=== PATIENT | female | born 1970 | race African-American/Black ===

== ENCOUNTER 2021-04-22 10:37 | Emergency (ER) | payer SELFPAY ==
[~2021-04-22] VITALS: Ht 162.6 cm; Wt 65.8 kg
[2021-04-22 10:44] VITALS: BP 157/98
[2021-04-22 11:27] LABS: Basophils # (auto) 0 10 ^3/uL (0-0.2); Basophils % (auto) 0.2 % (0.0-2.0); Eosinophils # (auto) 0 10 ^3/uL (0-0.8); Eosinophils % (auto) 0.1 % (0.0-7.0); Hematocrit 47.6 % (36.0-46.0); Hemoglobin 15.9 g/dL (12.2-16.2); Lymphocytes # (auto) 1.3 10 ^3/uL (0.4-5.4); Lymphocytes % (auto) 10.5 % (10.0-50.0); Mean Corpuscular Hemoglobin 29.8 pg (28.0-32.0); Mean Corpuscular Hgb Conc. 33.4 g/dL (32.0-36.0); Mean Corpuscular Volume 89.3 fL (80.0-100.0); Monocytes % (auto) 8.3 % (0.0-12.0); Neutrophils % (auto) 80.9 % (37.0-80.0); Nucleated Red Blood Cells % 0.2 %; Red Blood Cells 5.33 10^6/uL (4.0-5.20); White Blood Cell 12.4 10^3/uL (4.4-10.8)
[2021-04-22 11:47] LABS: Albumin 4.1 g/dL (3.4-5.0); Calcium 8.9 mg/dL (8.5-10.1); Potassium 3.4 mmol/L (3.5-5.1)
[2021-04-22 11:54] LABS: BUN/Creatinine Ratio 8.4; Bilirubin, Total 0.6 mg/dL (0.2-1.0); Total Protein 8.5 g/dL (6.4-8.2)
[2021-04-22] MEDS ORDERED: ACETAMINOPHEN 325 MG TAB PO ONE (12:30)
[2021-04-22] MEDS ORDERED: AMPICILLIN & SULBACTAM SODIUM 3 GM in SODIUM CHL 0.9% 100 ML IV ONE (12:30)
[2021-04-22] MEDS ORDERED: LACTATED RINGER'S 1,000 ML IV ONE (12:30)
[2021-04-22] MEDS ORDERED: IOHEXOL 300 MG/ML 100ML BOTTLE IJ ONE (12:32)
[2021-04-22] MEDS ORDERED: POTASSIUM EFFERVESENT TAB 25 MEQ PO ONE (14:30)
[2021-04-22] MEDS ORDERED: AMOX500T86 PO (19:18)
== END 2021-04-22 20:44 | disposition left against medical advice (07) ==
LOC: ER 10:37
DX: L02.01 Cutaneous abscess of face (principal); F17.210 Nicotine dependence, cigarettes, uncomplicated; F12.10 Cannabis abuse, uncomplicated; I10 Essential (primary) hypertension; Z53.29 Procedure and treatment not carried out because of patient's decision for other reasons
CPT/HCPCS: 36415; 70487; 80053; 83605; 84484; 85025; 87040; 93005; 96365; 99285; Q9967

== ENCOUNTER 2023-03-15 12:49 | Inpatient (IN) | payer MEDICAID ==
[~2023-03-15] VITALS: Ht 162.6 cm; Wt 68.2 kg
[~2023-03-15 12:49] MED LIST: AMOX500T86 PO
[2023-03-15] MEDS: cloNIDine HCL 0.1 MG TAB PO ONE ×2 (13:18→13:30)
[2023-03-15 13:59] LABS: Basophils # (auto) 0.1 10 ^3/uL (0-0.2); Basophils % (auto) 0.7 % (0.0-2.0); Eosinophils # (auto) 0.1 10 ^3/uL (0-0.8); Eosinophils % (auto) 1.4 % (0.0-7.0); Hematocrit 45.9 % (36.0-46.0); Hemoglobin 15.3 g/dL (12.2-16.2); Lymphocytes # (auto) 2.6 10 ^3/uL (0.4-5.4); Lymphocytes % (auto) 31.8 % (10.0-50.0); Mean Corpuscular Hgb Conc. 33.4 g/dL (32.0-36.0); Mean Corpuscular Volume 89.9 fL (80.0-100.0); Monocytes # (auto) 0.5 10 ^3/uL (0-1.3); Monocytes % (auto) 6.3 % (0.0-12.0); Neutrophils # (auto) 4.8 10 ^3/uL (1.6-8.6); Neutrophils % (auto) 59.8 % (37.0-80.0); Nucleated Red Blood Cells % 0.1 %; Red Blood Cells 5.11 10^6/uL (4.0-5.20); Red Cell Distribution Width 12.9 % (11.8-14.3)
[2023-03-15 14:07] LABS: Alanine Aminotransferase 13 U/L (7-40); Albumin 4.9 g/dL (3.2-4.8); Alkaline Phosphatase 78 U/L (46-116); Anion Gap 7 (5-15); Aspartate Aminotransferase 23 U/L (13-40); BUN/Creatinine Ratio 6.5 (10.0-20.0); Bilirubin, Total 0.5 mg/dL (0.2-1.0); Blood Urea Nitrogen 5 mg/dL (9-23); Calcium 10.3 mg/dL (8.5-10.1); Carbon Dioxide 28 mmol/L (20-30); Chloride 107 mmol/L (98-107); Glucose 82 mg/dL (74-106); Potassium 3.6 mmol/L (3.5-5.1); Sodium 142 mmol/L (136-145); Total Protein 7.7 g/dL (5.7-8.2)
[2023-03-15] MEDS ORDERED: SODIUM CHLORIDE 0.9% 1,000 ML IV ONE (14:15)
[2023-03-15 14:17] LABS: INR 1.1 (0.9-1.15); Partial Thromboplastin Time 29.1 SEC (24.5-34.5); Prothrombin Time 11.5 sec (9.3-11.8)
[2023-03-15] MEDS ORDERED: NITROGLYCERIN 0.4 MG SL TAB SL PRN (19:15)
[2023-03-15] MEDS ORDERED: HYDROcodone-ACET 5/325MG TAB PO PRN (19:15)
[2023-03-15] MEDS ORDERED: DOCUSATE SOD 100 MG CAP PO PRN (19:15)
[2023-03-15] MEDS ORDERED: ONDANSETRON HCL 4 MG/2 ML VIAL IV PRN (19:15)
[2023-03-15] MEDS ORDERED: MORPHINE SULFATE INJ 2 MG/ml SYRG IV PRN (19:15)
[2023-03-15 19:40] VITALS: PULSE 60; RESP 16; O2SAT 99
[2023-03-15] MEDS: SODIUM CHLOR 0.9% PF (SALINE LOCK) 10ML VIAL/SYR IV SCH (23:06)
[2023-03-15 23:51] VITALS: PULSE 76; RESP 16; O2SAT 96
[2023-03-16] MEDS: ACETAMINOPHEN 325 MG TAB PO PRN ×2 (00:43→10:16)
[2023-03-16 01:00] VITALS: BP 141/74; PULSE 78
[2023-03-16 05:00] VITALS: BP 132/86; PULSE 82; RESP 16; TEMP 98.6; O2SAT 93
[2023-03-16 06:05] LABS: Basophils # (auto) 0 10 ^3/uL (0-0.2); Basophils % (auto) 0.5 % (0.0-2.0); Eosinophils # (auto) 0.1 10 ^3/uL (0-0.8); Eosinophils % (auto) 1.6 % (0.0-7.0); Hematocrit 41.5 % (36.0-46.0); Hemoglobin 13.7 g/dL (12.2-16.2); Lymphocytes # (auto) 2.9 10 ^3/uL (0.4-5.4); Lymphocytes % (auto) 36.2 % (10.0-50.0); Mean Corpuscular Hemoglobin 29.6 pg (28.0-32.0); Mean Corpuscular Hgb Conc. 32.9 g/dL (32.0-36.0); Mean Corpuscular Volume 89.9 fL (80.0-100.0); Monocytes # (auto) 0.6 10 ^3/uL (0-1.3); Neutrophils # (auto) 4.4 10 ^3/uL (1.6-8.6); Neutrophils % (auto) 53.7 % (37.0-80.0); Nucleated Red Blood Cells % 0.1 %; Red Blood Cells 4.62 10^6/uL (4.0-5.20); Red Cell Distribution Width 12.8 % (11.8-14.3); White Blood Cell 8.1 10^3/uL (4.4-10.8)
[2023-03-16 06:48] LABS: Alanine Aminotransferase 11 U/L (7-40); Alkaline Phosphatase 61 U/L (46-116); Anion Gap 7 (5-15); Aspartate Aminotransferase 14 U/L (13-40); BUN/Creatinine Ratio 11.5 (10.0-20.0); Blood Urea Nitrogen 9 mg/dL (9-23); Calcium 9.5 mg/dL (8.5-10.1); Carbon Dioxide 25 mmol/L (20-30); Chloride 108 mmol/L (98-107); Glucose 96 mg/dL (74-106); Potassium 3.4 mmol/L (3.5-5.1); Sodium 140 mmol/L (136-145)
[2023-03-16 06:49] LABS: Bilirubin, Total 0.4 mg/dL (0.2-1.0); Total Protein 6.2 g/dL (5.7-8.2)
[2023-03-16] MEDS: SODIUM CHLOR 0.9% PF (SALINE LOCK) 10ML VIAL/SYR IV SCH ×2 (07:14→10:17)
[2023-03-16 08:00] VITALS: BP 143/83; PULSE 64; PULSE 70; RESP 18; TEMP 97.5; O2SAT 98
[2023-03-16 09:00] VITALS: BP 143/83; PULSE 70; RESP 18; TEMP 97.5; O2SAT 98
[2023-03-16] MEDS ORDERED: hydroCHLOROthiazide 25 MG TAB PO SCH (10:00)
[2023-03-16] MEDS ORDERED: HYDR25TA5 PO (10:52)
[2023-03-16 13:00] VITALS: BP 180/94; PULSE 74; RESP 19; TEMP 98.4; O2SAT 99
[2023-03-16] MEDS: hydrALAZINE HCL 20 MG/ML VL IV PRN ×2 (13:19)
[2023-03-16 15:37] VITALS: BP 160/86; PULSE 76; RESP 18; TEMP 97.6; O2SAT 98
[2023-03-18 09:37] LABS: Hepatitis B Surface Antigen Negative (Negative)
[2023-03-18 09:59] LABS: Hepatitis C Antibody Negative (Negative)
== END 2023-03-16 18:32 | disposition home or self-care (01) | DRG 199 ==
LOC: ER 12:49 → TELE 19:17 → TELE-WESTW 23:29
PROVIDERS: ADMIT Nurse Practitioner Family; ATTEND Nurse Practitioner Family
DX: I16.1 Hypertensive emergency (principal); I67.4 Hypertensive encephalopathy; E87.6 Hypokalemia; H53.8 Other visual disturbances; F12.90 Cannabis use, unspecified, uncomplicated; F17.210 Nicotine dependence, cigarettes, uncomplicated; I10 Essential (primary) hypertension; Z80.0 Family history of malignant neoplasm of digestive organs; Z80.3 Family history of malignant neoplasm of breast; Z82.3 Family history of stroke; Z82.49 Family history of ischemic heart disease and other diseases of the circulatory system; Z83.3 Family history of diabetes mellitus; Z86.32 Personal history of gestational diabetes; Z91.199 Patient's noncompliance with other medical treatment and regimen due to unspecified reason; Z71.6 Tobacco abuse counseling
CPT/HCPCS: 36415; 70450; 71045; 80053; 83735; 84443; 84484; 85025; 85610; 85730; 86803; 87340; 93005; 93306; G0378

== ENCOUNTER 2024-07-17 16:00 | Inpatient (IN) | payer MEDICAID ==
[~2024-07-17] VITALS: Ht 162.6 cm; Wt 67.8 kg
[~2024-07-17 16:00] MED LIST changes: +HYDR25TA5 PO
--- NOTE | 2024-07-17 16:10 | ED.PDOC ---
History of Present Illness HPI Comments 54-year-old female brought by ambulance because of chest pain. She was talking to someone while having chest pain. She had the chest pain around 2:45 this afternoon with radiation of pain to the back. She does have a history of hypertension. She smokes cigarettes marijuana. States that she never had chest pain like this in the past. She was given aspirin nitro in the field. Denies any other symptoms. Time Seen by MD: 16:04 Primary Care Provider: UNKNOWN Reviewed Notes: Nurses Notes, Medications, Allergies Allergies: Coded Allergies: No Known Drug Allergy (Verified Allergy, Unknown, 04/22/21) Home Meds Active Scripts Hctz (Hydrochlorothiazide) 25 Mg Tab, 25 MG PO DAILY, #90 TAB Prov:CLARITA WEEMS MD 03/16/23 Amoxicillin & Pot Clavulanate (Augmentin) 500 Mg Tab, 500 MG PO TID for 7 Days, #21 TAB Prov:JANE TORRES MD 04/22/21 Information Source: Patient, Emergency Med Personnel Mode of Arrival: EMS Severity: Moderate Timing: Hours Duration: Since onset Past Medical History PAST MEDICAL HISTORY: HTN Surgical History: Denies all surgeries COUPLER History: No Pertinent COUPLER History Family History Family History: Reviewed,noncontributory to illness Social History Smoker: Cigarettes Alcohol: Denies ETOH Use Drugs: Marijuana Lives In: Home Constitutional: denies: chills, diaphoresis, fatigue, fever, malaise, sweats, weakness, others EENTM: denies: blurred vision, double vision, ear bleeding, ear discharge, ear drainage, ear pain, ear ringing, eye pain, eye redness, hearing loss, mouth pain, mouth swelling, nasal discharge, nose bleeding, nose congestion, nose pain, photophobia, tearing, throat pain, throat swelling, voice changes, others Respiratory: denies: cough, hemoptysis, orthopnea, SOB at rest, shortness of breath, SOB with excertion, stridor, wheezing, others Cardiovascular: reports: chest pain; denies: dizzy spells, diaphoresis, Dyspnea on exertion, edema, irregular heart beat, left arm pain, lightheadedness, palpitations, PND, syncope, others Gastrointestinal: denies: abdomen distended, abdominal pain, blood streaked bowels, constipated, diarrhea, dysphagia, difficulty swallowing, hematemesis, melena, nausea, poor appetite, poor fluid intake, rectal bleeding, rectal pain, vomiting, others Genitourinary: denies: abnormal vagina bleeding, burning, dyspareunia, dysuria, flank pain, frequency, hematuria, incontinence, pain, , vagina discharge, urgency, others Musculoskeletal: denies: back pain, gout, joint pain, joint swelling, muscle pain, muscle stiffness, neck pain, others Integumetry: denies: bruises, change in color, change in hair/nails, dryness, laceration, lesions, lumps, rash, wounds, others Allergic/Immunocompromised: denies: Difficulty Healing, Frequent Infections, Hives, Itching, others Hematologic/Lymphatic: denies: anemia, blood clots, easy bleeding, easy bruising, swollen glands, others Endocrine: denies: excessive hunger, excessive sweating, excessive thirst, excessive urination, flushing, intolerance to cold, intolerance to heat, unexplained weight gain, unexplained weight loss, others Psychiatric: denies: anxiety, bipolar disorder, depression, hopeless, panic disorder, schizophrenia, sleepless, suicidal, others Physical Exam General Appearance: Moderate Distress HEENT: Normal ENT Inspection, Pharynx Normal, TMs Normal Neck: Full Range of Motion, Non-Tender, Normal, Normal Inspection Respiratory: Chest Non-Tender, Lungs Clear, No Accessory Muscle Use, No Respiratory Distress, Normal Breath Sounds Cardiovascular: No Edema, No JVD, No Murmur, No Gallop, Normal Peripheral Pulses, Regular Rate/Rhythm Breast Exam: Deferred Gastrointestinal: No Organomegaly, Non Tender, No Pulsatile Mass, Normal Bowel Sounds, Soft Genitalia: Deferred Pelvic: Deferred Rectal: Deferred Extremities: No calf tenderness, Normal capillary refill, Normal inspection, Normal range of motion, Non-tender, No pedal edema Musculoskeletal : Apperance: Normal Neurologic: Alert, 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 Was a procedure done?: No EKG EKG : Pulse Rate (adult): 60 [place]: Normal Cardiac Rhythm: NSR Differential Dx Considerations may include: Hypertension Electrolyte imbalance X-Ray, Labs, Meds, VS Vital Signs Date Time Temp Pulse Resp B/P (MAP) Pulse Ox O2 Delivery O2 Flow Rate FiO2 07/17/24 16:32 62 22 97 Room Air 07/17/24 16:32 98.3 62 22 177/84 (115) 97 98.3 07/17/24 16:29 177/84 07/17/24 16:24 97.5 70 18 163/101 (121) 97 97.5 07/17/24 16:10 60 07/17/24 16:00 60 Lab Test 07/17/24 16:30 Range/Units White Blood Count 12.8 H 4.4-10.8 10^3/uL Red Blood Count 4.50 4.0-5.20 10^6/uL Hemoglobin 13.8 12.2-16.2 g/dL Hematocrit 40.7 36.0-46.0 % Mean Corpuscular Volume 90.4 80.0-100.0 fL Mean Corpuscular Hemoglobin 30.6 28.0-32.0 pg Mean Corpuscular Hemoglobin Concent 33.9 32.0-36.0 g/dL Red Cell Distribution Width 13.2 11.8-14.3 % Platelet Count 209 140-450 10^3/uL Mean Platelet Volume 7.8 6.9-10.8 fL Neutrophils (%) (Auto) 75.3 37.0-80.0 % Lymphocytes (%) (Auto) 16.3 10.0-50.0 % Monocytes (%) (Auto) 6.8 0.0-12.0 % Eosinophils (%) (Auto) 1.1 0.0-7.0 % Basophils (%) (Auto) 0.5 0.0-2.0 % Neutrophils # (Auto) 9.7 H 1.6-8.6 10 ^3/uL Lymphocytes # (Auto) 2.1 0.4-5.4 10 ^3/uL Monocytes # (Auto) 0.9 0-1.3 10 ^3/uL Eosinophils # (Auto) 0.1 0-0.8 10 ^3/uL Basophils # (Auto) 0.1 0-0.2 10 ^3/uL Nucleated Red Blood Cells 0.1 % Sodium Level 140 136-145 mmol/L Potassium Level 3.5 3.5-5.1 mmol/L Chloride Level 106 98-107 mmol/L Carbon Dioxide Level 28 20-31 mmol/L Anion Gap 6 5-15 Blood Urea Nitrogen 11 9-23 mg/dL Creatinine 0.82 0.550-1.02 mg/dL Glomerular Filtration Rate Calc 85 >90 mL/min BUN/Creatinine Ratio 13.4 10.0-20.0 Serum Glucose 101 74-106 mg/dL Calcium Level 10.4 8.7-10.4 mg/dL Troponin I High Sensitivity 45 *H </=34 ng/L Patient alert. Complaining of chest pain. Vitals stable. Answering questions. EKG reviewed does not show any acute changes. Continues to smoke cigarettes. Counseled patient on effects of smoking cigarettes for 15 minutes. Reviewed her history. Was given nitroglycerin. Cardiac marker elevated. Was given Lovenox. WBC elevated. Neutrophils elevated. Chest x-ray reviewed does show mild inflammation. Possible pneumonitis. Was given Rocephin. Explained to the patient. Continue cardiac monitoring. Time of 1ST Reevaluation: 16:08 Reevaluation 1ST: Unchanged Patient Education/Counseling: Diagnosis, Treatment, Prognosis Family Education/Counseling: No Family Present Departure 1 Departure Time of Disposition: 16:09 Impression: Primary Impression: Chest pain of unknown etiology Additional Impressions: HTN (hypertension) Qualified Codes: I10 - Essential (primary) hypertension Pneumonitis Disposition: ADMITTED INPATIENT Admit to: Med Surg Condition: Guarded Critical Care Note Critical Care Time?: No Stability Stability form required: No Heart Score Heart Score: Heart Score Response (Comments) Value History Slightly Suspicious 0 EKG Normal 0 Age <45 0 Risk Factors 1 or 2 risk factors 1 Troponin Normal limit 0 Total 1 ROBE MIRANDA MD Jul 17, 2024 16:10
[2024-07-17] MEDS: NITROGLYCERIN 0.4 MG SL TAB SL ONE (16:29)
[2024-07-17 16:42] LABS: Basophils # (auto) 0.1 10 ^3/uL (0-0.2); Basophils % (auto) 0.5 % (0.0-2.0); Eosinophils # (auto) 0.1 10 ^3/uL (0-0.8); Eosinophils % (auto) 1.1 % (0.0-7.0); Hematocrit 40.7 % (36.0-46.0); Hemoglobin 13.8 g/dL (12.2-16.2); Lymphocytes # (auto) 2.1 10 ^3/uL (0.4-5.4); Lymphocytes % (auto) 16.3 % (10.0-50.0); Mean Corpuscular Hemoglobin 30.6 pg (28.0-32.0); Mean Corpuscular Hgb Conc. 33.9 g/dL (32.0-36.0); Mean Corpuscular Volume 90.4 fL (80.0-100.0); Monocytes # (auto) 0.9 10 ^3/uL (0-1.3); Monocytes % (auto) 6.8 % (0.0-12.0); Neutrophils # (auto) 9.7 10 ^3/uL (1.6-8.6); Neutrophils % (auto) 75.3 % (37.0-80.0); Nucleated Red Blood Cells % 0.1 %; Platelet Count (auto) 209 10^3/uL (140-450); Red Cell Distribution Width 13.2 % (11.8-14.3); White Blood Cell 12.8 10^3/uL (4.4-10.8)
--- NOTE | 2024-07-17 16:51 | DVH ---
INDICATION: sob TECHNIQUE: Frontal view of the chest. COMPARISON: XY CHEST PORTABLE on DOS: 03/15/23 FINDINGS: . The heart and mediastinal contours are grossly unremarkable. There is no evidence of pleural disea se. The lungs are clear. The bony structures of the chest are intact without fracture. IMPRESSION: 1. No evidence of acute disease.
[2024-07-17 16:54] LABS: Chloride 106 mmol/L (98-107); Potassium 3.5 mmol/L (3.5-5.1); Sodium 140 mmol/L (136-145)
[2024-07-17 16:55] LABS: Anion Gap 6 (5-15); Calcium 10.4 mg/dL (8.7-10.4); Carbon Dioxide 28 mmol/L (20-31)
[2024-07-17 17:00] LABS: BUN/Creatinine Ratio 13.4 (10.0-20.0); Blood Urea Nitrogen 11 mg/dL (9-23); Glucose 101 mg/dL (74-106)
[2024-07-17] MEDS: ENOXAPARIN SOD 80 MG/0.8ML SYRINGE SC ONE (17:55)
[2024-07-17] MEDS: cefTRIAXone 1GM/50ML D5W 50 ML IV ONE (17:55)
[2024-07-17 17:56] LABS: Urine Bacteria None Seen /hpf (None Seen)
[2024-07-17 18:06] LABS: Urine Blood Negative /uL (Negative); Urine Clarity Clear (Clear); Urine Color Light-Yellow (Yellow); Urine Protein, UAD Negative (Negative); Urine Squamous Epithelial Cell FEW /hpf (<5); Urine Urobilinogen Normal (Negative); Urine WBC 1 /HPF (0-5)
[2024-07-17 18:12] VITALS: PULSE 72; RESP 18; O2SAT 99
--- NOTE | 2024-07-17 18:27 | ECG ---
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
[2024-07-17] MEDS: ASPirin 325 MG TAB PO ONE (21:20)
--- NOTE | 2024-07-17 21:40 | DVHHPRES ---
History of Present Illness Resident Creating Document: SRI FELICIANO History of Present Illness Varsha Espinosa is a 54 year old female patient who presents to the ED chief complaint of retrosternal and posterior radiation towards back in epigastrium oppressive chest pain which started at 2:40 p.m. in functional class IV, intensity 10/10 while having an argument with family member, that was initially associated with diaphoresis, bilateral leg weakness, nausea and dry heaves and dyspnea, due to persistent chest pain symptom, patient decided to visit the ED. during ED visit troponin trending up (45,84 and 416) associated with severe hypertension. Past medical history: Hypertension, gestational diabetes, asthma (no inhalers), has questionable cholelithiasis (never completed any abdominal imaging), intermittent claudication for the past year, uterine fibroids, menopause (last menstrual period 06/2020). Patient does not follow with PCP. Patient is noncompliant Surgical history: Foot surgery for hammertoe Family history: Father and mother had hypertension and stroke. Father has history of colon cancer, cousin had breast cancer Social history: Originally from [place], currently lives in [place] with cousin. She is a current smoker (approximately 15 pack-year history of smoking). Occasionally marijuana abuse. Denies current tobacco and other drug abuse Allergies: Pollen and dust Home medication: Nifedipine (patient does not take medication) Patient seen and examined at bedside. Still complaining of retrosternal oppressive chest pain which radiates towards back (intensity 9/10. Have discussed completing complementary workup to rule out aortic dissection, patient agrees. Optimize blood pressure medication (still presents severe hypertension), if it does not respond with p.o. and IV medication, will indicate nitroglycerin drip. Past Medical History Per HPI Past Surgical History Per HPI Family History Per HPI Past Social History Per HPI Review of Systems Review of Systems Per HPI Allergies: Coded Allergies: No Known Drug Allergy (Verified Allergy, Unknown, 04/22/21) Medications Current Medications Medications Dose Ordered Sig/Remy Route Start Time Stop Time Status Last Admin Dose Admin Hydralazine HCl 10 mg Q6HP PRN IV 07/17/24 21:00 UNV Valsartan 80 mg DAILY PO 07/18/24 10:00 UNV Atorvastatin Calcium 40 mg HS PO 07/17/24 22:00 UNV Aspirin 81 mg DAILY PO 07/18/24 10:00 UNV Ondansetron HCl 4 mg Q4HP PRN IV 07/17/24 21:45 UNV Morphine Sulfate 2 mg Q4HPRN PRN IV 07/17/24 21:45 UNV Nitroglycerin 0.4 mg Q5MINP PRN SL 07/17/24 21:45 UNV Morphine Sulfate 2 mg Q30M PRN IV 07/17/24 21:45 UNV Acetaminophen 325 mg Q4HP PRN PO 07/17/24 21:45 UNV Pantoprazole Sodium 40 mg DAILY IV 07/18/24 10:00 UNV Nifedipine 60 mg DAILY PO 07/18/24 10:00 UNV Exam Vital Signs Vital Signs Date Time Temp Pulse Resp B/P (MAP) Pulse Ox O2 Delivery O2 Flow Rate FiO2 07/17/24 20:19 97.7 72 18 192/90 (124) 100 97.7 07/17/24 18:12 Room Air* 0 21 Exam Patient lying in bed, in no acute distress General: Lucid, afebrile, mucosae are moist Cardiovascular: Normal S1 and S2. No murmurs, gallops or rubs. No asymmetry in upper bilateral radial pulses. Chest pain partially reproduced by palpation. Respiratory: Normal ventilation mechanics. Clear lung sounds on auscultation Abdomen: Soft, nontender, no organomegaly, normal bowel sounds MSK/skin: Mobilizes 4 limbs. Skin is dry and warm. Reduced pedal and anterior tibial artery pulses in bilateral foot predominantly on right side. Neurological: Oriented in 3 spheres. No motor no sensitive deficits. Pupils are isocoric and reactive Labs/Xrays Labs Test 07/17/24 21:21 07/17/24 19:23 07/17/24 17:56 07/17/24 16:30 Range/Units Troponin I High Sensitivity 416 *H </=34 ng/L Urine Color Light-yellow Yellow Urine Clarity Clear Clear Urine pH 6.0 5.0-9.0 Urine Specific [place] 1.010 1.001-1.035 Urine Protein Negative Negative Urine Ketones Negative Negative Urine Blood Negative Negative /uL Urine Nitrite Negative Negative Urine Bilirubin Negative Negative Urine Urobilinogen Normal Negative mg/dL Urine Leukocyte Esterase Negative Negative /uL Urine RBC 1 0 - 4 /hpf Urine Microscopic WBC 1 0-5 /HPF Urine Squamous Epithelial Cells Few <5 /hpf Urine Bacteria None seen None Seen /hpf Urine Glucose Normal Normal mg/dL White Blood Count 12.8 H 4.4-10.8 10^3/uL Red Blood Count 4.50 4.0-5.20 10^6/uL Hemoglobin 13.8 12.2-16.2 g/dL Hematocrit 40.7 36.0-46.0 % Mean Corpuscular Volume 90.4 80.0-100.0 fL Mean Corpuscular Hemoglobin 30.6 28.0-32.0 pg Mean Corpuscular Hemoglobin Concent 33.9 32.0-36.0 g/dL Red Cell Distribution Width 13.2 11.8-14.3 % Platelet Count 209 140-450 10^3/uL Mean Platelet Volume 7.8 6.9-10.8 fL Neutrophils (%) (Auto) 75.3 37.0-80.0 % Lymphocytes (%) (Auto) 16.3 10.0-50.0 % Monocytes (%) (Auto) 6.8 0.0-12.0 % Eosinophils (%) (Auto) 1.1 0.0-7.0 % Basophils (%) (Auto) 0.5 0.0-2.0 % Neutrophils # (Auto) 9.7 H 1.6-8.6 10 ^3/uL Lymphocytes # (Auto) 2.1 0.4-5.4 10 ^3/uL Monocytes # (Auto) 0.9 0-1.3 10 ^3/uL Eosinophils # (Auto) 0.1 0-0.8 10 ^3/uL Basophils # (Auto) 0.1 0-0.2 10 ^3/uL Nucleated Red Blood Cells 0.1 % Sodium Level 140 136-145 mmol/L Potassium Level 3.5 3.5-5.1 mmol/L Chloride Level 106 98-107 mmol/L Carbon Dioxide Level 28 20-31 mmol/L Anion Gap 6 5-15 Blood Urea Nitrogen 11 9-23 mg/dL Creatinine 0.82 0.550-1.02 mg/dL Glomerular Filtration Rate Calc 85 >90 mL/min BUN/Creatinine Ratio 13.4 10.0-20.0 Serum Glucose 101 74-106 mg/dL Calcium Level 10.4 8.7-10.4 mg/dL Assessment/Plan Assessment/Plan Assessment: NSTEMI questionable type 1 Hypertensive emergency Rule out aortic dissection Leukocytosis Rule out PAD History uterine fibroids Plan: Ordered angio CT to rule out aortic dissection Optimize antihypertensive medication currently with p.o. and IV boluses. If patient does not respond in continues with pain we will indicate nitroglycerin drip Ordered arterial duplex of bilateral lower limbs to rule out PAD Ordered echocardiogram, pending Consulted cardiology to evaluate need of coronary angiography Goals of care discussed with patient for over 18 minutes: Full code status Discussed plan with Dr. Stone, patient and nurses: We will complete Angio CT to rule out aortic dissection. We will admit patient once ruled out, we will complete echocardiogram, serial EKG, and trend troponin. Optimizing afterload with p.o. and IV medication, nitroglycerin drip on standby. Consulted Cardiology for eventual need of coronary angiography. Plan discussed with: Patient, Other (Nurses) My Orders Orders - SRI FELICIANO RESIDENT Procedure Category Date Status Time Hydralazine Injection PHA 07/17/24 Logged (Apresoline Inject 21:00 Valsartan (Diovan) PHA 07/18/24 Logged 10:00 Valsartan (Diovan) PHA 07/17/24 Logged 21:00 Atorvastatin (Lipitor) PHA 07/17/24 Logged 22:00 Aspirin Tablet PHA 07/18/24 Logged 10:00 Vitamin D, 25-Hydroxy LAB 07/17/24 In Process 20:55 Vitamin B12 LAB 07/17/24 In Process 20:55 Thyroid Stimulating LAB 07/17/24 In Process Hormone 20:55 PTPTT LAB 07/17/24 In Process 20:55 Phosphorus LAB 07/17/24 In Process 20:55 Magnesium LAB 07/17/24 In Process 20:55 Lipid Panel LAB 07/17/24 In Process 20:55 Lactic Acid W/ Reflex LAB 07/17/24 In Process Order 20:55 Hemoglobin A1c LAB 07/17/24 In Process 20:55 Drug Screen LAB 07/17/24 Logged 20:55 Ct Angio Abd Aorta W CT 07/17/24 Logged Run Off 21:31 Admit ADMIT 07/17/24 Transmitted 21:32 Code Status CODE 07/17/24 Transmitted 21:32 Vital Signs ANILA 07/17/24 In Process 21:32 Review Orders With ANILA 07/17/24 In Process Adm. 21:32 Npo (Nothing By DIET 07/18/24 Transmitted Mouth) Diet Breakfast Notify Md Of Changes ANILA 07/17/24 In Process From Base 21:32 Advance Directive ANILA 07/17/24 In Process 21:32 Echo 2d Mode Cardiac US 07/17/24 Logged DOP 21:32 Patient Condition ORDERS 07/17/24 Transmitted 21:32 Allergies ANILA 07/17/24 In Process 21:32 Ondansetron Hcl PHA 07/17/24 Logged (Zofran) 21:45 Morphine Sulfate PHA 07/17/24 Logged Injection 21:45 Nitroglycerin PHA 07/17/24 Logged Sublingual (Ntrostat 21:45 Morphine Sulfate PHA 07/17/24 Logged Injection 21:45 Oxygen By Nasal RT 07/17/24 Transmitted Cannula 21:32 Stat Ekg For Chest ANILA 07/17/24 In Process Pain 21:32 Notify Md Of Changes [facility] 07/17/24 In Process From Base 21:32 Road Boss For [facility] 07/17/24 In Process 24 Hours 21:32 Emergency Dysrhythmia ANILA 07/17/24 In Process Protocol 21:32 Rhythm Strips Once ANILA 07/17/24 In Process Every Shift 21:32 Nitroglycerin PHA 07/17/24 In Process 50mg/250ml (Tridil) 21:45 Acetaminophen Tablet PHA 07/17/24 Logged (Tylenol Tablet) 21:45 Pantoprazole PHA 07/17/24 Logged (Protonix) 21:45 Pantoprazole PHA 07/18/24 Logged (Protonix) 10:00 Nifedipine Er PHA 07/18/24 Logged (Procardia Xl 10:00 Bilat Low Ext Art US 07/17/24 Logged Duplex 21:37 * Cardiology Consult CONS 07/17/24 Transmitted 21:38 Date of Service: Jul 17, 2024 Billing Provider: FEMI STONE MD Common Visit Codes: 55103-INGUONK INP/OBS CARE (HIGH) SRI FELICIANO RESIDENT Jul 17, 2024 21:40 FEMI STONE MD Jul 18, 2024 09:54
[2024-07-17] MEDS ORDERED: NITROGLYCERIN 0.4 MG SL TAB SL PRN (21:45)
[2024-07-17] MEDS ORDERED: ACETAMINOPHEN 325 MG TAB PO PRN (21:45)
[2024-07-17] MEDS ORDERED: ONDANSETRON HCL 4 MG/2 ML VIAL IV PRN (21:45)
[2024-07-17] MEDS ORDERED: NITROGLYCERIN 50MG/250ML 250 ML IV ONE (21:45)
[2024-07-17] MEDS ORDERED: MORPHINE SULFATE INJ 2 MG/ml SYRG IV PRN (21:45)
[2024-07-17 21:49] LABS: Phosphorus 4.1 mg/dL (2.4-5.1)
[2024-07-17 22:02] LABS: INR 1.09 (0.9-1.15); Partial Thromboplastin Time 31.3 SEC (24.5-34.5); Prothrombin Time 11.5 sec (9.3-11.8)
[2024-07-17] MEDS: IOHEXOL 350 MG/ML 100ML IJ ONE (22:50)
[2024-07-17] MEDS: PANTOPRAZOLE 40 MG/10 ML VIAL INJ IV ONE (23:03)
[2024-07-17] MEDS: VALSARTAN 80 MG TAB PO ONE (23:03)
[2024-07-17] MEDS: ATORVASTATIN 20 MG TAB PO SCH (23:04)
--- NOTE | 2024-07-17 23:07 | DVH ---
Lower Extremity Arterial Duplex Clinical History: Intermittent claudication Comparison: None Technique: Duplex Doppler evaluation including color Doppler and spectral/pulsed waveform analysis of the lower extremity arteries was performed. Findings: Common femoral artery has good flow has a try phasic waveform with peak systolic velocity o f 88.3 cm/sec. Right profunda has a triphasic waveform with good flow peak systolic velocity of 70 0.2 cm/sec. The proximal superficial femoral artery has a biphasic waveform and has a peak systolic velocity is 7 2.3 cm/sec. Mid right superficial femoral artery has a biphasic waveform with peak systolic velocity of 90.5 cm/s ec. The distal right superficial femoral artery. Velocity is 91.7 cm/sec. Right popliteal artery has a peak systolic velocity of 76 cm/sec and a biphasic waveform. Right posterior tibialis artery has a peak systolic velocity is 64.5 cm/sec and a triphasic waveform. The right dorsal pedis artery has a biphasic waveform and peak systolic velocity of 65.8 cm/sec. Right anterior tibialis artery has a peak systolic velocity 25 cm/sec and biphasic waveform. In the left side left common femoral artery has a triphasic waveform peak systolic velocity of 106.5 cm/sec. Left profunda has a biphasic waveform and peak systolic velocity of 85.4 cm/sec. The left proximal superficial femoral artery has a biphasic waveform and peak systolic velocity is 77 .5 cm/sec. Mid left superficial femoral artery has a biphasic waveform peak systolic velocity 98.4 cm/sec. Distal left superficial femoral artery has a peak systolic velocity of 96.7 cm/sec and biphasic wavef orm. Left popliteal artery has a biphasic waveform and peak systolic velocity is 74.6 cm/sec. Left posterior tibialis artery has a triphasic waveform and peak systolic velocity of 80.1 cm/sec. Left dorsal pedis artery has a triphasic waveform peak systolic velocity 83.4 cm/sec. Left anterior tibialis artery has a triphasic waveform and peak systolic velocity of 103 cm/sec. . IMPRESSION: 1. No evidence for significant stenosis REFERENCE VALUES, [facility] ([facility]) vascular Imaging Lab Criteria: Peak systolic velocity ranges (in cm/sec) are as follows: <150 cm/s - <20 % stenosis 150-200 cm/s - 20-49% stenosis 200-300 cm/s - 50-75% stenosis >300 cm/s -> 75% stenosis
--- NOTE | 2024-07-18 02:49 | DVH ---
CTA ABDOMEN AND PELVIS and bilateral lower extremity runoff Clinical Indication: Female, 54 old. 54 years old, Female; Rule out Aortic disection. Technique: Multiple contiguous axial images were obtained through the abdomen and pelvis and runoff to the bilateral lower extremities following the administration of IV contrast material. Post process ing coronal and sagittal reconstruction images were made from the axial images. Image post-processing was obtained. MIP images of the abdomen pelvis and bilateral lower extremities obtained. DLP: 1088.20 CTDI: 0.28+ 7.4+ 31.57 Comparison: None ABDOMEN AND PELVIS FINDINGS: Lower chest: Unremarkable Liver and Biliary system: Mild hepatomegaly measuring 18 cm craniocaudal. There is mild hepatic steat osis. The major portal veins are patent. Gallbladder is normal caliber. No biliary ductal dilatation. Spleen: Unremarkable. Adrenal Glands and Kidneys: There is a 1.3 cm left adrenal gland myelolipoma. The right adrenal gla nd is unremarkable. There is no hydronephrosis or nephrolithiasis. Pancreas and Retroperitoneum: Unremarkable. Aorta and Major Vessels: Widely patent abdominal aorta containing mild mixed atherosclerotic plaque. Widely patent origins of the celiac axis, SMA, single bilateral renal arteries, and SOM. Widely cesar nt origins of the bilateral common iliac arteries. The bilateral common, internal common and external iliac arteries are widely patent and normal caliber. Bowel, Mesentery and Peritoneal space: Normal caliber bowel loops. Normal appendix. No free air or fl uid collection Pelvis: Circumferential bladder wall thickening though is underdistended. The uterus and ovaries are present. There is no pelvic lymphadenopathy. Abdominal wall and Osseous Structures: [id number] degenerative disc disease at L5-S1. No destr uctive osseous lesion. Soft tissue thickening or scarring in the anterior left abdominal wall on seri es 4, image 101. Lower extremities: Right lower extremity: Widely patent and normal caliber right common, superficial, and deep femoral arteries. Widely patent popliteal artery. Widely patent trifurcation arteries with 3-vessel runoff to the foot. No acute osseous abnormality. Normal mineralization and alignment. The Muscle bundles about the right lower extremity are intact. Left lower extremity: Widely patent and normal caliber right common, superficial, and deep femoral arteries. Widely patent popliteal artery. Widely patent trifurcation arteries with 3-vessel runoff to the foot. No acute osseous abnormality. Normal mineralization and alignment. The Muscle bundles about the right lower extremity are intact. IMPRESSION: 1. Widely patent aortoiliac vessels and branch vessels without dissection, aneurysm, or significant s tenosis. 2. Widely patent arteries in the bilateral lower extremities with 3-vessel runoff to the feet. 3. No acute osseous abnormality. 4. Circumferential bladder wall thickening which may be due to underdistention. Correlate with urina lysis if there is clinical concern for cystitis. 5. Mild hepatomegaly with mild hepatic steatosis.
[2024-07-18 03:40] LABS: Cannabinoid Screen, Urine Pos (NEGATIVE)
[2024-07-18 03:44] LABS: Amphetamine Screen, Urine Neg (NEGATIVE); Barbiturate Scree,Urine Neg (NEGATIVE); Benzodiazephine Screen, Urine Neg (NEGATIVE); Cocaine Screen, Urine Neg (NEGATIVE); Opiate Scree,Urine Neg (NEGATIVE); Phencyclidine Screen, Urine Neg (NEGATIVE)
[2024-07-18 05:57] LABS: Potassium 3.7 mmol/L (3.5-5.1); Sodium 142 mmol/L (136-145)
[2024-07-18 05:58] LABS: Anion Gap 4 (5-15); Calcium 9.9 mg/dL (8.7-10.4); Carbon Dioxide 26 mmol/L (20-31)
[2024-07-18 06:03] LABS: BUN/Creatinine Ratio 12.3 (10.0-20.0); Blood Urea Nitrogen 10 mg/dL (9-23); Glucose 99 mg/dL (74-106)
[2024-07-18 06:04] LABS: Chloride 112 mmol/L (98-107)
[2024-07-18 06:21] LABS: Basophils # (auto) 0.1 10 ^3/uL (0-0.2); Basophils % (auto) 0.6 % (0.0-2.0); Eosinophils # (auto) 0.2 10 ^3/uL (0-0.8); Eosinophils % (auto) 2.7 % (0.0-7.0); Hematocrit 40.5 % (36.0-46.0); Hemoglobin 13.9 g/dL (12.2-16.2); Lymphocytes # (auto) 3.5 10 ^3/uL (0.4-5.4); Lymphocytes % (auto) 38.3 % (10.0-50.0); Mean Corpuscular Hemoglobin 31.1 pg (28.0-32.0); Mean Corpuscular Hgb Conc. 34.3 g/dL (32.0-36.0); Mean Corpuscular Volume 90.5 fL (80.0-100.0); Monocytes # (auto) 0.7 10 ^3/uL (0-1.3); Monocytes % (auto) 7.3 % (0.0-12.0); Neutrophils # (auto) 4.6 10 ^3/uL (1.6-8.6); Neutrophils % (auto) 51.1 % (37.0-80.0); Nucleated Red Blood Cells % 0.1 %; Platelet Count (auto) 202 10^3/uL (140-450); Red Blood Cells 4.48 10^6/uL (4.0-5.20)
[2024-07-18] MEDS: ENOXAPARIN SOD 60 MG/0.6 ML SYRINGE SC SCH (06:56)
[2024-07-18 08:00] VITALS: PULSE 61; RESP 13; O2SAT 98
[2024-07-18] MEDS ORDERED: hydroCHLOROthiazide 25 MG TAB PO SCH (10:00)
--- NOTE | 2024-07-18 11:22 | DVHINCON2 ---
HIRAM ORTIZ [facility] 07/18/24 1122: Date Seen: Jul 18, 2024 Referring Physician MD Jules Reason for Consultation NSTEMI History of Present Illness This is a 54-year-old female who presented to the emergency room via EMS with a chief complaint of chest pain since 1445 yesterday. Described her chest pain as substernal, radiating to the left inframammary area, tightness/sharp in nature, and triggered by an argument with a family member. EN route to the hospital she was medicated with NTG 0.4 mg SL x2, ASA 81 mg, Zofran 4 mg, and an BGL of 96 mg/dL. Denies any relief of symptoms with aforementioned medications. At time of assessment the patient was undergoing a transthoracic echocardiogram at bedside. Upon inquiring about symptoms, the patient stated the chest pain had resolved but it was now triggered by the Doppler probe pressing over the chest area. An initial 12 lead electrocardiogram revealed a sinus rhythm suggestive of left ventricular hypertrophy with a subsequent 12 lead electrocardiogram obtained at bedside revealing a normal sinus rhythm without progressive ST changes. Serial troponin levels are trending up with latest >1100 ng/L. The ana gonsalez presented with a systolic blood pressure in the 160s mmHg. States she takes Nifedipine therapy only when feeling ill and stopped taking HCTZ a few weeks ago. Significant medical history includes hypertension, gestational diabetes, tobacco abuse including a 28 pack-year history, and cannabinoid use. Past Medical History Past medical history reviewed. No other significant than mentioned above. Past Surgical History Past surgical history reviewed. No other significant than mentioned above. Family History: Colon cancer G8 MOTHER Diabetes mellitus G8 FATHER FH: breast cancer G8 MOTHER FH: heart attack G8 FATHER FH: stroke G8 MOTHER G8 FATHER Hypertension G8 MOTHER G8 FATHER Family History Family history reviewed. Father with history of angina. Maternal great grandfather with history of myocardial infarction. Social History Admits to cannabinoid and tobacco use. Denies any use of alcohol. Allergies: Coded Allergies: No Known Drug Allergy (Verified Allergy, Unknown, 04/22/21) Home Meds Active Scripts Hctz (Hydrochlorothiazide) 25 Mg Tab, 25 MG PO DAILY, #90 TAB Prov:CLARITA WEEMS MD 03/16/23 Amoxicillin & Pot Clavulanate (Augmentin) 500 Mg Tab, 500 MG PO TID for 7 Days, #21 TAB Prov:JANE TORRES MD 04/22/21 Home Meds Home medications reviewed. Current Medications Current Medications Medications (Trade) Dose Ordered Sig/Remy Route PRN Reason Start Time Stop Time Status Last Admin Hydrochlorothiazide (hydroCHLOROthiazide TABLET) 25 mg DAILY PO 07/18/24 10:00 07/17/24 21:36 DC Hydralazine HCl (Apresoline Injection) 10 mg Q6HP PRN IV SBP>150 07/17/24 21:00 Valsartan (Diovan) 80 mg DAILY PO 07/18/24 10:00 Atorvastatin Calcium (Lipitor) 40 mg HS PO 07/17/24 22:00 07/17/24 23:04 Aspirin 81 mg DAILY PO 07/18/24 10:00 Ondansetron HCl (Zofran) 4 mg Q4HP PRN IV NAUSEA / VOMITING 07/17/24 21:45 Morphine Sulfate 2 mg Q4HPRN PRN IV SEVERE PAIN (7-10 PAIN SCALE) 07/17/24 21:45 Nitroglycerin (Ntrostat Sublingual) 0.4 mg Q5MINP PRN SL FOR CHEST PAIN 07/17/24 21:45 Morphine Sulfate 2 mg Q30M PRN IV FOR CHEST PAIN 07/17/24 21:45 Acetaminophen (Tylenol Tablet) 325 mg Q4HP PRN PO PAIN SCALE 1-3 OR TEMP>100.4 07/17/24 21:45 Pantoprazole Sodium (Protonix) 40 mg DAILY IV 07/18/24 10:00 Nifedipine (Procardia Xl (Time-Release)) 60 mg DAILY PO 07/18/24 10:00 Enoxaparin Sodium (Lovenox) 60 mg Q12HR@0600,1800 SC 07/18/24 06:00 07/18/24 06:56 Review of Systems Constitutional: No symptom reported Ears, Nose, & Throat: No symptom reported Eyes: No symptom reported Neurological: No symptoms reported Pulmonary/Respiratory: No symptom reported Cardiovascular: Chest pain Gastrointestinal: No symptom reported Genitourinary: No symptom reported Musculoskeletal: No symptom reported Skin: No symptom reported Psychiatric: No symptom reported Endocrine: No symptom reported Hemotologic/Lymphatic: No symptom reported Vital Signs Vital Signs Date Time Temp Pulse Resp B/P (MAP) Pulse Ox O2 Delivery O2 Flow Rate FiO2 07/18/24 10:13 55 07/18/24 08:00 13 143/82 (102) 98 07/18/24 08:00 Room Air* 0 21 07/17/24 23:05 98.0 98.0 Physical Exam General Appearance: Cooperative. Well developed. Well nourished. In no acute distress Head Exam: Normal inspection Neck Exam: Normal inspection. Non-tender. Normal alignment Pulmonary/Respiratory: Chest non-tender. Clear bilateral breath sounds Cardiovascular/Chest: Regular rate and rhythm. S1, S2. Sinus rhythm suggestive of LVH. No ST changes present. No murmurs. No JVD. Peripheral Pulses: 2+ Radial (R). 2+ Radial (L). 2+ Pedal (R). 2+ Pedal (L) Abdominal Exam: Normal bowel sounds. Soft. Nontender. No hepatospenomegaly. No masses Ankle Exam: Negative ankle edema Lower extremities: Negative lower extremity edema Neuro/Mental Status: A&O x4. Coherent Thoughts/Psych: Normal thought pattern. Appropriate mood and affect. Good judgement and insight Appearance: In no acute distress Skin Exam: Normal inspection. Normal color. Warm. Dry Labs/Diagnostic Data Labs Test 07/18/24 10:10 07/18/24 05:17 07/17/24 21:21 07/17/24 17:56 Range/Units White Blood Count 9.0 # 4.4-10.8 10^3/uL Red Blood Count 4.48 4.0-5.20 10^6/uL Hemoglobin 13.9 12.2-16.2 g/dL Hematocrit 40.5 36.0-46.0 % Mean Corpuscular Volume 90.5 80.0-100.0 fL Mean Corpuscular Hemoglobin 31.1 28.0-32.0 pg Mean Corpuscular Hemoglobin Concent 34.3 32.0-36.0 g/dL Red Cell Distribution Width 13.0 11.8-14.3 % Platelet Count 202 140-450 10^3/uL Mean Platelet Volume 8.2 6.9-10.8 fL Neutrophils (%) (Auto) 51.1 37.0-80.0 % Lymphocytes (%) (Auto) 38.3 10.0-50.0 % Monocytes (%) (Auto) 7.3 0.0-12.0 % Eosinophils (%) (Auto) 2.7 0.0-7.0 % Basophils (%) (Auto) 0.6 0.0-2.0 % Neutrophils # (Auto) 4.6 1.6-8.6 10 ^3/uL Lymphocytes # (Auto) 3.5 0.4-5.4 10 ^3/uL Monocytes # (Auto) 0.7 0-1.3 10 ^3/uL Eosinophils # (Auto) 0.2 0-0.8 10 ^3/uL Basophils # (Auto) 0.1 0-0.2 10 ^3/uL Nucleated Red Blood Cells 0.1 % Sodium Level 142 136-145 mmol/L Potassium Level 3.7 3.5-5.1 mmol/L Chloride Level 112 H 98-107 mmol/L Carbon Dioxide Level 26 20-31 mmol/L Anion Gap 4 L 5-15 Blood Urea Nitrogen 10 9-23 mg/dL Creatinine 0.81 0.550-1.02 mg/dL Glomerular Filtration Rate Calc 86 >90 mL/min BUN/Creatinine Ratio 12.3 10.0-20.0 Serum Glucose 99 74-106 mg/dL Calcium Level 9.9 8.7-10.4 mg/dL Prothrombin Time 11.5 9.3-11.8 sec Prothrombin Time INR 1.09 0.9-1.15 Activated Partial Thromboplast Time 31.3 24.5-34.5 SEC Hemoglobin A1c 4.7 <5.7 % A1C Lactic Acid Level 1.2 0.4-2.0 mmol/L Phosphorus Level 4.1 2.4-5.1 mg/dL Magnesium Level 2.0 1.6-2.6 mg/dL Triglycerides Level 107 < 150 mg/dL Cholesterol Level 194 < 200 mg/dL LDL Cholesterol 117 H < 100 mg/dL HDL Cholesterol 61 H 40-59 mg/dL Vitamin B12 Level 413 211-911 pg/mL Vitamin D 25-Hydroxy 17.0 L 30.0-100 ng/mL Thyroid Stimulating Hormone (TSH) 1.71 0.55-4.78 uIU/mL Urine Color Light-yellow Yellow Urine Clarity Clear Clear Urine pH 6.0 5.0-9.0 Urine Specific [place] 1.010 1.001-1.035 Urine Protein Negative Negative Urine Ketones Negative Negative Urine Blood Negative Negative /uL Urine Nitrite Negative Negative Urine Bilirubin Negative Negative Urine Urobilinogen Normal Negative mg/dL Urine Leukocyte Esterase Negative Negative /uL Urine RBC 1 0 - 4 /hpf Urine Microscopic WBC 1 0-5 /HPF Urine Squamous Epithelial Cells Few <5 /hpf Urine Bacteria None seen None Seen /hpf Urine Glucose Normal Normal mg/dL Urine Opiates Screen Neg NEGATIVE Urine Fentanyl Screen Neg NEGATIVE Urine Barbiturates Screen Neg NEGATIVE Urine Phencyclidine Screen Neg NEGATIVE Urine Amphetamines Screen Neg NEGATIVE Urine Benzodiazepines Screen Neg NEGATIVE Urine Cocaine Screen Neg NEGATIVE Urine Cannabinoids Screen Pos NEGATIVE Assessment NSTEMI, questionable type 1 Hypertensive emergency Dyslipidemia, newly diagnosed Nicotine dependence Cannabinoid use Medical noncompliance Plan/Recommendation (Dr. Bhandari) We will continue further cardiac evaluation with a transthoracic echocardiogram to evaluate cardiac function. A repeat twelve-lead electrocardiogram is negative for ischemia. Continue serial troponin levels, therapeutic lovenox, single-antiplatelet therapy, and aggressive blood pressure control. The patient is cardiac stable and chest pain free at this time. Further orders per clinical course. Thank you for allowing us to participate in this patient's care. Please call if you have any questions or concerns. Critical care time: 40 min. This medical document was created using an electronic medical record system with voice recognition software and computerized dictation system. Although this document has been carefully reviewed, there might still be some phonetic and typographical errors. Occasional wrong-word or ``sound-alike substitutions may have occurred due to the inherent limitations of voice recognition software. These areas are purely typographical due to imperfections of the software programs and do not reflect any compromise in the patient's medical care. Please read the chart carefully and recognize, using context, where these substitutions have occurred. Plan discussed with: Patient, Other NYHA Physical activity limitations: NA Date of Service: Jul 18, 2024 Billing Provider: HIRAM ORTIZ [facility] Common Codes: [id number] CARE 30-74 MIN BARBARA BHANDARI MD 07/18/24 1446: Family History: Colon cancer G8 MOTHER Diabetes mellitus G8 FATHER FH: breast cancer G8 MOTHER FH: heart attack G8 FATHER FH: stroke G8 MOTHER G8 FATHER Hypertension G8 MOTHER G8 FATHER Allergies: Coded Allergies: No Known Drug Allergy (Verified Allergy, Unknown, 04/22/21) Home Meds Active Scripts Hctz (Hydrochlorothiazide) 25 Mg Tab, 25 MG PO DAILY, #90 TAB Prov:WEEMS,CLARITA M MD 03/16/23 Amoxicillin & Pot Clavulanate (Augmentin) 500 Mg Tab, 500 MG PO TID for 7 Days, #21 TAB Prov:JANE TORRES MD 04/22/21 Plan/Recommendation assess for possible LHC agree with NEWS WIRE PHOTO OPERATOR assessment and plan HIRAM ORTIZ [facility] Jul 18, 2024 11:22 BARBARA BHANDARI MD Jul 18, 2024 14:46
[2024-07-18] MEDS: PANTOPRAZOLE 40 MG/10 ML VIAL INJ IV SCH (11:48)
[2024-07-18] MEDS: VALSARTAN 80 MG TAB PO SCH (11:49)
[2024-07-18] MEDS: ASPirin 81 mg TAB PO SCH (11:49)
[2024-07-18] MEDS: NIFEdipine ER 30 MG TAB PO SCH (11:50)
--- NOTE | 2024-07-18 12:59 | DVHSR ---
APPROVED REPORT EXAM: Two-dimensional and M-mode echocardiogram with Doppler and color Doppler. Blood Pressure: 115/63 mmHg INDICATION NSTEMI RISK FACTORS Height: 5' 4", Weight: 140 DIMENSIONS LVDd3.9 (3.8-5.7cm)LA (2D)3.0 (1.9-4.0cm)Aortic Root3.0 (2.0-3.7cm) LVDs3.2 (2.5-4.0cm)LA (MM) (1.9-4.0cm)Aortic Cusp Exc1.3 (1.5-2.0cm) EF (%) 50.0 (55-70%)Rt. Atrium3.3 (1.9-4.0cm)Asc. Aorta cm IVSd1.2 (0.7-1.1cm)RV (D) (1.8-2.4cm) PWd1.2 (0.7-1.1cm) Mitral Valve MitralMitral Stenosis E wave0.90m/sMV Mean GR.mmHg A wave0.80m/sMV Peak GR.mmHg E/A ratio1.12D MVAcm2 Aortic Valve Aortic ValveAortic Stenosis V10.80m/Pee Mean GR.3mmHg V21.30m/Pee Peak GR.7mmHg LVOT Diameter2.0 (1.8-2.4cm)Doppler AVA1.93cm2 AI P 1/2 Gaoa734.93ms Pulmonic Valve V20.60m/s Conclusion lvef 60% by visual estimate moderate LVH normal rv function normal atria no severe valve abnormalities noted
[2024-07-18] MEDS: hydrALAZINE HCL 20 MG/ML VL IV PRN (16:17)
[2024-07-18 18:01] VITALS: BP 168/82; PULSE 62; RESP 18; O2SAT 100
--- NOTE | 2024-07-18 18:23 | DVHPNRES ---
Progress Note Date Seen: Jul 18, 2024 Resident Creating Document: REED POPE RESIDENT Has the PT tested + for MRSA If YES, has PT been informed?: No Medical Necessity Reason Pt with a Central, PICC or Fol: No Medical Necessity Reason History of Present Illness Varsha Espinosa is a 54 year old female patient who presents to the ED chief complaint of retrosternal and posterior radiation towards back in epigastrium oppressive chest pain which started at 2:40 p.m. in functional class IV, intensity 10/10 while having an argument with family member, that was initially associated with diaphoresis, bilateral leg weakness, nausea and dry heaves and dyspnea, due to persistent chest pain symptom, patient decided to visit the ED. during ED visit troponin trending up (45,84 and 416) associated with severe hypertension. Past medical history: Hypertension, gestational diabetes, asthma (no inhalers), has questionable cholelithiasis (never completed any abdominal imaging), intermittent claudication for the past year, uterine fibroids, menopause (last menstrual period 06/2020). Patient does not follow with PCP. Patient is noncompliant Surgical history: Foot surgery for hammertoe Family history: Father and mother had hypertension and stroke. Father has history of colon cancer, cousin had breast cancer Social history: Originally from [place], currently lives in [place] with cousin. She is a current smoker (approximately 15 pack-year history of smoking). Occasionally marijuana abuse. Denies current tobacco and other drug abuse Allergies: Pollen and dust Home medication: Nifedipine (patient does not take medication) PN 07/20/2024: patient is a 54 year old female, a known smoker for over 40 years and a history of hypertension, presented to the ED with a chief complaints of retrosternal chest pain that started a yesterday afternoon. Prior to coming to the ED, Patient said she was sitting on her porch with her cousin talking. When got up, she felt the chest pain that was different. Pain was retrosternal and rated 10/10. she felt a cold sweat all over her body. pain radiated to her back and left shoulder. Patient's BP was 163/101. Initial labs revealed troponin 45,Leukocytosis, 12 lead EKG showed LVH. Patient was given nitroglycerin, aspirin, morphine, atorvastatin. Today she feels much better. She has no pain at the time of my interaction with her. Cardiology saw her and no cath at today. Will continue to control her BP and plan with Cardiology. Subjective Review of Systems Constitutional: Denies fever no chills no feeling of malaise HEENT: Denies headache, ear pain, ear discharges, conjunctivitis, nasal discharge throat pain Cardiovascular: Denies chest pain, palpitation, orthopnea, PND, or pedal edema Respiratory: Denies shortness of breath, cough cough, sputum production, hemoptysis, GI: Denies abdominal pain, nausea, vomiting, diarrhea, hematemesis, hematochezia, : Denies frequency, urgency, hematuria, Endocrine: Denies unintentional weight gain or weight loss, feeling of hot flashes, Cornelio: Denies easy bruising, bleeding disorders, epistaxis Musculoskeletal: Denies joint pains, muscle aches Psych: No evidence of depression, shakir, suicidal ideation Objective vital signs Vital Sign Date Time Temp Pulse Resp B/P (MAP) Pulse Ox O2 Delivery O2 Flow Rate FiO2 07/18/24 16:17 161/83 07/18/24 16:00 98.2 55 12 99 98.2 07/18/24 08:00 Room Air* 0 21 Total Intake and Output 07/17/24 07/17/24 07/18/24 15:00 23:00 07:00 Intake Total 50 ml Balance 50 ml medications Current Medications Medications Dose Ordered Sig/Remy Route Start Time Stop Time Status Last Admin Dose Admin Hydralazine HCl 10 mg Q6HP PRN IV 07/17/24 21:00 07/18/24 16:17 10 MG Valsartan 80 mg DAILY PO 07/18/24 10:00 07/18/24 11:49 80 MG Atorvastatin Calcium 40 mg HS PO 07/17/24 22:00 07/17/24 23:04 40 MG Aspirin 81 mg DAILY PO 07/18/24 10:00 07/18/24 11:49 81 MG Ondansetron HCl 4 mg Q4HP PRN IV 07/17/24 21:45 Morphine Sulfate 2 mg Q4HPRN PRN IV 07/17/24 21:45 Nitroglycerin 0.4 mg Q5MINP PRN SL 07/17/24 21:45 Morphine Sulfate 2 mg Q30M PRN IV 07/17/24 21:45 Acetaminophen 325 mg Q4HP PRN PO 07/17/24 21:45 Pantoprazole Sodium 40 mg DAILY IV 07/18/24 10:00 07/18/24 11:48 40 MG Nifedipine 60 mg DAILY PO 07/18/24 10:00 07/18/24 11:50 60 MG Enoxaparin Sodium 60 mg Q12HR@0600,1800 SC 07/18/24 06:00 07/18/24 18:14 60 MG Examination General Appearance: Alert, Oriented X3, Cooperative, No acute distress HEENT: Atraumatic, PERRLA, EOMI, Mucous membrane moist/pink Respiratory: Clear to auscultation, Normal air movement Cardiovascular: Regular rate, Normal S1, Normal S2, No murmurs, no chest wall tenderness Abdominal: NO distention, no tenderness, bowel sounds present, no scars noted Extremities: No clubbing, No cyanosis, No edema, Normal pulses, No tenderness/swelling Skin: No rashes, No breakdown, No significant lesion Neuro: Normal gait, Normal speech, Strength at 5/5 X4 ext, Normal tone, Sensation intact, Cranial nerves 3-12 NL, Reflexes 2+ Psych/Mental Status: Mental status NL, Mood NL laboratory and microbiology Laboratory Tests 07/18/24 05:17 Test 07/18/24 05:17 Range/Units Serum Glucose 99 74-106 mg/dL Problem List/Assessment/Plan Problem List/Assessment/Plan Assessment NSTEMI, probable type 1 --> Troponin 45--> 1121--> 600 --> 12 lead ekg showed LVH --> Nitroglycerine, Aspirin, morphine and atorvastatin --> Cardiology on board Hypertensive emergency -->bp 163/101 -> Valsartan --> Nifedipine Dyslipidemia, newly diagnosed --> Continue Atorvastatin leukocytosis Nicotine dependence --> Counselled extensively on smoking cessation Cannabinoid use --> Advised to stop using any drugs Medical noncompliance --> advised patient on the importance of medication adherence Gestational diabetes --> check A1c; 4.7 Asthma --> NO inhaler use Goal of care discussed for 30 minutes: full code Case and plan discussed + DR. Momo Gill discussed with: Patient Date of Service: Jul 18, 2024 Billing Provider: SCOUT MARRERO MD Common Visit Codes: [id number] INP/OBS CARE(HIGH) REED POPE RESIDENT Jul 18, 2024 18:23 SCOUT MARRERO MD Jul 22, 2024 22:08
[2024-07-18] MEDS: MORPHINE SULFATE INJ 2 MG/ml SYRG IV PRN (18:33)
[2024-07-18] MEDS ORDERED: NIFE1TAB31 PO (18:55)
[2024-07-18 20:00] VITALS: PULSE 60; RESP 18; O2SAT 100
[2024-07-18 21:00] VITALS: BP 159/80; PULSE 60; RESP 18; TEMP 98.1; O2SAT 100
--- NOTE | 2024-07-18 23:39 | ECG ---
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
[2024-07-19] VITALS (7 sets, daily range): BP systolic 131–167; BP diastolic 58–88; PULSE 51–64; RESP 15–22; TEMP 97.7–98.1; O2SAT 96–100
[2024-07-19 07:34] LABS: Basophils # (auto) 0.1 10 ^3/uL (0-0.2); Basophils % (auto) 0.8 % (0.0-2.0); Eosinophils # (auto) 0.2 10 ^3/uL (0-0.8); Eosinophils % (auto) 2.3 % (0.0-7.0); Hematocrit 42.6 % (36.0-46.0); Hemoglobin 14.6 g/dL (12.2-16.2); Lymphocytes # (auto) 3.1 10 ^3/uL (0.4-5.4); Lymphocytes % (auto) 39.3 % (10.0-50.0); Mean Corpuscular Hgb Conc. 34.3 g/dL (32.0-36.0); Mean Corpuscular Volume 90.4 fL (80.0-100.0); Monocytes # (auto) 0.6 10 ^3/uL (0-1.3); Neutrophils % (auto) 50.6 % (37.0-80.0); Nucleated Red Blood Cells % 0.2 %; Platelet Count (auto) 197 10^3/uL (140-450); Red Blood Cells 4.72 10^6/uL (4.0-5.20); White Blood Cell 7.9 10^3/uL (4.4-10.8)
[2024-07-19 07:49] LABS: Anion Gap 4 (5-15); Carbon Dioxide 25 mmol/L (20-31); Sodium 141 mmol/L (136-145)
[2024-07-19 07:51] LABS: Calcium 10.1 mg/dL (8.7-10.4)
[2024-07-19 07:55] LABS: BUN/Creatinine Ratio 10.8 (10.0-20.0); Glucose 87 mg/dL (74-106)
[2024-07-19 07:58] LABS: Blood Urea Nitrogen 8 mg/dL (9-23); Chloride 112 mmol/L (98-107)
--- NOTE | 2024-07-19 10:27 | DVHPN2 ---
HIRAM ORTIZ [facility] 07/19/24 1027: Consult Progress Note Date Seen: Jul 19, 2024 Subjective Review of Systems: CVS:Normal, RESPIRATORY:Normal, NEURO:Normal Objective vital signs Vital Sign Date Time Temp Pulse Resp B/P (MAP) Pulse Ox O2 Delivery O2 Flow Rate FiO2 07/19/24 09:30 97.7 51 17 132/72 (92) 99 97.7 07/19/24 08:00 Nasal Cannula* 2 28 Total Intake and Output 07/18/24 07/18/24 07/19/24 15:00 23:00 07:00 Intake Total 750 ml Balance 750 ml medications Current Medications Medications Dose Ordered Sig/Remy Route Start Time Stop Time Status Last Admin Dose Admin Valsartan 80 mg DAILY PO 07/18/24 10:00 07/19/24 09:05 80 MG Atorvastatin Calcium 40 mg HS PO 07/17/24 22:00 07/18/24 21:03 40 MG Aspirin 81 mg DAILY PO 07/18/24 10:00 07/19/24 09:05 81 MG Morphine Sulfate 2 mg Q30M PRN IV 07/17/24 21:45 07/18/24 18:33 2 MG Acetaminophen 325 mg Q4HP PRN PO 07/17/24 21:45 Pantoprazole Sodium 40 mg DAILY IV 07/18/24 10:00 07/19/24 09:04 40 MG Nifedipine 60 mg DAILY PO 07/18/24 10:00 07/19/24 09:05 60 MG Enoxaparin Sodium 60 mg Q12HR@0600,1800 SC 07/18/24 06:00 07/19/24 05:14 60 MG Ergocalciferol 50,000 unit Q7D PO 07/19/24 10:00 Examination: LUNGS:Normal, CVS:Normal, NEURO:Normal laboratory and microbiology Laboratory Tests 07/19/24 07:03 Test 07/19/24 07:03 Range/Units Serum Glucose 87 74-106 mg/dL Problem List/Assessment/Plan Problem List/Assessment/Plan NSTEMI, questionable type 1 Hypertensive emergency Dyslipidemia, newly diagnosed Nicotine dependence Cannabinoid use Medical noncompliance Plan/Recommendation (Dr. Bhandari) Transthoracic echocardiogram revealed LVEF of 60% with moderate LVH. Scheduled for a cardiac catheterization and coronary angiogram with Dr. Bhanadri on 07/20/24. All risks and benefits of the procedure were discussed in detail. All questions answered. In the meantime, continue therapeutic lovenox (hold day of procedure), single-antiplatelet therapy, and aggressive blood pressure control. The patient is cardiac stable and chest pain free at this time. Further orders per clinical course. Thank you for allowing us to participate in this patient's care. Please call if you have any questions or concerns. This medical document was created using an electronic medical record system with voice recognition software and computerized dictation system. Although this document has been carefully reviewed, there might still be some phonetic and typographical errors. Occasional wrong-word or ``sound-alike substitutions may have occurred due to the inherent limitations of voice recognition software. These areas are purely typographical due to imperfections of the software programs and do not reflect any compromise in the patient's medical care. Please read the chart carefully and recognize, using context, where these substitutions have occurred. 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
[2024-07-19] MEDS: ERGOCALCIFEROL 50,000 UNIT(1.25MG) CAP PO SCH (12:10)
--- NOTE | 2024-07-19 15:20 | DVHPN2 ---
Assessment/Plan Assessment/Plan Progress note 54 F with HTN admitted for chest pain. retrosternal and posterior radiation towards back in epigastrium oppressive chest pain which started at 2:40 p.m. in functional class IV, intensity 10/10 while having an argument with family member, that was initially associated with diaphoresis, bilateral leg weakness, nausea and dry heaves and dyspnea, due to persistent chest pain symptom, patient decided to visit the ED. during ED visit troponin trending up (45,84 and 416) associated with severe hypertension. seen today during round, seen by cardio. cath tomorrow physical exam aox4 PERRLA MMM speaking in full sentences no chest wall tenderness s1 s2 rrr clear breath sounds abdomen soft nontender no le edema labs ekg imaging reviwed assessment and plan HTN ACS NSTEMI LVH by EKG hx of gestational DM intermittent asthma marijuana use smoker HLD plan for cath saturday oral meds for bp mgmt echo asa, full lovenox lipitor dvt ppx lovenox diet reg Plan discussed with: Patient Date of Service: Jul 19, 2024 Billing Provider: SCOUT MARRERO MD Common Visit Codes: [id number] INP/OBS CARE(HIGH) SCOUT MARRERO MD Jul 19, 2024 15:20
[2024-07-20] VITALS (12 sets, daily range): BP systolic 134–187; BP diastolic 74–99; PULSE 50–75; RESP 11–20; TEMP 97.2–98.3; O2SAT 95–100
[2024-07-20 06:21] LABS: Anion Gap 4 (5-15); Carbon Dioxide 29 mmol/L (20-31); Chloride 107 mmol/L (98-107); Potassium 4.1 mmol/L (3.5-5.1); Sodium 140 mmol/L (136-145)
[2024-07-20 06:22] LABS: Calcium 10.4 mg/dL (8.7-10.4); INR 1.07 (0.9-1.15); Partial Thromboplastin Time 29.7 SEC (24.5-34.5); Prothrombin Time 11.3 sec (9.3-11.8)
[2024-07-20 06:27] LABS: BUN/Creatinine Ratio 14.1 (10.0-20.0); Blood Urea Nitrogen 12 mg/dL (9-23); Glucose 97 mg/dL (74-106)
[2024-07-20 06:39] LABS: Basophils # (auto) 0 10 ^3/uL (0-0.2); Basophils % (auto) 0.4 % (0.0-2.0); Eosinophils # (auto) 0.1 10 ^3/uL (0-0.8); Eosinophils % (auto) 1.9 % (0.0-7.0); Hematocrit 47.6 % (36.0-46.0); Hemoglobin 15.8 g/dL (12.2-16.2); Lymphocytes # (auto) 2.9 10 ^3/uL (0.4-5.4); Lymphocytes % (auto) 38.7 % (10.0-50.0); Mean Corpuscular Hemoglobin 30.4 pg (28.0-32.0); Mean Corpuscular Hgb Conc. 33.2 g/dL (32.0-36.0); Mean Corpuscular Volume 91.4 fL (80.0-100.0); Monocytes # (auto) 0.6 10 ^3/uL (0-1.3); Monocytes % (auto) 8.4 % (0.0-12.0); Neutrophils # (auto) 3.7 10 ^3/uL (1.6-8.6); Neutrophils % (auto) 50.6 % (37.0-80.0); Nucleated Red Blood Cells % 0.2 %; Platelet Count (auto) 209 10^3/uL (140-450); Red Cell Distribution Width 13.3 % (11.8-14.3); White Blood Cell 7.4 10^3/uL (4.4-10.8)
[2024-07-20] MEDS: HEPARIN IN NS 1000Units/500mL 1,500 ML ONE (09:28)
[2024-07-20] MEDS: IODIXANOL 320MG/ML 100ML BTL IV ONE (09:28)
[2024-07-20] MEDS: HEPARIN SODIUM (PORCINE) 5000 UNITS/ML 1ML VIAL ONE (09:52)
[2024-07-20] MEDS: VERAPAMIL 2.5MG/ML INJ 2ML VIAL IV ONE ×2 (09:52→10:13)
[2024-07-20] MEDS: ANGIOMAX 250 MG VIAL IV ONE (09:52)
[2024-07-20] MEDS: SODIUM CHL 0.9% 50 ML ONE (09:53)
[2024-07-20] MEDS: LIDOCAINE 2%HCL (LOCAL ANESTH.) INJ 20ML MDV ONE (09:53)
[2024-07-20] MEDS: MIDAZOLAM HCL 2MG/2ML 2ml VIAL (1mg/ml) ONE (09:53)
[2024-07-20] MEDS: fentaNYL CITRATE 100 MCG/2 ML VL ONE (09:53)
[2024-07-20] MEDS: TICAGRELOR 90 MG TAB ONE (10:32)
[2024-07-20] MEDS: ASPirin 81 mg TAB ONE ×2 (10:33→10:34)
--- NOTE | 2024-07-20 11:29 | ECG ---
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
--- NOTE | 2024-07-20 11:51 | DVHPN2 ---
Progress Note Date Seen: Jul 20, 2024 Has the PT tested + for MRSA If YES, has PT been informed?: No Medical Necessity Reason Pt with a Central, PICC or Fol: No Subjective Patient reports: Feels better Objective vital signs Vital Sign Date Time Temp Pulse Resp B/P (MAP) Pulse Ox O2 Delivery O2 Flow Rate FiO2 07/20/24 11:44 51 16 134/80 (98) 99 07/20/24 10:44 97.7 97.7 07/20/24 08:00 Room Air* 0 N/A Nasal Cannula* Total Intake and Output 07/19/24 07/19/24 07/20/24 15:00 23:00 07:00 Intake Total 700 ml Balance 700 ml medications Current Medications Medications Dose Ordered Sig/Remy Route Start Time Stop Time Status Last Admin Dose Admin Valsartan 80 mg DAILY PO 07/18/24 10:00 07/19/24 09:05 80 MG Atorvastatin Calcium 40 mg HS PO 07/17/24 22:00 07/19/24 21:18 40 MG Aspirin 81 mg DAILY PO 07/18/24 10:00 07/19/24 09:05 81 MG Morphine Sulfate 2 mg Q30M PRN IV 07/17/24 21:45 07/18/24 18:33 2 MG Acetaminophen 325 mg Q4HP PRN PO 07/17/24 21:45 Pantoprazole Sodium 40 mg DAILY IV 07/18/24 10:00 07/19/24 09:04 40 MG Nifedipine 60 mg DAILY PO 07/18/24 10:00 07/19/24 09:05 60 MG Enoxaparin Sodium 60 mg Q12HR@0600,1800 SC 07/18/24 06:00 07/19/24 17:57 60 MG Ergocalciferol 50,000 unit Q7D PO 07/19/24 10:00 07/19/24 12:10 50,000 UNIT Examination: GENERAL:Abnormal, HEENT:Abnormal, LUNGS:Abnormal, CVS:Abnormal, ABDOMEN:Abnormal laboratory and microbiology Laboratory Tests 07/20/24 05:34 Test 07/20/24 05:34 Range/Units Serum Glucose 97 74-106 mg/dL Problem List/Assessment/Plan Problem List/Assessment/Plan nstemi acs htn hl tobacco s/p pci to dominant CX 99% lesion cont dapt dc home 07/21 if stable planning smoking cessation statin BB Plan discussed with: Patient My Orders My Orders Orders - BARBARA BHANDARI MD Procedure Category Date Status Time Cl Left Heart Cath CL 07/20/24 Taken 08:26 Cardiac DIET 07/20/24 Transmitted Diet-2gna,Lofat,Lochol Lunch Date of Service: Jul 20, 2024 Billing Provider: BARBARA BHANDARI MD Common Visit Codes: NOT BILLABLE BARBARA BHANDARI MD Jul 20, 2024 11:51
--- NOTE | 2024-07-20 11:55 | DVHOP2 ---
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 sedation 15-30 mins, ptca 1 vessel , pci 1 vessel PREOPERATIVE DIAGNOSES: nstemi POSTOP DIAGNOSIS: nstemi DESCRIPTION OF PROCEDURE: The patient or appropriate family signed informed consent understanding the risks, benefits and alternatives of the procedure, they wished to proceed. The patient was brought to the cardiac rn lab in n.p.o. state. The patient was prepped in a sterile fashion. Sedation was used per cardiac cath protocol. I administered 2 mL of 2% lidocaine to the right wrist. With an antegrade front wall puncture. I cannulated the right radial artery and placed a 6-[place] Glidesheath slender. Next, an intra-arterial spasmolytic was administered. Next, a - 6French [place] catheter and XB 3 guide and were used for coronary angiogram and LVEDP measurement and pressure pullback. At the completion of procedure, all guides and wires were removed, and there were no immediate complications. FINDINGS: RCA: Moderate vessel off the right sinus of Valsalva, non dominant vessel with diffuse plaquing LEFT MAIN: Moderate size left main, it bifurcates into LAD and circumflex. no severe stenosis. CIRCUMFLEX: Moderate caliber vessel coming off the left main . it is a large dominant vessel. distal CX ramsey a ruptured plaque 99% lesion with LPL coming off distally. LAD: LAD is a moderate caliber vessel coming of the left main. mild diffuse plaquing LVEDP of 8 mmhg INTERVENTION: We decided to proceed with coronary intervention. I started with a 6F __XB3__ Guide to intubate the _LM _. Angiomax bolus and gtt was started. Following this, I decided to wire using an .014 BMW across the culprit lesion with ease. At this time, we performed balloon angioplasty with a _2.5 x 15 mm balloon=__ balloon up to __12 __ ATMS over __15__ seconds with _2_ number of inflations. Following this, I decided to place a stent using a 3.0 x 18 mm onyx____ stent inflated up to __16__ ATMS over 15 seconds with two separate inflations. Following this, the stent balloon removed and angio performed showing 0% residua l stenosis. GILES pre/post: 3./3 CONCLUSIONS: 1. sp pci to 99% distal dominant CX with HILARIO BARBARA BHANDARI MD Jul 20, 2024 11:55
[2024-07-20] MEDS: CLOPIDOGREL BISULFATE 75 MG TAB PO ONE (17:36)
--- NOTE | 2024-07-20 18:02 | DVHPNRES ---
Progress Note Date Seen: Jul 20, 2024 Resident Creating Document: REED POPE RESIDENT Has the PT tested + for MRSA If YES, has PT been informed?: No Medical Necessity Reason Pt with a Central, PICC or Fol: No Medical Necessity Reason History of Present Illness Varsha Espinosa is a 54 year old female patient who presents to the ED chief complaint of retrosternal and posterior radiation towards back in epigastrium oppressive chest pain which started at 2:40 p.m. in functional class IV, intensity 10/10 while having an argument with family member, that was initially associated with diaphoresis, bilateral leg weakness, nausea and dry heaves and dyspnea, due to persistent chest pain symptom, patient decided to visit the ED. during ED visit troponin trending up (45,84 and 416) associated with severe hypertension. Past medical history: Hypertension, gestational diabetes, asthma (no inhalers), has questionable cholelithiasis (never completed any abdominal imaging), intermittent claudication for the past year, uterine fibroids, menopause (last menstrual period 06/2020). Patient does not follow with PCP. Patient is noncompliant Surgical history: Foot surgery for hammertoe Family history: Father and mother had hypertension and stroke. Father has history of colon cancer, cousin had breast cancer Social history: Originally from [place], currently lives in [place] with cousin. She is a current smoker (approximately 15 pack-year history of smoking). Occasionally marijuana abuse. Denies current tobacco and other drug abuse Allergies: Pollen and dust Home medication: Nifedipine (patient does not take medication) PN 07/18/2024: patient is a 54 year old female, a known smoker for over 40 years and a history of hypertension, presented to the ED with a chief complaints of retrosternal chest pain that started a yesterday afternoon. Prior to coming to the ED, Patient said she was sitting on her porch with her cousin talking. When got up, she felt the chest pain that was different. Pain was retrosternal and rated 10/10. she felt a cold sweat all over her body. pain radiated to her back and left shoulder. Patient's BP was 163/101. Initial labs revealed troponin 45,Leukocytosis, 12 lead EKG showed LVH. Patient was given nitroglycerin, aspirin, morphine, atorvastatin. Today she feels much better. She has no pain at the time of my interaction with her. Cardiology saw her and no cath at today. Will continue to control her BP and plan with Cardiology. PN:07/19/2024: See Dr. Barr's note PN: 07/20/2024 Patient hand an C today. 99% lesion distal dominant CX. She is s/p pci to 99% distal dominant CX with HILARIO. Patient back on the leal and doing well. Subjective Review of Systems Constitutional: Denies fever no chills no feeling of malaise HEENT: Denies headache, ear pain, ear discharges, conjunctivitis, nasal discharge throat pain Cardiovascular: Denies chest pain, palpitation, orthopnea, PND, or pedal edema Respiratory: Denies shortness of breath, cough cough, sputum production, hemoptysis, GI: Denies abdominal pain, nausea, vomiting, diarrhea, hematemesis, hematochezia, : Denies frequency, urgency, hematuria, Endocrine: Denies unintentional weight gain or weight loss, feeling of hot flashes, Cornelio: Denies easy bruising, bleeding disorders, epistaxis Musculoskeletal: Denies joint pains, muscle aches Psych: No evidence of depression, shakir, suicidal ideation Objective vital signs Vital Sign Date Time Temp Pulse Resp B/P (MAP) Pulse Ox O2 Delivery O2 Flow Rate FiO2 07/20/24 17:11 98.3 62 18 160/86 (110) 99 98.3 07/20/24 08:00 Room Air* 0 N/A Nasal Cannula* Total Intake and Output 07/19/24 07/19/24 07/20/24 15:00 23:00 07:00 Intake Total 700 ml Balance 700 ml medications Current Medications Medications Dose Ordered Sig/Remy Route Start Time Stop Time Status Last Admin Dose Admin Valsartan 80 mg DAILY PO 07/18/24 10:00 07/19/24 09:05 80 MG Atorvastatin Calcium 40 mg HS PO 07/17/24 22:00 07/19/24 21:18 40 MG Aspirin 81 mg DAILY PO 07/18/24 10:00 07/19/24 09:05 81 MG Morphine Sulfate 2 mg Q30M PRN IV 07/17/24 21:45 07/18/24 18:33 2 MG Acetaminophen 325 mg Q4HP PRN PO 07/17/24 21:45 Pantoprazole Sodium 40 mg DAILY IV 07/18/24 10:00 07/19/24 09:04 40 MG Nifedipine 60 mg DAILY PO 07/18/24 10:00 07/19/24 09:05 60 MG Enoxaparin Sodium 60 mg Q12HR@0600,1800 SC 07/18/24 06:00 07/20/24 17:37 60 MG Ergocalciferol 50,000 unit Q7D PO 07/19/24 10:00 07/19/24 12:10 50,000 UNIT Clopidogrel Bisulfate 75 mg DAILY PO 07/21/24 10:00 Examination General Appearance: Alert, Oriented X3, Cooperative, No acute distress HEENT: Atraumatic, PERRLA, EOMI, Mucous membrane moist/pink Respiratory: Clear to auscultation, Normal air movement Cardiovascular: Regular rate, Normal S1, Normal S2, No murmurs, no chest wall tenderness Abdominal: NO distention, no tenderness, bowel sounds present, no scars noted Extremities: No clubbing, No cyanosis, No edema, Normal pulses, No tenderness/swelling Skin: No rashes, No breakdown, No significant lesion Neuro: Normal gait, Normal speech, Strength at 5/5 X4 ext, Normal tone, Sensation intact, Cranial nerves 3-12 NL, Reflexes 2+ Psych/Mental Status: Mental status NL, Mood NL laboratory and microbiology Laboratory Tests 07/20/24 05:34 Test 07/20/24 05:34 Range/Units Serum Glucose 97 74-106 mg/dL Problem List/Assessment/Plan Problem List/Assessment/Plan Assessment NSTEMI, S/P pci to 99% distal dominant CX with HILARIO. --> Troponin 45--> 1121--> 600 --> 12 lead ekg showed LVH --> Nitroglycerine, Aspirin, morphine and atorvastatin --> Cardiology on board --> Likely D/C tomorrow Hypertensive emergency -->bp 163/101 -> Valsartan --> Nifedipine Dyslipidemia, newly diagnosed --> Continue Atorvastatin leukocytosis like reactive --> resolved Nicotine dependence --> Counselled extensively on smoking cessation Cannabinoid use --> Advised to stop using any drugs Medical noncompliance --> advised patient on the importance of medication adherence Gestational diabetes --> check A1c; 4.7 Asthma --> NO inhaler use Goal of care discussed for 25 minutes: full code Case and plan discussed + DR. Momo Plan discussed with: Patient Date of Service: Jul 20, 2024 Billing Provider: SCOUT BARR MD Common Visit Codes: [id number] INP/OBS CARE(HIGH) REED POPE RESIDENT Jul 20, 2024 18:02 SCOUT BARR MD Jul 22, 2024 22:11
[2024-07-21 01:23] VITALS: BP 151/75; PULSE 55; RESP 14; TEMP 97; TEMP 97.7; O2SAT 100; O2SAT 94
[2024-07-21 05:00] VITALS: BP 156/85; PULSE 60; RESP 15; TEMP 98.7; O2SAT 97
[2024-07-21 06:04] LABS: Basophils # (auto) 0 10 ^3/uL (0-0.2); Basophils % (auto) 0.4 % (0.0-2.0); Eosinophils # (auto) 0.1 10 ^3/uL (0-0.8); Eosinophils % (auto) 1.6 % (0.0-7.0); Hematocrit 45.8 % (36.0-46.0); Hemoglobin 15.3 g/dL (12.2-16.2); Lymphocytes # (auto) 2.6 10 ^3/uL (0.4-5.4); Lymphocytes % (auto) 29.4 % (10.0-50.0); Mean Corpuscular Hemoglobin 30.2 pg (28.0-32.0); Mean Corpuscular Hgb Conc. 33.5 g/dL (32.0-36.0); Mean Corpuscular Volume 89.9 fL (80.0-100.0); Monocytes # (auto) 0.7 10 ^3/uL (0-1.3); Monocytes % (auto) 8.3 % (0.0-12.0); Neutrophils # (auto) 5.4 10 ^3/uL (1.6-8.6); Neutrophils % (auto) 60.3 % (37.0-80.0); Nucleated Red Blood Cells % 0.3 %; Platelet Count (auto) 198 10^3/uL (140-450); Red Blood Cells 5.09 10^6/uL (4.0-5.20); Red Cell Distribution Width 13.1 % (11.8-14.3); White Blood Cell 8.9 10^3/uL (4.4-10.8)
[2024-07-21 06:14] LABS: Alanine Aminotransferase 25 U/L (7-40); Albumin 4.7 g/dL (3.2-4.8); Alkaline Phosphatase 62 U/L (46-116); Anion Gap 5 (5-15); Aspartate Aminotransferase 26 U/L (13-40); Blood Urea Nitrogen 12 mg/dL (9-23); Calcium 10.3 mg/dL (8.7-10.4); Carbon Dioxide 27 mmol/L (20-31); Glucose 101 mg/dL (74-106); Potassium 4.1 mmol/L (3.5-5.1); Sodium 139 mmol/L (136-145); Total Protein 7.4 g/dL (5.7-8.2)
[2024-07-21 06:15] LABS: Bilirubin, Total 0.8 mg/dL (0.2-1.0)
[2024-07-21 06:16] LABS: Chloride 107 mmol/L (98-107)
[2024-07-21 08:05] VITALS: PULSE 58
[2024-07-21 09:20] VITALS: BP 180/87; PULSE 68; RESP 18; TEMP 98.1; O2SAT 97
[2024-07-21] MEDS: CLOPIDOGREL BISULFATE 75 MG TAB PO SCH (09:30)
[2024-07-21 12:58] VITALS: BP_SYST 182; BP_SYST 205; BP_DIAS 100; BP_DIAS 98; PULSE 70; PULSE 78; RESP 20; TEMP 98.7; O2SAT 99
[2024-07-21] MEDS ORDERED: CLOP75TA70 PO (13:46)
[2024-07-21] MEDS ORDERED: ATOR40TA52 PO (13:46)
[2024-07-21] MEDS ORDERED: NIFE1TAB30 PO (13:46)
[2024-07-21] MEDS ORDERED: VALS1TAB57 PO (13:46)
[2024-07-21] MEDS ORDERED: ASPI-325 PO (13:46)
[2024-07-21 15:05] VITALS: BP 138/84; PULSE 64
[2024-07-21] MEDS: ACETAMINOPHEN 325 MG TAB PO ONE (15:15)
--- NOTE | 2024-07-21 20:23 | DVHDSRES ---
Discharge Summary Date of Admission Resident Creating Document: REED POPE RESIDENT Jul 17, 2024 at 21:32 Date of Discharge: Jul 21, 2024 Admitting Diagnosis Chest pain Labs/Diagnostic Data: PATIENT: VARSHA FERRIS ACCT: [id number] UNIT: [id number] : 1970 LOC: OVERFLOW ROOM / BED: [address] [place] [address] AGE / SEX: 54 / F ADM STATUS: ADM IN SERVICE 36 ORDERING PHYSICIAN: SRI FELICIANO PROCEDURE(s): BLEAD - BiLat Low Ext Art Duplex REASON: Intermittent claudication ORDER NUMBER(s): [id number], ACCESSION NUMBER(s): [id number] Lower Extremity Arterial Duplex Clinical History: Intermittent claudication Comparison: None Technique: Duplex Doppler evaluation including color Doppler and spectral/pulsed waveform analysis of the lower extremity arteries was performed. Findings: Common femoral artery has good flow has a try phasic waveform with peak systolic velocity of 88.3 cm/sec. Right profunda has a triphasic waveform with good flow peak systolic velocity of 70 0.2 cm/sec. The proximal superficial femoral artery has a biphasic waveform and has a peak systolic velocity is 72.3 cm/sec. Mid right superficial femoral artery has a biphasic waveform with peak systolic velocity of 90.5 cm/sec. The distal right superficial femoral artery. Velocity is 91.7 cm/sec. Right popliteal artery has a peak systolic velocity of 76 cm/sec and a biphasic waveform. Right posterior tibialis artery has a peak systolic velocity is 64.5 cm/sec and a triphasic waveform. The right dorsal pedis artery has a biphasic waveform and peak systolic velocity of 65.8 cm/sec. Right anterior tibialis artery has a peak systolic velocity 25 cm/sec and biphasic waveform. In the left side left common femoral artery has a triphasic waveform peak systolic velocity of 106.5 cm/sec. Left profunda has a biphasic waveform and peak systolic velocity of 85.4 cm/sec. The left proximal superficial femoral artery has a biphasic waveform and peak systolic velocity is 77.5 cm/sec. Mid left superficial femoral artery has a biphasic waveform peak systolic velocity 98.4 cm/sec. Distal left superficial femoral artery has a peak systolic velocity of 96.7 cm/sec and biphasic waveform. Left popliteal artery has a biphasic waveform and peak systolic velocity is 74.6 cm/sec. Left posterior tibialis artery has a triphasic waveform and peak systolic velocity of 80.1 cm/sec. Left dorsal pedis artery has a triphasic waveform peak systolic velocity 83.4 cm/sec. Left anterior tibialis artery has a triphasic waveform and peak systolic velocity of 103 cm/sec. IMPRESSION: 1. No evidence for significant stenosis REFERENCE VALUES, [facility] ([facility]) vascular Imaging Lab Criteria: Peak systolic velocity ranges (in cm/sec) are as follows: <150 cm/s - <20 % stenosis 150-200 cm/s - 20-49% stenosis 200-300 cm/s - 50-75% stenosis >300 cm/s -> 75% stenosis ATED BY: SUNDEEP COMBS MD DICTATED DATE/TIME: 07/17/24 9608 PATIENT: VARSHA FERRIS ACCT: [id number] UNIT: [id number] : 1970 LOC: OVERFLOW ROOM / BED: [address] [place] [address] AGE / SEX: 54 / F ADM STATUS: ADM IN SERVICE 30 ORDERING PHYSICIAN: SRI FELICIANO RESIDENT PROCEDURE(s): CTAAA - CT ANGIO ABD AORTA W RUN OFF REASON: Rule out Aortic disection ORDER NUMBER(s): [id number], ACCESSION NUMBER(s): [id number] CTA ABDOMEN AND PELVIS and bilateral lower extremity runoff Clinical Indication: Female, 54 old. 54 years old, Female; Rule out Aortic disection. Technique: Multiple contiguous axial images were obtained through the abdomen and pelvis and runoff to the bilateral lower extremities following the administration of IV contrast material. Post processing coronal and sagittal reconstruction images were made from the axial images. Image post-processing was obtained. MIP images of the abdomen pelvis and bilateral lower extremities obtained. DLP: 1088.20 CTDI: 0.28+ 7.4+ 31.57 Comparison: None ABDOMEN AND PELVIS FINDINGS: Lower chest: Unremarkable Liver and Biliary system: Mild hepatomegaly measuring 18 cm craniocaudal. There is mild hepatic steatosis. The major portal veins are patent. Gallbladder is normal caliber. No biliary ductal dilatation. Spleen: Unremarkable. Adrenal Glands and Kidneys: There is a 1.3 cm left adrenal gland myelolipoma. The right adrenal gland is unremarkable. There is no hydronephrosis or nephrolithiasis. Pancreas and Retroperitoneum: Unremarkable. Aorta and Major Vessels: Widely patent abdominal aorta containing mild mixed atherosclerotic plaque. Widely patent origins of the celiac axis, SMA, single bilateral renal arteries, and SOM. Widely patent origins of the bilateral common iliac arteries. The bilateral common, internal common and external iliac arteries are widely patent and normal caliber. Bowel, Mesentery and Peritoneal space: Normal caliber bowel loops. Normal appendix. No free air or fluid collection Pelvis: Circumferential bladder wall thickening though is underdistended. The uterus and ovaries are present. There is no pelvic lymphadenopathy. Abdominal wall and Osseous Structures: [id number] degenerative disc disease at L5-S1. No destructive osseous lesion. Soft tissue thickening or scarring in the anterior left abdominal wall on series 4, image 101. Lower extremities: Right lower extremity: Widely patent and normal caliber right common, superficial, and deep femoral arteries. Widely patent popliteal artery. Widely patent trifurcation arteries with 3-vessel runoff to the foot. No acute osseous abnormality. Normal mineralization and alignment. The Muscle bundles about the right lower extremity are intact. Left lower extremity: Widely patent and normal caliber right common, superficial, and deep femoral arteries. Widely patent popliteal artery. Widely patent trifurcation arteries with 3-vessel runoff to the foot. No acute osseous abnormality. Normal mineralization and alignment. The Muscle bundles about the right lower extremity are intact. IMPRESSION: 1. Widely patent aortoiliac vessels and branch vessels without dissection, aneurysm, or significant stenosis. 2. Widely patent arteries in the bilateral lower extremities with 3-vessel runoff to the feet. 3. No acute osseous abnormality. 4. Circumferential bladder wall thickening which may be due to underdistention. Correlate with urinalysis if there is clinical concern for cystitis. 5. Mild hepatomegaly with mild hepatic steatosis. ATED BY: MAVIS BESS MD DICTATED DATE/TIME: 07/18/24 0247 PATIENT: VARSHA FERRIS ACCT: [id number] UNIT: [id number] : 1970 LOC: ER ROOM / BED: / AGE / SEX: 54 / F ADM STATUS: REG ER SERVICE 1604 ORDERING PHYSICIAN: ROBE MIRANDA MD PROCEDURE(s): CXRP - CHEST PORTABLE REASON: sob ORDER NUMBER(s): [id number], ACCESSION NUMBER(s): [id number] INDICATION: sob TECHNIQUE: Frontal view of the chest. COMPARISON: XY CHEST PORTABLE on DOS: 03/15/23 FINDINGS: . The heart and mediastinal contours are grossly unremarkable. There is no evidence of pleural disease. The lungs are clear. The bony structures of the chest are intact without fracture. IMPRESSION: 1. No evidence of acute disease. ATED BY: VIRAJ GROVER MD DICTATED DATE/TIME: 07/17/24 1649 Laboratory Results Test 07/21/24 05:22 07/20/24 05:34 07/19/24 07:03 07/17/24 21:21 White Blood Count 8.9 10^3/uL (4.4-10.8) Red Blood Count 5.09 10^6/uL (4.0-5.20) Hemoglobin 15.3 g/dL (12.2-16.2) Hematocrit 45.8 % (36.0-46.0) Mean Corpuscular Volume 89.9 fL (80.0-100.0) Mean Corpuscular Hemoglobin 30.2 pg (28.0-32.0) Mean Corpuscular Hemoglobin Concent 33.5 g/dL (32.0-36.0) Red Cell Distribution Width 13.1 % (11.8-14.3) Platelet Count 198 10^3/uL (140-450) Mean Platelet Volume 8.0 fL (6.9-10.8) Neutrophils (%) (Auto) 60.3 % (37.0-80.0) Lymphocytes (%) (Auto) 29.4 % (10.0-50.0) Monocytes (%) (Auto) 8.3 % (0.0-12.0) Eosinophils (%) (Auto) 1.6 % (0.0-7.0) Basophils (%) (Auto) 0.4 % (0.0-2.0) Neutrophils # (Auto) 5.4 10 ^3/uL (1.6-8.6) Lymphocytes # (Auto) 2.6 10 ^3/uL (0.4-5.4) Monocytes # (Auto) 0.7 10 ^3/uL (0-1.3) Eosinophils # (Auto) 0.1 10 ^3/uL (0-0.8) Basophils # (Auto) 0 10 ^3/uL (0-0.2) Nucleated Red Blood Cells 0.3 % Sodium Level 139 mmol/L (136-145) Potassium Level 4.1 mmol/L (3.5-5.1) Chloride Level 107 mmol/L (98-107) Carbon Dioxide Level 27 mmol/L (20-31) Anion Gap 5 (5-15) Blood Urea Nitrogen 12 mg/dL (9-23) Creatinine 0.80 mg/dL (0.550-1.02) Glomerular Filtration Rate Calc 88 mL/min (>90) BUN/Creatinine Ratio 15.0 (10.0-20.0) Serum Glucose 101 mg/dL (74-106) Calcium Level 10.3 mg/dL (8.7-10.4) Total Bilirubin 0.8 mg/dL (0.2-1.0) Aspartate Amino Transferase (AST) 26 U/L (13-40) Alanine Aminotransferase (ALT) 25 U/L (7-40) Alkaline Phosphatase 62 U/L (46-116) Total Protein 7.4 g/dL (5.7-8.2) Albumin 4.7 g/dL (3.2-4.8) Prothrombin Time 11.3 sec (9.3-11.8) Prothrombin Time INR 1.07 (0.9-1.15) Activated Partial Thromboplast Time 29.7 SEC (24.5-34.5) Beta HCG, Quantitative 4.4 mIU/mL (1.5-4.2) Troponin I High Sensitivity 412 ng/L (</=34) Hemoglobin A1c 4.7 % A1C (<5.7) Lactic Acid Level 1.2 mmol/L (0.4-2.0) Phosphorus Level 4.1 mg/dL (2.4-5.1) Magnesium Level 2.0 mg/dL (1.6-2.6) Triglycerides Level 107 mg/dL (< 150) Cholesterol Level 194 mg/dL (< 200) LDL Cholesterol 117 mg/dL (< 100) HDL Cholesterol 61 mg/dL (40-59) Vitamin B12 Level 413 pg/mL (211-911) Vitamin D 25-Hydroxy 17.0 ng/mL (30.0-100) Thyroid Stimulating Hormone (TSH) 1.71 uIU/mL (0.55-4.78) Test 07/17/24 17:56 Urine Color Light-yellow (Yellow) Urine Clarity Clear (Clear) Urine pH 6.0 (5.0-9.0) Urine Specific [place] 1.010 (1.001-1.035) Urine Protein Negative (Negative) Urine Ketones Negative (Negative) Urine Blood Negative /uL (Negative) Urine Nitrite Negative (Negative) Urine Bilirubin Negative (Negative) Urine Urobilinogen Normal mg/dL (Negative) Urine Leukocyte Esterase Negative /uL (Negative) Urine RBC 1 /hpf (0 - 4) Urine Microscopic WBC 1 /HPF (0-5) Urine Squamous Epithelial Cells Few /hpf (<5) Urine Bacteria None seen /hpf (None Seen) Urine Glucose Normal mg/dL (Normal) Urine Opiates Screen Neg (NEGATIVE) Urine Fentanyl Screen Neg (NEGATIVE) Urine Barbiturates Screen Neg (NEGATIVE) Urine Phencyclidine Screen Neg (NEGATIVE) Urine Amphetamines Screen Neg (NEGATIVE) Urine Benzodiazepines Screen Neg (NEGATIVE) Urine Cocaine Screen Neg (NEGATIVE) Urine Cannabinoids Screen Pos (NEGATIVE) Other Laboratory Tests 07/21/24 05:22 Brief Hx & Hospital Course: History of Presenting illness Varsha Ferris is a 54 year old female patient who presents to the ED chief complaint of retrosternal and posterior radiation towards back in epigastrium oppressive chest pain which started at 2:40 p.m. in functional class IV, intensity 10/10 while having an argument with family member, that was initially associated with diaphoresis, bilateral leg weakness, nausea and dry heaves and dyspnea, due to persistent chest pain symptom, patient decided to visit the ED. during ED visit troponin trending up (45,84 and 416) associated with severe hypertension. Past medical history: Hypertension, gestational diabetes, asthma (no inhalers), has questionable cholelithiasis (never completed any abdominal imaging), intermittent claudication for the past year, uterine fibroids, menopause (last menstrual period 06/2020). Patient does not follow with PCP. Patient is noncompliant Surgical history: Foot surgery for pamertoe Family history: Father and mother had hypertension and stroke. Father has history of colon cancer, cousin had breast cancer Social history: Originally from [place], currently lives in [place] with cousin. She is a current smoker (approximately 15 pack-year history of smoking). Occasionally marijuana abuse. Denies current tobacco and other drug abuse Allergies: Pollen and dust Home medication: Nifedipine (patient does not take medication) Brief Hospital course patient is a 54 year old female, a known smoker for over 40 years and a history of hypertension, presented to the ED with a chief complaints of retrosternal chest pain that started on 07/19/2024 afternoon. Patient's BP was 163/101. Initial labs revealed troponin 45,Leukocytosis, 12 lead EKG showed LVH and not ST changes. Patient was given nitroglycerin, aspirin, morphine, atorvastatin. Cardiology was consulted. At the time of their visit, her chest pain had decreased and her troponin were trending downwards. Patient had LHC and found a distal CX has a ruptured plaque 99% lesion with LPL coming off distally. She received PCI with HILARIO. Procedure went well and Patient back on the leal. Patient was kept overnight for assessment and now ready for discharge home and advised to take her medications as instructed and follow up with the cardiology and the discharge clinic Review of symptoms Constitutional: Denies fever no chills no feeling of malaise HEENT: Denies headache, ear pain, ear discharges, conjunctivitis, nasal discharge throat pain Cardiovascular: Denies chest pain, palpitation, orthopnea, PND, or pedal edema Respiratory: Denies shortness of breath, cough cough, sputum production, hemoptysis, GI: Denies abdominal pain, nausea, vomiting, diarrhea, hematemesis, hematochezia, : Denies frequency, urgency, hematuria, Endocrine: Denies unintentional weight gain or weight loss, feeling of hot flashes, Cornelio: Denies easy bruising, bleeding disorders, epistaxis Musculoskeletal: Denies joint pains, muscle aches Psych: No evidence of depression, shakir, suicidal ideation Examination General Appearance: Alert, Oriented X3, Cooperative, No acute distress HEENT: Atraumatic, PERRLA, EOMI, Mucous membrane moist/pink Respiratory: Clear to auscultation, Normal air movement Cardiovascular: Regular rate, Normal S1, Normal S2, No murmurs, no chest wall tenderness Abdominal: NO distention, no tenderness, bowel sounds present, no scars noted Extremities: No clubbing, No cyanosis, No edema, Normal pulses, No tenderness/swelling Skin: No rashes, No breakdown, No significant lesion Neuro: Normal gait, Normal speech, Strength at 5/5 X4 ext, Normal tone, Sensation intact, Cranial nerves 3-12 NL, Reflexes 2+ Psych/Mental Status: Mental status NL, Mood NL Diagnoses NSTEMI TYPE I, S/P PCI to 99% distal dominant CX with HILARIO. Hypertensive emergency Dyslipidemia, newly diagnosed leukocytosis like reactive Nicotine dependence Cannabinoid use Medical noncompliance Gestational diabetes Asthma intermittent claudication for the past year, Uterine fibroids Discharge plan D/c home Adhere to medications: Aspirin, clopidogrel, atorvastatin Take the antihypertensive medications: Lisinopril and valsartan Follow up at the discharge clinic in 7 days follow with the cardiology in 2-3 weeks Advised smoking cessation Advised patient to return to the ED [facility] if she feels unwell Discharge plan discussed with Dr. 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 sedation 15-30 mins, ptca 1 vessel , pci 1 vessel PREOPERATIVE DIAGNOSES: nstemi POSTOP DIAGNOSIS: nstemi DESCRIPTION OF PROCEDURE: The patient or appropriate family signed informed consent understanding the risks, benefits and alternatives of the procedure, they wished to proceed. The patient was brought to the cardiac propagator laborer in n.p.o. state. The patient was prepped in a sterile fashion. Sedation was used per cardiac cath protocol. I administered 2 mL of 2% lidocaine to the right wrist. With an antegrade front wall puncture. I cannulated the right radial artery and placed a 6-[place] Glidesheath slender. Next, an intra-arterial spasmolytic was administered. Next, a - 6[place] catheter and XB 3 guide and were used for coronary angiogram and LVEDP measurement and pressure pullback. At the completion of procedure, all guides and wires were removed, and there were no immediate complications. FINDINGS: RCA: Moderate vessel off the right sinus of Valsalva, non dominant vessel with diffuse plaquing LEFT MAIN: Moderate size left main, it bifurcates into LAD and circumflex. no severe stenosis. CIRCUMFLEX: Moderate caliber vessel coming off the left main . it is a large dominant vessel. distal CX ramsey a ruptured plaque 99% lesion with LPL coming off distally. LAD: LAD is a moderate caliber vessel coming of the left main. mild diffuse plaquing LVEDP of 8 mmhg INTERVENTION: We decided to proceed with coronary intervention. I started with a 6F __XB3__ Guide to intubate the _LM _. Angiomax bolus and gtt was started. Following this, I decided to wire using an .014 BMW across the culprit lesion with ease. At this time, we performed balloon angioplasty with a _2.5 x 15 mm balloon=__ balloon up to __12 __ ATMS over __15__ seconds with _2_ number of inflations. Following this, I decided to place a stent using a 3.0 x 18 mm onyx____ stent inflated up to __16__ ATMS over 15 seconds with two separate inflations. Following this, the stent balloon removed and angio performed showing 0% residual stenosis. GILES pre/post: 3./3 CONCLUSIONS: 1. sp pci to 99% distal dominant CX with HILARIO GERARDO BHANDARI MD Jul 20, 2024 11:55 DICTATED BY:GERARDO BHANDARI MD DICTATED DATE/TIME:07/20/24 6865 Condition at Discharge: Stable Final Diagnosis/Problems List NSTEMI, S/P pci to 99% distal dominant CX with HILARIO. Hypertensive emergency Dyslipidemia, newly diagnosed Lukocytosis like reactive Nicotine dependence Cannabinoid use Medical noncompliance Gestational diabetes Asthma intermittent claudication Uterine fibroids Discharge Disposition: Home Discharge Instruct/Medications Diet: See Comment Diet comment: Cardiac diet Activity: No Restrictions, As Tolerated Follow Up/Referral: 7 days Medications: Aspirin Clopidogrel Atorvastatins Nifedipine Discharge Statement: "Patient was advised to return to the ER or call 911 if any headaches, dizziness, shortness of breath, chest pain, abdominal pain, bleeding, fevers, or worsening of medical condition. Patient was counseled about treatment plan, medications, possible side effects, patientverbalized understanding. All questions were answered to the best of my ability. This discharge took greater then 30 minutes in planning, reviewing documentation, counseling the patient, and discussing with other team members." ASSESSMENT ASSESSMENT Assessment NSTEMI, S/P pci to 99% distal dominant CX with HILARIO. Hypertensive emergency Dyslipidemia, newly diagnosed Lukocytosis like reactive Nicotine dependence Cannabinoid use Medical noncompliance Gestational diabetes Asthma Date of Service: Jul 21, 2024 Billing Provider: SCOUT BARR MD Common Visit Codes: 57934-LPS/OBS DISCH DAY >30min REED POPE RESIDENT Jul 21, 2024 20:23 SCOUT BARR MD Jul 22, 2024 22:35
== END 2024-07-21 17:15 | disposition home or self-care (01) | DRG 174 ==
LOC: EDBD 16:00 → ER 16:00 → OVERFLOW 21:32 → TELE-EAST 07-18 17:49
PROVIDERS: ADMIT Student in an Organized Health Care Education/Training Program; ATTEND Student in an Organized Health Care Education/Training Program
PROC: 027034Z Dilation of Coronary Artery, One Artery with Drug-eluting Intraluminal Device, Percutaneous Approach (ICD-10-PCS; principal; 2024-07-20)
PROC: 4A023N7 Measurement of Cardiac Sampling and Pressure, Left Heart, Percutaneous Approach (ICD-10-PCS; 2024-07-20)
PROC: B211YZZ Fluoroscopy of Multiple Coronary Arteries using Other Contrast (ICD-10-PCS; 2024-07-20)
DX: I21.4 Non-ST elevation (NSTEMI) myocardial infarction (principal); R16.0 Hepatomegaly, not elsewhere classified; D25.9 Leiomyoma of uterus, unspecified; I16.1 Hypertensive emergency; J45.20 Mild intermittent asthma, uncomplicated; J98.4 Other disorders of lung; E78.5 Hyperlipidemia, unspecified; F17.210 Nicotine dependence, cigarettes, uncomplicated; Z88.3 Allergy status to other anti-infective agents; Z91.199 Patient's noncompliance with other medical treatment and regimen due to unspecified reason; Z86.32 Personal history of gestational diabetes; Z83.3 Family history of diabetes mellitus; Z82.49 Family history of ischemic heart disease and other diseases of the circulatory system; Z82.3 Family history of stroke; Z80.3 Family history of malignant neoplasm of breast; Z80.0 Family history of malignant neoplasm of digestive organs
CPT/HCPCS: 36415; 71045; 75635; 80048; 80053; 80061; 80307; 81001; 82306; 82607; 83036; 83605; 83735; 84100; 84443; 84484; 84702; 85025; 85610; 85730; 86850; 86900; 86901; 92941; 93005; 93306; 93458; 93925; 96365; 96372; 99152; G0378; J2250; J2470; Q9967

== ENCOUNTER 2024-07-24 21:12 | Inpatient (IN) | payer MEDICAID ==
[~2024-07-24] VITALS: Ht 162.6 cm; Wt 61.3 kg
[~2024-07-24 21:12] MED LIST changes: -AMOX500T86 PO; +ASPI-325 PO; +ATOR40TA52 PO; +CLOP75TA70 PO; -HYDR25TA5 PO; +NIFE1TAB30 PO; +VALS1TAB57 PO
[2024-07-24 21:41] LABS: Basophils # (auto) 0.1 10 ^3/uL (0-0.2); Basophils % (auto) 1.4 % (0.0-2.0); Eosinophils # (auto) 0.1 10 ^3/uL (0-0.8); Eosinophils % (auto) 1.6 % (0.0-7.0); Hematocrit 42.2 % (36.0-46.0); Hemoglobin 14.4 g/dL (12.2-16.2); Lymphocytes # (auto) 3.5 10 ^3/uL (0.4-5.4); Lymphocytes % (auto) 37.2 % (10.0-50.0); Mean Corpuscular Hemoglobin 30.5 pg (28.0-32.0); Mean Corpuscular Volume 89.8 fL (80.0-100.0); Monocytes # (auto) 0.8 10 ^3/uL (0-1.3); Monocytes % (auto) 8.7 % (0.0-12.0); Neutrophils # (auto) 4.8 10 ^3/uL (1.6-8.6); Neutrophils % (auto) 51.1 % (37.0-80.0); Nucleated Red Blood Cells % 0.1 %; Platelet Count (auto) 227 10^3/uL (140-450); Red Cell Distribution Width 12.8 % (11.8-14.3); White Blood Cell 9.3 10^3/uL (4.4-10.8)
[2024-07-24 21:57] LABS: Alkaline Phosphatase 89 U/L (46-116); Anion Gap 7 (5-15); BUN/Creatinine Ratio 13.3 (10.0-20.0); Blood Urea Nitrogen 11 mg/dL (9-23); Carbon Dioxide 26 mmol/L (20-31); Chloride 106 mmol/L (98-107); Magnesium 2.1 mg/dL (1.6-2.6); Potassium 3.8 mmol/L (3.5-5.1); Sodium 139 mmol/L (136-145); Total Protein 7.7 g/dL (5.7-8.2)
[2024-07-24 21:58] LABS: Aspartate Aminotransferase 26 U/L (13-40); Bilirubin, Total 0.4 mg/dL (0.2-1.0)
--- NOTE | 2024-07-24 22:09 | DVH ---
CHEST RADIOGRAPH Indication: Chest pain Technique: Single frontal view of the chest was obtained Comparison: XY CHEST PORTABLE on DOS: 07/17/24, XY CHEST PORTABLE on DOS: 03/15/23 FINDINGS: Lines and Tubes: None Lungs: No focal consolidation. Pleura: No effusion. No pneumothorax. Cardiomediastinal contours: Unremarkable Bones: No acute osseous abnormality. IMPRESSION: 1. No acute cardiopulmonary disease.
[2024-07-24 22:16] LABS: Alanine Aminotransferase 42 U/L (7-40); Calcium 10.7 mg/dL (8.7-10.4); Glucose 129 mg/dL (74-106)
[2024-07-24 22:20] VITALS: PULSE 68; RESP 16; O2SAT 99
[2024-07-24] MEDS: ASPirin 81 mg TAB PO ONE (22:24)
[2024-07-24] MEDS: NITROGLYCERIN 0.4 MG SL TAB SL ONE (22:25)
[2024-07-24 22:41] LABS: Urine Bacteria None Seen /hpf (None Seen)
[2024-07-24 22:52] LABS: Urine Blood Negative /uL (Negative); Urine Clarity Clear (Clear); Urine Color Colorless (Yellow); Urine Protein, UAD Negative (Negative); Urine Specific Gravity 1.005 (1.001-1.035); Urine Squamous Epithelial Cell FEW /hpf (<5); Urine Urobilinogen Normal (Negative)
[2024-07-25] VITALS (10 sets, daily range): BP systolic 126–165; BP diastolic 74–90; PULSE 57–73; RESP 13–18; TEMP 97.2–98.2; O2SAT 95–99
--- NOTE | 2024-07-25 00:36 | ED.PDOC ---
HPI Comments This patient is a pleasant 54-year-old female who arrives the ED today for evaluation of substernal chest pain that radiates up into bilateral shoulders and back for the past several hours. Patient states the symptoms came on quickly and has been relatively unrelenting. Patient's recent history is remarkable for a NSTEMI on July 17. Patient was admitted, per patient received an angioplasty technique with stent placement and discharged on the . Patient patient states intermittent nausea with the chest pain events. Patient was mildly hypertensive on arrival. Chief Complaint: Chest Pain Time Seen by MD: 21:14 Primary Care Provider: AYAAN Reviewed Notes: Nurses Notes Allergies: Coded Allergies: No Known Drug Allergy (Verified Allergy, Unknown, 04/22/21) Home Meds Active Scripts Valsartan (Valsartan) 80 Mg Tab, 80 MG PO DAILY for 90 Days, #90 TAB 1 Refill Prov:SCOUT MARRERO MD 07/21/24 Nifedipine (Nifedipine Er) 60 Mg Tab, 1 TAB PO DAILY, #90 TAB 1 Refill Prov:SCOUT MARRERO MD 07/21/24 Clopidogrel Bisulfate (CLOPIDOGREL) 75 Mg Tab, 75 MG PO DAILY for 90 Days, #90 TAB 1 Refill Prov:SCOUT MARRERO MD 07/21/24 Atorvastatin Calcium (ATORVASTATIN CALCIUM) 40 Mg Tab, 1 TAB PO DAILY, #90 TAB 1 Refill Prov:SCOUT MARRERO MD 07/21/24 Aspirin (Aspirin Low Dose) 81 Mg Tab, 81 MG PO DAILY for 90 Days, #90 TAB 1 Refill Prov:SCOUT MARRERO MD 07/21/24 Discontinued Reported Medications Nifedipine (Nifedipine Er) 30 Mg Tab, 1 TAB PO DAILY, #90 TAB 1 Refill 07/18/24 Discontinued Scripts Hctz (Hydrochlorothiazide) 25 Mg Tab, 25 MG PO DAILY, #90 TAB Prov:CLARITA WEEMS MD 03/16/23 Amoxicillin & Pot Clavulanate (Augmentin) 500 Mg Tab, 500 MG PO TID for 7 Days, #21 TAB Prov:JANE TORRES MD 04/22/21 Information Source: Patient Mode of Arrival: Ambulatory Severity: Moderate Timing: Minutes Duration: Since onset Prehospital treatment: None Location: Chest (R), Chest (L), Substernal Radiation: Back, Neck, Shoulder (R), Shoulder (L) Quality: Sharp, Squeezing Onset: At Rest Cardiac Risk Factors: Smoker PE Risk Factors: None History of: [place] Associated Signs and Symptoms: Back Pain Past Medical History PAST MEDICAL HISTORY: HTN, [place] Surgical History: Denies all surgeries Surgical History (Other): Recent stent placement FLATCAR WHACKER History: No Pertinent FLATCAR WHACKER History Family History Family History: Reviewed,noncontributory to illness Social History Smoker: Cigarettes Alcohol: Denies ETOH Use Drugs: Marijuana Lives In: Home Constitutional: denies: chills, diaphoresis, fatigue, fever, malaise, sweats, weakness, others EENTM: denies: blurred vision, double vision, ear bleeding, ear discharge, ear drainage, ear pain, ear ringing, eye pain, eye redness, hearing loss, mouth pain, mouth swelling, nasal discharge, nose bleeding, nose congestion, nose pain, photophobia, tearing, throat pain, throat swelling, voice changes, others Respiratory: denies: cough, hemoptysis, orthopnea, SOB at rest, shortness of breath, SOB with excertion, stridor, wheezing, others Cardiovascular: reports: chest pain; denies: dizzy spells, diaphoresis, Dyspnea on exertion, edema, irregular heart beat, left arm pain, lightheadedness, palpitations, PND, syncope, others Gastrointestinal: denies: abdomen distended, abdominal pain, blood streaked bowels, constipated, diarrhea, dysphagia, difficulty swallowing, hematemesis, melena, nausea, poor appetite, poor fluid intake, rectal bleeding, rectal pain, vomiting, others Genitourinary: denies: abnormal vagina bleeding, burning, dyspareunia, dysuria, flank pain, frequency, hematuria, incontinence, pain, , vagina discharge, urgency, others Neurological: denies: dizziness, fainting, headache, left sided numbness, left sided weakness, numbness, paresthesia, pre-existing deficit, right sided numbness, right sided weakness, seizure, speech problems, tingling, tremors, weakness, others Musculoskeletal: reports: back pain; denies: gout, joint pain, joint swelling, muscle pain, muscle stiffness, neck pain, others Integumetry: denies: bruises, change in color, change in hair/nails, dryness, laceration, lesions, lumps, rash, wounds, others Allergic/Immunocompromised: denies: Difficulty Healing, Frequent Infections, Hives, Itching, others Hematologic/Lymphatic: denies: anemia, blood clots, easy bleeding, easy bruising, swollen glands, others Endocrine: denies: excessive hunger, excessive sweating, excessive thirst, excessive urination, flushing, intolerance to cold, intolerance to heat, unexplained weight gain, unexplained weight loss, others Psychiatric: denies: anxiety, bipolar disorder, depression, hopeless, panic disorder, schizophrenia, sleepless, suicidal, others Physical Exam General Appearance: Moderate Distress (Be chest pain concerns), Normal HEENT: Normal ENT Inspection, Pharynx Normal, TMs Normal Neck: Full Range of Motion, Non-Tender, Normal, Normal Inspection Respiratory: Chest Non-Tender, Lungs Clear, No Accessory Muscle Use, No Respiratory Distress, Normal Breath Sounds, Other (Unremarkable auscultation bilateral lung avery) Cardiovascular: No Edema, No JVD, No Murmur, No Gallop, Normal Peripheral Pulses, Regular Rate/Rhythm, Other (Unremarkable cardiac evaluation) Breast Exam: Deferred Gastrointestinal: No Organomegaly, Non Tender, No Pulsatile Mass, Normal Bowel Sounds, Soft Genitalia: Deferred Pelvic: Deferred Rectal: Deferred Extremities: No calf tenderness, Normal capillary refill, Normal inspection, Normal range of motion, Non-tender, No pedal edema Neurologic: Alert, No Motor Deficits, Normal Affect, Normal Mood, No Sensory Deficits Cerebellar Function: Normal Reflexes: Normal Skin: Dry, Normal Color, Warm Lymphatic: No Adenopathy Was a procedure done? Was a procedure done?: No CP Differential Dx Differential Diagnosis: A-fib, A-Flutter, Anxiety / Panic Attack, Atrial Dysrhythmia, AV Block 1st Degree, AV Block 2nd Degree, AV Block 3rd Degree, IN Differential Diagnosis: CHF, HTN Essential Differential Diagnosis: Chest Wall Pain X-Ray, Labs, Meds, VS Vital Signs Date Time Temp Pulse Resp B/P (MAP) Pulse Ox O2 Delivery O2 Flow Rate FiO2 07/25/24 00:20 158/93 (114) 07/25/24 00:05 68 18 170/90 (116) 07/24/24 23:34 58 07/24/24 23:13 85 18 134/91 (105) 97 07/24/24 23:02 76 17 137/81 (99) 95 07/24/24 22:50 140/93 07/24/24 22:48 76 18 140/93 (109) 98 07/24/24 22:40 56 07/24/24 22:25 149/84 07/24/24 22:20 68 16 149/84 (105) 99 07/24/24 22:20 68 16 99 Room Air* 0 21 07/24/24 21:47 98.0 63 18 167/96 (119) 100 98.0 07/24/24 21:38 62 Lab Test 07/24/24 22:22 07/24/24 22:15 07/24/24 21:25 Range/Units Urine Color Colorless Yellow Urine Clarity Clear Clear Urine pH 7.0 5.0-9.0 Urine Specific [place] 1.005 1.001-1.035 Urine Protein Negative Negative Urine Ketones Negative Negative Urine Blood Negative Negative /uL Urine Nitrite Negative Negative Urine Bilirubin Negative Negative Urine Urobilinogen Normal Negative mg/dL Urine Leukocyte Esterase Negative Negative /uL Urine RBC <1 0 - 4 /hpf Urine Microscopic WBC 0-5 /HPF Urine Squamous Epithelial Cells Few <5 /hpf Urine Bacteria None seen None Seen /hpf Urine Glucose Normal Normal mg/dL Troponin I High Sensitivity 21 23 </=34 ng/L White Blood Count 9.3 4.4-10.8 10^3/uL Red Blood Count 4.70 4.0-5.20 10^6/uL Hemoglobin 14.4 12.2-16.2 g/dL Hematocrit 42.2 36.0-46.0 % Mean Corpuscular Volume 89.8 80.0-100.0 fL Mean Corpuscular Hemoglobin 30.5 28.0-32.0 pg Mean Corpuscular Hemoglobin Concent 34.0 32.0-36.0 g/dL Red Cell Distribution Width 12.8 11.8-14.3 % Platelet Count 227 140-450 10^3/uL Mean Platelet Volume 8.0 6.9-10.8 fL Neutrophils (%) (Auto) 51.1 37.0-80.0 % Lymphocytes (%) (Auto) 37.2 10.0-50.0 % Monocytes (%) (Auto) 8.7 0.0-12.0 % Eosinophils (%) (Auto) 1.6 0.0-7.0 % Basophils (%) (Auto) 1.4 0.0-2.0 % Neutrophils # (Auto) 4.8 1.6-8.6 10 ^3/uL Lymphocytes # (Auto) 3.5 0.4-5.4 10 ^3/uL Monocytes # (Auto) 0.8 0-1.3 10 ^3/uL Eosinophils # (Auto) 0.1 0-0.8 10 ^3/uL Basophils # (Auto) 0.1 0-0.2 10 ^3/uL Nucleated Red Blood Cells 0.1 % D-Dimer, Quantitative 0.26 0.0-0.49 mg/L FEU Sodium Level 139 136-145 mmol/L Potassium Level 3.8 3.5-5.1 mmol/L Chloride Level 106 98-107 mmol/L Carbon Dioxide Level 26 20-31 mmol/L Anion Gap 7 5-15 Blood Urea Nitrogen 11 9-23 mg/dL Creatinine 0.83 0.550-1.02 mg/dL Glomerular Filtration Rate Calc 84 >90 mL/min BUN/Creatinine Ratio 13.3 10.0-20.0 Serum Glucose 129 H 74-106 mg/dL Calcium Level 10.7 H 8.7-10.4 mg/dL Magnesium Level 2.1 1.6-2.6 mg/dL Total Bilirubin 0.4 0.2-1.0 mg/dL Aspartate Amino Transferase (AST) 26 13-40 U/L Alanine Aminotransferase (ALT) 42 H 7-40 U/L Alkaline Phosphatase 89 46-116 U/L B-Type Natriuretic Peptide 5.58 0-100 pg/mL Total Protein 7.7 5.7-8.2 g/dL Albumin 5.0 H 3.2-4.8 g/dL Current Medications Medications (Trade) Dose Ordered Sig/Remy Route Start Time Stop Time Status Last Admin Aspirin 81 mg ONCE ONCE PO 07/24/24 21:30 07/24/24 21:31 DC 07/24/24 22:24 Nitroglycerin (Ntrostat Sublingual) 0.4 mg Q5MIN ONCE SL 07/24/24 22:30 07/24/24 22:31 DC 07/24/24 22:25 X-Ray, Labs, Meds, VS Comment All studies performed the ED were evaluated by me personally. Serum studies were unremarkable including unremarkable cardiac markers. Patient's x-ray was unremarkable for any acute intrapulmonary concerns or consolidation. EKG revealed a sinus rhythm with a rate of 62. Left ventricular hypertrophy with a MA interval of 146 and a QT interval with 423. Patient was very anxious while in the ED and was continued to displays signs of hypertension. Patient will be admitted for an acute coronary syndrome event due to her recent discharge for her [place]. patient is may be having strain concerns related to that event. Time of 1ST Reevaluation: 00:34 Reevaluation 1ST: Improved Consultation: PCP, Cardiology Patient Education/Counseling: Diagnosis, Treatment Family Education/Counseling: Diagnosis, Treatment Departure 1 Departure Time of Disposition: 00:36 Impression: Primary Impression: Chest pain of unknown etiology Additional Impression: Acute coronary syndrome Disposition: 09 ADMITTED INPATIENT Condition: Stable Discharged With: Self Critical Care Note Critical Care Time?: No Stability Stability form required: No Heart Score Heart Score: Heart Score Response (Comments) Value History Slightly Suspicious 0 EKG Repolarization Disturb 1 Age 45-64 1 Risk Factors 1 or 2 risk factors 1 Troponin Normal limit 0 Total 3 GABI PATEL PAC Jul 25, 2024 00:36
[2024-07-25] MEDS ORDERED: ONDANSETRON HCL 4 MG/2 ML VIAL IV PRN (03:30)
[2024-07-25] MEDS ORDERED: ACETAMINOPHEN 325 MG TAB PO PRN (03:30)
[2024-07-25] MEDS ORDERED: cloNIDine HCL 0.1 MG TAB PO PRN (03:30)
--- NOTE | 2024-07-25 04:11 | DVHHP2 ---
History of Present Illness Reason for Visit: Chest pain History of Present Illness 54-year-old female presents for evaluation of chest pain. Patient reports a one day history of substernal nonradiating sharp chest pain with associated shortness for breath. She also states that her blood pressure was 205/120. She reports being compliant with her medications. Patient was discharged three days ago after undergoing PTCA. Past Medical History Hypertension, CAD and [place] Past Surgical History PTCA Family History Noncontributory Smoke: <1 pack per day ALCOHOL: none Drugs: Marijuana Lives: with Family Review of Systems Review of Systems Review of systems are currently negative otherwise addressed in HPI. Allergies: Coded Allergies: No Known Drug Allergy (Verified Allergy, Unknown, 04/22/21) Medications Current Medications Medications Dose Ordered Sig/Remy Route Start Time Stop Time Status Last Admin Dose Admin Aspirin 81 mg DAILY PO 07/25/24 10:00 Atorvastatin Calcium 40 mg HS PO 07/25/24 22:00 Clopidogrel Bisulfate 75 mg DAILY PO 07/25/24 10:00 Nifedipine 60 mg DAILY PO 07/25/24 10:00 Valsartan 80 mg DAILY PO 07/25/24 10:00 Clonidine HCl 0.1 mg Q6HP PRN PO 07/25/24 03:30 Ondansetron HCl 4 mg Q4HP PRN IV 07/25/24 03:30 Acetaminophen 650 mg Q6HP PRN PO 07/25/24 03:30 Nitroglycerin 0.4 mg Q5MINP PRN SL 07/25/24 03:30 Morphine Sulfate 2 mg Q30M PRN IV 07/25/24 03:30 Exam Vital Signs Vital Signs Date Time Temp Pulse Resp B/P (MAP) Pulse Ox O2 Delivery O2 Flow Rate FiO2 07/25/24 03:40 98.3 78 17 136/79 (98) 98 98.3 07/24/24 22:20 Room Air* 0 21 Exam Gen: 54-year-old female in no apparent Skin: Warm, dry, normal color and texture, no rash. HEENT: Normocephalic atraumatic, mucous membranes moist and pink. Neck: Cervical and supraclavicular nodes normal without enlargement, trachea is midline, thyroid gland is normal without masses. Pulmonary: Clear to auscultation and percussion bilaterally. Cardiac: Regular rate and rhythm. No murmur Abdomen: Soft, nontender, nondistended, bowel sounds present all 4 quadrants, no guarding, no rigidity, no organomegaly. Extremities: No cyanosis, clubbing, no edema Neuro: Cranial nerves II through XII grossly intact, normal affect and speech, no focal motor deficits. Labs/Xrays ORDERING PHYSICIAN: HIRAM ORTIZ PROCEDURE(s): ECIDC - ECHO 2D MODE CARDIAC DOP REASON: NSTEMI ORDER NUMBER(s): [id number], ACCESSION NUMBER(s): [id number] APPROVED REPORT EXAM: Two-dimensional and M-mode echocardiogram with Doppler and color Doppler. Blood Pressure: 115/63 mmHg INDICATION NSTEMI RISK FACTORS Height: 5' 4", Weight: 140 DIMENSIONS LVDd 3.9 (3.8-5.7cm) LA (2D) 3.0 (1.9-4.0cm) Aortic Root 3.0 (2.0- 3.7cm) LVDs 3.2 (2.5-4.0cm) LA (MM) (1.9-4.0cm) Aortic Cusp Exc 1.3 (1.5- 2.0cm) EF (%) 50.0 (55-70%) Rt. Atrium 3.3 (1.9-4.0cm) Asc. Aorta cm IVSd 1.2 (0.7-1.1cm) RV (D) (1.8-2.4cm) PWd 1.2 (0.7-1.1cm) Mitral Valve Mitral Mitral Stenosis E wave 0.90m/s MV Mean GR. mmHg A wave 0.80m/s MV Peak GR. mmHg E/A ratio 1.1 2D MVA cm2 Aortic Valve Aortic Valve Aortic Stenosis V1 0.80m/s AO Mean GR. 3mmHg V2 1.30m/s AO Peak GR. 7mmHg LVOT Diameter 2.0 (1.8-2.4cm) Doppler PAMELA 1.93cm2 AI P 1/2 Time 271.93ms Pulmonic Valve V2 0.60m/s Conclusion lvef 60% by visual estimate moderate LVH normal rv function normal atria no severe valve abnormalities noted SIGNED BY: BARBARA BHANDARI MD SIGNED DATE/TIME: 07/18/24 6958 CC: ORDERING PHYSICIAN: GABI PATEL PAC PROCEDURE(s): CXRP - CHEST PORTABLE REASON: Chest pain ORDER NUMBER(s): [id number], ACCESSION NUMBER(s): [id number] CHEST RADIOGRAPH Indication: Chest pain Technique: Single frontal view of the chest was obtained Comparison: XY CHEST PORTABLE on DOS: 07/17/24, XY CHEST PORTABLE on DOS: 03/15/23 FINDINGS: Lines and Tubes: None Lungs: No focal consolidation. Pleura: No effusion. No pneumothorax. Cardiomediastinal contours: Unremarkable Bones: No acute osseous abnormality. IMPRESSION: 1. No acute cardiopulmonary disease. Labs Test 07/24/24 22:22 07/24/24 22:15 07/24/24 21:25 Range/Units Urine Color Colorless Yellow Urine Clarity Clear Clear Urine pH 7.0 5.0-9.0 Urine Specific [place] 1.005 1.001-1.035 Urine Protein Negative Negative Urine Ketones Negative Negative Urine Blood Negative Negative /uL Urine Nitrite Negative Negative Urine Bilirubin Negative Negative Urine Urobilinogen Normal Negative mg/dL Urine Leukocyte Esterase Negative Negative /uL Urine RBC <1 0 - 4 /hpf Urine Microscopic WBC 0-5 /HPF Urine Squamous Epithelial Cells Few <5 /hpf Urine Bacteria None seen None Seen /hpf Urine Glucose Normal Normal mg/dL Troponin I High Sensitivity 21 </=34 ng/L White Blood Count 9.3 4.4-10.8 10^3/uL Red Blood Count 4.70 4.0-5.20 10^6/uL Hemoglobin 14.4 12.2-16.2 g/dL Hematocrit 42.2 36.0-46.0 % Mean Corpuscular Volume 89.8 80.0-100.0 fL Mean Corpuscular Hemoglobin 30.5 28.0-32.0 pg Mean Corpuscular Hemoglobin Concent 34.0 32.0-36.0 g/dL Red Cell Distribution Width 12.8 11.8-14.3 % Platelet Count 227 140-450 10^3/uL Mean Platelet Volume 8.0 6.9-10.8 fL Neutrophils (%) (Auto) 51.1 37.0-80.0 % Lymphocytes (%) (Auto) 37.2 10.0-50.0 % Monocytes (%) (Auto) 8.7 0.0-12.0 % Eosinophils (%) (Auto) 1.6 0.0-7.0 % Basophils (%) (Auto) 1.4 0.0-2.0 % Neutrophils # (Auto) 4.8 1.6-8.6 10 ^3/uL Lymphocytes # (Auto) 3.5 0.4-5.4 10 ^3/uL Monocytes # (Auto) 0.8 0-1.3 10 ^3/uL Eosinophils # (Auto) 0.1 0-0.8 10 ^3/uL Basophils # (Auto) 0.1 0-0.2 10 ^3/uL Nucleated Red Blood Cells 0.1 % D-Dimer, Quantitative 0.26 0.0-0.49 mg/L FEU Sodium Level 139 136-145 mmol/L Potassium Level 3.8 3.5-5.1 mmol/L Chloride Level 106 98-107 mmol/L Carbon Dioxide Level 26 20-31 mmol/L Anion Gap 7 5-15 Blood Urea Nitrogen 11 9-23 mg/dL Creatinine 0.83 0.550-1.02 mg/dL Glomerular Filtration Rate Calc 84 >90 mL/min BUN/Creatinine Ratio 13.3 10.0-20.0 Serum Glucose 129 H 74-106 mg/dL Calcium Level 10.7 H 8.7-10.4 mg/dL Magnesium Level 2.1 1.6-2.6 mg/dL Total Bilirubin 0.4 0.2-1.0 mg/dL Aspartate Amino Transferase (AST) 26 13-40 U/L Alanine Aminotransferase (ALT) 42 H 7-40 U/L Alkaline Phosphatase 89 46-116 U/L B-Type Natriuretic Peptide 5.58 0-100 pg/mL Total Protein 7.7 5.7-8.2 g/dL Albumin 5.0 H 3.2-4.8 g/dL Assessment/Plan Assessment/Plan Assessment Unstable angina History of [place] Accelerated hypertension Plan Admit the patient to telemetry to the hospitalist Resume home medications Continue treatment per orders. Plan discussed with: Patient My Orders Orders - SHALOM HAHN AGACNP Procedure Category Date Status Time Aspirin Tablet PHA 07/25/24 In Process 10:00 Atorvastatin (Lipitor) PHA 07/25/24 In Process 22:00 Clopidogrel Bisulfate PHA 07/25/24 In Process (Plavix) 10:00 Nifedipine Er PHA 07/25/24 In Process (Procardia Xl 10:00 Valsartan (Diovan) PHA 07/25/24 In Process 10:00 Basic Metabolic Panel LAB 07/26/24 Verified 04:00 Clonidine Hcl Tablet PHA 07/25/24 In Process (Catapres Tablet) 03:30 Admit ADMIT 07/25/24 Transmitted 03:18 Ondansetron Hcl PHA 07/25/24 In Process (Zofran) 03:30 Cardiac DIET 07/25/24 Transmitted Diet-2gna,Lofat,Lochol Breakfast Condition: Fair ANILA 07/25/24 In Process 03:18 Acetaminophen Tablet PHA 07/25/24 In Process (Tylenol Tablet) 03:30 Bedrest With Bathroom [facility] 07/25/24 In Process Privileg 03:18 Nitroglycerin PHA 07/25/24 In Process Sublingual (Ntrostat 03:30 Morphine Sulfate PHA 07/25/24 In Process Injection 03:30 Stat Ekg For Chest [facility] 07/25/24 In Process Pain 03:18 Notify Md Of Changes [facility] 07/25/24 In Process From Base 03:18 Gold Blower For [facility] 07/25/24 In Process 24 Hours 03:18 Emergency Dysrhythmia [facility] 07/25/24 In Process Protocol 03:18 Rhythm Strips Once [facility] 07/25/24 In Process Every Shift 03:18 Oxygen By Nasal RT 07/25/24 Transmitted Cannula 03:18 Date of Service: Jul 25, 2024 Billing Provider: SHALOM HAHN Common Visit Codes: [id number] INP/OBS CARE (HIGH) SHALOM HAHN Jul 25, 2024 04:11
--- NOTE | 2024-07-25 06:54 | ECG ---
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
[2024-07-25] MEDS ORDERED: NITROGLYCERIN 0.4 MG SL TAB SL ONE (10:00)
[2024-07-25] MEDS: ASPirin 81 mg TAB PO SCH (10:10)
[2024-07-25] MEDS: CLOPIDOGREL BISULFATE 75 MG TAB PO SCH (10:10)
[2024-07-25] MEDS: VALSARTAN 80 MG TAB PO SCH (12:13)
[2024-07-25] MEDS: NIFEdipine ER 30 MG TAB PO SCH (12:14)
--- NOTE | 2024-07-25 20:54 | DVHINCON2 ---
Date of service: Jul 25, 2024 Referring Physician Ro Reason for Consultation Chest pain History of Present Illness This is a 54-year-old female who arrives the ED today for evaluation of substernal chest pain that radiates up into bilateral shoulders and back for the past several hours.Patient reports a one day history of substernal nonradiating sharp chest pain with associated shortness for breath. She also states that her blood pressure was 205/120. She reports being compliant with her medications. Patient was discharged three days ago after undergoing PTCA. EKG revealed a sinus rhythm with a rate of 62. Left ventricular hypertrophy with a [place] interval of 146 and a QT interval with 423. Chest x-ray shows NAD. CBC is unremarkable. UA is WNL. D-dimer 0.26. Troponin is negative x2. Patient was admitted to the hospital. I am asked to consult on this patient. Family History: Colon cancer G8 MOTHER Diabetes mellitus G8 FATHER FH: breast cancer G8 MOTHER FH: heart attack G8 FATHER FH: stroke G8 MOTHER G8 FATHER Hypertension G8 MOTHER G8 FATHER Allergies: Coded Allergies: No Known Drug Allergy (Verified Allergy, Unknown, 04/22/21) Home Meds Active Scripts Valsartan (Valsartan) 80 Mg Tab, 80 MG PO DAILY for 90 Days, #90 TAB 1 Refill Prov:SCOUT MARRERO MD 07/21/24 Nifedipine (Nifedipine Er) 60 Mg Tab, 1 TAB PO DAILY, #90 TAB 1 Refill Prov:SCOUT MARRERO MD 07/21/24 Clopidogrel Bisulfate (CLOPIDOGREL) 75 Mg Tab, 75 MG PO DAILY for 90 Days, #90 T AB 1 Refill Prov:SCOUT MARRERO MD 07/21/24 Atorvastatin Calcium (ATORVASTATIN CALCIUM) 40 Mg Tab, 1 TAB PO DAILY, #90 TAB 1 Refill Prov:SCOUT MARRERO MD 07/21/24 Aspirin (Aspirin Low Dose) 81 Mg Tab, 81 MG PO DAILY for 90 Days, #90 TAB 1 Refill Prov:SCOUT MARRERO MD 07/21/24 Discontinued Reported Medications Nifedipine (Nifedipine Er) 30 Mg Tab, 1 TAB PO DAILY, #90 TAB 1 Refill 07/18/24 Discontinued Scripts Hctz (Hydrochlorothiazide) 25 Mg Tab, 25 MG PO DAILY, #90 TAB Prov:CLARITA WEEMS MD 03/16/23 Amoxicillin & Pot Clavulanate (Augmentin) 500 Mg Tab, 500 MG PO TID for 7 Days, #21 TAB Prov:JANE TORRES MD 04/22/21 Current Medications Current Medications Medications (Trade) Dose Ordered Sig/Remy Route PRN Reason Start Time Stop Time Status Last Admin Aspirin 81 mg DAILY PO 07/25/24 10:00 07/25/24 10:10 Atorvastatin Calcium (Lipitor) 40 mg HS PO 07/25/24 22:00 Clopidogrel Bisulfate (Plavix) 75 mg DAILY PO 07/25/24 10:00 07/25/24 10:10 Nifedipine (Procardia Xl (Time-Release)) 60 mg DAILY PO 07/25/24 10:00 07/25/24 12:14 Valsartan (Diovan) 80 mg DAILY PO 07/25/24 10:00 07/25/24 12:13 Clonidine HCl (Catapres Tablet) 0.1 mg Q6HP PRN PO SBP>160 07/25/24 03:30 Ondansetron HCl (Zofran) 4 mg Q4HP PRN IV NAUSEA / VOMITING 07/25/24 03:30 Acetaminophen (Tylenol Tablet) 650 mg Q6HP PRN PO PAIN SCALE 1-3 OR TEMP>100.4 07/25/24 03:30 Nitroglycerin (Ntrostat Sublingual) 0.4 mg Q5MINP PRN SL FOR CHEST PAIN 07/25/24 03:30 Morphine Sulfate 2 mg Q30M PRN IV FOR CHEST PAIN 07/25/24 03:30 Review of Systems Constitutional: denies: chills, diaphoresis, fatigue, fever, malaise, sweats, weakness, others EENTM: denies: blurred vision, double vision, ear bleeding, ear discharge, ear drainage, ear pain, ear ringing, eye pain, eye redness, hearing loss, mouth pain, mouth swelling, nasal discharge, nose bleeding, nose congestion, nose pain, photophobia, tearing, throat pain, throat swelling, voice changes, others Respiratory: denies: cough, hemoptysis, orthopnea, SOB at rest, shortness of breath, SOB with excertion, stridor, wheezing, others Cardiovascular: reports: chest pain; denies: dizzy spells, diaphoresis, Dyspnea on exertion, edema, irregular heart beat, left arm pain, lightheadedness, palpitations, PND, syncope, others Gastrointestinal: denies: abdomen distended, abdominal pain, blood streaked bowels, constipated, diarrhea, dysphagia, difficulty swallowing, hematemesis, melena, nausea, poor appetite, poor fluid intake, rectal bleeding, rectal pain, vomiting, others Genitourinary: denies: abnormal vagina bleeding, burning, dyspareunia, dysuria, flank pain, frequency, hematuria, incontinence, pain, , vagina discharge, urgency, others Neurological: denies: dizziness, fainting, headache, left sided numbness, left sided weakness, numbness, paresthesia, pre-existing deficit, right sided numbness, right sided weakness, seizure, speech problems, tingling, tremors, weakness, others Musculoskeletal: reports: back pain; denies: gout, joint pain, joint swelling, muscle pain, muscle stiffness, neck pain, others Integumetry: denies: bruises, change in color, change in hair/nails, dryness, laceration, lesions, lumps, rash, wounds, others Allergic/Immunocompromised: denies: Difficulty Healing, Frequent Infections, Hives, Itching, others Hematologic/Lymphatic: denies: anemia, blood clots, easy bleeding, easy bruising, swollen glands, others Endocrine: denies: excessive hunger, excessive sweating, excessive thirst, excessive urination, flushing, intolerance to cold, intolerance to heat, unexplained weight gain, unexplained weight loss, others Psychiatric: denies: anxiety, bipolar disorder, depression, hopeless, panic disorder, schizophrenia, sleepless, suicidal, others Vital Signs Vital Signs Date Time Temp Pulse Resp B/P (MAP) Pulse Ox O2 Delivery O2 Flow Rate FiO2 07/25/24 17:00 98.1 66 16 126/81 (96) 95 98.1 07/25/24 04:34 Room Air* 0 21 Physical Exam GENERAL: Alert and oriented x 3. No acute distress. EYES: PERRL, EOMI. Anicteric. HENT: Moist mucous membranes. LUNGS: Clear to auscultation bilaterally. CARDIOVASCULAR: Regular rate and rhythm. ABDOMEN: Soft, non-tender and non-distended. EXTREMITIES: No edema. NEUROLOGIC: No focal neurological deficits. SKIN: Warm, dry. Labs/Diagnostic Data Labs Test 07/24/24 22:22 07/24/24 22:15 07/24/24 21:25 Range/Units Urine Color Colorless Yellow Urine Clarity Clear Clear Urine pH 7.0 5.0-9.0 Urine Specific [place] 1.005 1.001-1.035 Urine Protein Negative Negative Urine Ketones Negative Negative Urine Blood Negative Negative /uL Urine Nitrite Negative Negative Urine Bilirubin Negative Negative Urine Urobilinogen Normal Negative mg/dL Urine Leukocyte Esterase Negative Negative /uL Urine RBC <1 0 - 4 /hpf Urine Microscopic WBC 0-5 /HPF Urine Squamous Epithelial Cells Few <5 /hpf Urine Bacteria None seen None Seen /hpf Urine Glucose Normal Normal mg/dL Troponin I High Sensitivity 21 </=34 ng/L White Blood Count 9.3 4.4-10.8 10^3/uL Red Blood Count 4.70 4.0-5.20 10^6/uL Hemoglobin 14.4 12.2-16.2 g/dL Hematocrit 42.2 36.0-46.0 % Mean Corpuscular Volume 89.8 80.0-100.0 fL Mean Corpuscular Hemoglobin 30.5 28.0-32.0 pg Mean Corpuscular Hemoglobin Concent 34.0 32.0-36.0 g/dL Red Cell Distribution Width 12.8 11.8-14.3 % Platelet Count 227 140-450 10^3/uL Mean Platelet Volume 8.0 6.9-10.8 fL Neutrophils (%) (Auto) 51.1 37.0-80.0 % Lymphocytes (%) (Auto) 37.2 10.0-50.0 % Monocytes (%) (Auto) 8.7 0.0-12.0 % Eosinophils (%) (Auto) 1.6 0.0-7.0 % Basophils (%) (Auto) 1.4 0.0-2.0 % Neutrophils # (Auto) 4.8 1.6-8.6 10 ^3/uL Lymphocytes # (Auto) 3.5 0.4-5.4 10 ^3/uL Monocytes # (Auto) 0.8 0-1.3 10 ^3/uL Eosinophils # (Auto) 0.1 0-0.8 10 ^3/uL Basophils # (Auto) 0.1 0-0.2 10 ^3/uL Nucleated Red Blood Cells 0.1 % D-Dimer, Quantitative 0.26 0.0-0.49 mg/L FEU Sodium Level 139 136-145 mmol/L Potassium Level 3.8 3.5-5.1 mmol/L Chloride Level 106 98-107 mmol/L Carbon Dioxide Level 26 20-31 mmol/L Anion Gap 7 5-15 Blood Urea Nitrogen 11 9-23 mg/dL Creatinine 0.83 0.550-1.02 mg/dL Glomerular Filtration Rate Calc 84 >90 mL/min BUN/Creatinine Ratio 13.3 10.0-20.0 Serum Glucose 129 H 74-106 mg/dL Calcium Level 10.7 H 8.7-10.4 mg/dL Magnesium Level 2.1 1.6-2.6 mg/dL Total Bilirubin 0.4 0.2-1.0 mg/dL Aspartate Amino Transferase (AST) 26 13-40 U/L Alanine Aminotransferase (ALT) 42 H 7-40 U/L Alkaline Phosphatase 89 46-116 U/L B-Type Natriuretic Peptide 5.58 0-100 pg/mL Total Protein 7.7 5.7-8.2 g/dL Albumin 5.0 H 3.2-4.8 g/dL Assessment Unstable angina. History of [place]. Accelerated hypertension. Plan/Recommendation I agree with your ongoing assessment and care of plan. Telemetry reviewed. Aspirin, Plavix, Lipitor. Clonidine. Morphine for pain management. Nifedipine. Nitro SL. Additional plan as per the hospital course. A total of 45 minutes was spent reviewing the patient record, examining the patient, making a diagnostic and therapeutic plan, discussing this plan with medical personnel, following up on diagnostic studies and following the patient for clinical stability excluding any and all procedures. At least 50% of this time was spent in direct, [id number] contact. Plan discussed with: Patient DELFINO CAVAZOS MD Jul 25, 2024 20:54
[2024-07-25] MEDS: ATORVASTATIN 20 MG TAB PO SCH (21:47)
[2024-07-26] VITALS (9 sets, daily range): BP systolic 106–130; BP diastolic 61–91; PULSE 58–84; RESP 15–18; TEMP 97.4–98.3; O2SAT 99–100
[2024-07-26 05:50] LABS: Sodium 139 mmol/L (136-145)
[2024-07-26 05:51] LABS: Anion Gap 4 (5-15); Carbon Dioxide 27 mmol/L (20-31); Chloride 108 mmol/L (98-107)
[2024-07-26 05:56] LABS: Blood Urea Nitrogen 10 mg/dL (9-23); Glucose 90 mg/dL (74-106)
[2024-07-26] MEDS: NITROGLYCERIN 0.4 MG SL TAB SL PRN (13:09)
[2024-07-26] MEDS: MORPHINE SULFATE INJ 2 MG/ml SYRG IV PRN (13:53)
[2024-07-26] MEDS: MAALOX PLUS or MAALOX 30 ML PO ONE (15:07)
--- NOTE | 2024-07-26 22:56 | DVHPN2 ---
Subjective The patient seen and examined at bedside. Still complain of chest pain. Reviewed: Care Plan, H&P, Labs, Medications, Previous Orders, Radiology Changes from previous H/P or p: No Changes Objective Vitals Vital Signs Date Time Temp Pulse Resp B/P (MAP) Pulse Ox O2 Delivery O2 Flow Rate FiO2 07/26/24 20:46 98.2 72 18 130/72 (91) 100 98.2 07/26/24 20:00 Room Air* 0 21 Intake/Output Intake and Output 07/26/24 07:00 Intake Total 1040 ml Balance 1040 ml Intake Oral 1040 ml # Voids 4 General Appearance: Alert, Oriented X3, Cooperative, No acute distress HEENT: Atraumatic, PERRLA, EOMI, Mucous membr. moist/pink Neck: Supple Lungs: Clear to auscultation, Normal air movement Cardiovascular: Regular rate, Normal S1, Normal S2, No murmurs, Gallops, Rubs Abdomen: Normal bowel sounds, Soft, No tenderness Neuro: Cranial nerves 3-12 NL Psych/Mental Status: Mental status NL Medications Current Medications Medications Dose Ordered Sig/Remy Route Start Time Stop Time Status Last Admin Dose Admin Aspirin 81 mg DAILY PO 07/25/24 10:00 07/26/24 09:38 81 MG Atorvastatin Calcium 40 mg HS PO 07/25/24 22:00 07/26/24 21:14 40 MG Clopidogrel Bisulfate 75 mg DAILY PO 07/25/24 10:00 07/26/24 09:38 75 MG Nifedipine 60 mg DAILY PO 07/25/24 10:00 07/26/24 09:39 60 MG Valsartan 80 mg DAILY PO 07/25/24 10:00 07/26/24 09:39 80 MG Clonidine HCl 0.1 mg Q6HP PRN PO 07/25/24 03:30 Ondansetron HCl 4 mg Q4HP PRN IV 07/25/24 03:30 Acetaminophen 650 mg Q6HP PRN PO 07/25/24 03:30 Nitroglycerin 0.4 mg Q5MINP PRN SL 07/25/24 03:30 07/26/24 13:09 0.4 MG Morphine Sulfate 2 mg Q30M PRN IV 07/25/24 03:30 07/26/24 13:53 2 MG Laboratory Results Laboratory Tests 07/24/24 21:25 07/26/24 05:23 Chemistry Test 07/26/24 05:23 Calcium Level 10.0 mg/dL (8.7-10.4) Urinalysis Test 07/24/24 22:22 Urine Color Colorless (Yellow) Urine Clarity Clear (Clear) Urine pH 7.0 (5.0-9.0) Urine Specific [place] 1.005 (1.001-1.035) Urine Protein Negative (Negative) Urine Ketones Negative (Negative) Urine Blood Negative /uL (Negative) Urine Nitrite Negative (Negative) Urine Bilirubin Negative (Negative) Urine Urobilinogen Normal mg/dL (Negative) Urine Leukocyte Esterase Negative /uL (Negative) Urine RBC <1 /hpf (0 - 4) Urine Microscopic WBC /HPF (0-5) Urine Squamous Epithelial Cells Few /hpf (<5) Urine Bacteria None seen /hpf (None Seen) Urine Glucose Normal mg/dL (Normal) Labs and/or images reviewed: Labs reviewed by me Assessment/Plan Assessment/Plan Unstable angina History of [place] Accelerated hypertension History of recent CABG June 2024 Continuing current management. Waiting for guest services agent to see the patient. Continuing with home medication. Continuing with hypertensive medication. Morphine and [place] for pain control This medical document was created using an electronic medical record system with [employer] direct computerized dictation system. Although this document has been carefully reviewed, there may still be some phonetic and typographical errors. These areas are purely typographical due to imperfections of the software programs, and do not reflect any compromise in the patient's medical care. Plan discussed with: Patient Date of Service: Jul 26, 2024 Billing Provider: BENI HARDY MD Common Visit Codes: [id number] INP/OBS CARE(HIGH) BENI HARDY MD Jul 26, 2024 22:56
--- NOTE | 2024-07-26 23:38 | DVHPN2 ---
Progress Note - Dictate Date Seen: Jul 26, 2024 Medical Necessity Reason Pt with a Central, PICC or Fol: No Subjective Patient was seen and evaluated in follow up. No overnight events. Patient is complaining of generalized pain. CL 108. Telemetry reviewed. vital signs Vital Sign Date Time Temp Pulse Resp B/P (MAP) Pulse Ox O2 Delivery O2 Flow Rate FiO2 07/26/24 13:53 76 16 111/74 07/26/24 12:55 97.9 100 97.9 07/26/24 08:25 Room Air* 0 21 Total Intake and Output 07/25/24 07/25/24 07/26/24 15:00 23:00 07:00 Intake Total 800 ml 240 ml Balance 800 ml 240 ml medications Current Medications Medications Dose Ordered Sig/Remy Route Start Time Stop Time Status Last Admin Dose Admin Aspirin 81 mg DAILY PO 07/25/24 10:00 07/26/24 09:38 81 MG Atorvastatin Calcium 40 mg HS PO 07/25/24 22:00 07/25/24 21:47 40 MG Clopidogrel Bisulfate 75 mg DAILY PO 07/25/24 10:00 07/26/24 09:38 75 MG Nifedipine 60 mg DAILY PO 07/25/24 10:00 07/26/24 09:39 60 MG Valsartan 80 mg DAILY PO 07/25/24 10:00 07/26/24 09:39 80 MG Clonidine HCl 0.1 mg Q6HP PRN PO 07/25/24 03:30 Ondansetron HCl 4 mg Q4HP PRN IV 07/25/24 03:30 Acetaminophen 650 mg Q6HP PRN PO 07/25/24 03:30 Nitroglycerin 0.4 mg Q5MINP PRN SL 07/25/24 03:30 07/26/24 13:09 0.4 MG Morphine Sulfate 2 mg Q30M PRN IV 07/25/24 03:30 07/26/24 13:53 2 MG objective GENERAL: Alert and oriented x 3. No acute distress. EYES: PERRL, EOMI. Anicteric. HENT: Moist mucous membranes. LUNGS: Clear to auscultation bilaterally. CARDIOVASCULAR: Regular rate and rhythm. ABDOMEN: Soft, non-tender and non-distended. EXTREMITIES: No edema. NEUROLOGIC: No focal neurological deficits. SKIN: Warm, dry. laboratory and microbiology Laboratory Tests 07/26/24 05:23 07/24/24 21:25 Test 07/26/24 05:23 Range/Units Serum Glucose 90 74-106 mg/dL Problem List Unstable angina. History of [place]. Accelerated hypertension. Assessment/Plan Continued all current supportive medical care. Aspirin, Plavix, Lipitor. Clonidine. Morphine for pain management. Nifedipine. Nitro SL. Additional plan as per the hospital course. Plan discussed with: Patient DELFINO CAVAZOS MD Jul 26, 2024 14:29
[2024-07-27] VITALS (7 sets, daily range): BP systolic 104–142; BP diastolic 70–87; PULSE 48–78; RESP 16–18; TEMP 97.6–98.4; O2SAT 100
--- NOTE | 2024-07-27 09:19 | ECG ---
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
--- NOTE | 2024-07-27 09:20 | ECG ---
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
[2024-07-27 10:41] LABS: Hepatitis B Surface Antigen Negative (Negative); Hepatitis C Antibody Negative (Negative)
[2024-07-27] MEDS: MAGNESIUM CITRATE SOLUTION 300 ML BTL PO ONE (11:43)
--- NOTE | 2024-07-27 11:55 | DVHDS2 ---
Discharge Summary Date of Admission Jul 25, 2024 at 03:18 Date of Discharge: Jul 27, 2024 Admitting Diagnosis Unstable angina History of [place] Accelerated hypertension History of recent cardiac stent 4 days ago. Labs/Diagnostic Data: Laboratory Results Test 07/26/24 05:23 07/24/24 22:22 07/24/24 22:15 07/24/24 21:25 Sodium Level 139 mmol/L (136-145) Potassium Level 4.0 mmol/L (3.5-5.1) Chloride Level 108 mmol/L (98-107) Carbon Dioxide Level 27 mmol/L (20-31) Anion Gap 4 (5-15) Blood Urea Nitrogen 10 mg/dL (9-23) Creatinine 0.77 mg/dL (0.550-1.02) Glomerular Filtration Rate Calc 92 mL/min (>90) BUN/Creatinine Ratio 13.0 (10.0-20.0) Serum Glucose 90 mg/dL (74-106) Calcium Level 10.0 mg/dL (8.7-10.4) Urine Color Colorless (Yellow) Urine Clarity Clear (Clear) Urine pH 7.0 (5.0-9.0) Urine Specific [place] 1.005 (1.001-1.035) Urine Protein Negative (Negative) Urine Ketones Negative (Negative) Urine Blood Negative /uL (Negative) Urine Nitrite Negative (Negative) Urine Bilirubin Negative (Negative) Urine Urobilinogen Normal mg/dL (Negative) Urine Leukocyte Esterase Negative /uL (Negative) Urine RBC <1 /hpf (0 - 4) Urine Microscopic WBC /HPF (0-5) Urine Squamous Epithelial Cells Few /hpf (<5) Urine Bacteria None seen /hpf (None Seen) Urine Glucose Normal mg/dL (Normal) Troponin I High Sensitivity 21 ng/L (</=34) White Blood Count 9.3 10^3/uL (4.4-10.8) Red Blood Count 4.70 10^6/uL (4.0-5.20) Hemoglobin 14.4 g/dL (12.2-16.2) Hematocrit 42.2 % (36.0-46.0) Mean Corpuscular Volume 89.8 fL (80.0-100.0) Mean Corpuscular Hemoglobin 30.5 pg (28.0-32.0) Mean Corpuscular Hemoglobin Concent 34.0 g/dL (32.0-36.0) Red Cell Distribution Width 12.8 % (11.8-14.3) Platelet Count 227 10^3/uL (140-450) Mean Platelet Volume 8.0 fL (6.9-10.8) Neutrophils (%) (Auto) 51.1 % (37.0-80.0) Lymphocytes (%) (Auto) 37.2 % (10.0-50.0) Monocytes (%) (Auto) 8.7 % (0.0-12.0) Eosinophils (%) (Auto) 1.6 % (0.0-7.0) Basophils (%) (Auto) 1.4 % (0.0-2.0) Neutrophils # (Auto) 4.8 10 ^3/uL (1.6-8.6) Lymphocytes # (Auto) 3.5 10 ^3/uL (0.4-5.4) Monocytes # (Auto) 0.8 10 ^3/uL (0-1.3) Eosinophils # (Auto) 0.1 10 ^3/uL (0-0.8) Basophils # (Auto) 0.1 10 ^3/uL (0-0.2) Nucleated Red Blood Cells 0.1 % D-Dimer, Quantitative 0.26 mg/L FEU (0.0-0.49) Magnesium Level 2.1 mg/dL (1.6-2.6) Total Bilirubin 0.4 mg/dL (0.2-1.0) Aspartate Amino Transferase (AST) 26 U/L (13-40) Alanine Aminotransferase (ALT) 42 U/L (7-40) Alkaline Phosphatase 89 U/L (46-116) B-Type Natriuretic Peptide 5.58 pg/mL (0-100) Total Protein 7.7 g/dL (5.7-8.2) Albumin 5.0 g/dL (3.2-4.8) Hepatitis B Surface Antigen Negative (Negative) Hepatitis C Antibody Negative (Negative) Other Laboratory Tests 07/26/24 05:23 07/24/24 21:25 Brief Hx & Hospital Course: This is a 54 years old female come to emergency department because of chest pain. The patient had history of substernal nonradiating sharp chest pain associated with shortness for breath for one day. She said her blood pressure is high at home which is 205/120. Patient reports that she compliant with all of her medication and did not skip anything. The patient 1st blood pressure in the hospital was 167/97. The patient was just released from the hospital three days ago prior to this hospitalization. On that admission she had PTCA and also stent placement by Dr. Branham. This time the senior mobile developer online communications manager, Dr. Laird see the patient he did not recommend any further workup except continuing Plavix and other medication to control her blood pressure. Today her blood pressure is controlled. Patient does complain of constipation and I give her Colace and MiraLax. Patient able to move bowel movement and will be discharged home today. Advised her to follow up with Dr. Branham, her senior mobile developer per schedule. Follow up with primary care physician 1-2 weeks. Activity as tolerated. Diet per home diet. Recommend low-salt low-cholesterol diet. Physical exam: HEENT: Normocephalic atraumatic pupils equal react to light and accommodation. Extraocular muscles intact, conjunctiva pink, oropharynx moist, no thrush, no exudate. Lymphatic: No lymphadenopathy Cardiovascular exam: S1, S2 was heard. No murmurs, rubs, gallops Lung: Clear on auscultation bilaterally, no wheeze, rale, rhonchi. GI: Abdominal soft, nondistended, nontenderness, positive bowel sounds. Extremity: No crepitus, cyanosis, edema. Pedal pulses present bilateral. Full range of motion. Skin: Normal turgor, no rash. Psych: Alert, oriented x3. Neurology: No focal deficits, cranial nerve II to XII grossly intact. This medical document was created using an electronic medical record system with [employer] direct computerized dictation system. Although this document has been carefully reviewed, there may still be some phonetic and typographical errors. These areas are purely typographical due to imperfections of the software programs, and do not reflect any compromise in the patient's medical care. Condition at Discharge: Stable Final Diagnosis/Problems List Unstable angina History of [place] Accelerated hypertension History of recent stents four days ago. Discharge Disposition: Home Discharge Instruct/Medications Diet: Cardiac 2g Na,low cholest Activity: No Restrictions, As Tolerated Follow Up/Referral: pcp 1-2 weeks Discharge Statement: "Patient was advised to return to the ER or call 911 if any headaches, dizziness, shortness of breath, chest pain, abdominal pain, bleeding, fevers, or worsening of medical condition. Patient was counseled about treatment plan, medications, possible side effects, patientverbalized understanding. All questions were answered to the best of my ability. This discharge took greater then 30 minutes in planning, reviewing documentation, counseling the patient, and discussing with other team members." ASSESSMENT ASSESSMENT Assessment chest pain Date of Service: Jul 27, 2024 Billing Provider: BENI HARDY MD Common Visit Codes: [id number] DISCH DAY >30min BENI HARDY MD Jul 27, 2024 11:55
[2024-07-27] MEDS ORDERED: NITR0.4S29 SL (12:23)
[2024-07-27] MEDS ORDERED: PANT40TA2 PO (12:23)
[2024-07-27] MEDS ORDERED: ATORVASTATIN 20 MG TAB PO SCH (22:00)
--- NOTE | 2024-07-27 22:52 | DVHPN2 ---
Progress Note - Dictate Date Seen: Jul 27, 2024 Medical Necessity Reason Pt with a Central, PICC or Fol: No Subjective Patient was seen and evaluated in follow up. Patient has no new complaints at this time. Patient denies any cardiac symptoms. Patient is cardiac stable for discharge. Telemetry reviewed. vital signs Vital Sign Date Time Temp Pulse Resp B/P (MAP) Pulse Ox O2 Delivery O2 Flow Rate FiO2 07/27/24 17:00 98.4 78 17 136/87 (103) 100 98.4 07/27/24 08:00 Room Air* 0 21 Total Intake and Output 07/26/24 07/26/24 07/27/24 15:00 23:00 07:00 Intake Total 1750 ml 800 ml Balance 1750 ml 800 ml objective GENERAL: Alert and oriented x 3. No acute distress. EYES: PERRL, EOMI. Anicteric. HENT: Moist mucous membranes. LUNGS: Clear to auscultation bilaterally. CARDIOVASCULAR: Regular rate and rhythm. ABDOMEN: Soft, non-tender and non-distended. EXTREMITIES: No edema. NEUROLOGIC: No focal neurological deficits. SKIN: Warm, dry. laboratory and microbiology Laboratory Tests 07/26/24 05:23 07/24/24 21:25 Test 07/26/24 05:23 Range/Units Serum Glucose 90 74-106 mg/dL Problem List Unstable angina. History of [place]. Accelerated hypertension. Assessment/Plan Continued all current supportive medical care. Aspirin, Plavix, Lipitor. Clonidine. Morphine for pain management. Nifedipine. Nitro SL. Additional plan as per the hospital course. Plan discussed with: Patient DELFINO CAVAZOS MD Jul 27, 2024 22:52
[2024-07-28] MEDS ORDERED: CLOPIDOGREL BISULFATE 75 MG TAB PO SCH (10:00)
[2024-07-28] MEDS ORDERED: ASPirin-EC 81 mg tab PO SCH (10:00)
[2024-07-28] MEDS ORDERED: NIFEdipine ER 30 MG TAB PO SCH (10:00)
[2024-07-28] MEDS ORDERED: VALSARTAN 80 MG TAB PO SCH (10:00)
== END 2024-07-27 18:56 | disposition home or self-care (01) | DRG 203 ==
LOC: ER 21:12 → OVERFLOW 07-25 03:18 → TELE-EAST 07-25 16:42
PROVIDERS: ADMIT Internal Medicine; ATTEND Internal Medicine
DX: M94.0 Chondrocostal junction syndrome [Tietze] (principal); I24.9 Acute ischemic heart disease, unspecified; I11.9 Hypertensive heart disease without heart failure; F17.210 Nicotine dependence, cigarettes, uncomplicated; I25.110 Atherosclerotic heart disease of native coronary artery with unstable angina pectoris; I25.2 Old myocardial infarction; Z80.0 Family history of malignant neoplasm of digestive organs; Z80.3 Family history of malignant neoplasm of breast; Z82.3 Family history of stroke; Z82.49 Family history of ischemic heart disease and other diseases of the circulatory system; Z83.3 Family history of diabetes mellitus; Z95.1 Presence of aortocoronary bypass graft
CPT/HCPCS: 36415; 71045; 80048; 80053; 81001; 83735; 83880; 84484; 85025; 85379; 86803; 87081; 87340; 93005; G0378

== ENCOUNTER 2024-07-27 23:24 | Inpatient (IN) | payer MEDICAID ==
[~2024-07-27] VITALS: Ht 162.6 cm; Wt 62.1 kg
[~2024-07-27 23:24] MED LIST changes: +NITR0.4S29 SL; +PANT40TA2 PO
--- NOTE | 2024-07-27 23:42 | ED.PDOC ---
HPI Comments HPI: Poor Historian. 54-year-old female presents with right femur elevation of left-sided chest pain nonradiating constant. Patient was just discharged from the hospital this morning. A week ago patient was admitted to the hospital and had a cardiac stent placed and was discharged home. She returned back on Saturday and was discharged this morning for the same complaint of chest pain. Patient states compliance with her medications of aspirin and Plavix. Patient tried take three of her nitroglycerin at home without any improvement of her chest pain. Past Medical History: Coronary artery disease, hypertension, hyperlipidemia, Past Surgical History: REVIEW OF SYSTEMS: CONSTITUTIONAL: Denies acute: fever, diaphoresis, chills, generalized weakness. HEAD: Denies acute: headache, photophobia Eyes: Denies acute: Double vision, vision loss, eye pain, eye discharge. EARS: Denies acute: tinnitus, hearing loss, ear discharge, ear pain, THROAT: Denies acute: sore throat, swelling, difficulty swallowing , pain with swallowing, change in voice. NECK: Denies acute: neck pain, neck swelling, stiff neck. HEART: Denies acute : palpitations, LUNGS: Denies acute: SOB, wheezing, cough, hemoptysis ABDOMEN: Denies acute: abdominal pain, Nausea, Vomiting, diarrhea, melena , hematemesis, hematochezia SKIN: Denies acute: rash, redness, lesions, itchiness. EXTREMITIES: Denies acute: calf pain, numbness, tingling, weakness, denies pain in extremity. Denies acute: Low back pain. Neuro: Denies acute: focal neurological deficit, motor or sensory focal neurological deficit, tremors, seizure like activity, confusion, dizziness, change in mental status, loss of bowel or bladder function, cauda equina like symptoms. : Denies acute: dysuria, hematuria, flank pain, increase in urinary frequency. PSYCH: Denies acute: hallucination, suicidal ideation, homicidal ideation. FEMALE: Denies acute: abnormal vaginal bleeding, foul odor, unusual discharge. PHYSICAL EXAM: General: -----mild to moderate---acute distress, awake and alert. Head: normocephalic, atraumatic. Neck: supple, trachea is midline, no swelling. Throat: Normal phonation. Eyes:, no erythema, no purulent discharge, no proptosis, no icterus. Heart: regular rate, regular rhythm, no significant murmur appreciated. Lungs: no apparent respiratory distress, Able to speak in full sentences. No wheezing, no rhonchi, no crackles. No stridors Clear to auscultation bilaterally. Abdomen: non tender to palpation, non distended, soft, no guarding, no rebound, + bowel sounds. Neuro: Awake, Alert, oriented to name, self, situation, follows commands GCS=15. Speech is normal. Skin: no petechia, no purpura, no cyanosis, non-pale, not jaundice. Lower extremities: --no - Pitting edema no deformity, no focal swelling, no calf TTP. Makes eye contact. moves all four extremities. Face: no apparent facial droop. No CVA tenderness to percussion bilaterally. Ambulating in the ED independently. Ears: Normal appearing TM b/l, Stroke: finger to nose cerebellar testing is intact. No pronator drift. 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 No nystagmus. No nuchal rigidity, Kernig's sign, Brudzinski's sign, no meningeal signs. ED COURSE: Chief Complaint: Chest Pain Time Seen by MD: 23:37 Primary Care Provider: AYAAN Parmar Notes: Nurses Notes, Allergies Allergies: Coded Allergies: No Known Drug Allergy (Verified Allergy, Unknown, 04/22/21) Home Meds Active Scripts Pantoprazole Sodium Sesquihydr (Protonix) 40 Mg Tab, 40 MG PO DAILY, #30 TAB Prov:BENI HARDY MD 07/27/24 Nitroglycerin (NTROSTAT SUBLINGUAL) 0.4 Mg Sl, 0.4 MG SL Q5MINP PRN, #100 TAB Prov:BENI HARDY MD 07/27/24 Valsartan (Valsartan) 80 Mg Tab, 80 MG PO DAILY for 90 Days, #90 TAB 1 Refill Prov:SCOUT MARRERO MD 07/21/24 Nifedipine (Nifedipine Er) 60 Mg Tab, 1 TAB PO DAILY, #90 TAB 1 Refill Prov:SCOUT MARRERO MD 07/21/24 Clopidogrel Bisulfate (CLOPIDOGREL) 75 Mg Tab, 75 MG PO DAILY for 90 Days, #90 TAB 1 Refill Prov:SCOUT MARRERO MD 07/21/24 Atorvastatin Calcium (ATORVASTATIN CALCIUM) 40 Mg Tab, 1 TAB PO DAILY, #90 TAB 1 Refill Prov:SCOUT MARRERO MD 07/21/24 Aspirin (Aspirin Low Dose) 81 Mg Tab, 81 MG PO DAILY for 90 Days, #90 TAB 1 Refill Prov:SCOUT MARRERO MD 07/21/24 Discontinued Reported Medications Nifedipine (Nifedipine Er) 30 Mg Tab, 1 TAB PO DAILY, #90 TAB 1 Refill 07/18/24 Discontinued Scripts Hctz (Hydrochlorothiazide) 25 Mg Tab, 25 MG PO DAILY, #90 TAB Prov:CLARITA WEEMS MD 03/16/23 Amoxicillin & Pot Clavulanate (Augmentin) 500 Mg Tab, 500 MG PO TID for 7 Days, #21 TAB Prov:JANE TORRES MD 04/22/21 Information Source: Patient, Emergency Med Personnel Mode of Arrival: EMS Past Medical History PAST MEDICAL HISTORY: HTN, [place] Surgical History: Denies all surgeries DYE ROOM HELPER History: No Pertinent DYE ROOM HELPER History Family History Family History: Reviewed,noncontributory to illness Social History Smoker: Cigarettes Alcohol: Denies ETOH Use Drugs: Marijuana Lives In: Home Was a procedure done? Was a procedure done?: No CP Differential Dx Differential Diagnosis: Other Differential Diagnosis: Other (Ddx include but not limitied to gastritis, musculoskeletal pain, radiculopathy, atypical chest pain, dissection, aneurysm, ACS, unstable angina, hiatal hernia, GERD, anxiety, costochondritis, PE, pneumothroax, neoplasm, cardiac ischemia, drug abuse, anemia.) X-Ray, Labs, Meds, VS Vital Signs Date Time Temp Pulse Resp B/P (MAP) Pulse Ox O2 Delivery O2 Flow Rate FiO2 07/28/24 02:17 56 07/28/24 02:15 70 18 131/73 (92) 98 07/28/24 01:04 120/67 07/28/24 00:15 97.7 78 18 162/97 (118) 98 97.7 07/28/24 00:12 80 18 97 Room Air* 0 21 07/28/24 00:12 79 07/28/24 00:04 162/97 07/27/24 23:29 99.0 80 22 180/110 (133) 97 99.0 07/27/24 23:24 64 Lab Test 07/28/24 01:19 07/28/24 00:20 Range/Units Troponin I High Sensitivity 8 8 </=34 ng/L White Blood Count 12.5 #H 4.4-10.8 10^3/uL Red Blood Count 4.68 4.0-5.20 10^6/uL Hemoglobin 14.0 12.2-16.2 g/dL Hematocrit 42.2 36.0-46.0 % Mean Corpuscular Volume 90.2 80.0-100.0 fL Mean Corpuscular Hemoglobin 29.9 28.0-32.0 pg Mean Corpuscular Hemoglobin Concent 33.2 32.0-36.0 g/dL Red Cell Distribution Width 12.4 11.8-14.3 % Platelet Count 262 140-450 10^3/uL Mean Platelet Volume 8.1 6.9-10.8 fL Neutrophils (%) (Auto) 62.9 37.0-80.0 % Lymphocytes (%) (Auto) 28.4 10.0-50.0 % Monocytes (%) (Auto) 7.4 0.0-12.0 % Eosinophils (%) (Auto) 1.0 0.0-7.0 % Basophils (%) (Auto) 0.3 0.0-2.0 % Neutrophils # (Auto) 7.8 1.6-8.6 10 ^3/uL Lymphocytes # (Auto) 3.5 0.4-5.4 10 ^3/uL Monocytes # (Auto) 0.9 0-1.3 10 ^3/uL Eosinophils # (Auto) 0.1 0-0.8 10 ^3/uL Basophils # (Auto) 0 0-0.2 10 ^3/uL Nucleated Red Blood Cells 0.0 % Sodium Level 140 136-145 mmol/L Potassium Level 3.5 3.5-5.1 mmol/L Chloride Level 106 98-107 mmol/L Carbon Dioxide Level 27 20-31 mmol/L Anion Gap 7 5-15 Blood Urea Nitrogen 9 9-23 mg/dL Creatinine 0.72 0.550-1.02 mg/dL Glomerular Filtration Rate Calc 99 >90 mL/min BUN/Creatinine Ratio 12.5 10.0-20.0 Serum Glucose 122 H 74-106 mg/dL Calcium Level 10.1 8.7-10.4 mg/dL Total Bilirubin 0.4 0.2-1.0 mg/dL Aspartate Amino Transferase (AST) 20 13-40 U/L Alanine Aminotransferase (ALT) 29 7-40 U/L Alkaline Phosphatase 75 46-116 U/L Total Protein 7.5 5.7-8.2 g/dL Albumin 4.7 3.2-4.8 g/dL Current Medications Medications (Trade) Dose Ordered Sig/Remy Route Start Time Stop Time Status Last Admin Nitroglycerin (Ntrostat Sublingual) 0.4 mg ONCE ONCE SL 07/27/24 23:45 07/27/24 23:46 DC 07/28/24 00:04 [place] [id number] Ph: [phone] DIAGNOSTIC IMAGING Diagnostic Imaging Report : [id number] Signed PATIENT: ADALI FERRIS ACCT: [id number] UNIT: [id number] : 1970 LOC: ER ROOM / BED: / AGE / SEX: 54 / F ADM STATUS: REG ER SERVICE 40 ORDERING PHYSICIAN: ASIF FENTON DO PROCEDURE(s): CXRP - CHEST PORTABLE REASON: cp ORDER NUMBER(s): [id number], ACCESSION NUMBER(s): [id number] CHEST RADIOGRAPH Indication: cp Technique: Single frontal view of the chest was obtained COMPARISON: XY CHEST PORTABLE on DOS: 07/24/24, XY CHEST PORTABLE on DOS: 07/17/24, XY CHEST PORTABLE on DOS: 03/15/23 FINDINGS: Lines and Tubes: None Lungs: Clear Pleura: No effusion. No pneumothorax. Cardiomediastinal contours: Unremarkable Bones: Unremarkable IMPRESSION: 1. No acute disease. ATED BY: VERONICA JEAN MD DICTATED DATE/TIME: 07/28/2422 SIGNED BY: VERONICA JEAN MD SIGNED DATE/TIME: 04/22/25 0023 CC: Time of 1ST Reevaluation: 02:49 Reevaluation 1ST: Improved Patient Education/Counseling: Diagnosis, Treatment Family Education/Counseling: Other Comments Patient presented with the above HPI.----chest pain--workup was initiated. patient was found with the above mentioned diagnosis. the following medications were ordered: please refer to order lists of meds and tests obtained by myself Dr. Fenton. Patient ED course and VS have been stabilized. Patient has been reassessed in the ED and remained in a stable condition. Pertinent incidental findings were discussed with the patient and/or family. Patient/family voices understanding and is agreeable with plan. Patient has been observed in the ED adequate length of time to insure improvement/stability. Escalation of care considered: Consideration of escalation to observation or admission Patient was ADMITTED to the medicine team for further evaluation and treatment of their presentation. All the reports of any imaging studies that were ordered by myself were reviewed by myself. Departure 1 Departure Time of Disposition: 23:41 Impression: Primary Impression: Chest pain Disposition: ADMITTED INPATIENT Admit to: [facility] Condition: Guarded Discharged With: Self Critical Care Note Critical Care Time?: No Heart Score Heart Score: Heart Score Response (Comments) Value History Moderate Suspicious 1 EKG Normal 0 Age 45-64 1 Risk Factors >3 or Hx ASHD 2 Troponin Normal limit 0 Total 4 ASIF FENTON DO Jul 27, 2024 23:42
[2024-07-28] MEDS: NITROGLYCERIN 0.4 MG SL TAB SL ONE (00:04)
[2024-07-28 00:12] VITALS: PULSE 80; RESP 18; O2SAT 97
--- NOTE | 2024-07-28 00:26 | DVH ---
CHEST RADIOGRAPH Indication: cp Technique: Single frontal view of the chest was obtained COMPARISON: XY CHEST PORTABLE on DOS: 07/24/24, XY CHEST PORTABLE on DOS: 07/17/24, XY CHEST PORTABLE o n DOS: 03/15/23 FINDINGS: Lines and Tubes: None Lungs: Clear Pleura: No effusion. No pneumothorax. Cardiomediastinal contours: Unremarkable Bones: Unremarkable IMPRESSION: 1. No acute disease.
[2024-07-28 00:36] LABS: Basophils # (auto) 0 10 ^3/uL (0-0.2); Basophils % (auto) 0.3 % (0.0-2.0); Eosinophils # (auto) 0.1 10 ^3/uL (0-0.8); Hematocrit 42.2 % (36.0-46.0); Lymphocytes # (auto) 3.5 10 ^3/uL (0.4-5.4); Lymphocytes % (auto) 28.4 % (10.0-50.0); Mean Corpuscular Hemoglobin 29.9 pg (28.0-32.0); Mean Corpuscular Hgb Conc. 33.2 g/dL (32.0-36.0); Mean Corpuscular Volume 90.2 fL (80.0-100.0); Monocytes # (auto) 0.9 10 ^3/uL (0-1.3); Monocytes % (auto) 7.4 % (0.0-12.0); Neutrophils # (auto) 7.8 10 ^3/uL (1.6-8.6); Neutrophils % (auto) 62.9 % (37.0-80.0); Platelet Count (auto) 262 10^3/uL (140-450); Red Blood Cells 4.68 10^6/uL (4.0-5.20); Red Cell Distribution Width 12.4 % (11.8-14.3); White Blood Cell 12.5 10^3/uL (4.4-10.8)
[2024-07-28 00:57] LABS: Alanine Aminotransferase 29 U/L (7-40); Albumin 4.7 g/dL (3.2-4.8); Alkaline Phosphatase 75 U/L (46-116); Anion Gap 7 (5-15); Aspartate Aminotransferase 20 U/L (13-40); BUN/Creatinine Ratio 12.5 (10.0-20.0); Bilirubin, Total 0.4 mg/dL (0.2-1.0); Calcium 10.1 mg/dL (8.7-10.4); Carbon Dioxide 27 mmol/L (20-31); Chloride 106 mmol/L (98-107); Sodium 140 mmol/L (136-145); Total Protein 7.5 g/dL (5.7-8.2)
[2024-07-28 00:58] LABS: Blood Urea Nitrogen 9 mg/dL (9-23); Glucose 122 mg/dL (74-106); Potassium 3.5 mmol/L (3.5-5.1)
[2024-07-28] MEDS: PANTOPRAZOLE 40 MG/10 ML VIAL INJ IV ONE (05:39)
[2024-07-28] MEDS: ACETAMINOPHEN 325 MG TAB PO ONE (05:39)
--- NOTE | 2024-07-28 06:25 | ECG ---
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
--- NOTE | 2024-07-28 06:25 | ECG ---
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
--- NOTE | 2024-07-28 06:26 | ECG ---
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
[2024-07-28] MEDS ORDERED: NITROGLYCERIN 0.4 MG SL TAB SL PRN (07:45)
[2024-07-28] MEDS ORDERED: ACETAMINOPHEN 325 MG TAB PO PRN (07:45)
[2024-07-28] MEDS ORDERED: HYDROcodone-ACET 5/325MG TAB PO PRN (07:45)
[2024-07-28] MEDS ORDERED: DOCUSATE SOD 100 MG CAP PO PRN (07:45)
[2024-07-28] MEDS ORDERED: MORPHINE SULFATE INJ 2 MG/ml SYRG IV PRN (07:45)
[2024-07-28] MEDS ORDERED: ONDANSETRON HCL 4 MG/2 ML VIAL IV PRN (07:45)
--- NOTE | 2024-07-28 07:56 | DVHHP2 ---
History of Present Illness Reason for Visit: Chest Pain History of Present Illness Varsha Espinosa, is a 54-year-old female with past medical history of hypertension, recent [place] on 07/17/2024 with stent placed to circ on 07/20/2024, who came in for chest pain. Patient states she was home last night, her cousin was outside smoking, she smelt the smoke then 15 minutes later her chest pain began. She states the pain was a pressure/tight type of pain. She took a total of 3 sublingual nitro with no relief so she called EMS. Patient states that she has quite smoking cigarettes and marijuana since her admission and [place] on 07/17/2024. At time of assessment, patient continues to states she has chest pain of 5/10. Cardiovascular: HTN, [place], Other (PTCA 07/20/2024 stent to circ.) Past Surgical History: Other (bilateral feet) Smoke: Quit (07/17/2024) ALCOHOL: none Drugs: Marijuana (quit 07/17/2024) Lives: with Family Domestic Violence: Neg Review of Systems Constitutional: No: Fever, Chills, Sweats, Weakness, Malaise, Other Eyes: No: Pain, Vision change, Conjunctivae inflammation, Eyelid inflammation, Other, Redness ENT: No: Ear pain, Ear discharge, Nose pain, Nose discharge, Nose congestion, Mouth pain, Mouth swelling, Throat pain, Throat swelling, Other Respiratory: No: Cough, Dry, Shortness of breath, SOB with excertion, Wheezing, Hemoptysis, Pleuritic Pain, Sputum, Wheezing, Other Cardiovascular: Chest Pain; No: Palpitations, Orthopnea, Paroxysmal Noc. Dyspnea, Edema, Lt Headedness, Other Gastrointestinal: No: Nausea, Vomiting, Abdominal Pain, Diarrhea, Constipation, Melena, Hematochezia, Other Genitourinary: No Dysuria, No Frequency, No Incontinence, No Hematuria, No Retention, No Other Musculoskeletal: No: other, neck pain, shoulder pain, arm pain, back pain, hand pain, leg pain, foot pain Skin: No: Rash, Lesions, Jaundice, Bruising, Other Neurological: No: Weakness, Numbness, Incoordination, Change in speech, Confusion, Seizures, Other Allergies: Coded Allergies: No Known Drug Allergy (Verified Allergy, Unknown, 04/22/21) Exam Vital Signs Vital Signs Date Time Temp Pulse Resp B/P (MAP) Pulse Ox O2 Delivery O2 Flow Rate FiO2 07/28/24 06:10 70 12 120/62 (81) 98 07/28/24 04:15 98.6 98.6 07/28/24 00:12 Room Air* 0 21 General Appearance: Alert, Oriented X3, Cooperative, mild distress HEENT: Atraumatic, PERRLA, EOMI Respiratory: Clear to auscultation, Normal air movement Cardiovascular: Regular rate, Normal S1, Normal S2, No murmurs Abdominal: Normal bowel sounds, Soft, No tenderness, No hepatospenomegaly Extremities: No clubbing, No cyanosis, No edema, Normal pulses, No tenderness/swelling Skin: No rashes, No breakdown, No significant lesion Neuro: Normal gait, Normal speech, Strength at 5/5 X4 ext Psych/Mental Status: Mental status NL, Mood NL Labs/Xrays Labs Test 07/28/24 03:13 07/28/24 00:20 Range/Units Troponin I High Sensitivity 10 </=34 ng/L White Blood Count 12.5 #H 4.4-10.8 10^3/uL Red Blood Count 4.68 4.0-5.20 10^6/uL Hemoglobin 14.0 12.2-16.2 g/dL Hematocrit 42.2 36.0-46.0 % Mean Corpuscular Volume 90.2 80.0-100.0 fL Mean Corpuscular Hemoglobin 29.9 28.0-32.0 pg Mean Corpuscular Hemoglobin Concent 33.2 32.0-36.0 g/dL Red Cell Distribution Width 12.4 11.8-14.3 % Platelet Count 262 140-450 10^3/uL Mean Platelet Volume 8.1 6.9-10.8 fL Neutrophils (%) (Auto) 62.9 37.0-80.0 % Lymphocytes (%) (Auto) 28.4 10.0-50.0 % Monocytes (%) (Auto) 7.4 0.0-12.0 % Eosinophils (%) (Auto) 1.0 0.0-7.0 % Basophils (%) (Auto) 0.3 0.0-2.0 % Neutrophils # (Auto) 7.8 1.6-8.6 10 ^3/uL Lymphocytes # (Auto) 3.5 0.4-5.4 10 ^3/uL Monocytes # (Auto) 0.9 0-1.3 10 ^3/uL Eosinophils # (Auto) 0.1 0-0.8 10 ^3/uL Basophils # (Auto) 0 0-0.2 10 ^3/uL Nucleated Red Blood Cells 0.0 % Sodium Level 140 136-145 mmol/L Potassium Level 3.5 3.5-5.1 mmol/L Chloride Level 106 98-107 mmol/L Carbon Dioxide Level 27 20-31 mmol/L Anion Gap 7 5-15 Blood Urea Nitrogen 9 9-23 mg/dL Creatinine 0.72 0.550-1.02 mg/dL Glomerular Filtration Rate Calc 99 >90 mL/min BUN/Creatinine Ratio 12.5 10.0-20.0 Serum Glucose 122 H 74-106 mg/dL Calcium Level 10.1 8.7-10.4 mg/dL Total Bilirubin 0.4 0.2-1.0 mg/dL Aspartate Amino Transferase (AST) 20 13-40 U/L Alanine Aminotransferase (ALT) 29 7-40 U/L Alkaline Phosphatase 75 46-116 U/L Total Protein 7.5 5.7-8.2 g/dL Albumin 4.7 3.2-4.8 g/dL CHEST RADIOGRAPH FINDINGS: Lines and Tubes: None Lungs: Clear Pleura: No effusion. No pneumothorax. Cardiomediastinal contours: Unremarkable Bones: Unremarkable IMPRESSION: 1. No acute disease. Assessment/Plan Assessment/Plan Assessment: R/O Acute coronary syndrome, Acute chest pain, Hypertension, Plan: Admit to Tele, Cardiology consult, ACS protocol, PRN nitro for chest pain, Supplemental oxygen as needed, Home medications reconciled, Plan discussed with: Patient My Orders Orders - AYN AQUINO FITNESS AND WELLNESS DIRECTOR Procedure Category Date Status Time * Cardiology Consult CONS 07/28/24 Verified 07:43 Admit ADMIT 07/28/24 Verified 07:43 Code Status CODE 07/28/24 Verified 07:43 Sodium Chloride Lock PHA 07/28/24 Verified (Saline Lock Ns) 14:00 Hydrocodone-Acet PHA 07/28/24 Verified 5/325mg Tab ([place] 07:45 Ondansetron Hcl PHA 07/28/24 Verified (Zofran) 07:45 Docusate Sodium PHA 07/28/24 Verified Capsule (Colace 07:45 Complete Blood Count LAB 07/29/24 Verified 04:00 Comprehensive LAB 07/29/24 Verified Metabolic Panel 04:00 Cardiac DIET 07/28/24 Verified Diet-2gna,Lofat,Lochol Breakfast Condition: Serious [facility] 07/28/24 Verified 07:43 Acetaminophen Tablet PHA 07/28/24 Verified (Tylenol Tablet) 07:45 Nitroglycerin PHA 07/28/24 Verified Sublingual (Ntrostat 07:45 Morphine Sulfate PHA 07/28/24 Verified Injection 07:45 Stat Ekg For Chest [facility] 07/28/24 Verified Pain 07:43 Notify Md Of Changes [facility] 07/28/24 Verified From Base 07:43 Dobby Loom Chain Pegger For [facility] 07/28/24 Verified 24 Hours 07:43 Emergency Dysrhythmia [facility] 07/28/24 Verified Protocol 07:43 Rhythm Strips Once [facility] 07/28/24 Verified Every Shift 07:43 Oxygen By Nasal RT 07/28/24 Verified Cannula 07:43 Aspirin Enteric PHA 07/28/24 Verified Coated Tablet 10:00 Clopidogrel Bisulfate PHA 07/28/24 Verified (Plavix) 10:00 Pantoprazole Tablet [facility] 07/28/24 Verified (Protonix Tablet) 10:00 Valsartan (Diovan) PHA 07/28/24 Verified 10:00 (Nf) Atorvastatin PHA 07/28/24 Verified Calcium 10:00 (Nf) Nifedipine PHA 07/28/24 Verified (Nifedipine Er) 10:00 Date of Service: Jul 28, 2024 Billing Provider: ANY AQUINO Common Visit Codes: [id number] INP/OBS CARE (MOD) ANY AQUINO Jul 28, 2024 07:56
[2024-07-28] MEDS: ASPirin-EC 81 mg tab PO SCH (09:33)
[2024-07-28] MEDS: VALSARTAN 80 MG TAB PO SCH (09:34)
[2024-07-28] MEDS: NIFEdipine ER 30 MG TAB PO SCH (09:34)
[2024-07-28] MEDS: CLOPIDOGREL BISULFATE 75 MG TAB PO SCH (09:34)
--- NOTE | 2024-07-28 12:05 | DVHINCON2 ---
Date Seen: Jul 28, 2024 Referring Physician YONG Rosario Reason for Consultation Chest pain History of Present Illness This is a 54-year-old female who presented to the emergency room via EMS with a chief complaint of chest pain. Describes her chest pain as substernal, nonradiating, constant, pressure-like, and with onset after seeing a bug for which the patient vacuum the house and endorsing some of the symptoms to physical activity. States she self administered NTG SL 0.4 mg x 3 with no relief of symptoms prompting her to call 911. At time of assessment she denied any further chest pain or any other cardiac symptoms. She presented with a systolic blood pressure in the 180s mmHg. States she has been compliant with medical therapy at home including DAPT and lipid lowering agent given recent PCI with stent placement. Of note, she was discharged from this facility yesterday. Significant medical history includes coronary artery disease status post PTCA including one HILARIO to the distal LCx on 07/20/2024, hypertension, gestational diabetes, recent tobacco abuse including a 28 pack-year history, and cannabinoid use. Past Medical History Past medical history reviewed. No other significant than mentioned above. Past Surgical History PTCA including one HILARIO to the LCx on 07/20/2024 Family History: Colon cancer G8 MOTHER Diabetes mellitus G8 FATHER FH: breast cancer G8 MOTHER FH: heart attack G8 FATHER FH: stroke G8 MOTHER G8 FATHER Hypertension G8 MOTHER G8 FATHER Family History Family history reviewed. Social History Denies the use of alcohol or tobacco use. Reports she stopped tobacco use on 07/17/24. Admits to cannabinoid use. Allergies: Coded Allergies: No Known Drug Allergy (Verified Allergy, Unknown, 04/22/21) Home Meds Active Scripts Pantoprazole Sodium Sesquihydr (Protonix) 40 Mg Tab, 40 MG PO DAILY, #30 TAB Prov:BENI HARDY MD 07/27/24 Nitroglycerin (NTROSTAT SUBLINGUAL) 0.4 Mg Sl, 0.4 MG SL Q5MINP PRN, #100 TAB Prov:BENI HARDY MD 07/27/24 Valsartan (Valsartan) 80 Mg Tab, 80 MG PO DAILY for 90 Days, #90 TAB 1 Refill Prov:SCOUT MARRERO MD 07/21/24 Nifedipine (Nifedipine Er) 60 Mg Tab, 1 TAB PO DAILY, #90 TAB 1 Refill Prov:SCOUT MARRERO MD 07/21/24 Clopidogrel Bisulfate (CLOPIDOGREL) 75 Mg Tab, 75 MG PO DAILY for 90 Days, #90 TAB 1 Refill Prov:SCOUT MARRERO MD 07/21/24 Atorvastatin Calcium (ATORVASTATIN CALCIUM) 40 Mg Tab, 1 TAB PO DAILY, #90 TAB 1 Refill Prov:SCOUT MARRERO MD 07/21/24 Aspirin (Aspirin Low Dose) 81 Mg Tab, 81 MG PO DAILY for 90 Days, #90 TAB 1 Refill Prov:SCOUT MARRERO MD 07/21/24 Discontinued Reported Medications Nifedipine (Nifedipine Er) 30 Mg Tab, 1 TAB PO DAILY, #90 TAB 1 Refill 07/18/24 Discontinued Scripts Hctz (Hydrochlorothiazide) 25 Mg Tab, 25 MG PO DAILY, #90 TAB Prov:CLARITA WEEMS MD 03/16/23 Amoxicillin & Pot Clavulanate (Augmentin) 500 Mg Tab, 500 MG PO TID for 7 Days, #21 TAB Prov:JANE TORRES MD 04/22/21 Home Meds Home medications reviewed. Current Medications Current Medications Medications (Trade) Dose Ordered Sig/Remy Route PRN Reason Start Time Stop Time Status Last Admin Sodium Chloride (Saline Lock Ns) 10 ml Q8HR IV 07/28/24 14:00 Acetaminophen/ Hydrocodone Bitart ([place] 5/325MG Tab) 1 tab Q4HP PRN PO MODERATE PAIN (4-6 PAIN SCALE) 07/28/24 07:45 Ondansetron HCl (Zofran) 4 mg Q4HP PRN IV NAUSEA / VOMITING 07/28/24 07:45 Docusate Sodium (Colace Capsule) 100 mg BIDPRN PRN PO FOR CONSTIPATION 07/28/24 07:45 Acetaminophen (Tylenol Tablet) 650 mg Q6HP PRN PO PAIN SCALE 1-3 OR TEMP>100.4 07/28/24 07:45 Nitroglycerin (Ntrostat Sublingual) 0.4 mg Q5MINP PRN SL FOR CHEST PAIN 07/28/24 07:45 Morphine Sulfate 2 mg Q30M PRN IV FOR CHEST PAIN 07/28/24 07:45 Aspirin (Ecotrin Enteric Coated Tablet) 81 mg DAILY PO 07/28/24 10:00 07/28/24 09:33 Clopidogrel Bisulfate (Plavix) 75 mg DAILY PO 07/28/24 10:00 07/28/24 09:34 Pantoprazole Sodium (Protonix Tablet) 40 mg DAILY PO 07/29/24 10:00 Valsartan (Diovan) 80 mg DAILY PO 07/28/24 10:00 07/28/24 09:34 Atorvastatin Calcium (Lipitor) 40 mg HS PO 07/28/24 22:00 Nifedipine (Procardia Xl (Time-Release)) 60 mg DAILY PO 07/28/24 10:00 07/28/24 09:34 Review of Systems Constitutional: No symptom reported Ears, Nose, & Throat: No symptom reported Eyes: No symptom reported Neurological: No symptoms reported Pulmonary/Respiratory: No symptom reported Cardiovascular: Chest pain Gastrointestinal: No symptom reported Genitourinary: No symptom reported Musculoskeletal: No symptom reported Skin: No symptom reported Psychiatric: No symptom reported Endocrine: No symptom reported Hemotologic/Lymphatic: No symptom reported Vital Signs Vital Signs Date Time Temp Pulse Resp B/P (MAP) Pulse Ox O2 Delivery O2 Flow Rate FiO2 07/28/24 11:02 63 07/28/24 10:00 19 117/61 (79) 100 07/28/24 08:14 Room Air* 0 21 07/28/24 08:00 98.2 98.2 Physical Exam General Appearance: Cooperative. Well developed. Well nourished. In no acute distress Head Exam: Normal inspection Neck Exam: Normal inspection. Non-tender. Normal alignment Pulmonary/Respiratory: Chest non-tender. Clear bilateral breath sounds Cardiovascular/Chest: Regular rate and rhythm. S1, S2. NSR. No murmurs. No JVD. Peripheral Pulses: 2+ Radial (R). 2+ Radial (L). 2+ Pedal (R). 2+ Pedal (L) Abdominal Exam: Normal bowel sounds. Soft. Nontender. Ankle Exam: Negative ankle edema Lower extremities: Negative lower extremity edema Neuro/Mental Status: A&O x4. Coherent Thoughts/Psych: Normal thought pattern. Appropriate mood and affect. Anxious Appearance: In no acute distress Skin Exam: Normal inspection. Normal color. Warm. Dry Labs/Diagnostic Data Labs Test 07/28/24 03:13 07/28/24 00:20 Range/Units Troponin I High Sensitivity 10 </=34 ng/L White Blood Count 12.5 #H 4.4-10.8 10^3/uL Red Blood Count 4.68 4.0-5.20 10^6/uL Hemoglobin 14.0 12.2-16.2 g/dL Hematocrit 42.2 36.0-46.0 % Mean Corpuscular Volume 90.2 80.0-100.0 fL Mean Corpuscular Hemoglobin 29.9 28.0-32.0 pg Mean Corpuscular Hemoglobin Concent 33.2 32.0-36.0 g/dL Red Cell Distribution Width 12.4 11.8-14.3 % Platelet Count 262 140-450 10^3/uL Mean Platelet Volume 8.1 6.9-10.8 fL Neutrophils (%) (Auto) 62.9 37.0-80.0 % Lymphocytes (%) (Auto) 28.4 10.0-50.0 % Monocytes (%) (Auto) 7.4 0.0-12.0 % Eosinophils (%) (Auto) 1.0 0.0-7.0 % Basophils (%) (Auto) 0.3 0.0-2.0 % Neutrophils # (Auto) 7.8 1.6-8.6 10 ^3/uL Lymphocytes # (Auto) 3.5 0.4-5.4 10 ^3/uL Monocytes # (Auto) 0.9 0-1.3 10 ^3/uL Eosinophils # (Auto) 0.1 0-0.8 10 ^3/uL Basophils # (Auto) 0 0-0.2 10 ^3/uL Nucleated Red Blood Cells 0.0 % Sodium Level 140 136-145 mmol/L Potassium Level 3.5 3.5-5.1 mmol/L Chloride Level 106 98-107 mmol/L Carbon Dioxide Level 27 20-31 mmol/L Anion Gap 7 5-15 Blood Urea Nitrogen 9 9-23 mg/dL Creatinine 0.72 0.550-1.02 mg/dL Glomerular Filtration Rate Calc 99 >90 mL/min BUN/Creatinine Ratio 12.5 10.0-20.0 Serum Glucose 122 H 74-106 mg/dL Calcium Level 10.1 8.7-10.4 mg/dL Total Bilirubin 0.4 0.2-1.0 mg/dL Aspartate Amino Transferase (AST) 20 13-40 U/L Alanine Aminotransferase (ALT) 29 7-40 U/L Alkaline Phosphatase 75 46-116 U/L Total Protein 7.5 5.7-8.2 g/dL Albumin 4.7 3.2-4.8 g/dL Assessment Chest pain in the setting of hypertensive emergency Coronary artery disease with recent PTCA to the LCx including 1 HILARIO on 07/20/24 Dyslipidemia Recent nicotine dependence Cannabinoid use Plan/Recommendation (Dr. Naylor) Recent transthoracic echocardiogram revealed LVEF 60% with moderate LVH. Doubt in stent-thrombosis or restenosis. The patient presents with non-ischemic changes on multiple twelve lead electrocardiograms, negative serial troponin levels, no relief with NTG therapy, and resolved symptoms with adequate blood pressure control. Continue DAPT, lipid-lowering agent, and initiate beta- johan. Continue aggressive blood pressure control and up-titrate as necessary for a target SBP < 140 mmHg. Continue risk factor modifications including medical compliance, tobacco cessation, Mediterranean diet, and exercise as tolerated. There is no further cardiac work-up indicated at this time. Kindly call if in need to re-consult. Thank you for allowing us to participate in this patient's care. This medical document was created using an electronic medical record system with voice recognition software and computerized dictation system. Although this document has been carefully reviewed, there might still be some phonetic and typographical errors. Occasional wrong-word or ``sound-alike substitutions may have occurred due to the inherent limitations of voice recognition software. These areas are purely typographical due to imperfections of the software programs and do not reflect any compromise in the patient's medical care. Please read the chart carefully and recognize, using context, where these substitutions have occurred. Plan discussed with: Patient, Other NYHA Physical activity limitations: NA Date of Service: Jul 28, 2024 Billing Provider: HIRAM ORTIZ Cardiology Common Codes: 22000-SBZRKXJ INP/OBS CARE (High) HIRAM ORTIZ Jul 28, 2024 12:05
[2024-07-28] MEDS: SODIUM CHLOR 0.9% PF (SALINE LOCK) 10ML VIAL/SYR IV SCH (14:40)
[2024-07-28 20:00] VITALS: PULSE 73; RESP 17
[2024-07-28 21:38] VITALS: BP 143/79; PULSE 70; RESP 17; TEMP 97.9; O2SAT 100
[2024-07-28] MEDS: ATORVASTATIN 20 MG TAB PO SCH (21:51)
[2024-07-29 01:00] VITALS: BP 132/78; PULSE 53; RESP 17; TEMP 97.5; O2SAT 96
[2024-07-29 05:00] VITALS: BP 123/59; PULSE 52; RESP 17; TEMP 98.2; O2SAT 100
[2024-07-29 06:11] LABS: Basophils # (auto) 0 10 ^3/uL (0-0.2); Basophils % (auto) 0.4 % (0.0-2.0); Eosinophils # (auto) 0.1 10 ^3/uL (0-0.8); Eosinophils % (auto) 1.8 % (0.0-7.0); Hematocrit 40.5 % (36.0-46.0); Hemoglobin 13.7 g/dL (12.2-16.2); Lymphocytes # (auto) 2.9 10 ^3/uL (0.4-5.4); Lymphocytes % (auto) 35.3 % (10.0-50.0); Mean Corpuscular Hemoglobin 29.9 pg (28.0-32.0); Mean Corpuscular Hgb Conc. 33.7 g/dL (32.0-36.0); Mean Corpuscular Volume 88.5 fL (80.0-100.0); Monocytes # (auto) 0.7 10 ^3/uL (0-1.3); Monocytes % (auto) 8.5 % (0.0-12.0); Neutrophils # (auto) 4.4 10 ^3/uL (1.6-8.6); Platelet Count (auto) 242 10^3/uL (140-450); Red Blood Cells 4.58 10^6/uL (4.0-5.20); Red Cell Distribution Width 12.7 % (11.8-14.3); White Blood Cell 8.2 10^3/uL (4.4-10.8)
[2024-07-29 06:31] LABS: Alanine Aminotransferase 27 U/L (7-40); Alkaline Phosphatase 70 U/L (46-116); Anion Gap 6 (5-15); Calcium 9.8 mg/dL (8.7-10.4); Carbon Dioxide 27 mmol/L (20-31); Potassium 3.9 mmol/L (3.5-5.1); Sodium 140 mmol/L (136-145)
[2024-07-29 06:32] LABS: BUN/Creatinine Ratio 10.8 (10.0-20.0); Glucose 84 mg/dL (74-106)
[2024-07-29 06:33] LABS: Albumin 4.3 g/dL (3.2-4.8); Total Protein 6.8 g/dL (5.7-8.2)
[2024-07-29 06:34] LABS: Aspartate Aminotransferase 22 U/L (13-40); Bilirubin, Total 0.4 mg/dL (0.2-1.0); Blood Urea Nitrogen 8 mg/dL (9-23); Chloride 107 mmol/L (98-107)
[2024-07-29 08:00] VITALS: PULSE 52
[2024-07-29 08:44] VITALS: BP 121/80; PULSE 58; RESP 18; TEMP 98.7; O2SAT 99
[2024-07-29] MEDS: METOPROLOL SUCCINATE XL 50 MG TAB PO SCH (10:19)
[2024-07-29] MEDS: NIFEdipine ER 30 MG TAB PO SCH (10:20)
[2024-07-29] MEDS: PANTOPRAZOLE 40 MG TAB PO SCH (10:22)
[2024-07-29] MEDS ORDERED: HYDR-4902 PO (11:30)
--- NOTE | 2024-07-29 11:30 | DVHDS2 ---
Discharge Summary Date of Admission Jul 28, 2024 at 07:43 Labs/Diagnostic Data: Laboratory Results Test 07/29/24 05:04 07/28/24 03:13 White Blood Count 8.2 10^3/uL (4.4-10.8) Red Blood Count 4.58 10^6/uL (4.0-5.20) Hemoglobin 13.7 g/dL (12.2-16.2) Hematocrit 40.5 % (36.0-46.0) Mean Corpuscular Volume 88.5 fL (80.0-100.0) Mean Corpuscular Hemoglobin 29.9 pg (28.0-32.0) Mean Corpuscular Hemoglobin Concent 33.7 g/dL (32.0-36.0) Red Cell Distribution Width 12.7 % (11.8-14.3) Platelet Count 242 10^3/uL (140-450) Mean Platelet Volume 8.0 fL (6.9-10.8) Neutrophils (%) (Auto) 54.0 % (37.0-80.0) Lymphocytes (%) (Auto) 35.3 % (10.0-50.0) Monocytes (%) (Auto) 8.5 % (0.0-12.0) Eosinophils (%) (Auto) 1.8 % (0.0-7.0) Basophils (%) (Auto) 0.4 % (0.0-2.0) Neutrophils # (Auto) 4.4 10 ^3/uL (1.6-8.6) Lymphocytes # (Auto) 2.9 10 ^3/uL (0.4-5.4) Monocytes # (Auto) 0.7 10 ^3/uL (0-1.3) Eosinophils # (Auto) 0.1 10 ^3/uL (0-0.8) Basophils # (Auto) 0 10 ^3/uL (0-0.2) Nucleated Red Blood Cells 0.0 % Sodium Level 140 mmol/L (136-145) Potassium Level 3.9 mmol/L (3.5-5.1) Chloride Level 107 mmol/L (98-107) Carbon Dioxide Level 27 mmol/L (20-31) Anion Gap 6 (5-15) Blood Urea Nitrogen 8 mg/dL (9-23) Creatinine 0.74 mg/dL (0.550-1.02) Glomerular Filtration Rate Calc 96 mL/min (>90) BUN/Creatinine Ratio 10.8 (10.0-20.0) Serum Glucose 84 mg/dL (74-106) Calcium Level 9.8 mg/dL (8.7-10.4) Total Bilirubin 0.4 mg/dL (0.2-1.0) Aspartate Amino Transferase (AST) 22 U/L (13-40) Alanine Aminotransferase (ALT) 27 U/L (7-40) Alkaline Phosphatase 70 U/L (46-116) Total Protein 6.8 g/dL (5.7-8.2) Albumin 4.3 g/dL (3.2-4.8) Troponin I High Sensitivity 10 ng/L (</=34) Other Laboratory Tests 07/29/24 05:04 Discharge Statement: "Patient was advised to return to the ER or call 911 if any headaches, dizziness, shortness of breath, chest pain, abdominal pain, bleeding, fevers, or worsening of medical condition. Patient was counseled about treatment plan, medications, possible side effects, patientverbalized understanding. All questions were answered to the best of my ability. This discharge took greater then 30 minutes in planning, reviewing documentation, counseling the patient, and discussing with other team members." ASSESSMENT ASSESSMENT Assessment BENI HARDY MD Jul 29, 2024 11:30
[2024-07-29] MEDS ORDERED: IBUPROFEN 600 MG TAB PO ONE (12:15)
[2024-07-29 12:29] VITALS: BP 115/56; PULSE 55; RESP 20; TEMP 98.6; O2SAT 100
== END 2024-07-29 15:00 | disposition home or self-care (01) | DRG 199 ==
LOC: EDBD 23:24 → ER 23:24 → EDUNIT# 23:24 → OVERFLOW 07-28 07:43 → TELE-CENTR 07-28 21:35
PROVIDERS: ADMIT Internal Medicine; ATTEND Internal Medicine
DX: I16.1 Hypertensive emergency (principal); E78.5 Hyperlipidemia, unspecified; I10 Essential (primary) hypertension; F17.210 Nicotine dependence, cigarettes, uncomplicated; I25.10 Atherosclerotic heart disease of native coronary artery without angina pectoris; F12.90 Cannabis use, unspecified, uncomplicated; Z79.82 Long term (current) use of aspirin; Z79.899 Other long term (current) drug therapy; Z79.2 Long term (current) use of antibiotics; Z82.49 Family history of ischemic heart disease and other diseases of the circulatory system; Z80.0 Family history of malignant neoplasm of digestive organs; Z83.3 Family history of diabetes mellitus; Z80.3 Family history of malignant neoplasm of breast; Z82.3 Family history of stroke; Z95.5 Presence of coronary angioplasty implant and graft; Z86.32 Personal history of gestational diabetes
CPT/HCPCS: 36415; 71045; 80053; 84484; 85025; 93005; G0378; J2470

== ENCOUNTER 2024-08-11 19:51 | Emergency (ER) | payer MEDICAID ==
[~2024-08-11] VITALS: Ht 162.6 cm; Wt 63.2 kg
[~2024-08-11 19:51] MED LIST changes: +HYDR-4902 PO
--- NOTE | 2024-08-11 20:33 | ED.PDOC ---
History of Present Illness HPI Comments 54-year-old female with PMHx [facility] presents with a chief complaint of gum pain x onset Saturday. Patient states that her gums have been "swollen and bleeding when I brush them". Patient denies seeing a dentist for this issue. Patient states that she took two 800mg Ibuprofen for the pain, but states that she got chest pain from it. Patient also endorses burping and yawning a lot. Chief Complaint: Chest Pain Time Seen by MD: 20:12 Primary Care Provider: AYAAN Parmar Notes: Medications, Allergies Allergies: Coded Allergies: No Known Drug Allergy (Verified Allergy, Unknown, 04/22/21) Home Meds Active Scripts Benzocaine (Dental) (ORAL ANALGESIC MAXIMUM ST) 20 % Gel, 10 % MT TIDPRN PRN for 3 Days, #9 GEL Prov:JUNIOR CURTIS MD 08/11/24 Chlorhexidine Gluconate (Mouth (CHLORHEXIDINE ORAL RINSE) 473 Ml So, 15 ML MT Q12HR for 5 Days, #473 ML Prov:JUNIOR CURTIS MD 08/11/24 Amoxicillin Trihydrate (Amoxicillin) 875 Mg Tab, 1 TAB PO BID, #14 TAB Prov:JUNIOR CURTIS MD 08/11/24 Hydrocodone-Acetaminophen (Hydrocodone Bitartrate/AC 5-325 mg) 1 Tab Tab, 1 TAB PO Q4HP PRN, #20 TAB Prov:BENI HARDY MD 07/29/24 Pantoprazole Sodium Sesquihydr (Protonix) 40 Mg Tab, 40 MG PO DAILY, #30 TAB Prov:BENI HARDY MD 07/27/24 Nitroglycerin (NTROSTAT SUBLINGUAL) 0.4 Mg Sl, 0.4 MG SL Q5MINP PRN, #100 TAB Prov:BENI HARDY MD 07/27/24 Valsartan (Valsartan) 80 Mg Tab, 80 MG PO DAILY for 90 Days, #90 TAB 1 Refill Prov:SCOUT MARRERO MD 07/21/24 Nifedipine (Nifedipine Er) 60 Mg Tab, 1 TAB PO DAILY, #90 TAB 1 Refill Prov:SCOUT MARRERO MD 07/21/24 Clopidogrel Bisulfate (CLOPIDOGREL) 75 Mg Tab, 75 MG PO DAILY for 90 Days, #90 TAB 1 Refill Prov:SCOUT MARRERO MD 07/21/24 Atorvastatin Calcium (ATORVASTATIN CALCIUM) 40 Mg Tab, 1 TAB PO DAILY, #90 TAB 1 Refill Prov:SCOUT MARRERO MD 07/21/24 Aspirin (Aspirin Low Dose) 81 Mg Tab, 81 MG PO DAILY for 90 Days, #90 TAB 1 Refill Prov:SCOUT MARRERO MD 07/21/24 Information Source: Patient Mode of Arrival: Ambulatory Severity: Moderate Timing: Days Duration: Since onset Prehospital treatment: None Vital Signs Vital Signs Date Time Temp Pulse Resp B/P (MAP) Pulse Ox O2 Delivery O2 Flow Rate FiO2 08/11/24 23:23 98.6 66 16 151/83 (105) 99 98.6 Physical Exam General: Awake, alert and oriented. No acute distress. Skin: Skin in warm, dry and intact. Appropriate color for ethnicity. HEENT: The head is normocephalic and atraumatic. Conjunctivae are clear without exudates or hemorrhage. Sclera is non-icteric. EOM are intact. No signs of nystagmus. Eyelids are normal in appearance without swelling or lesions. Oral mucosa is pink and moist. There is area of erythema , swelling and tenderness adjacent to the right upper lateral incisor. No palpable abscess. No purulent drainage. Neck: The neck is supple with normal range of motion. No JVD. Cardiac: Heart rate and rhythm are normal. No murmurs, gallops, or rubs are auscultated. Respiratory: No signs of respiratory distress. Lung sounds are clear in all lobes bilaterally without rales, rhonchi, or wheezes. Abdominal: Abdomen is soft, non-tender without distention. Bowel sounds are present and normoactive in all four quadrants. Extremities: Upper and lower extremities are atraumatic in appearance without deformity or edema. Neurological: The patient is awake, alert and oriented to person, place, and time with normal speech. Speech is clear. There is no facial asymmetry. Psychiatric: Appropriate mood and affect. Good judgement and insight. Review of Systems: REVIEW OF SYSTEMS: No fever, no chills, or fatigue HEENT: No sore throat, no earache, no congestion, no neck pain. Positive gum swelling and pain. Cardiac: Positive chest pain. No palpitations. Lungs: No shortness of breath, no cough. GI: No nausea, no vomiting, no diarrhea, no constipation, no abdominal pain : No dysuria, frequency, or urgency. No hematuria. Musculoskeletal: No joint pain , no joint swelling, no extremity edema. Skin: No rash, no itching. Neuro: Positive headache, no dizziness, no weakness Past Medical History PAST MEDICAL HISTORY: HTN, [facility] Surgical History: Denies all surgeries CASE MANAGERS History: No Pertinent CASE MANAGERS History Family History Family History: Reviewed,noncontributory to illness Social History Smoker: Cigarettes Alcohol: Denies ETOH Use Drugs: Marijuana Lives In: Home Was a procedure done? Was a procedure done?: No EKG EKG : Pulse Rate (adult): 70 [place]: Normal Cardiac Rhythm: NSR Block: None Hypertrophy: None ST: Normal Comments No STEMI Differential Dx Considerations may include: Differential diagnoses considered include dental infection, dental abscess, myocarditis, malignancy, endocarditis, acute ischemic coronary syndrome, aortic dissection, cardiac tamponade, mediastinitis, pulmonary embolus, pneumothorax, tension pneumothorax, esophageal rupture, coronary artery vasospasm, pericarditis, pneumonia, pulmonary edema, esophageal tear, pancreatitis, aortic stenosis, dilated cardiomyopathy, hypertrophic cardiomyopathy, mitral valve prolapse, malignancy, pleuritis, pneumomediastinum, primary pulmonary hypertension, cholecystitis, esophageal spasm, esophagus, gastritis, GERD, peptic ulcer disease, costochondritis, fibromyalgia, rib fracture, herpes zoster, radicular syndromes, thoracic outlet syndrome, somatization. X-Ray, Labs, Meds, VS Vital Signs Date Time Temp Pulse Resp B/P (MAP) Pulse Ox O2 Delivery O2 Flow Rate FiO2 08/11/24 23:23 98.6 66 16 151/83 (105) 99 98.6 08/11/24 22:53 52 08/11/24 21:00 70 08/11/24 20:54 55 08/11/24 19:57 70 08/11/24 19:55 98.0 66 18 156/90 (112) 98 98.0 Lab Test 08/11/24 23:00 08/11/24 20:58 08/11/24 20:02 Range/Units Troponin I High Sensitivity 5 5 6 </=34 ng/L White Blood Count 10.0 4.4-10.8 10^3/uL Red Blood Count 4.28 4.0-5.20 10^6/uL Hemoglobin 13.1 12.2-16.2 g/dL Hematocrit 38.2 36.0-46.0 % Mean Corpuscular Volume 89.2 80.0-100.0 fL Mean Corpuscular Hemoglobin 30.6 28.0-32.0 pg Mean Corpuscular Hemoglobin Concent 34.3 32.0-36.0 g/dL Red Cell Distribution Width 12.7 11.8-14.3 % Platelet Count 247 140-450 10^3/uL Mean Platelet Volume 7.9 6.9-10.8 fL Neutrophils (%) (Auto) 61.5 37.0-80.0 % Lymphocytes (%) (Auto) 28.7 10.0-50.0 % Monocytes (%) (Auto) 8.4 0.0-12.0 % Eosinophils (%) (Auto) 1.1 0.0-7.0 % Basophils (%) (Auto) 0.3 0.0-2.0 % Neutrophils # (Auto) 6.2 1.6-8.6 10 ^3/uL Lymphocytes # (Auto) 2.9 0.4-5.4 10 ^3/uL Monocytes # (Auto) 0.8 0-1.3 10 ^3/uL Eosinophils # (Auto) 0.1 0-0.8 10 ^3/uL Basophils # (Auto) 0 0-0.2 10 ^3/uL Nucleated Red Blood Cells 0.0 % Sodium Level 143 136-145 mmol/L Potassium Level 3.9 3.5-5.1 mmol/L Chloride Level 108 H 98-107 mmol/L Carbon Dioxide Level 28 20-31 mmol/L Anion Gap 7 5-15 Blood Urea Nitrogen 8 L 9-23 mg/dL Creatinine 0.81 0.550-1.02 mg/dL Glomerular Filtration Rate Calc 86 >90 mL/min BUN/Creatinine Ratio 9.9 L 10.0-20.0 Serum Glucose 95 74-106 mg/dL Calcium Level 10.3 8.7-10.4 mg/dL Total Bilirubin 0.4 0.2-1.0 mg/dL Aspartate Amino Transferase (AST) 25 13-40 U/L Alanine Aminotransferase (ALT) 34 7-40 U/L Alkaline Phosphatase 88 46-116 U/L B-Type Natriuretic Peptide 4.42 0-100 pg/mL Total Protein 7.1 5.7-8.2 g/dL Albumin 4.5 3.2-4.8 g/dL PATIENT: ADALI FERRISCCT: [id number] UNIT: [id number] : 1970 LOC: ER ROOM / BED: / AGE / SEX: 54 / F ADM STATUS: REG ER SERVICE 36 ORDERING PHYSICIAN: JUNIOR CURTIS MD PROCEDURE(s): CXR1 - CHEST XRAY 1 VIEW REASON: cp ORDER NUMBER(s): [id number], ACCESSION NUMBER(s): [id number] EXAM: XY CHEST XRAY 1 VIEW REASON FOR EXAM: cp TECHNIQUE: 1 view of the chest COMPARISON: None FINDINGS/IMPRESSION: LUNGS: No pleural effusion, consolidation, or pneumothorax MEDIASTINUM: Unremarkable BONES: No acute osseous abnormality OTHER: None ATED BY: VIRAJ GROVER MD DICTATED DATE/TIME: 08/11/242104 SIGNED BY: VIRAJ GROVER MD SIGNED DATE/TIME: 08/11/242104 CC: Images Reviewed?: Images reviewed and evaluated by me (Independent interpretation of chest x-ray: No acute disease) Time of 1ST Reevaluation: 20:42 Reevaluation 1ST: Unchanged Patient Education/Counseling: Need For Follow Up Family Education/Counseling: No Family Present Departure 1 Departure Time of Disposition: 23:05 Impression: Primary Impression: Chest pain Additional Impression: Dental infection Disposition: 01 HOME / SELF CARE / HOMELESS Condition: Stable Additional Instructions: ED DISCHARGE INSTRUCTIONS Instructions: Please read all instructions provided in this packet carefully. Although you have been discharged from the Emergency Department, this does not mean that you have a "clean bill of health". No definitive diagnosis for your symptoms has been made today. It is possible that you are in the process of developing a serious illness. This is why you must return to the ED without fail if any new or worsening symptoms (especially if your symptoms include chest pain, trouble breathing, abdominal pain, fever, headache, confusion, trouble seeing, or trouble walking) It is also very important that you see a primary care doctor within the next 3-5 days to follow up. It is very important that you follow up with a dentist as soon as possible for further evaluation of your symptoms. If you are unable to get an appointment, return to the ED for re-evaluation. CHEST PAIN EDUCATION There are many things that can cause chest pain. Some are not serious and will get better on their own in a few days. But some kinds of chest pain need more testing and treatment. Your doctor may have recommended a follow-up visit in the next few days. If you are not getting better, you may need more tests or treatment. Even though your doctor has released you, you still need to watch for any problems. The doctor carefully checked you, but sometimes problems can develop later. If you have new symptoms or if your symptoms do not get better, get medical care right away. If you have worse or different chest pain or pressure that lasts more than 5 minutes or you passed out (lost consciousness), call 911 or seek other emergency help right away. A medical visit is only one step in your treatment. Even if you feel better, you still need to do what your doctor recommends, such as going to all suggested follow-up appointments and taking medicines exactly as directed. This will help you recover and help prevent future problems. How can you care for yourself at home? Rest until you feel better. Take your medicine exactly as prescribed. Call your doctor if you think you are having a problem with your medicine. Do not drive after taking a prescription pain medicine. When should you call for help? Call 911 if: You passed out (lost consciousness). You have severe difficulty breathing. You have symptoms of a heart attack. These may include: Chest pain or pressure, or a strange feeling in your chest. Sweating. Shortness of breath. Nausea or vomiting. Pain, pressure, or a strange feeling in your back, neck, jaw, or upper belly or in one or both shoulders or arms. Lightheadedness or sudden weakness. A fast or irregular heartbeat. After you call 911, the double end tenon operator may tell you to chew 1 adult-strength or 2 to 4 low-dose aspirin. Wait for an ambulance. Do not try to drive yourself. Call your doctor now or seek immediate medical care if: You have any trouble breathing. You have new or different chest pain. You are dizzy or lightheaded, or you feel like you may faint. Watch closely for changes in your health, and be sure to contact your doctor if you do not get better as expected. Current as of: November 06, 2023 Author: Sandro BantrKAREEM Staff? e-Prescriptions Benzocaine (Dental) (ORAL ANALGESIC MAXIMUM ST) 20 % Gel 10 % MT TIDPRN PRN for 3 Days, #9 GEL Prov: JUNIOR CURTIS MD 08/11/24 Chlorhexidine Gluconate (Mouth (CHLORHEXIDINE ORAL RINSE) 473 Ml So 15 ML MT Q12HR for 5 Days, #473 ML Prov: JUNIOR CURTIS MD 08/11/24 Amoxicillin Trihydrate (Amoxicillin) 875 Mg Tab 1 TAB PO BID, #14 TAB Prov: JUNIOR CURTIS MD 08/11/24 Comments 54-year-old female with a history of coronary artery disease status post angioplasty presents to the emergency department with chest pain EKG negative for signs of ischemia x 3 . High sensitivity troponin negative x 3. CXR shows no acute process. Presentation not suggestive of acute coronary syndrome, pulmonary embolism or aortic dissection. Patient improved at time of discharge. No hypoxia, respiratory distress or dyspnea at discharge. Patient able to ambulate without difficulty. We will treat for dental infection. Patient felt stable for discharge home. Advised importance of follow up with Dentistry. Patient well-appearing, nontoxic. Advised prompt follow-up with PCP, return to the ED with any new, worsening or concerning symptoms. - I reviewed the following notes from the pt's past medical encounters: Encounter for hospital admission for rule out ACS, hypertension, chest pain. The following tests were ordered, and results were reviewed by me: (See diagnostic results section) The following test were independently interpreted by me: EKG, chest x-ray Additional information was gathered from interviewing the following independent historians: N/A I reviewed and agreed with the following test results read by other providers: N/A I discussed treatments and results with patient Decision regarding hospitalization or escalation of hospital level of care: Risks and benefits of admission for further treatment of patient's condition was considered however due to patient's stable condition patient will be discharged to follow up closely or return to care for worsening of condition or inability to follow up. Critical Care Note Critical Care Time?: No Stability Stability form required: No Heart Score Heart Score: Heart Score Response (Comments) Value History N/A 0 EKG N/A 0 Age N/A 0 Risk Factors N/A 0 Troponin N/A 0 Total 0 I personally scribed for JUNIOR CURTIS MD ([email or web address]) on 08/11/24 at 20:33. Electronically submitted by Mahendra Car ([email or web address]). I personally scribed for JUNIOR CURTIS MD ([email or web address]) on 08/11/24 at 21:00. Electronically submitted by Mahendra Car ([email or web address]). JUNIOR CURTIS MD August 11, 2024 20:33
[2024-08-11 20:55] LABS: Basophils # (auto) 0 10 ^3/uL (0-0.2); Basophils % (auto) 0.3 % (0.0-2.0); Eosinophils # (auto) 0.1 10 ^3/uL (0-0.8); Eosinophils % (auto) 1.1 % (0.0-7.0); Hematocrit 38.2 % (36.0-46.0); Hemoglobin 13.1 g/dL (12.2-16.2); Lymphocytes # (auto) 2.9 10 ^3/uL (0.4-5.4); Lymphocytes % (auto) 28.7 % (10.0-50.0); Mean Corpuscular Hemoglobin 30.6 pg (28.0-32.0); Mean Corpuscular Hgb Conc. 34.3 g/dL (32.0-36.0); Mean Corpuscular Volume 89.2 fL (80.0-100.0); Monocytes # (auto) 0.8 10 ^3/uL (0-1.3); Monocytes % (auto) 8.4 % (0.0-12.0); Neutrophils # (auto) 6.2 10 ^3/uL (1.6-8.6); Neutrophils % (auto) 61.5 % (37.0-80.0); Platelet Count (auto) 247 10^3/uL (140-450); Red Blood Cells 4.28 10^6/uL (4.0-5.20); Red Cell Distribution Width 12.7 % (11.8-14.3)
--- NOTE | 2024-08-11 20:55 | ECG ---
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
[2024-08-11 20:58] LABS: Alanine Aminotransferase 34 U/L (7-40); Albumin 4.5 g/dL (3.2-4.8); Alkaline Phosphatase 88 U/L (46-116); Anion Gap 7 (5-15); Aspartate Aminotransferase 25 U/L (13-40); BUN/Creatinine Ratio 9.9 (10.0-20.0); Bilirubin, Total 0.4 mg/dL (0.2-1.0); Calcium 10.3 mg/dL (8.7-10.4); Carbon Dioxide 28 mmol/L (20-31); Glucose 95 mg/dL (74-106); Potassium 3.9 mmol/L (3.5-5.1); Sodium 143 mmol/L (136-145); Total Protein 7.1 g/dL (5.7-8.2)
[2024-08-11 21:07] LABS: Blood Urea Nitrogen 8 mg/dL (9-23); Chloride 108 mmol/L (98-107)
--- NOTE | 2024-08-11 21:07 | DVH ---
EXAM: XY CHEST XRAY 1 VIEW REASON FOR EXAM: cp TECHNIQUE: 1 view of the chest COMPARISON: None FINDINGS/IMPRESSION: LUNGS: No pleural effusion, consolidation, or pneumothorax MEDIASTINUM: Unremarkable BONES: No acute osseous abnormality OTHER: None
--- NOTE | 2024-08-11 21:24 | ECG ---
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
--- NOTE | 2024-08-11 22:55 | ECG ---
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
[2024-08-11] MEDS ORDERED: CHL12OR MT (23:08)
[2024-08-11] MEDS ORDERED: BENZ20GE13 MT (23:08)
[2024-08-11] MEDS ORDERED: AMOX875T3 PO (23:08)
[2024-08-11 23:23] VITALS: BP 151/83; PULSE 66; TEMP 98.6
[2024-08-12] MEDS: ACETAMINOPHEN 325 MG TAB PO ONE (00:09)
[2024-08-12] MEDS: LIDOCAINE VISCOUS 2% 15ML UD PO ONE (00:10)
[2024-08-12 00:12] VITALS: RESP 18; O2SAT 98
== END 2024-08-12 00:38 | disposition home or self-care (01) ==
LOC: ER 19:51
DX: K04.7 Periapical abscess without sinus (principal); R07.89 Other chest pain; I10 Essential (primary) hypertension; I25.2 Old myocardial infarction; F17.210 Nicotine dependence, cigarettes, uncomplicated; F12.90 Cannabis use, unspecified, uncomplicated; Z79.02 Long term (current) use of antithrombotics/antiplatelets; Z79.899 Other long term (current) drug therapy
CPT/HCPCS: 36415; 71045; 80053; 83880; 84484; 85025; 93005

== ENCOUNTER 2024-08-15 10:34 | Inpatient (IN) | payer MEDICAID ==
[~2024-08-15] VITALS: Ht 162.6 cm; Wt 63.5 kg
[~2024-08-15 10:34] MED LIST changes: +AMOX875T3 PO; +BENZ20GE13 MT; +CHL12OR MT
--- NOTE | 2024-08-15 10:43 | ECG ---
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
--- NOTE | 2024-08-15 11:03 | ED.PDOC ---
HPI Comments 69-[id number]-female presents to the ED with a chief complaint of chest pain onset today (08/15/24) around 03:00. Patient states she was asleep, woke up around 03:00 due to chest pain radiating to her back as well as RT arm and RT leg numbness, shortness of breath. Patient describes chest pain as a tightness sensation. Had cardiac stent placed on 07/20/24. Prior to ED arrival patient took Aspirin 81 mg, Plavix, Losartan and Amlodipine. Upon ED arrival BP was 174/96. Patient states she did not take her nitroglycerin. PMHx AR, HTN. Denies dizziness, headache, nausea, vomiting, diarrhea, fevers, chills, dysuria, hematuria, fall, injury. No other symptoms or modifying factors present at this time. Chief Complaint: Back Pain Time Seen by MD: 10:50 Primary Care Provider: AYAAN Parmar Notes: Medications, Allergies Allergies: Coded Allergies: No Known Drug Allergy (Verified Allergy, Unknown, 04/22/21) Home Meds Active Scripts Benzocaine (Dental) (ORAL ANALGESIC MAXIMUM ST) 20 % Gel, 10 % MT TIDPRN PRN for 3 Days, #9 GEL Prov:JUNIOR CURTIS MD 08/11/24 Chlorhexidine Gluconate (Mouth (CHLORHEXIDINE ORAL RINSE) 473 Ml So, 15 ML MT Q12HR for 5 Days, #473 ML Prov:JUNIOR CURTIS MD 08/11/24 Amoxicillin Trihydrate (Amoxicillin) 875 Mg Tab, 1 TAB PO BID, #14 TAB Prov:JUNIOR CURTIS MD 08/11/24 Hydrocodone-Acetaminophen (Hydrocodone Bitartrate/AC 5-325 mg) 1 Tab Tab, 1 TAB PO Q4HP PRN, #20 TAB Prov:BENI HARDY MD 07/29/24 Pantoprazole Sodium Sesquihydr (Protonix) 40 Mg Tab, 40 MG PO DAILY, #30 TAB Prov:BENI HARDY MD 07/27/24 Nitroglycerin (NTROSTAT SUBLINGUAL) 0.4 Mg Sl, 0.4 MG SL Q5MINP PRN, #100 TAB Prov:BENI HARDY MD 07/27/24 Valsartan (Valsartan) 80 Mg Tab, 80 MG PO DAILY for 90 Days, #90 TAB 1 Refill Prov:SCOUT MARRERO MD 07/21/24 Nifedipine (Nifedipine Er) 60 Mg Tab, 1 TAB PO DAILY, #90 TAB 1 Refill Prov:SCOUT MARRERO MD 07/21/24 Clopidogrel Bisulfate (CLOPIDOGREL) 75 Mg Tab, 75 MG PO DAILY for 90 Days, #90 TAB 1 Refill Prov:SCOUT MARRERO MD 07/21/24 Atorvastatin Calcium (ATORVASTATIN CALCIUM) 40 Mg Tab, 1 TAB PO DAILY, #90 TAB 1 Refill Prov:SCOUT MARRERO MD 07/21/24 Aspirin (Aspirin Low Dose) 81 Mg Tab, 81 MG PO DAILY for 90 Days, #90 TAB 1 Refill Prov:SCOUT MARRERO MD 07/21/24 Information Source: Patient Mode of Arrival: Ambulatory Severity: Moderate Timing: Hours Duration: Since onset Prehospital treatment: None Location: Chest (L) Radiation: Back, Arm (R) Quality: Tightness Onset: While Asleep Cardiac Risk Factors: Smoker, Family History, HTN PE Risk Factors: Recent Surgery ( stent 07/20/24) History of: Similar pain in past, AR Modifying Factors: Nothing Associated Signs and Symptoms: SOB, Back Pain Past Medical History PAST MEDICAL HISTORY: CAD, HTN, AR Surgical History: PTCA CONTENT CHECKER History: No Pertinent CONTENT CHECKER History Family History Family History: Reviewed,noncontributory to illness Social History Smoker: Cigarettes Alcohol: Denies ETOH Use Drugs: Marijuana Lives In: Home Constitutional: denies: chills, diaphoresis, fatigue, fever, malaise, sweats, weakness, others EENTM: denies: blurred vision, double vision, ear bleeding, ear discharge, ear drainage, ear pain, ear ringing, eye pain, eye redness, hearing loss, mouth pain, mouth swelling, nasal discharge, nose bleeding, nose congestion, nose pain, photophobia, tearing, throat pain, throat swelling, voice changes, others Respiratory: reports: shortness of breath; denies: cough, hemoptysis, orthopnea, SOB at rest, SOB with excertion, stridor, wheezing, others Cardiovascular: reports: chest pain; denies: dizzy spells, diaphoresis, Dyspnea on exertion, edema, irregular heart beat, left arm pain, lightheadedness, palpitations, PND, syncope, others Gastrointestinal: denies: abdomen distended, abdominal pain, blood streaked bowels, constipated, diarrhea, dysphagia, difficulty swallowing, hematemesis, melena, nausea, poor appetite, poor fluid intake, rectal bleeding, rectal pain, vomiting, others Genitourinary: denies: abnormal vagina bleeding, burning, dyspareunia, dysuria, flank pain, frequency, hematuria, incontinence, pain, , vagina discharge, urgency, others Neurological: reports: right sided numbness, right sided weakness; denies: dizziness, fainting, headache, left sided numbness, left sided weakness, numbness, paresthesia, pre-existing deficit, seizure, speech problems, tingling, tremors, weakness, others Musculoskeletal: reports: back pain; denies: gout, joint pain, joint swelling, muscle pain, muscle stiffness, neck pain, others Integumetry: denies: bruises, change in color, change in hair/nails, dryness, laceration, lesions, lumps, rash, wounds, others Allergic/Immunocompromised: denies: Difficulty Healing, Frequent Infections, Hives, Itching, others Hematologic/Lymphatic: denies: anemia, blood clots, easy bleeding, easy bruising, swollen glands, others Endocrine: denies: excessive hunger, excessive sweating, excessive thirst, excessive urination, flushing, intolerance to cold, intolerance to heat, unexplained weight gain, unexplained weight loss, others Psychiatric: denies: anxiety, bipolar disorder, depression, hopeless, panic disorder, schizophrenia, sleepless, suicidal, others All Other Systems: Reviewed and Negative Physical Exam General Appearance: No Apparent Distress HEENT: PERRL/EOMI, Other (Pupils and face symmetric. Moist mucous membranes.) Neck: Full Range of Motion, Normal Inspection Respiratory: Lungs Clear, No Accessory Muscle Use, No Respiratory Distress, Normal Breath Sounds Cardiovascular: No Edema, No JVD, Regular Rate/Rhythm Breast Exam: Deferred Gastrointestinal: Non Tender, Soft Genitalia: Deferred Pelvic: Deferred Rectal: Deferred Extremities: Normal inspection, Normal range of motion, Non-tender, No pedal edema Musculoskeletal : Apperance: Normal Neurologic: Alert (Oriented x4), Normal Affect, Other (Anxious. Ambulatory.) Cerebellar Function: NOT DONE Reflexes: NOT DONE Skin: Dry, Normal Color, Warm Lymphatic: NOT DONE EKG EKG : Comments Sinus rhythm, rate 67, normal intervals, normal axis, LVH, possible old anteroseptal infarct, no ST/T changes. Was a procedure done? Was a procedure done?: No CP Differential Dx Differential Diagnosis: Angina, Anxiety / Panic Attack, Heart Failure, AR, Pulmonary Embolus, Other (copd) Differential Diagnosis: Chest Wall Pain, Esophageal reflux/spasm, Gastritis, Pericarditis, Pneumonia, Pneumothorax X-Ray, Labs, Meds, VS Vital Signs Date Time Temp Pulse Resp B/P (MAP) Pulse Ox O2 Delivery O2 Flow Rate FiO2 08/15/24 12:25 67 16 155/80 (105) 95 08/15/24 12:25 155/80 08/15/24 11:59 18 95 Room Air* 0 21 08/15/24 11:28 160/89 08/15/24 11:16 97.8 73 17 160/89 (112) 98 97.8 08/15/24 11:16 73 17 98 Room Air 08/15/24 10:42 97.5 84 20 174/96 (122) 100 97.5 08/15/24 10:41 67 Lab Test 08/15/24 12:20 08/15/24 11:52 08/15/24 10:52 Range/Units Urine Color Colorless Yellow Urine Clarity Clear Clear Urine pH 6.5 5.0-9.0 Urine Specific [place] 1.002 1.001-1.035 Urine Protein Negative Negative Urine Ketones Negative Negative Urine Blood Negative Negative /uL Urine Nitrite Negative Negative Urine Bilirubin Negative Negative Urine Urobilinogen Normal Negative mg/dL Urine Leukocyte Esterase Negative Negative /uL Urine RBC 1 0 - 4 /hpf Urine Microscopic WBC 1 0-5 /HPF Urine Squamous Epithelial Cells Few <5 /hpf Urine Bacteria None seen None Seen /hpf Urine Glucose Normal Normal mg/dL Troponin I High Sensitivity 59 *H 58 *H </=34 ng/L White Blood Count 6.7 # 4.4-10.8 10^3/uL Red Blood Count 4.40 4.0-5.20 10^6/uL Hemoglobin 13.4 12.2-16.2 g/dL Hematocrit 39.5 36.0-46.0 % Mean Corpuscular Volume 89.8 80.0-100.0 fL Mean Corpuscular Hemoglobin 30.3 28.0-32.0 pg Mean Corpuscular Hemoglobin Concent 33.8 32.0-36.0 g/dL Red Cell Distribution Width 13.2 11.8-14.3 % Platelet Count 224 140-450 10^3/uL Mean Platelet Volume 7.9 6.9-10.8 fL Neutrophils (%) (Auto) 63.3 37.0-80.0 % Lymphocytes (%) (Auto) 28.4 10.0-50.0 % Monocytes (%) (Auto) 7.0 0.0-12.0 % Eosinophils (%) (Auto) 0.9 0.0-7.0 % Basophils (%) (Auto) 0.4 0.0-2.0 % Neutrophils # (Auto) 4.3 1.6-8.6 10 ^3/uL Lymphocytes # (Auto) 1.9 0.4-5.4 10 ^3/uL Monocytes # (Auto) 0.5 0-1.3 10 ^3/uL Eosinophils # (Auto) 0.1 0-0.8 10 ^3/uL Basophils # (Auto) 0 0-0.2 10 ^3/uL Nucleated Red Blood Cells 0.2 % Sodium Level 143 136-145 mmol/L Potassium Level 3.5 3.5-5.1 mmol/L Chloride Level 107 98-107 mmol/L Carbon Dioxide Level 28 20-31 mmol/L Anion Gap 8 5-15 Blood Urea Nitrogen 8 L 9-23 mg/dL Creatinine 0.76 0.550-1.02 mg/dL Glomerular Filtration Rate Calc 93 >90 mL/min BUN/Creatinine Ratio 10.5 10.0-20.0 Serum Glucose 97 74-106 mg/dL Calcium Level 10.2 8.7-10.4 mg/dL B-Type Natriuretic Peptide 16.93 0-100 pg/mL Current Medications Medications (Trade) Dose Ordered Sig/Remy Route Start Time Stop Time Status Last Admin Aspirin 162 mg ONCE ONCE PO 08/15/24 11:00 08/15/24 11:01 DC 08/15/24 11:28 Nitroglycerin (Nitrodur 0.4MG/ Hr) 1 patch ONCE ONCE TD 08/15/24 11:00 08/15/24 11:01 DC 08/15/24 11:28 Albuterol (Ventolin Medneb) 5 mg ONCE ONCE NEB 08/15/24 11:00 08/15/24 11:01 DC 08/15/24 11:58 Ipratropium [place] (Atrovent Medneb) 0.5 mg ONCE ONCE NEB 08/15/24 11:00 08/15/24 11:01 DC 08/15/24 11:58 Methylprednisolone Sodium Succinate (Solu Medrol) 120 mg ONCE ONCE IV 08/15/24 11:30 08/15/24 11:31 DC 08/15/24 11:31 PROCEDURE(s): CXRP - CHEST PORTABLE REASON: cp sob ORDER NUMBER(s): [id number], ACCESSION NUMBER(s): [id number] EXAM: XR Chest, 1 View CLINICAL INDICATION: cp sob TECHNIQUE: Frontal view of the chest. COMPARISON: XY CHEST XRAY 1 VIEW on DOS: 08/11/24, XY CHEST PORTABLE on DOS: 07/28/24, XY CHEST PORTABLE on DOS: 07/24/24, XY CHEST PORTABLE on DOS: 07/17/24, XY CHEST PORTABLE on DOS: 03/15/23 FINDINGS: LUNGS AND PLEURAL SPACES: Unremarkable. No consolidation. No pneumothorax. HEART: Unremarkable. No cardiomegaly. MEDIASTINUM: Unremarkable. Normal mediastinal contour. BONES/JOINTS: Unremarkable. No acute fracture. OTHER FINDINGS: . IMPRESSION: No acute cardiopulmonary process. EDURE(s): HWOCT - HEAD WITHOUT CONTRAST REASON: RUE/RLE numbness ORDER NUMBER(s): [id number], ACCESSION NUMBER(s): [id number] EXAM: CT Head Without Intravenous Contrast CLINICAL INDICATION: RUE/RLE numbness TECHNIQUE: Axial computed tomography images of the head/brain without intravenous contrast. This CT exam was performed using one or more of the following dose reduction techniques: automated exposure control, adjustment of the mA and/or kV according to patient size, and/or use of iterative reconstruction technique. CONTRAST: RADIATION DOSE: CTDIvol = 53.99 mGy, DLP = 863.9 mGy-cm COMPARISON: CT HEAD WITHOUT CONTRAST on DOS: 03/15/23 FINDINGS: BRAIN AND EXTRA-AXIAL SPACES: No acute intracranial hemorrhage, midline shift or mass effect. If symptoms persist, further evaluation with MRI is recommended. No significant white matter disease. BONES/JOINTS: Unremarkable. No acute fracture. SOFT TISSUES: Unremarkable. SINUSES: Unremarkable as visualized. No acute sinusitis. MASTOID AIR CELLS: Unremarkable as visualized. No mastoid effusion. OTHER FINDINGS: . . IMPRESSION: No acute intracranial hemorrhage, midline shift or mass effect. If symptoms persist, further evaluation with MRI is recommended. X-Ray, Labs, Meds, VS Comment 54-year-old female with a history of hypertension, CAD, AR status post PTCA complaining of chest pain and shortness of breath. Vitals remarkable for BP 179/96 Exam remarkable for anxiety. No gross focal neurologic deficit Rhythm strip independently interpreted by me: Sinus rhythm, rate 67, no ectopy. CT head IMPRESSION: No acute intracranial hemorrhage, midline shift or mass effect. If symptoms persist, further evaluation with MRI is recommended. Chest x-ray negative CBC and basic metabolic panel unremarkable, BNP pending, 1st troponin elevated at 58, UA pending Patient treated with the following in the ED: Aspirin 162 mg p.o., nitro patch 0.4 mg to chest wall, albuterol 5 mg/Atrovent 0.5 mg nebulized, Solu-Medrol 120 mg IV Chest pain improving, vitals stable, no focal neuro deficit. Plan is to admit the patient for Cardiology and Neurology evaluation Time of 1ST Reevaluation: 11:20 Reevaluation 1ST: Unchanged Patient Education/Counseling: Diagnosis, Treatment, Prognosis Family Education/Counseling: No Family Present Departure 1 Departure Time of Disposition: 11:51 Impression: Primary Impression: Non-STEMI (non-ST elevated myocardial infarction) Additional Impression: Paresthesias Disposition: 09 ADMITTED INPATIENT Admit to: Tele Condition: Guarded Critical Care Note Critical Care Time?: No Stability Stability form required: No Heart Score Heart Score: Heart Score Response (Comments) Value History Moderate Suspicious 1 EKG Normal 0 Age 45-64 1 Risk Factors >3 or Hx ASHD 2 Troponin 1-2 x's Normal limit 1 Total 5 I personally scribed for JILL GUPTA MD ([email or web address]) on 08/15/24 at 11:03. Electronically submitted by Kristine Crowder ([email or web address]). I personally scribed for JILL GUPTA MD ([email or web address]) on 08/15/24 at 13:01. Electronically submitted by Kristine Crowder ([email or web address]). I personally scribed for JILL GUPTA MD ([email or web address]) on 08/15/24 at 13:02. Electronically submitted by Kristine Crowder ([email or web address]). JILL GUPTA MD August 15, 2024 11:03
--- NOTE | 2024-08-15 11:23 | DVH ---
EXAM: XR Chest, 1 View CLINICAL INDICATION: cp sob TECHNIQUE: Frontal view of the chest. COMPARISON: XY CHEST XRAY 1 VIEW on DOS: 08/11/24, XY CHEST PORTABLE on DOS: 07/28/24, XY CHEST PORTAB LE on DOS: 07/24/24, XY CHEST PORTABLE on DOS: 07/17/24, XY CHEST PORTABLE on DOS: 03/15/23 FINDINGS: LUNGS AND PLEURAL SPACES: Unremarkable. No consolidation. No pneumothorax. HEART: Unremarkable. No cardiomegaly. MEDIASTINUM: Unremarkable. Normal mediastinal contour. BONES/JOINTS: Unremarkable. No acute fracture. OTHER FINDINGS: . IMPRESSION: No acute cardiopulmonary process.
[2024-08-15] MEDS: ASPirin 81 mg TAB PO ONE (11:28)
[2024-08-15] MEDS: NITROGLYCERIN 0.4MG/HR TOPICAL PATCH TD ONE (11:28)
[2024-08-15] MEDS: methylPREDNISolone SOD SUCC 40 MG/ML VL IV ONE (11:31)
[2024-08-15 11:33] LABS: Basophils # (auto) 0 10 ^3/uL (0-0.2); Basophils % (auto) 0.4 % (0.0-2.0); Chloride 107 mmol/L (98-107); Eosinophils # (auto) 0.1 10 ^3/uL (0-0.8); Eosinophils % (auto) 0.9 % (0.0-7.0); Hematocrit 39.5 % (36.0-46.0); Hemoglobin 13.4 g/dL (12.2-16.2); Lymphocytes # (auto) 1.9 10 ^3/uL (0.4-5.4); Lymphocytes % (auto) 28.4 % (10.0-50.0); Mean Corpuscular Hemoglobin 30.3 pg (28.0-32.0); Mean Corpuscular Hgb Conc. 33.8 g/dL (32.0-36.0); Mean Corpuscular Volume 89.8 fL (80.0-100.0); Monocytes # (auto) 0.5 10 ^3/uL (0-1.3); Neutrophils # (auto) 4.3 10 ^3/uL (1.6-8.6); Neutrophils % (auto) 63.3 % (37.0-80.0); Nucleated Red Blood Cells % 0.2 %; Platelet Count (auto) 224 10^3/uL (140-450); Potassium 3.5 mmol/L (3.5-5.1); Red Cell Distribution Width 13.2 % (11.8-14.3); Sodium 143 mmol/L (136-145); White Blood Cell 6.7 10^3/uL (4.4-10.8)
[2024-08-15 11:34] LABS: Anion Gap 8 (5-15); Calcium 10.2 mg/dL (8.7-10.4); Carbon Dioxide 28 mmol/L (20-31)
[2024-08-15] MEDS: methylPREDNISolone SOD SUCC 125 MG/2 ML VL IV ONE (11:36)
[2024-08-15 11:39] LABS: BUN/Creatinine Ratio 10.5 (10.0-20.0); Glucose 97 mg/dL (74-106)
[2024-08-15 11:41] LABS: Blood Urea Nitrogen 8 mg/dL (9-23)
[2024-08-15] MEDS: ALBUTEROL SULF 2.5 MG/0.5ML(0.5%) NEB SOLN NEB ONE (11:58)
[2024-08-15] MEDS: IPRATROPIUM BROM 0.5 MG/2.5ML INH SOL NEB ONE (11:58)
--- NOTE | 2024-08-15 12:43 | DVH ---
EXAM: CT Head Without Intravenous Contrast CLINICAL INDICATION: RUE/RLE numbness TECHNIQUE: Axial computed tomography images of the head/brain without intravenous contrast. This CT exam was performed using one or more of the following dose reduction techniques: automated exposure control, adjustment of the mA and/or kV according to patient size, and/or use of iterative reconstru ction technique. CONTRAST: RADIATION DOSE: CTDIvol = 53.99 mGy, DLP = 863.9 mGy-cm COMPARISON: CT HEAD WITHOUT CONTRAST on DOS: 03/15/23 FINDINGS: BRAIN AND EXTRA-AXIAL SPACES: No acute intracranial hemorrhage, midline shift or mass effect. If sy mptoms persist, further evaluation with MRI is recommended. No significant white matter disease. BONES/JOINTS: Unremarkable. No acute fracture. SOFT TISSUES: Unremarkable. SINUSES: Unremarkable as visualized. No acute sinusitis. MASTOID AIR CELLS: Unremarkable as visualized. No mastoid effusion. OTHER FINDINGS: . . IMPRESSION: No acute intracranial hemorrhage, midline shift or mass effect. If symptoms persist, further evaluat ion with MRI is recommended.
[2024-08-15 12:51] LABS: Urine Bacteria None Seen /hpf (None Seen)
[2024-08-15 13:03] LABS: Urine Blood Negative /uL (Negative); Urine Clarity Clear (Clear); Urine Color Colorless (Yellow); Urine Protein, UAD Negative (Negative); Urine Specific Gravity 1.002 (1.001-1.035); Urine Squamous Epithelial Cell FEW /hpf (<5); Urine Urobilinogen Normal (Negative); Urine WBC 1 /HPF (0-5); Urine pH 6.5 (5.0-9.0)
--- NOTE | 2024-08-15 13:52 | DVHHP2 ---
History of Present Illness Reason for Visit: Chest pain History of Present Illness 54-year-old male past medical history OR hypertension CAD asthma PTCA with stent placement July 20, 2024 here at our institution chief complaint patient states that she has been having some chest pain since 07/05 this morning. She also complains of right-sided numbness and tingling that has been dealing with for the last six months. Patient states her right arm and leg is numb she denies any shortness of the breath but she does complain of chest tightness patient states he has been taking her medication as prescribed she is on aspirin Plavix losartan and Norvasc patient denies any cough or fever no tearing sensation in her chest. When evaluating patient's labs and imaging from ED Solu-Medrol albuterol Atrovent was given nitro aspirin CT scan of the brain was unremarkable chest x-ray unremarkable CBC unremarkable troponin x2 was elevated BNP was negative with these findings we will admit patient ask for Cardiology evaluation patient has a last echo completed May 25, 2024 her EF was 65% Past Medical History See HPI above Past Surgical History See HPI above Family History Reviewed, non-contributory to the management of this case. Past Social History The patient lives at home, denies smoking, alcohol or illicit drugs abuse. Review of Systems Constitutional: No: Fever, Chills, Sweats, Weakness, Malaise, Other Eyes: No: Pain, Vision change, Conjunctivae inflammation, Eyelid inflammation, Other, Redness ENT: No: Ear pain, Ear discharge, Nose pain, Nose discharge, Nose congestion, Mouth pain, Mouth swelling, Throat pain, Throat swelling, Other Respiratory: No: Cough, Dry, Shortness of breath, SOB with excertion, Wheezing, Hemoptysis, Pleuritic Pain, Sputum, Wheezing, Other Cardiovascular: Chest Pain; No: Palpitations, Orthopnea, Paroxysmal Noc. Dyspnea, Edema, Lt Headedness, Other Gastrointestinal: No: Nausea, Vomiting, Abdominal Pain, Diarrhea, Constipation, Melena, Hematochezia, Other Genitourinary: No Dysuria, No Frequency, No Incontinence, No Hematuria, No Retention, No Other Musculoskeletal: No: other, neck pain, shoulder pain, arm pain, back pain, hand pain, leg pain, foot pain Skin: No: Rash, Lesions, Jaundice, Bruising, Other Neurological: No: Weakness, Numbness, Incoordination, Change in speech, Confusion, Seizures, Other Allergies: Coded Allergies: No Known Drug Allergy (Verified Allergy, Unknown, 04/22/21) Exam Vital Signs Vital Signs Date Time Temp Pulse Resp B/P (MAP) Pulse Ox O2 Delivery O2 Flow Rate FiO2 08/15/24 12:25 67 16 155/80 (105) 95 08/15/24 11:59 Room Air* 0 21 08/15/24 11:16 97.8 97.8 General Appearance: Alert, Oriented X3, Cooperative, No acute distress HEENT: Atraumatic, PERRLA, EOMI, Mucous membr. moist/pink Respiratory: Clear to auscultation, Normal air movement Cardiovascular: Regular rate, Normal S1, Normal S2, No murmurs Abdominal: Normal bowel sounds, Soft, No tenderness, No hepatospenomegaly, No masses Extremities: No clubbing, No cyanosis, No edema, Normal pulses, No tenderness/swelling Skin: No rashes, No breakdown, No significant lesion Neuro: Normal gait, Normal speech, Strength at 5/5 X4 ext, Normal tone, Sensation intact, Cranial nerves 3-12 NL Psych/Mental Status: Mental status NL, Mood NL Labs/Xrays CT scan of the brain unremarkable chest x-ray unremarkable I reviewed labs, imaging CT scan abdomen pelvis, EKG and all diagnostic studies on this patient from ED records and the medical chart Labs Test 08/15/24 12:20 08/15/24 11:52 08/15/24 10:52 Range/Units Urine Color Colorless Yellow Urine Clarity Clear Clear Urine pH 6.5 5.0-9.0 Urine Specific [place] 1.002 1.001-1.035 Urine Protein Negative Negative Urine Ketones Negative Negative Urine Blood Negative Negative /uL Urine Nitrite Negative Negative Urine Bilirubin Negative Negative Urine Urobilinogen Normal Negative mg/dL Urine Leukocyte Esterase Negative Negative /uL Urine RBC 1 0 - 4 /hpf Urine Microscopic WBC 1 0-5 /HPF Urine Squamous Epithelial Cells Few <5 /hpf Urine Bacteria None seen None Seen /hpf Urine Glucose Normal Normal mg/dL Troponin I High Sensitivity 59 *H </=34 ng/L White Blood Count 6.7 # 4.4-10.8 10^3/uL Red Blood Count 4.40 4.0-5.20 10^6/uL Hemoglobin 13.4 12.2-16.2 g/dL Hematocrit 39.5 36.0-46.0 % Mean Corpuscular Volume 89.8 80.0-100.0 fL Mean Corpuscular Hemoglobin 30.3 28.0-32.0 pg Mean Corpuscular Hemoglobin Concent 33.8 32.0-36.0 g/dL Red Cell Distribution Width 13.2 11.8-14.3 % Platelet Count 224 140-450 10^3/uL Mean Platelet Volume 7.9 6.9-10.8 fL Neutrophils (%) (Auto) 63.3 37.0-80.0 % Lymphocytes (%) (Auto) 28.4 10.0-50.0 % Monocytes (%) (Auto) 7.0 0.0-12.0 % Eosinophils (%) (Auto) 0.9 0.0-7.0 % Basophils (%) (Auto) 0.4 0.0-2.0 % Neutrophils # (Auto) 4.3 1.6-8.6 10 ^3/uL Lymphocytes # (Auto) 1.9 0.4-5.4 10 ^3/uL Monocytes # (Auto) 0.5 0-1.3 10 ^3/uL Eosinophils # (Auto) 0.1 0-0.8 10 ^3/uL Basophils # (Auto) 0 0-0.2 10 ^3/uL Nucleated Red Blood Cells 0.2 % Sodium Level 143 136-145 mmol/L Potassium Level 3.5 3.5-5.1 mmol/L Chloride Level 107 98-107 mmol/L Carbon Dioxide Level 28 20-31 mmol/L Anion Gap 8 5-15 Blood Urea Nitrogen 8 L 9-23 mg/dL Creatinine 0.76 0.550-1.02 mg/dL Glomerular Filtration Rate Calc 93 >90 mL/min BUN/Creatinine Ratio 10.5 10.0-20.0 Serum Glucose 97 74-106 mg/dL Calcium Level 10.2 8.7-10.4 mg/dL B-Type Natriuretic Peptide 16.93 0-100 pg/mL Assessment/Plan Assessment/Plan Acute chest pain r/o nstemi trop x2 positive but ekg no stemi pt had recent cardiac cath with stent placement on 07/20/24 ordered Cards consult pending eval and recs ordered metoprolol asa atorvastatin ordered Echocardiogram follow-up results ordered morphine as needed for pain, ordered nitro prn pt had echo completed on 07/23/24 ef 60% bnp negative chronic problems Uncontrolled benign essential hypertension Ordered metoprolol for now mi cad wtih hx ptca and stent placement on 07/20/24 chronic numbness and tingling to right arm and leg ct scan of brain negative FEN/PPx No GI prophylaxis since no history of GI bleed or GERD's No DVT prophylaxis patient is ambulatory SCDs Diet Plan admit to telemetry cards consult follow-up recs Plan discussed with: Patient Date of Service: August 15, 2024 Billing Provider: TONYA BURT DNP Common Visit Codes: [id number] INP/OBS CARE (HIGH) TONYA BURT DNP August 15, 2024 13:52
[2024-08-15] MEDS ORDERED: MORPHINE SULFATE 4 MG/ML SYR/VIAL IV PRN (15:15)
[2024-08-15] MEDS ORDERED: NITROGLYCERIN 0.4 MG SL TAB SL PRN ×2 (15:15)
[2024-08-15] MEDS ORDERED: ONDANSETRON HCL 4 MG/2 ML VIAL IV PRN (15:15)
[2024-08-15 16:16] VITALS: BP 149/81; PULSE 86; RESP 16; TEMP 97.5; O2SAT 100
--- NOTE | 2024-08-15 16:50 | DVHINCON2 ---
Date Seen: August 15, 2024 Referring Physician Elver Reason for Consultation Chest pain, mildly elevated troponins History of Present Illness 54-year-old female with PMH for HTN, tobacco use, CAD s/p stent HILARIO x1 to LCX 07/20/2024 on Plavix and aspirin, presents to the hospital with chest pain. Patient states blood pressure was elevated started having substernal chest pain radiating to back, associated with some shortness of breath. Upon evaluation in the ER patient noted to have mildly elevated troponins trending 58, 59, 54. Blood pressure noted to be significant 174/96. Patient endorses compliance with medication of DAPT and blood pressure. EKG reviewed and shows normal sinus rhythm at 67 beats per minute, LVH, no significant ST and T-wave abnormality. Past Medical History As stated above. Past Surgical History Coronary angiogram, s/p HILARIO x1 to LCX 07/20/2024. Family History: Colon cancer G8 MOTHER Diabetes mellitus G8 FATHER FH: breast cancer G8 MOTHER FH: heart attack G8 FATHER FH: stroke G8 MOTHER G8 FATHER Hypertension G8 MOTHER G8 FATHER Social History Intermittent tobacco use, marijuana use. Denies any other illicit drugs, denies alcohol. Allergies: Coded Allergies: No Known Drug Allergy (Verified Allergy, Unknown, 04/22/21) Home Meds Active Scripts Benzocaine (Dental) (ORAL ANALGESIC MAXIMUM ST) 20 % Gel, 10 % MT TIDPRN PRN for 3 Days, #9 GEL Prov:JUNIOR CURTIS MD 08/11/24 Chlorhexidine Gluconate (Mouth (CHLORHEXIDINE ORAL RINSE) 473 Ml So, 15 ML MT Q12HR for 5 Days, #473 ML Prov:JUNIOR CURTIS MD 08/11/24 Amoxicillin Trihydrate (Amoxicillin) 875 Mg Tab, 1 TAB PO BID, #14 TAB Prov:JUNIOR CURTIS MD 08/11/24 Hydrocodone-Acetaminophen (Hydrocodone Bitartrate/AC 5-325 mg) 1 Tab Tab, 1 TAB PO Q4HP PRN, #20 TAB Prov:BENI HARDY MD 07/29/24 Pantoprazole Sodium Sesquihydr (Protonix) 40 Mg Tab, 40 MG PO DAILY, #30 TAB Prov:BENI HARDY MD 07/27/24 Nitroglycerin (NTROSTAT SUBLINGUAL) 0.4 Mg Sl, 0.4 MG SL Q5MINP PRN, #100 TAB Prov:BENI HARDY MD 07/27/24 Valsartan (Valsartan) 80 Mg Tab, 80 MG PO DAILY for 90 Days, #90 TAB 1 Refill Prov:SCOUT MARRERO MD 07/21/24 Nifedipine (Nifedipine Er) 60 Mg Tab, 1 TAB PO DAILY, #90 TAB 1 Refill Prov:SCOUT MARRERO MD 07/21/24 Clopidogrel Bisulfate (CLOPIDOGREL) 75 Mg Tab, 75 MG PO DAILY for 90 Days, #90 TAB 1 Refill Prov:SCOUT MARRERO MD 07/21/24 Atorvastatin Calcium (ATORVASTATIN CALCIUM) 40 Mg Tab, 1 TAB PO DAILY, #90 TAB 1 Refill Prov:SCOUT MARRERO MD 07/21/24 Aspirin (Aspirin Low Dose) 81 Mg Tab, 81 MG PO DAILY for 90 Days, #90 TAB 1 Refill Prov:SCOUT MARRERO MD 07/21/24 Current Medications Current Medications Medications (Trade) Dose Ordered Sig/Remy Route PRN Reason Start Time Stop Time Status Last Admin Aspirin (Ecotrin Enteric Coated Tablet) 81 mg DAILY PO 08/16/24 10:00 Clopidogrel Bisulfate (Plavix) 75 mg DAILY PO 08/16/24 10:00 Pantoprazole Sodium (Protonix Tablet) 40 mg DAILY PO 08/16/24 10:00 Valsartan (Diovan) 80 mg DAILY PO 08/16/24 10:00 Patient Own Medication 1 tab DAILY PO 08/16/24 10:00 UNV Patient Own Medication 1 tab DAILY PO 08/16/24 10:00 UNV Morphine Sulfate 2 mg Q30MP PRN IV FOR CHEST PAIN 08/15/24 15:15 Acetaminophen (Tylenol Tablet) 325 mg Q4HP PRN PO FOR HEADACHE 08/15/24 15:15 Docusate Sodium (Colace Capsule) 100 mg DAILY PO 08/16/24 10:00 Nitroglycerin (Ntrostat Sublingual) 0.4 mg Q5MINP PRN SL FOR CHEST PAIN 08/15/24 15:15 Ondansetron HCl (Zofran) 4 mg Q4HP PRN IV NAUSEA / VOMITING 08/15/24 15:15 Nitroglycerin (Ntrostat Sublingual) 0.4 mg Q5MINP PRN SL FOR CHEST PAIN 08/15/24 15:15 UNV Atorvastatin Calcium (Lipitor) 40 mg HS PO 08/15/24 22:00 Nifedipine (Procardia Xl (Time-Release)) 60 mg DAILY PO 08/16/24 10:00 Review of Systems Constitutional: No: Fever, Chills, Sweats, Weakness, Malaise, Other Eyes: No: Pain, Vision change, Conjunctivae inflammation, Eyelid inflammation, Other, Redness ENT: No: Ear pain, Ear discharge, Nose pain, Nose discharge, Nose congestion, Mouth pain, Mouth swelling, Throat pain, Throat swelling, Other Respiratory: No: Cough, Dry, Shortness of breath, SOB with exertion, Wheezing, Hemoptysis, Pleuritic Pain, Sputum, Wheezing, Other Cardiovascular: ; No: Chest Pain Palpitations, Orthopnea, Paroxysmal Noc. Dyspnea, Edema, Lt Headedness, Other Gastrointestinal: No: Nausea, Vomiting, Abdominal Pain, Diarrhea, Constipation, Melena, Hematochezia, Other Genitourinary: No Dysuria, No Frequency, No Incontinence, No Hematuria, No Retention, No Other Musculoskeletal: neck pain; No: other, shoulder pain, arm pain, back pain, hand pain, leg pain, foot pain Skin: No: Rash, Lesions, Jaundice, Bruising, Other Neurological: Other (Dizziness, headache.); No: Weakness, Numbness, Incoordination, Change in speech, Confusion, Seizures Vital Signs Vital Signs Date Time Temp Pulse Resp B/P (MAP) Pulse Ox O2 Delivery O2 Flow Rate FiO2 08/15/24 14:39 98.0 100 20 155/90 (111) 96 98.0 08/15/24 11:59 Room Air* 0 21 Physical Exam General appearance: Patient is well-developed, well-nourished, in no acute distress. HEENT: Exam shows: Normocephalic, atraumatic, PERRLA, EOMI Neck: Supple, no bruits Chest: Equal chest excursion bilaterally. Breath sounds normal-no rales or wheezes. Heart: Rhythm: Regular rate; no murmur or gallop Abdomen: Exam shows: Soft, nontender, nondistended Musculoskeletal: No clubbing, no cyanosis, no lower extremity edema Dermatology: Skin warm, moist. Neurological: Exam shows: Alert and oriented x4, normal speech Available prior records, labs, EKG, rhythm strips reviewed and interpreted Labs/Diagnostic Data Labs Test 08/15/24 14:29 08/15/24 12:20 08/15/24 10:52 Range/Units Troponin I High Sensitivity 54 *H </=34 ng/L Urine Color Colorless Yellow Urine Clarity Clear Clear Urine pH 6.5 5.0-9.0 Urine Specific [place] 1.002 1.001-1.035 Urine Protein Negative Negative Urine Ketones Negative Negative Urine Blood Negative Negative /uL Urine Nitrite Negative Negative Urine Bilirubin Negative Negative Urine Urobilinogen Normal Negative mg/dL Urine Leukocyte Esterase Negative Negative /uL Urine RBC 1 0 - 4 /hpf Urine Microscopic WBC 1 0-5 /HPF Urine Squamous Epithelial Cells Few <5 /hpf Urine Bacteria None seen None Seen /hpf Urine Glucose Normal Normal mg/dL White Blood Count 6.7 # 4.4-10.8 10^3/uL Red Blood Count 4.40 4.0-5.20 10^6/uL Hemoglobin 13.4 12.2-16.2 g/dL Hematocrit 39.5 36.0-46.0 % Mean Corpuscular Volume 89.8 80.0-100.0 fL Mean Corpuscular Hemoglobin 30.3 28.0-32.0 pg Mean Corpuscular Hemoglobin Concent 33.8 32.0-36.0 g/dL Red Cell Distribution Width 13.2 11.8-14.3 % Platelet Count 224 140-450 10^3/uL Mean Platelet Volume 7.9 6.9-10.8 fL Neutrophils (%) (Auto) 63.3 37.0-80.0 % Lymphocytes (%) (Auto) 28.4 10.0-50.0 % Monocytes (%) (Auto) 7.0 0.0-12.0 % Eosinophils (%) (Auto) 0.9 0.0-7.0 % Basophils (%) (Auto) 0.4 0.0-2.0 % Neutrophils # (Auto) 4.3 1.6-8.6 10 ^3/uL Lymphocytes # (Auto) 1.9 0.4-5.4 10 ^3/uL Monocytes # (Auto) 0.5 0-1.3 10 ^3/uL Eosinophils # (Auto) 0.1 0-0.8 10 ^3/uL Basophils # (Auto) 0 0-0.2 10 ^3/uL Nucleated Red Blood Cells 0.2 % Sodium Level 143 136-145 mmol/L Potassium Level 3.5 3.5-5.1 mmol/L Chloride Level 107 98-107 mmol/L Carbon Dioxide Level 28 20-31 mmol/L Anion Gap 8 5-15 Blood Urea Nitrogen 8 L 9-23 mg/dL Creatinine 0.76 0.550-1.02 mg/dL Glomerular Filtration Rate Calc 93 >90 mL/min BUN/Creatinine Ratio 10.5 10.0-20.0 Serum Glucose 97 74-106 mg/dL Calcium Level 10.2 8.7-10.4 mg/dL B-Type Natriuretic Peptide 16.93 0-100 pg/mL Assessment Chest pain Mildly elevated troponin Uncontrolled hypertension/hypertensive urgency CAD s/p stent x1 to LCX 07/20/2024 Plan/Recommendation * Troponins stable. EKG negative for acute ischemic changes. Likely troponin leak from hypertensive urgency. * Continue DAPT with aspirin and Plavix. Continue statin. * BP better controlled, continue on current regimen, titrate as tolerated. * Recent echo with normal LVEF, moderate LVH. No significant valvular structural abnormalities. Case Discussed with Dr Laird. Likely mild troponin leak from hypertensive urgency/uncontrolled hypertension. Continue with aggressive blood pressure control, titrate BP meds as tolerated. Continue DAPT. Patient to follow up with Dr. Branham for which she states has a follow up appointment coming up this week. No further cardiac intervention needed at this time. Stable from Cardiology standpoint. Critical care, time spent: 40 minutes This medical document was created using an electronic medical record system with voice recognition software and computerized dictation system. Although this document has been carefully reviewed, there might still be some phonetic and typographical errors. Occasional wrong-word or ``sound-alike�� substitutions may have occurred due to the inherent limitations of voice recognition software. These areas are purely typographical due to imperfections of the software programs and do not reflect any compromise in the patient's medical care. Please read the chart carefully and recognize, using context, where these substitutions have occurred. Thank you for allowing me to participate in the management of this patient. The treatment plan was discussed with and agreed upon by patient/family including requesting consultants and ordering of imaging/procedures. Plan discussed with: Patient NYHA Physical activity limitations: Class2(Slight)fatigue,sob Date of Service: August 15, 2024 Billing Provider: SOBEIDA HERNÁNDEZ Cardiology Common Codes: [id number] INP/OBS CARE (High), [id number] CARE 30-74 MIN SOBEIDA HERNÁNDEZ August 15, 2024 16:50
[2024-08-15 17:00] VITALS: BP 149/81; PULSE 86; RESP 16; TEMP 97.5; O2SAT 100
[2024-08-15 20:00] VITALS: PULSE 88; PULSE 90; RESP 16
[2024-08-15 21:00] VITALS: BP 136/72; PULSE 77; RESP 16; TEMP 97.8; O2SAT 99
--- NOTE | 2024-08-15 23:42 | DVHINCON2 ---
Date Seen: August 15, 2024 Referring Physician Elver Reason for Consultation Chest pain, mildly elevated troponins History of Present Illness This is a 54-year-old female with a PMH of HTN, tobacco use, CAD s/p stent HILARIO x1 to LCX 07/20/2024 on Plavix and aspirin, presents to the ED with complaints of chest pain. Patient states her blood pressure was elevated started having substernal chest pain radiating to her back, associated with some shortness of breath. Upon evaluation in the ED patient was noted to have mildly elevated troponins trending 58, 59, 54. Blood pressure noted to be significant 174/96. Patient endorses compliance with medication of DAPT and blood pressure. KG reviewed and shows normal sinus rhythm at 67 beats per minute, LVH, no significant ST and T-wave abnormality. Chest x-ray showed NAD. Patient was admitted to the hospital. I am asked to consult on this patient. Past Medical History As stated above. Past Surgical History Coronary angiogram, s/p HILARIO x1 to LCX 07/20/2024. Family History: Colon cancer G8 MOTHER Diabetes mellitus G8 FATHER FH: breast cancer G8 MOTHER FH: heart attack G8 FATHER FH: stroke G8 MOTHER G8 FATHER Hypertension G8 MOTHER G8 FATHER Allergies: Coded Allergies: No Known Drug Allergy (Verified Allergy, Unknown, 04/22/21) Home Meds Active Scripts Benzocaine (Dental) (ORAL ANALGESIC MAXIMUM ST) 20 % Gel, 10 % MT TIDPRN PRN for 3 Days, #9 GEL Prov:JUNIOR CURTIS MD 08/11/24 Chlorhexidine Gluconate (Mouth (CHLORHEXIDINE ORAL RINSE) 473 Ml So, 15 ML MT Q12HR for 5 Days, #473 ML Prov:JUNIOR CURTIS MD 08/11/24 Amoxicillin Trihydrate (Amoxicillin) 875 Mg Tab, 1 TAB PO BID, #14 TAB Prov:JUNIOR CURTIS MD 08/11/24 Hydrocodone-Acetaminophen (Hydrocodone Bitartrate/AC 5-325 mg) 1 Tab Tab, 1 TAB PO Q4HP PRN, #20 TAB Prov:BENI HARDY MD 07/29/24 Pantoprazole Sodium Sesquihydr (Protonix) 40 Mg Tab, 40 MG PO DAILY, #30 TAB Prov:BENI HARDY MD 07/27/24 Nitroglycerin (NTROSTAT SUBLINGUAL) 0.4 Mg Sl, 0.4 MG SL Q5MINP PRN, #100 TAB Prov:BENI HARDY MD 07/27/24 Valsartan (Valsartan) 80 Mg Tab, 80 MG PO DAILY for 90 Days, #90 TAB 1 Refill Prov:SCOUT MARRERO MD 07/21/24 Nifedipine (Nifedipine Er) 60 Mg Tab, 1 TAB PO DAILY, #90 TAB 1 Refill Prov:SCOUT MARRERO MD 07/21/24 Clopidogrel Bisulfate (CLOPIDOGREL) 75 Mg Tab, 75 MG PO DAILY for 90 Days, #90 TAB 1 Refill Prov:SCOUT MARRERO MD 07/21/24 Atorvastatin Calcium (ATORVASTATIN CALCIUM) 40 Mg Tab, 1 TAB PO DAILY, #90 TAB 1 Refill Prov:SCOUT MARRERO MD 07/21/24 Aspirin (Aspirin Low Dose) 81 Mg Tab, 81 MG PO DAILY for 90 Days, #90 TAB 1 Refill Prov:SCOUT MARRERO MD 07/21/24 Current Medications Current Medications Medications (Trade) Dose Ordered Sig/Remy Route PRN Reason Start Time Stop Time Status Last Admin Aspirin (Ecotrin Enteric Coated Tablet) 81 mg DAILY PO 08/16/24 10:00 Clopidogrel Bisulfate (Plavix) 75 mg DAILY PO 08/16/24 10:00 Pantoprazole Sodium (Protonix Tablet) 40 mg DAILY PO 08/16/24 10:00 Valsartan (Diovan) 80 mg DAILY PO 08/16/24 10:00 Patient Own Medication 1 tab DAILY PO 08/16/24 10:00 UNV Patient Own Medication 1 tab DAILY PO 08/16/24 10:00 UNV Morphine Sulfate 2 mg Q30MP PRN IV FOR CHEST PAIN 08/15/24 15:15 Acetaminophen (Tylenol Tablet) 325 mg Q4HP PRN PO FOR HEADACHE 08/15/24 15:15 Docusate Sodium (Colace Capsule) 100 mg DAILY PO 08/16/24 10:00 Nitroglycerin (Ntrostat Sublingual) 0.4 mg Q5MINP PRN SL FOR CHEST PAIN 08/15/24 15:15 Ondansetron HCl (Zofran) 4 mg Q4HP PRN IV NAUSEA / VOMITING 08/15/24 15:15 Nitroglycerin (Ntrostat Sublingual) 0.4 mg Q5MINP PRN SL FOR CHEST PAIN 08/15/24 15:15 UNV Atorvastatin Calcium (Lipitor) 40 mg HS PO 08/15/24 22:00 Nifedipine (Procardia Xl (Time-Release)) 60 mg DAILY PO 08/16/24 10:00 Review of Systems Constitutional: No: Fever, Chills, Sweats, Weakness, Malaise, Other Eyes: No: Pain, Vision change, Conjunctivae inflammation, Eyelid inflammation, Other, Redness ENT: No: Ear pain, Ear discharge, Nose pain, Nose discharge, Nose congestion, Mouth pain, Mouth swelling, Throat pain, Throat swelling, Other Respiratory: No: Cough, Dry, Shortness of breath, SOB with exertion, Wheezing, Hemoptysis, Pleuritic Pain, Sputum, Wheezing, Other Cardiovascular: ; No: Chest Pain Palpitations, Orthopnea, Paroxysmal Noc. Dyspnea, Edema, Lt Headedness, Other Gastrointestinal: No: Nausea, Vomiting, Abdominal Pain, Diarrhea, Constipation, Melena, Hematochezia, Other Genitourinary: No Dysuria, No Frequency, No Incontinence, No Hematuria, No Retention, No Other Musculoskeletal: neck pain; No: other, shoulder pain, arm pain, back pain, hand pain, leg pain, foot pain Skin: No: Rash, Lesions, Jaundice, Bruising, Other Neurological: Other (Dizziness, headache.); No: Weakness, Numbness, Incoordination, Change in speech, Confusion, Seizures Vital Signs Vital Signs Date Time Temp Pulse Resp B/P (MAP) Pulse Ox O2 Delivery O2 Flow Rate FiO2 08/15/24 14:39 98.0 100 20 155/90 (111) 96 98.0 08/15/24 11:59 Room Air* 0 21 Physical Exam GENERAL: Alert and oriented x 3. No acute distress. EYES: PERRL, EOMI. Anicteric. HENT: Moist mucous membranes. LUNGS: Clear to auscultation bilaterally. CARDIOVASCULAR: Regular rate and rhythm. ABDOMEN: Soft, nontender and nondistended. EXTREMITIES: No edema. NEUROLOGIC: No focal neurological deficits. SKIN: Warm, dry. Labs/Diagnostic Data Labs Test 08/15/24 14:29 08/15/24 12:20 08/15/24 10:52 Range/Units Troponin I High Sensitivity 54 *H </=34 ng/L Urine Color Colorless Yellow Urine Clarity Clear Clear Urine pH 6.5 5.0-9.0 Urine Specific [place] 1.002 1.001-1.035 Urine Protein Negative Negative Urine Ketones Negative Negative Urine Blood Negative Negative /uL Urine Nitrite Negative Negative Urine Bilirubin Negative Negative Urine Urobilinogen Normal Negative mg/dL Urine Leukocyte Esterase Negative Negative /uL Urine RBC 1 0 - 4 /hpf Urine Microscopic WBC 1 0-5 /HPF Urine Squamous Epithelial Cells Few <5 /hpf Urine Bacteria None seen None Seen /hpf Urine Glucose Normal Normal mg/dL White Blood Count 6.7 # 4.4-10.8 10^3/uL Red Blood Count 4.40 4.0-5.20 10^6/uL Hemoglobin 13.4 12.2-16.2 g/dL Hematocrit 39.5 36.0-46.0 % Mean Corpuscular Volume 89.8 80.0-100.0 fL Mean Corpuscular Hemoglobin 30.3 28.0-32.0 pg Mean Corpuscular Hemoglobin Concent 33.8 32.0-36.0 g/dL Red Cell Distribution Width 13.2 11.8-14.3 % Platelet Count 224 140-450 10^3/uL Mean Platelet Volume 7.9 6.9-10.8 fL Neutrophils (%) (Auto) 63.3 37.0-80.0 % Lymphocytes (%) (Auto) 28.4 10.0-50.0 % Monocytes (%) (Auto) 7.0 0.0-12.0 % Eosinophils (%) (Auto) 0.9 0.0-7.0 % Basophils (%) (Auto) 0.4 0.0-2.0 % Neutrophils # (Auto) 4.3 1.6-8.6 10 ^3/uL Lymphocytes # (Auto) 1.9 0.4-5.4 10 ^3/uL Monocytes # (Auto) 0.5 0-1.3 10 ^3/uL Eosinophils # (Auto) 0.1 0-0.8 10 ^3/uL Basophils # (Auto) 0 0-0.2 10 ^3/uL Nucleated Red Blood Cells 0.2 % Sodium Level 143 136-145 mmol/L Potassium Level 3.5 3.5-5.1 mmol/L Chloride Level 107 98-107 mmol/L Carbon Dioxide Level 28 20-31 mmol/L Anion Gap 8 5-15 Blood Urea Nitrogen 8 L 9-23 mg/dL Creatinine 0.76 0.550-1.02 mg/dL Glomerular Filtration Rate Calc 93 >90 mL/min BUN/Creatinine Ratio 10.5 10.0-20.0 Serum Glucose 97 74-106 mg/dL Calcium Level 10.2 8.7-10.4 mg/dL B-Type Natriuretic Peptide 16.93 0-100 pg/mL Assessment Chest pain. Mildly elevated troponin. Uncontrolled hypertension/hypertensive urgency. CAD s/p stent x1 to LCX 07/20/2024. Plan/Recommendation I agree with your ongoing assessment and care of plan. Patient has been seen by Russel Fong NP on my behalf, him and I discussed the plan with the patient. Troponins stable. EKG negative for acute ischemic changes. Likely troponin leak from hypertensive urgency. Continue DAPT with aspirin and Plavix. Continue statin. Continue with aggressive blood pressure control, titrate BP meds as tolerated. Recent echo with normal LVEF, moderate LVH. No significant valvular structural abnormalities. Patient to follow up with Dr. Branham for which she states has a follow up appointment coming up this week. Additional plan as per the hospital course. Plan discussed with: Patient NYHA Physical activity limitations: Class2(Slight)fatigue,sob Date of Service: August 15, 2024 Billing Provider: DELFINO CAVAZOS MD Cardiology Common Codes: [id number] INP/OBS CARE (High) DELFINO CAVAZOS MD August 15, 2024 17:14
[2024-08-16] VITALS (8 sets, daily range): BP systolic 107–148; BP diastolic 49–86; PULSE 52–75; RESP 16–20; TEMP 97.5–98.6; O2SAT 97–100
[2024-08-16] MEDS: ATORVASTATIN 20 MG TAB PO SCH (00:38)
[2024-08-16] MEDS: ACETAMINOPHEN 325 MG TAB PO PRN (02:25)
[2024-08-16 07:03] LABS: Basophils # (auto) 0 10 ^3/uL (0-0.2); Basophils % (auto) 0.1 % (0.0-2.0); Eosinophils # (auto) 0 10 ^3/uL (0-0.8); Eosinophils % (auto) 0.1 % (0.0-7.0); Hematocrit 34.7 % (36.0-46.0); Hemoglobin 11.7 g/dL (12.2-16.2); Lymphocytes # (auto) 2.5 10 ^3/uL (0.4-5.4); Lymphocytes % (auto) 21.3 % (10.0-50.0); Mean Corpuscular Hemoglobin 30.1 pg (28.0-32.0); Mean Corpuscular Hgb Conc. 33.7 g/dL (32.0-36.0); Mean Corpuscular Volume 89.5 fL (80.0-100.0); Monocytes # (auto) 1.3 10 ^3/uL (0-1.3); Monocytes % (auto) 10.8 % (0.0-12.0); Neutrophils % (auto) 67.7 % (37.0-80.0); Nucleated Red Blood Cells % 0.1 %; Platelet Count (auto) 208 10^3/uL (140-450); Red Blood Cells 3.87 10^6/uL (4.0-5.20); Red Cell Distribution Width 12.9 % (11.8-14.3); White Blood Cell 11.8 10^3/uL (4.4-10.8)
[2024-08-16 07:27] LABS: Alanine Aminotransferase 28 U/L (7-40); Alkaline Phosphatase 72 U/L (46-116); Anion Gap 7 (5-15); Calcium 10.1 mg/dL (8.7-10.4); Carbon Dioxide 27 mmol/L (20-31); Potassium 3.7 mmol/L (3.5-5.1); Sodium 143 mmol/L (136-145); Total Protein 6.4 g/dL (5.7-8.2)
[2024-08-16 07:28] LABS: Aspartate Aminotransferase 18 U/L (13-40); Bilirubin, Total 0.4 mg/dL (0.2-1.0)
[2024-08-16 07:29] LABS: Blood Urea Nitrogen 9 mg/dL (9-23); Chloride 109 mmol/L (98-107); Glucose 123 mg/dL (74-106)
[2024-08-16] MEDS: DOCUSATE SOD 100 MG CAP PO SCH (09:43)
[2024-08-16] MEDS: CLOPIDOGREL BISULFATE 75 MG TAB PO SCH (09:43)
[2024-08-16] MEDS: PANTOPRAZOLE 40 MG TAB PO SCH (09:44)
[2024-08-16] MEDS: ASPirin-EC 81 mg tab PO SCH (09:44)
[2024-08-16] MEDS: VALSARTAN 80 MG TAB PO SCH (09:44)
[2024-08-16] MEDS: NIFEdipine ER 30 MG TAB PO SCH (09:45)
[2024-08-16] MEDS ORDERED: PATIENTS OWN MEDICATION (Nifedipine (Nifedipine Er) 1 TAB) PO SCH (10:00)
[2024-08-16] MEDS ORDERED: PATIENTS OWN MEDICATION (Atorvastatin Calcium 1 TAB) PO SCH (10:00)
[2024-08-16] MEDS: IBUPROFEN 600 MG TAB PO PRN (13:28)
--- NOTE | 2024-08-16 14:16 | DVHPNRES ---
Progress Note Date Seen: August 16, 2024 Resident Creating Document: JESSY REYNA RESIDENT Has the PT tested + for MRSA If YES, has PT been informed?: No Medical Necessity Reason Pt with a Central, PICC or Fol: No Subjective Review of Systems Varsha Espinosa for 1 female with a PMH of HTN, CAD status post HILARIO x1 to LCX 07/20/2024 on Plavix and aspirin, presents to the hospital with chest pain. Patient states blood pressure was elevated started having substernal chest pain radiating to back, associated with some shortness of breath. Upon evaluation in the ER patient noted to have mildly elevated troponins trending 58, 59, 54. Blood pressure noted to be significant 174/96. Patient endorses compliance with medication of DAPT and blood pressure. EKG reviewed and shows normal sinus rhythm at 67 beats per minute, LVH, no significant ST and T-wave abnormality. Patient seen and examined at the bedside. Patient reported improvement in her symptoms since admission, reported no new complaints except for persistent of mild numbness in the right lower extremity. CT head showed no acute changes if symptoms persist only on MRI. Patient reports: Feels better Objective vital signs Vital Sign Date Time Temp Pulse Resp B/P (MAP) Pulse Ox O2 Delivery O2 Flow Rate FiO2 08/16/24 09:45 146/80 08/16/24 09:00 97.8 75 20 99 97.8 08/15/24 20:00 Room Air* 0 21 Total Intake and Output 08/15/24 08/15/24 08/16/24 15:00 23:00 07:00 Intake Total 480 ml 400 ml Output Total 300 ml Balance 480 ml 100 ml medications Current Medications Medications Dose Ordered Sig/Remy Route Start Time Stop Time Status Last Admin Dose Admin Aspirin 81 mg DAILY PO 08/16/24 10:00 08/16/24 09:44 81 MG Clopidogrel Bisulfate 75 mg DAILY PO 08/16/24 10:00 08/16/24 09:43 75 MG Pantoprazole Sodium 40 mg DAILY PO 08/16/24 10:00 08/16/24 09:44 40 MG Valsartan 80 mg DAILY PO 08/16/24 10:00 08/16/24 09:44 80 MG Patient Own Medication 1 tab DAILY PO 08/16/24 10:00 UNV Patient Own Medication 1 tab DAILY PO 08/16/24 10:00 UNV Morphine Sulfate 2 mg Q30MP PRN IV 08/15/24 15:15 Acetaminophen 325 mg Q4HP PRN PO 08/15/24 15:15 08/16/24 02:25 325 MG Docusate Sodium 100 mg DAILY PO 08/16/24 10:00 08/16/24 09:43 100 MG Nitroglycerin 0.4 mg Q5MINP PRN SL 08/15/24 15:15 Ondansetron HCl 4 mg Q4HP PRN IV 08/15/24 15:15 Nitroglycerin 0.4 mg Q5MINP PRN SL 08/15/24 15:15 UNV Atorvastatin Calcium 40 mg HS PO 08/15/24 22:00 08/16/24 00:38 40 MG Nifedipine 60 mg DAILY PO 08/16/24 10:00 08/16/24 09:45 60 MG Ibuprofen 600 mg Q8HP PRN PO 08/16/24 09:45 08/16/24 13:28 600 MG Examination Pt is lying on bed General Appearance: Alert, Oriented X3, Cooperative, Not in acute distress HEENT: Atraumatic, Mucous membranes moist/pink Respiratory: Clear to auscultation, Normal air movement, No added sounds Cardiovascular: Regular rate, Normal S1, Normal S2, No murmurs, mild chest wall tenderness Abdominal: Active bowel sounds, Soft, no distention, no tenderness Extremities: No edema, Normal pulses, No tenderness/swelling Skin: No Significant rash, except past surgical scars Neuro: Normal speech, sensorimotor deficits none Psych/Mental Status: Mental status NL, Mood NL Nurse was there as sharperone during examination laboratory and microbiology Laboratory Tests 08/16/24 06:17 Test 08/16/24 06:17 Range/Units Serum Glucose 123 H 74-106 mg/dL Microbiology Date/Time Source Procedure Growth Status 08/15/24 18:18 Nose MRSA Screen - Final Complete Labs and/or images reviewed: Labs reviewed by me, Image(s) reviewed by me Problem List/Assessment/Plan Problem List/Assessment/Plan # chest pain ruled out ACS # NSTEMI likely type 2 due to below # hypertensive urgency # chest pain likely from costochondritis /musculoskeletal # progressive CAD s/p stent x1 to LCX 07/20/2024 - troponins were mildly elevated but stable - EKG reviewed showed normal sinus rhythm - cardiology on board - ibuprofen 600 mg p.o. b.i.d. - Continue DAPT with aspirin and Plavix. Continue statin. - Recent echo with normal LVEF, moderate LVH. No significant valvular structural abnormalities. - outpatient follow up with Cardiology # reactive leukocytosis -monitor CBC # rule out acute CVA - head CT negative, no acute changes Protonix Lovenox Cardiac diet Goals of care discussed with the patient for more than for 29 minutes: Full code status Plan discussed with Dr. Dent, patient and nurse. Plan discussed with: Patient My Orders My Orders Orders - JESSY REYNA RESIDENT Procedure Category Date Status Time Ibuprofen Tablet PHA 08/16/24 In Process (Motrin Tablet) 09:45 Vitamin B12 LAB 08/16/24 In Process 11:53 Enoxaparin Sodium PHA 08/16/24 Transmitted (Lovenox) 14:15 Enoxaparin Sodium PHA 08/17/24 Transmitted (Lovenox) 10:00 Complete Blood Count LAB 08/17/24 Verified 04:00 JESSY REYNA RESIDENT August 16, 2024 14:16
[2024-08-16] MEDS: ENOXAPARIN SOD 40 MG/0.4 ML SYRINGE SC ONE (16:36)
--- NOTE | 2024-08-16 23:07 | DVHPN2 ---
Progress Note - Dictate Date Seen: August 16, 2024 Has the PT tested + for MRSA If YES, has PT been informed?: No Medical Necessity Reason Pt with a Central, PICC or Fol: No Subjective Patient was seen and evaluated in follow up. Patient reported improvement in her symptoms since admission. She reports RLE numbness. MRSA is negative. Telemetry reviewed. vital signs Vital Sign Date Time Temp Pulse Resp B/P (MAP) Pulse Ox O2 Delivery O2 Flow Rate FiO2 08/16/24 13:00 98.2 68 16 132/86 (101) 99 98.2 08/15/24 20:00 Room Air* 0 21 Total Intake and Output 08/15/24 08/15/24 08/16/24 15:00 23:00 07:00 Intake Total 480 ml 400 ml Output Total 300 ml Balance 480 ml 100 ml medications Current Medications Medications Dose Ordered Sig/Remy Route Start Time Stop Time Status Last Admin Dose Admin Aspirin 81 mg DAILY PO 08/16/24 10:00 08/16/24 09:44 81 MG Clopidogrel Bisulfate 75 mg DAILY PO 08/16/24 10:00 08/16/24 09:43 75 MG Pantoprazole Sodium 40 mg DAILY PO 08/16/24 10:00 08/16/24 09:44 40 MG Valsartan 80 mg DAILY PO 08/16/24 10:00 08/16/24 09:44 80 MG Patient Own Medication 1 tab DAILY PO 08/16/24 10:00 UNV Patient Own Medication 1 tab DAILY PO 08/16/24 10:00 UNV Morphine Sulfate 2 mg Q30MP PRN IV 08/15/24 15:15 Acetaminophen 325 mg Q4HP PRN PO 08/15/24 15:15 08/16/24 02:25 325 MG Docusate Sodium 100 mg DAILY PO 08/16/24 10:00 08/16/24 09:43 100 MG Nitroglycerin 0.4 mg Q5MINP PRN SL 08/15/24 15:15 Ondansetron HCl 4 mg Q4HP PRN IV 08/15/24 15:15 Nitroglycerin 0.4 mg Q5MINP PRN SL 08/15/24 15:15 UNV Atorvastatin Calcium 40 mg HS PO 08/15/24 22:00 08/16/24 00:38 40 MG Nifedipine 60 mg DAILY PO 08/16/24 10:00 08/16/24 09:45 60 MG Ibuprofen 600 mg Q8HP PRN PO 08/16/24 09:45 08/16/24 13:28 600 MG Enoxaparin Sodium 40 mg DAILY SC 08/17/24 10:00 objective GENERAL: Alert and oriented x 3. No acute distress. EYES: PERRL, EOMI. Anicteric. HENT: Moist mucous membranes. LUNGS: Clear to auscultation bilaterally. CARDIOVASCULAR: Regular rate and rhythm. ABDOMEN: Soft, nontender and nondistended. EXTREMITIES: No edema. NEUROLOGIC: No focal neurological deficits. SKIN: Warm, dry. laboratory and microbiology Laboratory Tests 08/16/24 06:17 Test 08/16/24 06:17 Range/Units Serum Glucose 123 H 74-106 mg/dL Problem List Chest pain. Mildly elevated troponin. Uncontrolled hypertension/hypertensive urgency. CAD s/p stent x1 to LCX 07/20/2024. Assessment/Plan Continued all current supportive medical care. Aspirin, Lipitor, Plavix. DVT and GI prophylactics. = Nifedipine. Morphine for pain management. Additional plan as per the hospital course. Plan discussed with: Patient DELFINO CAVAZOS MD August 16, 2024 17:13
[2024-08-17] VITALS (8 sets, daily range): BP systolic 122–153; BP diastolic 73–86; PULSE 55–72; RESP 16–18; TEMP 97.6–98.6; O2SAT 97–100
[2024-08-17 06:51] LABS: Basophils # (auto) 0 10 ^3/uL (0-0.2); Basophils % (auto) 0.5 % (0.0-2.0); Eosinophils # (auto) 0.1 10 ^3/uL (0-0.8); Eosinophils % (auto) 1.1 % (0.0-7.0); Hematocrit 37.6 % (36.0-46.0); Hemoglobin 12.6 g/dL (12.2-16.2); Lymphocytes # (auto) 3.6 10 ^3/uL (0.4-5.4); Lymphocytes % (auto) 41.6 % (10.0-50.0); Mean Corpuscular Hemoglobin 30.2 pg (28.0-32.0); Mean Corpuscular Hgb Conc. 33.6 g/dL (32.0-36.0); Mean Corpuscular Volume 89.8 fL (80.0-100.0); Monocytes # (auto) 0.7 10 ^3/uL (0-1.3); Monocytes % (auto) 8.1 % (0.0-12.0); Neutrophils # (auto) 4.3 10 ^3/uL (1.6-8.6); Neutrophils % (auto) 48.7 % (37.0-80.0); Nucleated Red Blood Cells % 0.1 %; Platelet Count (auto) 202 10^3/uL (140-450); Red Blood Cells 4.18 10^6/uL (4.0-5.20); Red Cell Distribution Width 13.2 % (11.8-14.3); White Blood Cell 8.7 10^3/uL (4.4-10.8)
[2024-08-17] MEDS: ENOXAPARIN SOD 40 MG/0.4 ML SYRINGE SC SCH (09:36)
--- NOTE | 2024-08-17 12:55 | DVH ---
EXAMINATION: MRI BRAIN HEAD WO CONTRAST INDICATION: Right lower leg numbness COMPARISON: CT scan of the head performed on 08/15/2024 TECHNIQUE: Multiplanar, multisequence magnetic resonance imaging of the brain was performed without the use of i ntravenous contrast. FINDINGS: No evidence of acute or remote infarct. No intracranial hemorrhage. No mass effect. There are multiple subcentimeter periventricular white matter T2/FLAIR hyperintense lesions which are oriented perpendicular to the corpus callosum. The ventricles and sulci are normal in size for age. Clear basal cisterns. Flow voids in the major intracranial vessels are maintained. No abnormality of the orbits. Paranasal sinuses and mastoid air cells are clear. No abnormality of the visualized osseous structures and extracranial soft tissues. IMPRESSION: 1. No acute infarct, intracranial hemorrhage, mass effect, or hydrocephalus. 2. Multiple subcentimeter periventricular and deep white matter T2/FLAIR hyperintense lesions oriente d perpendicular to the corpus callosum. These can be seen in the setting of demyelinating disease an d correlation with patient's symptoms recommended. Other etiologies such as sequelae of chronic micr ovascular ischemic changes, sequelae of chronic migraine headaches are not excluded.
--- NOTE | 2024-08-17 13:46 | DVHPNRES ---
Progress Note Date Seen: August 17, 2024 Resident Creating Document: JESSY REYNA RESIDENT Has the PT tested + for MRSA If YES, has PT been informed?: No Medical Necessity Reason Pt with a Central, PICC or Fol: No Subjective Review of Systems Patient seen and examined at the bedside. Patient reported improvement in her symptoms since admission, reported no new complaints except for persistent of mild numbness in the right lower extremity. MRI brain showed no acute infarct but showing findings suggestive of and demyelinating disorder, consulted Neurology for further evaluation. Objective vital signs Vital Sign Date Time Temp Pulse Resp B/P (MAP) Pulse Ox O2 Delivery O2 Flow Rate FiO2 08/17/24 09:35 136/85 08/17/24 09:00 97.6 68 16 99 97.6 08/17/24 08:00 Room Air* 0 21 Total Intake and Output 08/16/24 08/16/24 08/17/24 15:00 23:00 07:00 Intake Total 930 ml 800 ml Output Total 550 ml Balance 930 ml 250 ml medications Current Medications Medications Dose Ordered Sig/Remy Route Start Time Stop Time Status Last Admin Dose Admin Aspirin 81 mg DAILY PO 08/16/24 10:00 08/17/24 09:34 81 MG Clopidogrel Bisulfate 75 mg DAILY PO 08/16/24 10:00 08/17/24 09:34 75 MG Pantoprazole Sodium 40 mg DAILY PO 08/16/24 10:00 08/17/24 09:35 40 MG Valsartan 80 mg DAILY PO 08/16/24 10:00 08/17/24 09:34 80 MG Patient Own Medication 1 tab DAILY PO 08/16/24 10:00 UNV Patient Own Medication 1 tab DAILY PO 08/16/24 10:00 UNV Morphine Sulfate 2 mg Q30MP PRN IV 08/15/24 15:15 Acetaminophen 325 mg Q4HP PRN PO 08/15/24 15:15 08/16/24 02:25 325 MG Docusate Sodium 100 mg DAILY PO 08/16/24 10:00 08/17/24 09:33 100 MG Nitroglycerin 0.4 mg Q5MINP PRN SL 08/15/24 15:15 Ondansetron HCl 4 mg Q4HP PRN IV 08/15/24 15:15 Nitroglycerin 0.4 mg Q5MINP PRN SL 08/15/24 15:15 UNV Atorvastatin Calcium 40 mg HS PO 08/15/24 22:00 08/16/24 23:59 40 MG Nifedipine 60 mg DAILY PO 08/16/24 10:00 08/17/24 09:35 60 MG Ibuprofen 600 mg Q8HP PRN PO 08/16/24 09:45 08/17/24 09:36 600 MG Enoxaparin Sodium 40 mg DAILY SC 08/17/24 10:00 08/17/24 09:36 40 MG Examination Pt is lying on bed General Appearance: Alert, Oriented X3, Cooperative, Not in acute distress HEENT: Atraumatic, Mucous membranes moist/pink Respiratory: Clear to auscultation, Normal air movement, No added sounds Cardiovascular: Regular rate, Normal S1, Normal S2, No murmurs, mild chest wall tenderness Abdominal: Active bowel sounds, Soft, no distention, no tenderness Extremities: No edema, Normal pulses, No tenderness/swelling Skin: No Significant rash, except past surgical scars Neuro: Normal speech, sensorimotor deficits none Psych/Mental Status: Mental status NL, Mood NL Nurse was there as sharperone during examination laboratory and microbiology Laboratory Tests 08/17/24 06:24 08/16/24 06:17 Test 08/16/24 06:17 Range/Units Serum Glucose 123 H 74-106 mg/dL Microbiology Date/Time Source Procedure Growth Status 08/15/24 18:18 Nose MRSA Screen - Final Complete Labs and/or images reviewed: Labs reviewed by me, Image(s) reviewed by me Problem List/Assessment/Plan Problem List/Assessment/Plan # chest pain ruled out ACS # NSTEMI likely type 2 due to below # hypertensive urgency # chest pain likely from costochondritis /musculoskeletal # progressive CAD s/p stent x1 to LCX 07/20/2024 - troponins were mildly elevated but stable - EKG reviewed showed normal sinus rhythm - cardiology on board - ibuprofen 600 mg p.o. b.i.d. - Continue DAPT with aspirin and Plavix. Continue statin. - Recent echo with normal LVEF, moderate LVH. No significant valvular structural abnormalities. - outpatient follow up with Cardiology # reactive leukocytosis -monitor CBC # rule out acute CVA - head CT negative, no acute changes - brain MRI showed findings suggestive of demyelinating disorder, chronic microvascular changes - neurology consult Protonix Lovenox Cardiac diet Goals of care discussed with the patient for more than for 29 minutes: Full code status Plan discussed with Dr. Dent, patient and nurse. Plan discussed with: Patient My Orders My Orders Orders - JESSY REYNA RESIDENT Procedure Category Date Status Time Enoxaparin Sodium PHA 08/17/24 In Process (Lovenox) 10:00 Brain Head Wo Contrast MRI 08/17/24 Resulted 11:37 * Neurology Consult CONS 08/17/24 Transmitted 13:41 JESSY REYNA RESIDENT August 17, 2024 13:46
--- NOTE | 2024-08-17 22:58 | DVHINCON2 ---
Date of service: August 17, [address] Henderson Reason for Consultation Left leg numbness, abnormal MRI History of Present Illness Ms. Espinosa is a 54 years old right-handed female with a history of hypertension, dyslipidemia, coronary artery disease, heart attack, she came to the [facility] on 08/15/2024 with a chief complaint of chest pain. At this time, she is alert and fully oriented, she provided the following history She woke up around 3:00 a.m. on 08/15/2024 with he was pain, right arm numbness no weakness, both started to improve since 08/17/2024 and has resolved in the evening For about one years, she has weakness numbness in the right lower extremities, she was discussed with her doctor but no testing was obtained About four years ago, and two years ago, she had two events in that she woke up could not see anything, or with no light perception, she did not surgery for medical attention Otherwise the patient was had no previous weakness, paresthesia Her MR brain scan showed multiple T2/FLAIR lesions, likely secondary to her chronic hypertension, other etiology, including multiple sclerosis feels less likely She was loud snoring, her sleeps non-refreshing, she was low average level throughout the day Urinalysis, 08/15/2024: Unremarkable CBC, : Unremarkable CMP, 08/16/2024: Unremarkable TG/HDL/LDL/HDL, 07/17/2024: 107/194/117/61 Vitamin B12, 08/16/24: 319 TSH, 07/17/2024: 1.71 CT head, 08/15/2024: No acute intracranial hemorrhage, midline shift or mass effect. If symptoms persist, further evaluation with MRI is recommended. MRI head, : 1. No acute infarct, intracranial hemorrhage, mass effect, or hydrocephalus. 2. Multiple subcentimeter periventricular and deep white matter T2/FLAIR hyperintense lesions oriented perpendicular to the corpus callosum. These can be seen in the setting of demyelinating disease and correlation with patient's symptoms recommended. Other etiologies such as sequelae of chronic microvascular ischemic changes, sequelae of chronic migraine headaches are not excluded. Past Medical History Hypertension, coronary artery disease, heart attack Past Surgical History PTCA Family History: Colon cancer G8 MOTHER Diabetes mellitus G8 FATHER FH: breast cancer G8 MOTHER FH: heart attack G8 FATHER FH: stroke G8 MOTHER G8 FATHER Hypertension G8 MOTHER G8 FATHER Family History Hypertension, diabetes, heart attack, stroke, cancer, sleep related breathing disorder Social History She smokes, but no history of alcohol or drug abuse Allergies: Coded Allergies: No Known Drug Allergy (Verified Allergy, Unknown, 04/22/21) Home Meds Active Scripts Benzocaine (Dental) (ORAL ANALGESIC MAXIMUM ST) 20 % Gel, 10 % MT TIDPRN PRN for 3 Days, #9 GEL Prov:JUNIOR CURTIS MD 08/11/24 Chlorhexidine Gluconate (Mouth (CHLORHEXIDINE ORAL RINSE) 473 Ml So, 15 ML MT Q12HR for 5 Days, #473 ML Prov:JUNIOR CURTIS MD 08/11/24 Amoxicillin Trihydrate (Amoxicillin) 875 Mg Tab, 1 TAB PO BID, #14 TAB Prov:JUNIOR CURTIS MD 08/11/24 Hydrocodone-Acetaminophen (Hydrocodone Bitartrate/AC 5-325 mg) 1 Tab Tab, 1 TAB PO Q4HP PRN, #20 TAB Prov:BENI HARDY MD 07/29/24 Pantoprazole Sodium Sesquihydr (Protonix) 40 Mg Tab, 40 MG PO DAILY, #30 TAB Prov:BENI HARDY MD 07/27/24 Nitroglycerin (NTROSTAT SUBLINGUAL) 0.4 Mg Sl, 0.4 MG SL Q5MINP PRN, #100 TAB Prov:BENI HARDY MD 07/27/24 Valsartan (Valsartan) 80 Mg Tab, 80 MG PO DAILY for 90 Days, #90 TAB 1 Refill Prov:SCOUT MARRERO MD 07/21/24 Nifedipine (Nifedipine Er) 60 Mg Tab, 1 TAB PO DAILY, #90 TAB 1 Refill Prov:SCOUT MARRERO MD 07/21/24 Clopidogrel Bisulfate (CLOPIDOGREL) 75 Mg Tab, 75 MG PO DAILY for 90 Days, #90 TAB 1 Refill Prov:SCOUT MARRERO MD 07/21/24 Atorvastatin Calcium (ATORVASTATIN CALCIUM) 40 Mg Tab, 1 TAB PO DAILY, #90 TAB 1 Refill Prov:SCOUT MARRERO MD 07/21/24 Aspirin (Aspirin Low Dose) 81 Mg Tab, 81 MG PO DAILY for 90 Days, #90 TAB 1 Refill Prov:SCOUT MARRERO MD 07/21/24 Current Medications Current Medications Medications (Trade) Dose Ordered Sig/Remy Route PRN Reason Start Time Stop Time Status Last Admin Enoxaparin Sodium (Lovenox) 40 mg DAILY SC 08/17/24 10:00 08/17/24 09:36 Review of Systems As above, the other systems are negative Vital Signs Vital Signs Date Time Temp Pulse Resp B/P (MAP) Pulse Ox O2 Delivery O2 Flow Rate FiO2 08/17/24 21:00 98.6 64 18 138/74 (95) 100 98.6 08/17/24 08:00 Room Air* 0 21 Physical Exam GENERAL EXAM: General: the patient is well developed and nourished. No acute distress. HEENT: Normocephalic, neck is supple, no carotid bruits. No mass. RESPIRATORY: Normal respiratory effort with symmetrical lung expansion. Lungs clear to auscultation. CARDIOVASCULAR: Regular rate and rhythm with no murmurs. S1, S2. ABDOMEN: Soft, nontender, normal bowel sound NEUROLOGICAL: MENTAL STATUS: Awake and alert. Oriented to person, place, time and general circumstances. Able to give personal history SPEECH, LANGUAGE, HIGHER CORTICAL FUNCTION: no aphasia or dysathria. CRANIAL NERVES: #2: Intact visual avery to confrontation. The optic discs were sharp #3,4,6: Pupils are equal, round and reactive. EOMs full and conjugate. No nystagmus. #5: Facial sensation intact in all three divisions bilaterally. Mandibular strength intact. #7: Facial muscles symmetrical and strength intact. #8: Hearing grossly normal to voice. #9,10: Uvula and soft palate rise in the midline. Swallow and voice are normal. #11: Trapezius and sternomastoid strength intact bilaterally. #12: Tongue midline. No fasciculations or atrophy. SENSATION: Light touch perceived as numbness in the right lower extremity MOTOR: Normal tone in the upper and lower extremity. Normal muscle bulk. No fasciculations. No abnormal movements or posturing. Muscle strength of the major groups in the upper extremities is 5/5. Muscle strength of the major groups in the lower extremities is 5/5. REFLEXES: Deep tendon reflexes are symmetrical. No pathological reflexes. CEREBELLAR/COORDINATION: Finger to nose is normal bilaterally. GAIT/STATION: deferred. Labs/Diagnostic Data Labs Test 08/17/24 06:24 08/16/24 06:17 08/15/24 14:29 08/15/24 12:20 Range/Units White Blood Count 8.7 # 4.4-10.8 10^3/uL Red Blood Count 4.18 4.0-5.20 10^6/uL Hemoglobin 12.6 12.2-16.2 g/dL Hematocrit 37.6 36.0-46.0 % Mean Corpuscular Volume 89.8 80.0-100.0 fL Mean Corpuscular Hemoglobin 30.2 28.0-32.0 pg Mean Corpuscular Hemoglobin Concent 33.6 32.0-36.0 g/dL Red Cell Distribution Width 13.2 11.8-14.3 % Platelet Count 202 140-450 10^3/uL Mean Platelet Volume 7.7 6.9-10.8 fL Neutrophils (%) (Auto) 48.7 37.0-80.0 % Lymphocytes (%) (Auto) 41.6 10.0-50.0 % Monocytes (%) (Auto) 8.1 0.0-12.0 % Eosinophils (%) (Auto) 1.1 0.0-7.0 % Basophils (%) (Auto) 0.5 0.0-2.0 % Neutrophils # (Auto) 4.3 1.6-8.6 10 ^3/uL Lymphocytes # (Auto) 3.6 0.4-5.4 10 ^3/uL Monocytes # (Auto) 0.7 0-1.3 10 ^3/uL Eosinophils # (Auto) 0.1 0-0.8 10 ^3/uL Basophils # (Auto) 0 0-0.2 10 ^3/uL Nucleated Red Blood Cells 0.1 % Sodium Level 143 136-145 mmol/L Potassium Level 3.7 3.5-5.1 mmol/L Chloride Level 109 H 98-107 mmol/L Carbon Dioxide Level 27 20-31 mmol/L Anion Gap 7 5-15 Blood Urea Nitrogen 9 9-23 mg/dL Creatinine 0.75 0.550-1.02 mg/dL Glomerular Filtration Rate Calc 95 >90 mL/min BUN/Creatinine Ratio 12.0 10.0-20.0 Serum Glucose 123 H 74-106 mg/dL Calcium Level 10.1 8.7-10.4 mg/dL Total Bilirubin 0.4 0.2-1.0 mg/dL Aspartate Amino Transferase (AST) 18 13-40 U/L Alanine Aminotransferase (ALT) 28 7-40 U/L Alkaline Phosphatase 72 46-116 U/L Total Protein 6.4 5.7-8.2 g/dL Albumin 4.0 3.2-4.8 g/dL Vitamin B12 Level 319 211-911 pg/mL Troponin I High Sensitivity 54 *H </=34 ng/L Urine Color Colorless Yellow Urine Clarity Clear Clear Urine pH 6.5 5.0-9.0 Urine Specific [place] 1.002 1.001-1.035 Urine Protein Negative Negative Urine Ketones Negative Negative Urine Blood Negative Negative /uL Urine Nitrite Negative Negative Urine Bilirubin Negative Negative Urine Urobilinogen Normal Negative mg/dL Urine Leukocyte Esterase Negative Negative /uL Urine RBC 1 0 - 4 /hpf Urine Microscopic WBC 1 0-5 /HPF Urine Squamous Epithelial Cells Few <5 /hpf Urine Bacteria None seen None Seen /hpf Urine Glucose Normal Normal mg/dL Test 08/15/24 10:52 Range/Units B-Type Natriuretic Peptide 16.93 0-100 pg/mL Microbiology Date/Time Source Procedure Growth Status 08/15/24 18:18 Nose MRSA Screen - Final Complete Assessment Acute right upper extremity weakness paresthesia x 2 days, in the absence of correlate DWI abnormality, a stroke feels less likely Chronic right leg paresthesia, weakness, reported brief event of compliance blindness, etiology unclear, need to rule out MS Sleep-related breathing disorder Plan/Recommendation Monitoring Supportive treatment Telemetry MRI C-spine, MRI thoracic spine GI prophylax/Protonix DVT prophylaxis/Lovenox Aspirin 81 mg daily Plavix 75 mg daily Lipitor 40 mg daily A trial of APAP in the hospital Hypersomnia precautions discussed Further address her sleep related breathing disorder as outpatient More recommendation per clinical course Prognosis: Poor This medical document was created using an electronic medical record system with [employer] dictation system. Although this document has been carefully reviewed, there may still be some phonetic and typographical errors. These areas are purely typographical due to imperfections of the software programs, and do not reflect any compromise in the patient's medical care. Plan discussed with: Patient, Other CLARISA CASTREJON MD August 17, 2024 22:58
--- NOTE | 2024-08-17 23:20 | DVHPN2 ---
Progress Note - Dictate Date Seen: August 17, 2024 Has the PT tested + for MRSA If YES, has PT been informed?: No Medical Necessity Reason Pt with a Central, PICC or Fol: No Subjective Patient was seen and evaluated in follow up. No overnight events. Patient reports feeling well today. MRI brain showed no acute infarct but showing findings suggestive of and demyelinating disorder. Telemetry reviewed. vital signs Vital Sign Date Time Temp Pulse Resp B/P (MAP) Pulse Ox O2 Delivery O2 Flow Rate FiO2 08/17/24 21:00 98.6 64 18 138/74 (95) 100 98.6 08/17/24 20:00 Room Air* 0 21 Total Intake and Output 08/16/24 08/16/24 08/17/24 15:00 23:00 07:00 Intake Total 930 ml 800 ml Output Total 550 ml Balance 930 ml 250 ml medications Current Medications Medications Dose Ordered Sig/Remy Route Start Time Stop Time Status Last Admin Dose Admin Aspirin 81 mg DAILY PO 08/16/24 10:00 08/17/24 09:34 81 MG Clopidogrel Bisulfate 75 mg DAILY PO 08/16/24 10:00 08/17/24 09:34 75 MG Pantoprazole Sodium 40 mg DAILY PO 08/16/24 10:00 08/17/24 09:35 40 MG Valsartan 80 mg DAILY PO 08/16/24 10:00 08/17/24 09:34 80 MG Patient Own Medication 1 tab DAILY PO 08/16/24 10:00 UNV Patient Own Medication 1 tab DAILY PO 08/16/24 10:00 UNV Morphine Sulfate 2 mg Q30MP PRN IV 08/15/24 15:15 Acetaminophen 325 mg Q4HP PRN PO 08/15/24 15:15 08/16/24 02:25 325 MG Docusate Sodium 100 mg DAILY PO 08/16/24 10:00 08/17/24 09:33 100 MG Nitroglycerin 0.4 mg Q5MINP PRN SL 08/15/24 15:15 Ondansetron HCl 4 mg Q4HP PRN IV 08/15/24 15:15 Nitroglycerin 0.4 mg Q5MINP PRN SL 08/15/24 15:15 UNV Atorvastatin Calcium 40 mg HS PO 08/15/24 22:00 08/17/24 21:25 40 MG Nifedipine 60 mg DAILY PO 08/16/24 10:00 08/17/24 09:35 60 MG Ibuprofen 600 mg Q8HP PRN PO 08/16/24 09:45 08/17/24 09:36 600 MG Enoxaparin Sodium 40 mg DAILY SC 08/17/24 10:00 08/17/24 09:36 40 MG objective GENERAL: Alert and oriented x 3. No acute distress. EYES: PERRL, EOMI. Anicteric. HENT: Moist mucous membranes. LUNGS: Clear to auscultation bilaterally. CARDIOVASCULAR: Regular rate and rhythm. ABDOMEN: Soft, nontender and nondistended. EXTREMITIES: No edema. NEUROLOGIC: No focal neurological deficits. SKIN: Warm, dry. laboratory and microbiology Laboratory Tests 08/17/24 06:24 08/16/24 06:17 Test 08/16/24 06:17 Range/Units Serum Glucose 123 H 74-106 mg/dL Problem List Chest pain. Mildly elevated troponin. Uncontrolled hypertension/hypertensive urgency. CAD s/p stent x1 to LCX 07/20/2024. Assessment/Plan Continued all current supportive medical care. Aspirin, Lipitor, Plavix. DVT and GI prophylactics. Nifedipine. Morphine for pain management. Additional plan as per the hospital course. Plan discussed with: Patient DELFINO CAVAZOS MD August 17, 2024 23:20
[2024-08-17] MEDS ORDERED: LORazepam 2MG/ML-1ML VIAL IV PRN (23:45)
[2024-08-18] VITALS (11 sets, daily range): BP systolic 117–154; BP diastolic 63–84; PULSE 50–72; RESP 16–18; TEMP 97.9–98.7; O2SAT 96–100
--- NOTE | 2024-08-18 09:43 | DVH ---
EXAM: MRI THORACIC SPINE WITHOUT HISTORY: MS COMPARISON: None TECHNIQUE: Multiplanar, multisequence MRI was performed. FINDINGS: VERTEBRAE: Normal in alignment and height. No suspicious bone marrow signal. INTERVERTEBRAL DISCS: No disc herniation. No significant central canal or neural foramina stenosis. No definite impingement of the bilateral exiting nerves and traversing nerve roots. SPINAL CORD: Normal morphology and signal without evidence for cord edema or myelomalacia. It termin ates at T12-L1 level. PARASPINAL SOFT TISSUES: Unremarkable. OTHER: None. IMPRESSION: 1. No thoracic spinal cord abnormality. No demyelination plaques are seen. 2. No acute osseous abnormality, significant degenerative disc disease, central canal stenosis, neura l foramina stenosis or nerve impingement.
--- NOTE | 2024-08-18 10:11 | DVH ---
PROCEDURE: MRI cervical spine without contrast. INDICATION: R/O MS COMPARISON: None TECHNIQUE: MRI of the cervical spine without intravenous contrast utilizing multiplanar, multisequen ce technique. FINDINGS: The alignment of the cervical spine vertebral bodies is preserved. The vertebral body heights are ryland ntained. The intervertebral disc spaces are maintained in height and signal characteristics. The bone marrow signal is homogenous and unremarkable. The cervical spinal cord is normal in signal character istics and caliber. Posterior fossa structures are unremarkable. No cerebellar tonsillar herniation. Paraspinal muscles are unremarkable. At the C2-C3 level, there is no evidence of central spinal canal or neuroforaminal stenosis. At the C3-C4 level, there is no evidence of central spinal canal or neuroforaminal stenosis. At the C4-C5 level, there is left posterolateral disc protrusion. There is no significant canal sten osis. Mild left neural foraminal stenosis. The right neural foramina is patent. At the C5-C6 level, there is left posterolateral disc protrusion. No significant canal stenosis. Mil d left neural foraminal stenosis. The right neural foramina is patent. At the C6-C7 level, there is left posterolateral disc osteophyte complex. No significant canal stenos is. No significant neural foraminal stenosis. At the C7-T1 level, there is no evidence of central spinal canal or neuroforaminal stenosis. Other: None. IMPRESSION: 1. No spinal cord signal abnormality or abnormal caliber. 2. Multilevel cervical spondylosis. This includes left posterolateral disc protrusions at C4-C5 and C 5-C6. Mild left neural foraminal stenosis at these levels.
--- NOTE | 2024-08-18 11:19 | DVHPN2 ---
Progress Note - Dictate Date Seen: August 18, 2024 Has the PT tested + for MRSA If YES, has PT been informed?: No Medical Necessity Reason Pt with a Central, PICC or Fol: No Subjective Ms. Espinosa is a 54 years old right-handed female with a history of hypertension, dyslipidemia, coronary artery disease, heart attack, she came to the [facility] on 08/15/2024 with a chief complaint of chest pain. I have seen and examined the patient, I have talked to her nurse, she was doing fine, no new complaints She tried CPAP last night, her subjective evaluation: neutral At this time, she is alert and fully oriented, she provided the following history and she was agreed to discuss with her family doctor for sleep medicine evaluation Urinalysis, 08/15/2024: Unremarkable CBC, : Unremarkable CMP, 08/16/2024: Unremarkable TG/HDL/LDL/HDL, 07/17/2024: 107/194/117/61 Vitamin B12, 08/16/24: 319 TSH, 07/17/2024: 1.71 CT head, 08/15/2024: No acute intracranial hemorrhage, midline shift or mass effect. If symptoms persist, further evaluation with MRI is recommended. MRI head, : 1. No acute infarct, intracranial hemorrhage, mass effect, or hydrocephalus. 2. Multiple subcentimeter periventricular and deep white matter T2/FLAIR hyperintense lesions oriented perpendicular to the corpus callosum. These can be seen in the setting of demyelinating disease and correlation with patient's symptoms recommended. Other etiologies such as sequelae of chronic microvascular ischemic changes, sequelae of chronic migraine headaches are not excluded MRI C-spine, 08/18/2024: 1. No spinal cord signal abnormality or abnormal caliber. 2. Multilevel cervical spondylosis. This includes left posterolateral disc protrusions at C4-C5 and C5-C6. Mild left neural foraminal stenosis at these levels MRI T-spine, 09/04/2024: 1. No thoracic spinal cord abnormality. No demyelination plaques are seen. 2. No acute osseous abnormality, significant degenerative disc disease, central canal stenosis, neural foramina stenosis or nerve impingement. vital signs Vital Sign Date Time Temp Pulse Resp B/P (MAP) Pulse Ox O2 Delivery O2 Flow Rate FiO2 08/18/24 09:48 100 Room Air* 0 21 08/18/24 09:14 127/70 08/18/24 09:00 98.3 58 16 98.3 Total Intake and Output 08/17/24 08/17/24 08/18/24 15:00 23:00 07:00 Intake Total 600 ml 800 ml 500 ml Balance 600 ml 800 ml 500 ml medications Current Medications Medications Dose Ordered Sig/Remy Route Start Time Stop Time Status Last Admin Dose Admin Aspirin 81 mg DAILY PO 08/16/24 10:00 08/18/24 09:08 Clopidogrel Bisulfate 75 mg DAILY PO 08/16/24 10:00 08/18/24 09:08 Pantoprazole Sodium 40 mg DAILY PO 08/16/24 10:00 08/18/24 09:07 Valsartan 80 mg DAILY PO 08/16/24 10:00 08/18/24 09:14 Patient Own Medication 1 tab DAILY PO 08/16/24 10:00 UNV Patient Own Medication 1 tab DAILY PO 08/16/24 10:00 UNV Morphine Sulfate 2 mg Q30MP PRN IV 08/15/24 15:15 Acetaminophen 325 mg Q4HP PRN PO 08/15/24 15:15 08/16/24 02:25 Docusate Sodium 100 mg DAILY PO 08/16/24 10:00 08/18/24 09:07 Nitroglycerin 0.4 mg Q5MINP PRN SL 08/15/24 15:15 Ondansetron HCl 4 mg Q4HP PRN IV 08/15/24 15:15 Nitroglycerin 0.4 mg Q5MINP PRN SL 08/15/24 15:15 UNV Atorvastatin Calcium 40 mg HS PO 08/15/24 22:00 08/17/24 21:25 Nifedipine 60 mg DAILY PO 08/16/24 10:00 08/18/24 09:07 Ibuprofen 600 mg Q8HP PRN PO 08/16/24 09:45 08/18/24 09:06 Enoxaparin Sodium 40 mg DAILY SC 08/17/24 10:00 08/18/24 09:07 Lorazepam 1 mg ONCE PRN IV 08/17/24 23:45 objective General: the patient is well developed and nourished. No acute distress. MENTAL STATUS: Awake and alert. Oriented to person, place, time and general circumstances. Able to give personal history SPEECH, LANGUAGE, HIGHER CORTICAL FUNCTION: no aphasia or dysathria. CRANIAL NERVES: Pupils are equal, round and reactive. EOMs full and conjugate. No nystagmus. Facial sensation intact in all three divisions bilaterally. Mandibular strength intact. Facial muscles symmetrical and strength intact. SENSATION: Light touch perceived as numbness in the right lower extremity MOTOR: Normal tone in the upper and lower extremity. Normal muscle bulk. No fasciculations. No abnormal movements or posturing. Muscle strength of the major groups in the extremities is 5/5. REFLEXES: Deep tendon reflexes are symmetrical. No pathological reflexes. CEREBELLAR/COORDINATION: Finger to nose is normal bilaterally. GAIT/STATION: Unremarkable laboratory and microbiology Laboratory Tests 08/17/24 06:24 08/16/24 06:17 Test 08/16/24 06:17 Range/Units Serum Glucose 123 H 74-106 mg/dL Problem List Acute right upper extremity weakness paresthesia x 2 days, in the absence of correlate DWI abnormality, a stroke feels less likely Chronic right leg paresthesia, weakness, reported brief event of compliance blindness, etiology unclear Sleep-related breathing disorder Assessment/Plan Monitoring Supportive treatment Telemetry GI prophylax/Protonix DVT prophylaxis/Lovenox Aspirin 81 mg daily Plavix 75 mg daily Lipitor 40 mg daily APAP in the hospital Hypersomnia precautions discussed Further address her sleep related breathing disorder as outpatient More recommendation per clinical course This medical document was created using an electronic medical record system with MePlease dictation system. Although this document has been carefully reviewed, there may still be some phonetic and typographical errors. These areas are purely typographical due to imperfections of the software programs, and do not reflect any compromise in the patient's medical care. Prognosis poor Plan discussed with: Patient, Other Total Time (mins): 35 CLARISA CASTREJON MD August 18, 2024 11:19
--- NOTE | 2024-08-18 13:57 | DVHDSRES ---
Discharge Summary Date of Admission Resident Creating Document: JESSY REYNA RESIDENT August 15, 2024 at 15:04 Date of Discharge: August 18, 2024 Admitting Diagnosis Chest pain Labs/Diagnostic Data: Laboratory Results Test 08/17/24 06:24 08/16/24 06:17 08/15/24 14:29 08/15/24 12:20 White Blood Count 8.7 10^3/uL (4.4-10.8) Red Blood Count 4.18 10^6/uL (4.0-5.20) Hemoglobin 12.6 g/dL (12.2-16.2) Hematocrit 37.6 % (36.0-46.0) Mean Corpuscular Volume 89.8 fL (80.0-100.0) Mean Corpuscular Hemoglobin 30.2 pg (28.0-32.0) Mean Corpuscular Hemoglobin Concent 33.6 g/dL (32.0-36.0) Red Cell Distribution Width 13.2 % (11.8-14.3) Platelet Count 202 10^3/uL (140-450) Mean Platelet Volume 7.7 fL (6.9-10.8) Neutrophils (%) (Auto) 48.7 % (37.0-80.0) Lymphocytes (%) (Auto) 41.6 % (10.0-50.0) Monocytes (%) (Auto) 8.1 % (0.0-12.0) Eosinophils (%) (Auto) 1.1 % (0.0-7.0) Basophils (%) (Auto) 0.5 % (0.0-2.0) Neutrophils # (Auto) 4.3 10 ^3/uL (1.6-8.6) Lymphocytes # (Auto) 3.6 10 ^3/uL (0.4-5.4) Monocytes # (Auto) 0.7 10 ^3/uL (0-1.3) Eosinophils # (Auto) 0.1 10 ^3/uL (0-0.8) Basophils # (Auto) 0 10 ^3/uL (0-0.2) Nucleated Red Blood Cells 0.1 % Sodium Level 143 mmol/L (136-145) Potassium Level 3.7 mmol/L (3.5-5.1) Chloride Level 109 mmol/L (98-107) Carbon Dioxide Level 27 mmol/L (20-31) Anion Gap 7 (5-15) Blood Urea Nitrogen 9 mg/dL (9-23) Creatinine 0.75 mg/dL (0.550-1.02) Glomerular Filtration Rate Calc 95 mL/min (>90) BUN/Creatinine Ratio 12.0 (10.0-20.0) Serum Glucose 123 mg/dL (74-106) Calcium Level 10.1 mg/dL (8.7-10.4) Total Bilirubin 0.4 mg/dL (0.2-1.0) Aspartate Amino Transferase (AST) 18 U/L (13-40) Alanine Aminotransferase (ALT) 28 U/L (7-40) Alkaline Phosphatase 72 U/L (46-116) Total Protein 6.4 g/dL (5.7-8.2) Albumin 4.0 g/dL (3.2-4.8) Vitamin B12 Level 319 pg/mL (211-911) Troponin I High Sensitivity 54 ng/L (</=34) Urine Color Colorless (Yellow) Urine Clarity Clear (Clear) Urine pH 6.5 (5.0-9.0) Urine Specific Echo 1.002 (1.001-1.035) Urine Protein Negative (Negative) Urine Ketones Negative (Negative) Urine Blood Negative /uL (Negative) Urine Nitrite Negative (Negative) Urine Bilirubin Negative (Negative) Urine Urobilinogen Normal mg/dL (Negative) Urine Leukocyte Esterase Negative /uL (Negative) Urine RBC 1 /hpf (0 - 4) Urine Microscopic WBC 1 /HPF (0-5) Urine Squamous Epithelial Cells Few /hpf (<5) Urine Bacteria None seen /hpf (None Seen) Urine Glucose Normal mg/dL (Normal) Test 08/15/24 10:52 B-Type Natriuretic Peptide 16.93 pg/mL (0-100) Other Laboratory Tests 08/17/24 06:24 08/16/24 06:17 Brief Hx & Hospital Course: Varsha Espinosa for 1 female with a PMH of HTN, CAD status post HILARIO x1 to LCX 07/20/2024 on Plavix and aspirin, presents to the hospital with chest pain. Patient states blood pressure was elevated started having substernal chest pain radiating to back, associated with some shortness of breath. Upon evaluation in the ER patient noted to have mildly elevated troponins trending 58, 59, 54. Blood pressure noted to be significant 174/96. Patient endorses compliance with medication of DAPT and blood pressure. EKG reviewed and shows normal sinus rhythm at 67 beats per minute, LVH, no significant ST and T-wave abnormality. The patient was admitted with chest pain, which was ruled out as acute coronary syndrome (ACS). The chest pain was likely due to non-ST elevation myocardial infarction (NSTEMI) likely type 2, hypertensive urgency, costochondritis or musculoskeletal issues, and coronary artery disease (CAD) status post stent placement to the left circumflex artery (LCX) on July 20, 2024. Troponin levels were mildly elevated but stable, and an EKG showed normal sinus rhythm. Cardiology was consulted, advised to continue current management with DAPT and follow up on outpatient. Dual antiplatelet therapy (DAPT) with aspirin and Plavix, as well as statin therapy, was continued. A recent echocardiogram showed normal left ventricular ejection fraction (LVEF) and moderate left ventricular hypertrophy (LVH) with no significant valvular structural abnormalities. Additionally, the patient exhibited reactive leukocytosis, and CBC monitoring was recommended. To rule out acute cerebrovascular accident (CVA), a head CT was performed and showed no acute changes. A brain MRI suggested findings of a demyelinating disorder and chronic microvascular changes. Neurology was consulted, and further evaluation included thoracic and cervical spine MRI, which revealed significant degenerative disc disease, central canal stenosis, neural foramina stenosis or nerve impingement, and multiple cervical spondylosis, including left posterolateral disc protrusion at C4-C5 and C5-C6 with mild left neural foramina stenosis at these levels. Outpatient follow-up with a spine surgeon was recommended. The patient's condition improved, and they were hemodynamically stable and ready for discharge. The patient was advised to resume home medications, adopt healthy lifestyle modifications including diet and exercise, and follow up with cardiology and a spine surgeon for the degenerative changes in the spine. Pt is lying on bed General Appearance: Alert, Oriented X3, Cooperative, Not in acute distress HEENT: Atraumatic, Mucous membranes moist/pink Respiratory: Clear to auscultation, Normal air movement, No added sounds Cardiovascular: Regular rate, Normal S1, Normal S2, No murmurs Abdominal: Active bowel sounds, Soft, no distention, no tenderness Extremities: No edema, Normal pulses, No tenderness/swelling Skin: No Significant rash, except past surgical scars Neuro: Normal speech, sensorimotor deficits none Psych/Mental Status: Mental status NL, Mood NL Nurse was there as elifne during examination Operations or Procedures PROCEDURE: MRI cervical spine without contrast. 1. No spinal cord signal abnormality or abnormal caliber. 2. Multilevel cervical spondylosis. This includes left posterolateral disc protrusions at C4-C5 and C5-C6. Mild left neural foraminal stenosis at these levels. ----- EXAM: MRI THORACIC SPINE WITHOUT 1. No thoracic spinal cord abnormality. No demyelination plaques are seen. 2. No acute osseous abnormality, significant degenerative disc disease, central canal stenosis, neural foramina stenosis or nerve impingement. ----- MRI BRAIN HEAD WO CONTRAST 1. No acute infarct, intracranial hemorrhage, mass effect, or hydrocephalus. 2. Multiple subcentimeter periventricular and deep white matter T2/FLAIR hyperintense lesions oriented perpendicular to the corpus callosum. These can be seen in the setting of demyelinating disease and correlation with patient's symptoms recommended. Other etiologies such as sequelae of chronic microvascular ischemic changes, sequelae of chronic migraine headaches are not excluded. ------ CT Head Without Intravenous Contrast No acute intracranial hemorrhage, midline shift or mass effect. If symptoms persist, further evaluation with MRI is recommended. Condition at Discharge: Stable Final Diagnosis/Problems List # chest pain ruled out ACS # NSTEMI likely type 2 due to hypertensive urgency # hypertensive urgency # chest pain likely from costochondritis /musculoskeletal # progressive CAD s/p stent x1 to LCX 07/20/2024 # reactive leukocytosis -monitor CBC # ruled out acute CVA # Cervical spondylosis # Degenerative disc disease, central canal stenosis, neural foramina stenosis # Acute right upper extremity weakness paresthesia # Chronic B/L leg paresthesia Discharge Disposition: Home Discharge Instruct/Medications Diet: Consistent carbohydrate, Cardiac 2g Na,low cholest Activity: No Restrictions, As Tolerated Follow Up/Referral: cardiology and a spine surgeon Discharge Clinic PCP Medications: Resume home medications Discharge Statement: "Patient was advised to return to the ER or call 911 if any headaches, dizziness, shortness of breath, chest pain, abdominal pain, bleeding, fevers, or worsening of medical condition. Patient was counseled about treatment plan, medications, possible side effects, patient�verbalized understanding. All questions were answered to the best of my ability. This discharge took greater then 30 minutes in planning, reviewing documentation, counseling the patient, and discussing with other team members." ASSESSMENT ASSESSMENT Assessment # chest pain ruled out ACS # NSTEMI likely type 2 due to hypertensive urgency # hypertensive urgency # chest pain likely from costochondritis /musculoskeletal # progressive CAD s/p stent x1 to LCX 07/20/2024 # reactive leukocytosis -monitor CBC # ruled out acute CVA # Cervical spondylosis # Degenerative disc disease, central canal stenosis, neural foramina stenosis # Acute right upper extremity weakness paresthesia # Chronic B/L leg paresthesia JESSY REYNA RESIDENT August 18, 2024 13:57
--- NOTE | 2024-08-18 21:54 | DVHPN2 ---
Progress Note - Dictate Date Seen: August 18, 2024 Has the PT tested + for MRSA If YES, has PT been informed?: No Medical Necessity Reason Pt with a Central, PICC or Fol: No Subjective Patient was seen and evaluated in follow up. Patient has no new complaints at this time. Patient denies any cardiac symptoms. Patient is cardiac stable for discharge. Telemetry reviewed. vital signs Vital Sign Date Time Temp Pulse Resp B/P (MAP) Pulse Ox O2 Delivery O2 Flow Rate FiO2 08/18/24 15:54 98.7 72 18 96 08/18/24 13:00 154/84 (107) 08/18/24 09:48 Room Air* 0 21 Total Intake and Output 08/17/24 08/17/24 08/18/24 15:00 23:00 07:00 Intake Total 600 ml 800 ml 500 ml Balance 600 ml 800 ml 500 ml medications Current Medications Medications Dose Ordered Sig/Remy Route Start Time Stop Time Status Last Admin Dose Admin Patient Own Medication 1 tab DAILY PO 08/16/24 10:00 UNV Patient Own Medication 1 tab DAILY PO 08/16/24 10:00 UNV Nitroglycerin 0.4 mg Q5MINP PRN SL 08/15/24 15:15 UNV objective GENERAL: Alert and oriented x 3. No acute distress. EYES: PERRL, EOMI. Anicteric. HENT: Moist mucous membranes. LUNGS: Clear to auscultation bilaterally. CARDIOVASCULAR: Regular rate and rhythm. ABDOMEN: Soft, nontender and nondistended. EXTREMITIES: No edema. NEUROLOGIC: No focal neurological deficits. SKIN: Warm, dry. laboratory and microbiology Laboratory Tests 08/17/24 06:24 08/16/24 06:17 Test 08/16/24 06:17 Range/Units Serum Glucose 123 H 74-106 mg/dL Problem List Chest pain. Mildly elevated troponin. Uncontrolled hypertension/hypertensive urgency. CAD s/p stent x1 to LCX 07/20/2024. Assessment/Plan Continued all current supportive medical care. Aspirin, Lipitor, Plavix. DVT and GI prophylactics. Nifedipine. Morphine for pain management. Additional plan as per the hospital course. Plan discussed with: Patient DELFINO CAVAZOS MD August 18, 2024 21:54
== END 2024-08-18 17:00 | disposition home or self-care (01) | DRG 199 ==
LOC: ER 10:34 → OVERFLOW 15:04 → TELE-CENTR 16:10
PROVIDERS: ADMIT Student in an Organized Health Care Education/Training Program; ATTEND Student in an Organized Health Care Education/Training Program
PROC: 5A09357 Assistance with Respiratory Ventilation, Less than 24 Consecutive Hours, Continuous Positive Airway Pressure (ICD-10-PCS; principal; 2024-08-18)
DX: I16.0 Hypertensive urgency (principal); I21.A1 Myocardial infarction type 2; M94.0 Chondrocostal junction syndrome [Tietze]; F17.210 Nicotine dependence, cigarettes, uncomplicated; I25.10 Atherosclerotic heart disease of native coronary artery without angina pectoris; H54.7 Unspecified visual loss; M50.30 Other cervical disc degeneration, unspecified cervical region; M47.812 Spondylosis without myelopathy or radiculopathy, cervical region; M48.02 Spinal stenosis, cervical region; J45.909 Unspecified asthma, uncomplicated; E78.5 Hyperlipidemia, unspecified; Z82.3 Family history of stroke; Z79.2 Long term (current) use of antibiotics; Z79.82 Long term (current) use of aspirin; Z79.899 Other long term (current) drug therapy; Z95.5 Presence of coronary angioplasty implant and graft; Z82.49 Family history of ischemic heart disease and other diseases of the circulatory system; Z83.3 Family history of diabetes mellitus; Z80.3 Family history of malignant neoplasm of breast; Z80.0 Family history of malignant neoplasm of digestive organs
CPT/HCPCS: 36415; 70450; 70551; 71045; 72141; 72146; 80048; 80053; 81001; 82607; 83880; 84484; 85025; 87081; 93005; 94640; 94660; 96374; G0378

== ENCOUNTER 2024-08-18 20:52 | Emergency (ER) | payer MEDICAID ==
[~2024-08-18] VITALS: Ht 162.6 cm; Wt 63.7 kg
--- NOTE | 2024-08-18 21:19 | ED.PDOC ---
History of Present Illness HPI Comments 54-year-old female who comes in with chief complaint of chest pain. The patient was seen at our facility and discharged today. The patient actually was admitted to our facility on Saturday where she was worked up for possible cardiac disease. Upon going home, the patient states that she is having sharp pain that is substernal and nonradiating. It is not associated with any shortness of breath or nausea. Upon arrival, the patient's blood pressure was 183/112. She states that she is compliant with her medications. Chief Complaint: Chest Pain Time Seen by MD: 20:54 Primary Care Provider: AYAAN Reviewed Notes: Nurses Notes, Medications, Allergies (No allergies to medications) Allergies: Coded Allergies: No Known Drug Allergy (Verified Allergy, Unknown, 04/22/21) Home Meds Active Scripts Chlorhexidine Gluconate (Mouth (CHLORHEXIDINE ORAL RINSE) 473 Ml So, 15 ML MT Q12HR for 5 Days, #473 ML Prov:JNUIOR CURTIS MD 08/11/24 Hydrocodone-Acetaminophen (Hydrocodone Bitartrate/AC 5-325 mg) 1 Tab Tab, 1 TAB PO Q4HP PRN, #20 TAB Prov:BENI HARDY MD 07/29/24 Pantoprazole Sodium Sesquihydr (Protonix) 40 Mg Tab, 40 MG PO DAILY, #30 TAB Prov:BENI HARDY MD 07/27/24 Nitroglycerin (NTROSTAT SUBLINGUAL) 0.4 Mg Sl, 0.4 MG SL Q5MINP PRN, #100 TAB Prov:BENI HARDY MD 07/27/24 Valsartan (Valsartan) 80 Mg Tab, 80 MG PO DAILY for 90 Days, #90 TAB 1 Refill Prov:SCOUT MARRERO MD 07/21/24 Nifedipine (Nifedipine Er) 60 Mg Tab, 1 TAB PO DAILY, #90 TAB 1 Refill Prov:SCOUT MARRERO MD 07/21/24 Clopidogrel Bisulfate (CLOPIDOGREL) 75 Mg Tab, 75 MG PO DAILY for 90 Days, #90 TAB 1 Refill Prov:SCOUT MARRERO MD 07/21/24 Atorvastatin Calcium (ATORVASTATIN CALCIUM) 40 Mg Tab, 1 TAB PO DAILY, #90 TAB 1 Refill Prov:SCOUT MARRERO MD 07/21/24 Aspirin (Aspirin Low Dose) 81 Mg Tab, 81 MG PO DAILY for 90 Days, #90 TAB 1 Refill Prov:SCOUT MARRERO MD 07/21/24 Discontinued Scripts Benzocaine (Dental) (ORAL ANALGESIC MAXIMUM ST) 20 % Gel, 10 % MT TIDPRN PRN for 3 Days, #9 GEL Prov:JUNIOR CURTIS MD 08/11/24 Amoxicillin Trihydrate (Amoxicillin) 875 Mg Tab, 1 TAB PO BID, #14 TAB Prov:JUNIOR CURTIS MD 08/11/24 Information Source: Patient Mode of Arrival: Ambulatory Severity: Moderate Timing: Hours Duration: Since onset Prehospital treatment: None Location: Substernal chest pain Associated signs and symptoms No shortness a breath Past Medical History PAST MEDICAL HISTORY: CAD, High Lipids, HTN, OR Surgical History: PTCA CALLISTHENICS INSTRUCTOR History: No Pertinent CALLISTHENICS INSTRUCTOR History Family History Family History: Family hx of DM, Family hx of HTN Social History Smoker: Cigarettes Alcohol: Denies ETOH Use Drugs: Marijuana Lives In: Home Constitutional: denies: chills, diaphoresis, fatigue, fever, malaise, sweats, weakness, others EENTM: denies: blurred vision, double vision, ear bleeding, ear discharge, ear drainage, ear pain, ear ringing, eye pain, eye redness, hearing loss, mouth pain, mouth swelling, nasal discharge, nose bleeding, nose congestion, nose pa in, photophobia, tearing, throat pain, throat swelling, voice changes, others Respiratory: denies: cough, hemoptysis, orthopnea, SOB at rest, shortness of breath, SOB with excertion, stridor, wheezing, others Cardiovascular: reports: chest pain; denies: dizzy spells, diaphoresis, Dyspnea on exertion, edema, irregular heart beat, left arm pain, lightheadedness, palpitations, PND, syncope, others Gastrointestinal: denies: abdomen distended, abdominal pain, blood streaked bowels, constipated, diarrhea, dysphagia, difficulty swallowing, hematemesis, m brittany, nausea, poor appetite, poor fluid intake, rectal bleeding, rectal pain, vomiting, others Genitourinary: denies: abnormal vagina bleeding, burning, dyspareunia, dysuria, flank pain, frequency, hematuria, incontinence, pain, , vagina discharge, urgency, others Neurological: denies: dizziness, fainting, headache, left sided numbness, left sided weakness, numbness, paresthesia, pre-existing deficit, right sided numbness, right sided weakness, seizure, speech problems, tingling, tremors, weakness, others Musculoskeletal: denies: back pain, gout, joint pain, joint swelling, muscle pain, muscle stiffness, neck pain, others Integumetry: denies: bruises, change in color, change in hair/nails, dryness, laceration, lesions, lumps, rash, wounds, others Allergic/Immunocompromised: denies: Difficulty Healing, Frequent Infections, Hives, Itching, others Hematologic/Lymphatic: denies: anemia, blood clots, easy bleeding, easy bruising, swollen glands, others Endocrine: denies: excessive hunger, excessive sweating, excessive thirst, excessive urination, flushing, intolerance to cold, intolerance to heat, unexpla ined weight gain, unexplained weight loss, others Psychiatric: denies: anxiety, bipolar disorder, depression, hopeless, panic disorder, schizophrenia, sleepless, suicidal, others Physical Exam General Appearance: Mild Distress HEENT: Normal ENT Inspection, Pharynx Normal, TMs Normal Neck: Full Range of Motion, Non-Tender, Normal, Normal Inspection Respiratory: Chest Non-Tender, Lungs Clear, No Accessory Muscle Use, No Respiratory Distress, Normal Breath Sounds Cardiovascular: No Edema, No JVD, No Murmur, No Gallop, Normal Peripheral Pulses, Regular Rate/Rhythm Breast Exam: Deferred Gastrointestinal: No Organomegaly, Non Tender, No Pulsatile Mass, Normal Bowel Sounds, Soft Genitalia: Deferred Pelvic: Deferred Rectal: Deferred Extremities: No calf tenderness, Normal capillary refill, Normal inspection, Normal range of motion, Non-tender, No pedal edema Musculoskeletal : Apperance: Normal Neurologic: Alert, ring maker II-XII nml as Tested, No Motor Deficits, Normal Affect, Normal Mood, No Sensory Deficits Cerebellar Function: Normal Reflexes: Normal Skin: Dry, Normal Color, Warm Lymphatic: No Adenopathy Was a procedure done? Was a procedure done?: No EKG EKG : Pulse Rate (adult): 66 [place]: Normal Cardiac Rhythm: NSR Hypertrophy: LAE, LVH ST: Nonsp Differential Dx Considerations may include: Generalized weakness, ACS, OR, accelerated hypertension X-Ray, Labs, Meds, VS Vital Signs Date Time Temp Pulse Resp B/P (MAP) Pulse Ox O2 Delivery O2 Flow Rate FiO2 08/18/24 21:19 66 08/18/24 21:00 98.2 75 16 173/114 (133) 98 98.2 Lab Test 08/18/24 21:12 Range/Units White Blood Count 10.6 4.4-10.8 10^3/uL Red Blood Count 4.50 4.0-5.20 10^6/uL Hemoglobin 14.3 12.2-16.2 g/dL Hematocrit 40.7 36.0-46.0 % Mean Corpuscular Volume 90.4 80.0-100.0 fL Mean Corpuscular Hemoglobin 31.8 28.0-32.0 pg Mean Corpuscular Hemoglobin Concent 35.1 32.0-36.0 g/dL Red Cell Distribution Width 13.1 11.8-14.3 % Platelet Count 239 140-450 10^3/uL Mean Platelet Volume 7.5 6.9-10.8 fL Neutrophils (%) (Auto) 60.0 37.0-80.0 % Lymphocytes (%) (Auto) 31.1 10.0-50.0 % Monocytes (%) (Auto) 7.3 0.0-12.0 % Eosinophils (%) (Auto) 1.2 0.0-7.0 % Basophils (%) (Auto) 0.4 0.0-2.0 % Neutrophils # (Auto) 6.4 1.6-8.6 10 ^3/uL Lymphocytes # (Auto) 3.3 0.4-5.4 10 ^3/uL Monocytes # (Auto) 0.8 0-1.3 10 ^3/uL Eosinophils # (Auto) 0.1 0-0.8 10 ^3/uL Basophils # (Auto) 0 0-0.2 10 ^3/uL Nucleated Red Blood Cells 0.0 % Sodium Level Pending Potassium Level Pending Chloride Level Pending Carbon Dioxide Level Pending Anion Gap Pending Blood Urea Nitrogen Pending Creatinine Pending Glomerular Filtration Rate Calc Pending BUN/Creatinine Ratio Pending Serum Glucose Pending Calcium Level Pending Troponin I High Sensitivity Pending The CBC is within normal limits The patient is hypertensive The patient was given hydralazine 15 mg IV push The patient is being admitted with a diagnosis of accelerated hypertension The patient understands and agrees with the management Time of 1ST Reevaluation: 21:46 Reevaluation 1ST: Unchanged Patient Education/Counseling: Diagnosis, Treatment, Prognosis Family Education/Counseling: No Family Present Departure 1 Departure Time of Disposition: 21:46 Impression: Primary Impression: Accelerated hypertension Additional Impression: Acute chest pain Disposition: 09 ADMITTED INPATIENT Admit to: Tele Condition: Fair Critical Care Note Critical Care Time?: No Stability Stability form required: Yes Unstable for transfer: Telemetry monitoring (Telemetry monitoring required), ED Physician Assesment (Clinical assesment) Heart Score Heart Score: Heart Score Response (Comments) Value History N/A 0 EKG N/A 0 Age N/A 0 Risk Factors N/A 0 Troponin N/A 0 Total 0 ZOILA DUMONT MD August 18, 2024 21:19
[2024-08-18 21:32] LABS: Basophils # (auto) 0 10 ^3/uL (0-0.2); Basophils % (auto) 0.4 % (0.0-2.0); Eosinophils # (auto) 0.1 10 ^3/uL (0-0.8); Eosinophils % (auto) 1.2 % (0.0-7.0); Hematocrit 40.7 % (36.0-46.0); Hemoglobin 14.3 g/dL (12.2-16.2); Lymphocytes # (auto) 3.3 10 ^3/uL (0.4-5.4); Lymphocytes % (auto) 31.1 % (10.0-50.0); Mean Corpuscular Hemoglobin 31.8 pg (28.0-32.0); Mean Corpuscular Hgb Conc. 35.1 g/dL (32.0-36.0); Mean Corpuscular Volume 90.4 fL (80.0-100.0); Monocytes # (auto) 0.8 10 ^3/uL (0-1.3); Monocytes % (auto) 7.3 % (0.0-12.0); Neutrophils # (auto) 6.4 10 ^3/uL (1.6-8.6); Platelet Count (auto) 239 10^3/uL (140-450); Red Cell Distribution Width 13.1 % (11.8-14.3); White Blood Cell 10.6 10^3/uL (4.4-10.8)
[2024-08-18 21:42] LABS: Chloride 105 mmol/L (98-107); Potassium 4.5 mmol/L (3.5-5.1); Sodium 143 mmol/L (136-145)
[2024-08-18 21:43] LABS: Anion Gap 7 (5-15); Carbon Dioxide 31 mmol/L (20-31)
[2024-08-18 21:48] LABS: BUN/Creatinine Ratio 9.2 (10.0-20.0); Blood Urea Nitrogen 9 mg/dL (9-23)
[2024-08-18 21:51] LABS: Calcium 10.9 mg/dL (8.7-10.4); Glucose 137 mg/dL (74-106)
[2024-08-18 22:00] VITALS: BP 144/91; PULSE 81; RESP 16; TEMP 98.2; O2SAT 98
[2024-08-18] MEDS: ASPirin 81 mg TAB PO ONE (22:06)
[2024-08-18] MEDS: hydrALAZINE HCL 20 MG/ML VL IV ONE (22:12)
--- NOTE | 2024-08-19 22:01 | ECG ---
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
--- NOTE | 2024-08-19 22:01 | ECG ---
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
== END 2024-08-18 22:30 | disposition left against medical advice (07) ==
LOC: ER 20:52
DX: I10 Essential (primary) hypertension (principal); R07.89 Other chest pain; I25.10 Atherosclerotic heart disease of native coronary artery without angina pectoris; I25.2 Old myocardial infarction; E78.5 Hyperlipidemia, unspecified; F17.210 Nicotine dependence, cigarettes, uncomplicated; F12.90 Cannabis use, unspecified, uncomplicated
CPT/HCPCS: 36415; 80048; 84484; 85025; 93005

== ENCOUNTER 2024-08-24 11:29 | Inpatient (IN) | payer MEDICAID ==
[~2024-08-24] VITALS: Ht 162.6 cm; Wt 64.3 kg
[~2024-08-24 11:29] MED LIST changes: -AMOX875T3 PO; -BENZ20GE13 MT
[2024-08-24 12:05] LABS: Urine Bacteria None Seen /hpf (None Seen)
[2024-08-24 12:15] LABS: Urine Blood Negative /uL (Negative); Urine Clarity Clear (Clear); Urine Color Colorless (Yellow); Urine Protein, UAD Negative (Negative); Urine Specific Gravity 1.001 (1.001-1.035); Urine Squamous Epithelial Cell None Seen /hpf (<5); Urine Urobilinogen Normal (Negative); Urine WBC < 1 /HPF (0-5); Urine pH 6.5 (5.0-9.0)
[2024-08-24 12:22] LABS: Basophils # (auto) 0.1 10 ^3/uL (0-0.2); Basophils % (auto) 0.7 % (0.0-2.0); Eosinophils # (auto) 0.1 10 ^3/uL (0-0.8); Hematocrit 36.9 % (36.0-46.0); Hemoglobin 12.4 g/dL (12.2-16.2); Lymphocytes # (auto) 2.1 10 ^3/uL (0.4-5.4); Mean Corpuscular Hemoglobin 30.7 pg (28.0-32.0); Mean Corpuscular Hgb Conc. 33.7 g/dL (32.0-36.0); Mean Corpuscular Volume 91.1 fL (80.0-100.0); Monocytes # (auto) 0.6 10 ^3/uL (0-1.3); Monocytes % (auto) 7.4 % (0.0-12.0); Neutrophils # (auto) 4.9 10 ^3/uL (1.6-8.6); Neutrophils % (auto) 63.9 % (37.0-80.0); Nucleated Red Blood Cells % 0.1 %; Platelet Count (auto) 223 10^3/uL (140-450); Red Blood Cells 4.05 10^6/uL (4.0-5.20); Red Cell Distribution Width 13.4 % (11.8-14.3); White Blood Cell 7.7 10^3/uL (4.4-10.8)
[2024-08-24 12:26] LABS: Chloride 106 mmol/L (98-107); Potassium 4.4 mmol/L (3.5-5.1); Sodium 143 mmol/L (136-145)
[2024-08-24 12:27] LABS: Anion Gap 5 (5-15)
[2024-08-24 12:28] LABS: Calcium 10.2 mg/dL (8.7-10.4); Carbon Dioxide 32 mmol/L (20-31)
[2024-08-24 12:33] LABS: Blood Urea Nitrogen 7 mg/dL (9-23); Glucose 106 mg/dL (74-106)
--- NOTE | 2024-08-24 13:04 | ED.PDOC ---
HPI Comments 54 y/o F, with PMHx of HTN, CAD, and DC presents to the ED for CC of hypertension. Patient stats, she has been experiencing right sided chest pain with associated high blood pressure readings onset, Saturday (08/22/24). Patient reports, current 10/15 chest pain; patient describes pain to be tight in nature. Patient denies cough, shortness or breath, abdominal pain, nausea, or vomiting. No other symptoms or modifying factors present at this time. Chief Complaint: High Blood Pressure Time Seen by MD: 12:55 Primary Care Provider: JACI Reviewed Notes: Nurses Notes, Medications, Allergies Allergies: Coded Allergies: No Known Drug Allergy (Verified Allergy, Unknown, 04/22/21) Home Meds Active Scripts Chlorhexidine Gluconate (Mouth (CHLORHEXIDINE ORAL RINSE) 473 Ml So, 15 ML MT Q12HR for 5 Days, #473 ML Prov:JUNIOR CURTIS MD 08/11/24 Hydrocodone-Acetaminophen (Hydrocodone Bitartrate/AC 5-325 mg) 1 Tab Tab, 1 TAB PO Q4HP PRN, #20 TAB Prov:BENI HARDY MD 07/29/24 Pantoprazole Sodium Sesquihydr (Protonix) 40 Mg Tab, 40 MG PO DAILY, #30 TAB Prov:BENI HARDY MD 07/27/24 Nitroglycerin (NTROSTAT SUBLINGUAL) 0.4 Mg Sl, 0.4 MG SL Q5MINP PRN, #100 TAB Prov:BENI HARDY MD 07/27/24 Valsartan (Valsartan) 80 Mg Tab, 80 MG PO DAILY for 90 Days, #90 TAB 1 Refill Prov:SCOUT MARRERO MD 07/21/24 Nifedipine (Nifedipine Er) 60 Mg Tab, 1 TAB PO DAILY, #90 TAB 1 Refill Prov:SCOUT MARRERO MD 07/21/24 Clopidogrel Bisulfate (CLOPIDOGREL) 75 Mg Tab, 75 MG PO DAILY for 90 Days, #90 TAB 1 Refill Prov:SCOUT MRARERO MD 07/21/24 Atorvastatin Calcium (ATORVASTATIN CALCIUM) 40 Mg Tab, 1 TAB PO DAILY, #90 TAB 1 Refill Prov:SCOUT MARRERO MD 07/21/24 Aspirin (Aspirin Low Dose) 81 Mg Tab, 81 MG PO DAILY for 90 Days, #90 TAB 1 Refill Prov:SCOUT MARRERO MD 07/21/24 Discontinued Scripts Benzocaine (Dental) (ORAL ANALGESIC MAXIMUM ST) 20 % Gel, 10 % MT TIDPRN PRN for 3 Days, #9 GEL Prov:JUNIOR CURTIS MD 08/11/24 Amoxicillin Trihydrate (Amoxicillin) 875 Mg Tab, 1 TAB PO BID, #14 TAB Prov:JUNIOR CURTIS MD 08/11/24 Information Source: Patient Mode of Arrival: Ambulatory Severity: Moderate Timing: Days Duration: Since onset Prehospital treatment: None Location: Chest (R) Radiation: No Radiation Quality: Pressure, Tightness Onset: At Rest Cardiac Risk Factors: Smoker, HTN PE Risk Factors: None History of: DC Modifying Factors: Nothing Associated Signs and Symptoms: None Past Medical History PAST MEDICAL HISTORY: CAD, High Lipids, HTN, DC Surgical History: PTCA NEWSPAPER ILLUSTRATOR History: No Pertinent NEWSPAPER ILLUSTRATOR History Family History Family History: Family hx of DM, Family hx of HTN Social History Smoker: Cigarettes Alcohol: Denies ETOH Use Drugs: Marijuana Lives In: Home Constitutional: denies: chills, diaphoresis, fatigue, fever, malaise, sweats, weakness, others EENTM: denies: blurred vision, double vision, ear bleeding, ear discharge, ear drainage, ear pain, ear ringing, eye pain, eye redness, hearing loss, mouth pain, mouth swelling, nasal discharge, nose bleeding, nose congestion, nose pain, photophobia, tearing, throat pain, throat swelling, voice changes, others Respiratory: denies: cough, hemoptysis, orthopnea, SOB at rest, shortness of breath, SOB with excertion, stridor, wheezing, others Cardiovascular: reports: chest pain; denies: dizzy spells, diaphoresis, Dyspnea on exertion, edema, irregular heart beat, left arm pain, lightheadedness, palpitations, PND, syncope, others Gastrointestinal: denies: abdomen distended, abdominal pain, blood streaked bowels, constipated, diarrhea, dysphagia, difficulty swallowing, hematemesis, melena, nausea, poor appetite, poor fluid intake, rectal bleeding, rectal pain, vomiting, others Genitourinary: denies: abnormal vagina bleeding, burning, dyspareunia, dysuria, flank pain, frequency, hematuria, incontinence, pain, , vagina discharge, urgency, others Neurological: reports: headache; denies: dizziness, fainting, left sided numbness, left sided weakness, numbness, paresthesia, pre-existing deficit, right sided numbness, right sided weakness, seizure, speech problems, tingling, tremors, weakness, others Musculoskeletal: denies: back pain, gout, joint pain, joint swelling, muscle pain, muscle stiffness, neck pain, others Integumetry: denies: bruises, change in color, change in hair/nails, dryness, laceration, lesions, lumps, rash, wounds, others Allergic/Immunocompromised: denies: Difficulty Healing, Frequent Infections, Hives, Itching, others Hematologic/Lymphatic: denies: anemia, blood clots, easy bleeding, easy bruising, swollen glands, others Endocrine: denies: excessive hunger, excessive sweating, excessive thirst, excessive urination, flushing, intolerance to cold, intolerance to heat, unexplained weight gain, unexplained weight loss, others Psychiatric: denies: anxiety, bipolar disorder, depression, hopeless, panic disorder, schizophrenia, sleepless, suicidal, others All Other Systems: Reviewed and Negative Physical Exam General Appearance: No Apparent Distress, Normal HEENT: Normal ENT Inspection, Pharynx Normal, TMs Normal Neck: Full Range of Motion, Non-Tender, Normal, Normal Inspection Respiratory: Chest Non-Tender, Lungs Clear, No Accessory Muscle Use, No Respiratory Distress, Normal Breath Sounds Cardiovascular: No Edema, No Murmur, No Gallop, Normal Peripheral Pulses, Regular Rate/Rhythm Breast Exam: Deferred Gastrointestinal: No Organomegaly, Non Tender, No Pulsatile Mass, Normal Bowel Sounds, Soft Genitalia: Deferred Pelvic: Deferred Rectal: Deferred Extremities: No calf tenderness, Normal capillary refill, Normal inspection, Normal range of motion, Non-tender, No pedal edema Musculoskeletal : Apperance: Normal 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 Was a procedure done?: No CP Differential Dx Differential Diagnosis: Angina, Anxiety / Panic Attack, Heart Failure, Hyperventilation, DC Differential Diagnosis: HTN Essential, HTN Accelerated Differential Diagnosis: Angina, Chest Wall Pain, Costochondritis, Esophageal reflux/spasm, Gastritis, Myocardial Infarction, Pericarditis, Pneumonia X-Ray, Labs, Meds, VS Vital Signs Date Time Temp Pulse Resp B/P (MAP) Pulse Ox O2 Delivery O2 Flow Rate FiO2 08/24/24 11:50 75 08/24/24 11:40 97.7 80 18 170/101 (124) 99 97.7 164/100 (121) Lab Test 08/24/24 12:47 08/24/24 12:08 08/24/24 11:45 Range/Units Troponin I High Sensitivity 4 4 </=34 ng/L White Blood Count 7.7 # 4.4-10.8 10^3/uL Red Blood Count 4.05 4.0-5.20 10^6/uL Hemoglobin 12.4 12.2-16.2 g/dL Hematocrit 36.9 36.0-46.0 % Mean Corpuscular Volume 91.1 80.0-100.0 fL Mean Corpuscular Hemoglobin 30.7 28.0-32.0 pg Mean Corpuscular Hemoglobin Concent 33.7 32.0-36.0 g/dL Red Cell Distribution Width 13.4 11.8-14.3 % Platelet Count 223 140-450 10^3/uL Mean Platelet Volume 7.4 6.9-10.8 fL Neutrophils (%) (Auto) 63.9 37.0-80.0 % Lymphocytes (%) (Auto) 27.0 10.0-50.0 % Monocytes (%) (Auto) 7.4 0.0-12.0 % Eosinophils (%) (Auto) 1.0 0.0-7.0 % Basophils (%) (Auto) 0.7 0.0-2.0 % Neutrophils # (Auto) 4.9 1.6-8.6 10 ^3/uL Lymphocytes # (Auto) 2.1 0.4-5.4 10 ^3/uL Monocytes # (Auto) 0.6 0-1.3 10 ^3/uL Eosinophils # (Auto) 0.1 0-0.8 10 ^3/uL Basophils # (Auto) 0.1 0-0.2 10 ^3/uL Nucleated Red Blood Cells 0.1 % Sodium Level 143 136-145 mmol/L Potassium Level 4.4 3.5-5.1 mmol/L Chloride Level 106 98-107 mmol/L Carbon Dioxide Level 32 H 20-31 mmol/L Anion Gap 5 5-15 Blood Urea Nitrogen 7 L 9-23 mg/dL Creatinine 0.78 0.550-1.02 mg/dL Glomerular Filtration Rate Calc 90 >90 mL/min BUN/Creatinine Ratio 9.0 L 10.0-20.0 Serum Glucose 106 74-106 mg/dL Calcium Level 10.2 8.7-10.4 mg/dL Urine Color Colorless Yellow Urine Clarity Clear Clear Urine pH 6.5 5.0-9.0 Urine Specific [place] 1.001 1.001-1.035 Urine Protein Negative Negative Urine Ketones Negative Negative Urine Blood Negative Negative /uL Urine Nitrite Negative Negative Urine Bilirubin Negative Negative Urine Urobilinogen Normal Negative mg/dL Urine Leukocyte Esterase Negative Negative /uL Urine RBC None seen 0 - 4 /hpf Urine Microscopic WBC < 1 0-5 /HPF Urine Squamous Epithelial Cells None seen <5 /hpf Urine Bacteria None seen None Seen /hpf Urine Glucose Normal Normal mg/dL Time of 1ST Reevaluation: 13:25 Reevaluation 1ST: Unchanged Time of 2ND Reevaluation: 13:35 Reevaluation 2ND: Improved Patient Education/Counseling: Diagnosis, Treatment, Prognosis, Need For Follow Up Family Education/Counseling: No Family Present Additional Information The following tests were ordered, and results were reviewed by me: Additional Information was gathered from interviewing the following independent historians: I reviewed and agreed with the following test results read by other providers: I discussed treatment and results with medical personnel and: patient Comprehensive systems review obtained and negative except for what is stated in the HPI. Departure 1 Departure Time of Disposition: 13:36 Impression: Primary Impression: Unstable angina Disposition: 09 ADMITTED INPATIENT Admit to: [facility] Condition: Stable Discharged With: Self Critical Care Note Critical Care Time?: Yes (55 min-critical care time only) Critical care comment: due to concerns for patient's condition deteriorating, the care required my highest level of attention and readiness to intervene. i assessed the patient's condition, ordered the proper tests and treatments, reassessed for response and reviewed the results. i communicated with medical personnel and formulated a plan of care. total critical care time does not include any procedures Stability Stability form required: No Heart Score Heart Score: Heart Score Response (Comments) Value History Moderate Suspicious 1 EKG Repolarization Disturb 1 Age 45-64 1 Risk Factors >3 or Hx ASHD 2 Troponin Normal limit 0 Total 5 I personally scribed for ANTOINE KRAFT MD ([email or web address]) on 08/24/24 at 13:03. Electronically submitted by Tiffanie Adan ([email or web address]). ANTOINE KRAFT MD August 24, 2024 13:03
--- NOTE | 2024-08-24 13:23 | DVH ---
AP portable chest Comparison: 08/15/2024 CLINICAL INDICATION: cp FINDINGS: Heart size is normal. Aorta tortuous. No infiltrates or effusions. No bony thoracic abnorma lities. IMPRESSION: 1. No acute cardiopulmonary pathology. Signs of chronic hypertensive atherosclerotic cardiovascular di sease unchanged from 08/15/2024
[2024-08-24] MEDS: ASPirin 325 MG TAB PO ONE (13:36)
[2024-08-24] MEDS: SODIUM CHLOR 0.9% PF (SALINE LOCK) 10ML VIAL/SYR IV SCH (14:00)
[2024-08-24] MEDS ORDERED: DOCUSATE SOD 100 MG CAP PO PRN (14:00)
[2024-08-24] MEDS ORDERED: ONDANSETRON HCL 4 MG/2 ML VIAL IV PRN (14:00)
[2024-08-24] MEDS ORDERED: hydrALAZINE HCL 20 MG/ML VL IV PRN (14:00)
--- NOTE | 2024-08-24 14:25 | DVHHP2 ---
History of Present Illness Reason for Visit: Unstable angina History of Present Illness The patient is a 54-year-old female with past medical history of hyperlipidemia, Coronary artery disease, hypertension, and [place] who presented to [facility] with complaint of chest pain. Patient reports she has been experiencing intermittent substernal chest pain rating 7/10 numeric scale, tight in nature, associated with high blood pressure, headache that prompted this visit. Patient was seen and evaluated in the ED, laboratory data shows WBC 7.7, platelets 223, sodium 143, potassium 4.4, BUN 7, creatinine 0.78, glucose 106, troponin 4, blood pressure 170/101 trending down to 136/86, heart rate 76, temperature 98.8 F, O2 saturation 99% on room air. Chest x-ray show no acute cardiopulmonary pathology. On my assessment, patient rating chest pain at 2/10 numeric scale, no headache, no dizziness, no diaphoresis, no shortness of breath, no nausea, no vomiting, no fever, no chills. Patient was admitted for further evaluation and medical management. Past Medical History CAD, High Lipids, HTN, IN Past Surgical History PTCA Family History Reviewed, noncontributory to the management of this case. Past Social History Patient lives at home, smokes cigarettes, denies alcohol use, uses marijuana. Review of Systems Constitutional: Yes: Weakness; No: Fever, Chills, Sweats, Malaise, Other Eyes: No: Pain, Vision change, Conjunctivae inflammation, Eyelid inflammation, Other, Redness ENT: No: Ear pain, Ear discharge, Nose pain, Nose discharge, Nose congestion, Mouth pain, Mouth swelling, Throat pain, Throat swelling, Other Respiratory: No: Cough, Dry, Shortness of breath, SOB with excertion, Wheezing, Hemoptysis, Pleuritic Pain, Sputum, Wheezing, Other Cardiovascular: Chest Pain (Substernal); No: Palpitations, Orthopnea, Paroxysmal Noc. Dyspnea, Edema, Lt Headedness, Other Gastrointestinal: No: Nausea, Vomiting, Abdominal Pain, Diarrhea, Constipation, Melena, Hematochezia, Other Genitourinary: No Dysuria, No Frequency, No Incontinence, No Hematuria, No Retention, No Other Musculoskeletal: No: other, neck pain, shoulder pain, arm pain, back pain, hand pain, leg pain, foot pain Skin: No: Rash, Lesions, Jaundice, Bruising, Other Neurological: Other (Headache); No: Weakness, Numbness, Incoordination, Change in speech, Confusion, Seizures Allergies: Coded Allergies: No Known Drug Allergy (Verified Allergy, Unknown, 04/22/21) Medications Current Medications Medications Dose Ordered Sig/Remy Route Start Time Stop Time Status Last Admin Dose Admin Aspirin 81 mg DAILY PO 08/25/24 10:00 UNV Atorvastatin Calcium 20 mg HS PO 08/24/24 22:00 UNV Amlodipine Besylate 5 mg DAILY PO 08/25/24 10:00 UNV Hydralazine HCl 10 mg Q6HP PRN IV 08/24/24 14:00 UNV Famotidine 20 mg DAILY IV 08/25/24 10:00 UNV Sodium Chloride 10 ml Q8HR IV 08/24/24 14:00 UNV Acetaminophen/ Hydrocodone Bitart 1 tab Q4HP PRN PO 08/24/24 14:00 UNV Ondansetron HCl 4 mg Q4HP PRN IV 08/24/24 14:00 UNV Docusate Sodium 100 mg BIDPRN PRN PO 08/24/24 14:00 UNV Acetaminophen 650 mg Q6HP PRN PO 08/24/24 14:00 UNV Exam Vital Signs Vital Signs Date Time Temp Pulse Resp B/P (MAP) Pulse Ox O2 Delivery O2 Flow Rate FiO2 08/24/24 13:38 Room Air* 0 21 08/24/24 13:37 98.8 75 18 136/86 (103) 99 98.8 General Appearance: Alert, Oriented X3, Cooperative, No acute distress HEENT: Atraumatic, PERRLA, EOMI, Mucous membr. moist/pink Respiratory: Clear to auscultation, Normal air movement Cardiovascular: Regular rate, Normal S1, Normal S2, No murmurs Abdominal: Normal bowel sounds, Soft, No tenderness, No hepatospenomegaly, No masses Extremities: No clubbing, No cyanosis, No edema, Normal pulses, No tenderness/swelling Skin: No rashes, No breakdown, No significant lesion Neuro: Normal speech, Normal tone, Sensation intact, Cranial nerves 3-12 NL, Reflexes 2+, Other (Weakness) Psych/Mental Status: Mental status NL, Mood NL Labs/Xrays Labs Test 08/24/24 12:47 08/24/24 12:08 08/24/24 11:45 Range/Units Troponin I High Sensitivity 4 </=34 ng/L White Blood Count 7.7 # 4.4-10.8 10^3/uL Red Blood Count 4.05 4.0-5.20 10^6/uL Hemoglobin 12.4 12.2-16.2 g/dL Hematocrit 36.9 36.0-46.0 % Mean Corpuscular Volume 91.1 80.0-100.0 fL Mean Corpuscular Hemoglobin 30.7 28.0-32.0 pg Mean Corpuscular Hemoglobin Concent 33.7 32.0-36.0 g/dL Red Cell Distribution Width 13.4 11.8-14.3 % Platelet Count 223 140-450 10^3/uL Mean Platelet Volume 7.4 6.9-10.8 fL Neutrophils (%) (Auto) 63.9 37.0-80.0 % Lymphocytes (%) (Auto) 27.0 10.0-50.0 % Monocytes (%) (Auto) 7.4 0.0-12.0 % Eosinophils (%) (Auto) 1.0 0.0-7.0 % Basophils (%) (Auto) 0.7 0.0-2.0 % Neutrophils # (Auto) 4.9 1.6-8.6 10 ^3/uL Lymphocytes # (Auto) 2.1 0.4-5.4 10 ^3/uL Monocytes # (Auto) 0.6 0-1.3 10 ^3/uL Eosinophils # (Auto) 0.1 0-0.8 10 ^3/uL Basophils # (Auto) 0.1 0-0.2 10 ^3/uL Nucleated Red Blood Cells 0.1 % Sodium Level 143 136-145 mmol/L Potassium Level 4.4 3.5-5.1 mmol/L Chloride Level 106 98-107 mmol/L Carbon Dioxide Level 32 H 20-31 mmol/L Anion Gap 5 5-15 Blood Urea Nitrogen 7 L 9-23 mg/dL Creatinine 0.78 0.550-1.02 mg/dL Glomerular Filtration Rate Calc 90 >90 mL/min BUN/Creatinine Ratio 9.0 L 10.0-20.0 Serum Glucose 106 74-106 mg/dL Calcium Level 10.2 8.7-10.4 mg/dL Urine Color Colorless Yellow Urine Clarity Clear Clear Urine pH 6.5 5.0-9.0 Urine Specific [place] 1.001 1.001-1.035 Urine Protein Negative Negative Urine Ketones Negative Negative Urine Blood Negative Negative /uL Urine Nitrite Negative Negative Urine Bilirubin Negative Negative Urine Urobilinogen Normal Negative mg/dL Urine Leukocyte Esterase Negative Negative /uL Urine RBC None seen 0 - 4 /hpf Urine Microscopic WBC < 1 0-5 /HPF Urine Squamous Epithelial Cells None seen <5 /hpf Urine Bacteria None seen None Seen /hpf Urine Glucose Normal Normal mg/dL PATIENT: ADALI FERRIS ACCT: [id number] UNIT: [id number] : 1970 LOC: ER ROOM / BED: / AGE / SEX: 54 / F ADM STATUS: REG ER SERVICE 1251 ORDERING PHYSICIAN: ANTOINE KRAFT MD PROCEDURE(s): CXRP - CHEST PORTABLE REASON: cp ORDER NUMBER(s): [id number], ACCESSION NUMBER(s): [id number] AP portable chest Comparison: 08/15/2024 CLINICAL INDICATION: cp FINDINGS: Heart size is normal. Aorta tortuous. No infiltrates or effusions. No bony thoracic abnormalities. IMPRESSION: 1. No acute cardiopulmonary pathology. Signs of chronic hypertensive atherosclerotic cardiovascular disease unchanged from 08/15/2024 Assessment/Plan Assessment/Plan Unstable angina Hypertensive urgency Generalized weakness Plan 1. Admit to telemetry unit 2. Breathing treatment 3. Pain control management 4. Management of fluids and electrolytes 5. Consultation for Cardiology 6. Diagnostic tests chest x-ray 7. DVT prophylaxis-on aspirin 8. Repeat labs CBC, CMP in a.m. 9. Continue with current medical management 10. Treatment plan discussed with patient and RN. Patient verbalized understanding. Plan discussed with: Patient, Other (RN) My Orders Orders - MAYRA ALVAREZ DNP Procedure Category Date Status Time Aspirin Tablet PHA 08/25/24 Logged 10:00 Atorvastatin (Lipitor) PHA 08/24/24 Logged 22:00 Amlodipine Tablet PHA 08/25/24 Logged (Norvasc Tablet) 10:00 Hydralazine Injection PHA 08/24/24 Logged (Apresoline Inject 14:00 Famotidine Injection PHA 08/25/24 Logged (Pepcid Injection) 10:00 Allergies ANILA 5/19/25 In Process 13:58 Code Status CODE 08/24/24 Transmitted 13:58 Sodium Chloride Lock PHA 08/24/24 Logged (Saline Lock Ns) 14:00 Oxygen Per Hour RT 08/24/24 Transmitted 13:58 Hydrocodone-Acet PHA 08/24/24 Logged 5/325mg Tab (Wesco 14:00 Ondansetron Hcl PHA 08/24/24 Logged (Zofran) 14:00 Docusate Sodium PHA 08/24/24 Logged Capsule (Colace 14:00 Complete Blood Count LAB 08/25/24 Verified 04:00 Comprehensive LAB 08/25/24 Verified Metabolic Panel 04:00 Cardiac DIET 08/24/24 Transmitted Diet-2gna,Lofat,Lochol Dinner Condition: Serious ANILA 08/24/24 In Process 13:58 Acetaminophen Tablet PHA 08/24/24 Logged (Tylenol Tablet) 14:00 Bedrest With Bathroom ANILA 08/24/24 In Process Privileg 13:58 Sequential ANILA 08/24/24 In Process Compression Device Problem List: (1) Unstable angina (2) Hypertensive urgency (3) Generalized weakness Date of Service: August 24, 2024 Billing Provider: MAYRA ALVAREZ DNP Common Visit Codes: 07919-[id number] INP/OBS CARE (HIGH) MAYRA ALVAREZ DNP August 24, 2024 14:25
[2024-08-24] MEDS ORDERED: NITROGLYCERIN 0.4 MG SL TAB SL PRN (14:30)
[2024-08-24 17:23] VITALS: BP 146/72; PULSE 70; PULSE 76; RESP 17; RESP 18; TEMP 97.4; O2SAT 96; O2SAT 98
[2024-08-24 17:30] VITALS: BP 140/71; PULSE 67; RESP 12; TEMP 97.4; O2SAT 96
[2024-08-24 21:00] VITALS: BP 143/80; PULSE 74; RESP 17; TEMP 98.1; O2SAT 97
[2024-08-24] MEDS: ATORVASTATIN 20 MG TAB PO SCH (21:22)
[2024-08-25] VITALS (10 sets, daily range): BP systolic 129–150; BP diastolic 70–85; PULSE 50–70; RESP 12–18; TEMP 97.6–98.3; O2SAT 96–100
[2024-08-25] MEDS: MORPHINE SULFATE INJ 2 MG/ml SYRG IV PRN (00:03)
[2024-08-25 08:06] LABS: Albumin 4.2 g/dL (3.2-4.8); Alkaline Phosphatase 60 U/L (46-116); Anion Gap 8 (5-15); Aspartate Aminotransferase 28 U/L (13-40); Calcium 9.9 mg/dL (8.7-10.4); Carbon Dioxide 26 mmol/L (20-31); Glucose 103 mg/dL (74-106); Potassium 3.8 mmol/L (3.5-5.1); Sodium 141 mmol/L (136-145); Total Protein 6.6 g/dL (5.7-8.2)
[2024-08-25 08:07] LABS: Bilirubin, Total 0.4 mg/dL (0.2-1.0)
[2024-08-25 08:09] LABS: Alanine Aminotransferase 49 U/L (7-40); Blood Urea Nitrogen 9 mg/dL (9-23); Chloride 107 mmol/L (98-107)
[2024-08-25 08:22] LABS: Basophils # (auto) 0 10 ^3/uL (0-0.2); Basophils % (auto) 0.6 % (0.0-2.0); Eosinophils # (auto) 0.1 10 ^3/uL (0-0.8); Eosinophils % (auto) 1.6 % (0.0-7.0); Hemoglobin 12.2 g/dL (12.2-16.2); Lymphocytes # (auto) 2.6 10 ^3/uL (0.4-5.4); Lymphocytes % (auto) 36.9 % (10.0-50.0); Mean Corpuscular Volume 91.2 fL (80.0-100.0); Monocytes # (auto) 0.6 10 ^3/uL (0-1.3); Monocytes % (auto) 8.5 % (0.0-12.0); Neutrophils # (auto) 3.7 10 ^3/uL (1.6-8.6); Neutrophils % (auto) 52.4 % (37.0-80.0); Nucleated Red Blood Cells % 0.1 %; Platelet Count (auto) 208 10^3/uL (140-450); Red Blood Cells 3.94 10^6/uL (4.0-5.20); Red Cell Distribution Width 13.2 % (11.8-14.3); White Blood Cell 7.1 10^3/uL (4.4-10.8)
[2024-08-25] MEDS: FAMOTIDINE (10MG/ML) 2ML VL IV SCH (09:16)
[2024-08-25] MEDS: amLODIPine BESYLATE 5 MG TAB PO SCH (09:16)
[2024-08-25] MEDS: ASPirin 81 mg TAB PO SCH (09:16)
--- NOTE | 2024-08-25 09:58 | ECG ---
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
--- NOTE | 2024-08-25 12:59 | ECG ---
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
[2024-08-25] MEDS: CLOPIDOGREL BISULFATE 75 MG TAB PO ONE (14:19)
--- NOTE | 2024-08-25 14:36 | DVHPN2 ---
Subjective History of Present Illness The patient is a 54-year-old female with past medical history of hyperlipidemia, Coronary artery disease, hypertension, and [place] who presented to [facility] with complaint of chest pain. Patient reports she has been experiencing intermittent substernal chest pain rating 7/10 numeric scale, tight in nature, associated with high blood pressure, headache that prompted this visit. Patient was seen and evaluated in the ED, laboratory data shows WBC 7.7, platelets 223, sodium 143, potassium 4.4, BUN 7, creatinine 0.78, glucose 106, troponin 4, blood pressure 170/101 trending down to 136/86, heart rate 76, temperature 98.8 F, O2 saturation 99% on room air. Chest x-ray show no acute cardiopulmonary pathology. On my assessment, patient rating chest pain at 2/10 numeric scale, no headache, no dizziness, no diaphoresis, no shortness of breath, no nausea, no vomiting, no fever, no chills. Patient was admitted for further evaluation and medical management. Past Medical History CAD, High Lipids, HTN, [place] Past Surgical History PTCA Patient evaluated at bedside today. Reviewed: H&P Changes from previous H/P or p: No Changes General: Per HPI Eyes: No Pain, No Vision change, No Conjunctivae inflammation, No Eyelid inflammation, No Other, No Redness ENT: No Ear pain, No Ear discharge, No Nose pain, No Nose discharge, No Nose congestion, No Mouth pain, No Mouth swelling, No Throat pain, No Throat swelling, No Other Cardiovascular: Chest Pain (Substernal); No Palpitations, No Orthopnea, No Paroxysmal Noc. Dyspnea, No Edema, No Lt Headedness, No Other Respiratory: No Cough, No Dry, No Shortness of breath, No SOB with excertion, No Wheezing, No Hemoptysis, No Pleuritic Pain, No Sputum, No Other Gastrointestinal: No Nausea, No Vomiting, No Abdominal Pain, No Diarrhea, No Constipation, No Melena, No Hematochezia, No Other Genitourinary: No Dysuria, No Frequency, No Incontinence, No Hematuria, No Retention, No Other Musculoskeletal: No other, No neck pain, No shoulder pain, No arm pain, No back pain, No hand pain, No leg pain, No foot pain Skin: No Rash, No Lesions, No Jaundice, No Bruising, No Other Objective Vitals Vital Signs Date Time Temp Pulse Resp B/P (MAP) Pulse Ox O2 Delivery O2 Flow Rate FiO2 08/25/24 13:11 98.1 50 12 149/82 (104) 100 98.1 08/24/24 17:23 Room Air* 0 21 Intake/Output Intake and Output 08/25/24 07:00 Intake Total 250 ml Output Total 200 ml Balance 50 ml Intake Oral 250 ml Output Urine Total 200 ml Exam GEN: Healthy appearing, well-developed, NAD. HEENT: NC/AT; MMM. CV: RRR, no m/r/g. LUNGS: CTAB, no w/r/c. ABD: Soft, NT/ND, NBS, no masses or organomegaly. EXT: skin Warm, well perfused. no rashes. No clubbing, cyanosis, or edema. T rui to palpation on right lower ribs NEURO: Ambulating with no limitations. No focal deficits. Medications Current Medications Medications Dose Ordered Sig/Remy Route Start Time Stop Time Status Last Admin Dose Admin Aspirin 81 mg DAILY PO 08/25/24 10:00 08/25/24 09:16 81 MG Atorvastatin Calcium 20 mg HS PO 08/24/24 22:00 08/24/24 21:22 20 MG Amlodipine Besylate 5 mg DAILY PO 08/25/24 10:00 08/25/24 09:16 5 MG Hydralazine HCl 10 mg Q6HP PRN IV 08/24/24 14:00 Famotidine 20 mg DAILY IV 08/25/24 10:00 08/25/24 09:16 20 MG Sodium Chloride 10 ml Q8HR IV 08/24/24 14:00 08/25/24 14:00 10 ML Acetaminophen/ Hydrocodone Bitart 1 tab Q4HP PRN PO 08/24/24 14:00 Ondansetron HCl 4 mg Q4HP PRN IV 08/24/24 14:00 Docusate Sodium 100 mg BIDPRN PRN PO 08/24/24 14:00 Acetaminophen 650 mg Q6HP PRN PO 08/24/24 14:00 Nitroglycerin 0.4 mg Q5MINP PRN SL 08/24/24 14:30 Morphine Sulfate 2 mg Q30M PRN IV 08/24/24 14:30 08/25/24 00:03 2 MG Clopidogrel Bisulfate 75 mg DAILY PO 08/26/24 10:00 Laboratory Results Laboratory Tests 08/25/24 07:18 Chemistry Test 08/25/24 07:18 Albumin 4.2 g/dL (3.2-4.8) Calcium Level 9.9 mg/dL (8.7-10.4) Total Protein 6.6 g/dL (5.7-8.2) LFT Test 08/25/24 07:18 Alanine Aminotransferase (ALT) 49 U/L (7-40) H Alkaline Phosphatase 60 U/L (46-116) Aspartate Amino Transferase (AST) 28 U/L (13-40) Total Bilirubin 0.4 mg/dL (0.2-1.0) Urinalysis Test 08/24/24 11:45 Urine Color Colorless (Yellow) Urine Clarity Clear (Clear) Urine pH 6.5 (5.0-9.0) Urine Specific [place] 1.001 (1.001-1.035) Urine Protein Negative (Negative) Urine Ketones Negative (Negative) Urine Blood Negative /uL (Negative) Urine Nitrite Negative (Negative) Urine Bilirubin Negative (Negative) Urine Urobilinogen Normal mg/dL (Negative) Urine Leukocyte Esterase Negative /uL (Negative) Urine RBC None seen /hpf (0 - 4) Urine Microscopic WBC < 1 /HPF (0-5) Urine Squamous Epithelial Cells None seen /hpf (<5) Urine Bacteria None seen /hpf (None Seen) Urine Glucose Normal mg/dL (Normal) Labs and/or images reviewed: Labs reviewed by me, Image(s) reviewed by me Assessment/Plan Assessment/Plan 08/25 patient presenting with chest pain, has multiple risk factors including history of recent [place] and requiring HILARIO/PTCA, hypertension hyperlipidemia. Patient's chest pain is substernal radiating to the right chest wall region,. Pain is not similar to prior [place] resulting pain. Cardiology consulted to rule out [place]. we will continue patient's home medications. Diagnosis: Hypertensive urgency Chest pain, rule out [place] Coronary artery disease status post HILARIO PTCA Hypertension Hyperlipidemia Plan: - pain control with p.r.n. analgesia (Calvin 5, morphine 2 mg, Tylenol) Continue home medications amlodipine, aspirin, Plavix, Lipitor GI prophylaxis famotidine injection 20 IV daily - hypertensive urgency continue home meds amlodipine 5 mg, hydralazine 10 IV b.i.d. - recent [place] HILARIO continued DAPT, Lipitor - DVT prophylaxis Lovenox -Tele - cardiac diet -Full code Plan discussed with: Patient My Orders Orders - GRANT MCBRIDE MD Procedure Category Date Status Time Clopidogrel Bisulfate PHA 08/26/24 In Process (Plavix) 10:00 Date of Service: August 25, 2024 Billing Provider: GRANT MCBRIDE MD Common Visit Codes: [id number] INP/OBS CARE(HIGH) GRANT MCBRIDE MD August 25, 2024 14:36
[2024-08-25] MEDS: HYDROcodone-ACET 5/325MG TAB PO PRN (20:40)
[2024-08-26] VITALS (8 sets, daily range): BP systolic 130–152; BP diastolic 72–86; PULSE 51–69; RESP 15–20; TEMP 97.3–98.7; O2SAT 98–100
[2024-08-26 06:15] LABS: Basophils # (auto) 0 10 ^3/uL (0-0.2); Basophils % (auto) 0.5 % (0.0-2.0); Eosinophils # (auto) 0.1 10 ^3/uL (0-0.8); Eosinophils % (auto) 1.7 % (0.0-7.0); Hematocrit 38.1 % (36.0-46.0); Hemoglobin 12.8 g/dL (12.2-16.2); Lymphocytes # (auto) 2.6 10 ^3/uL (0.4-5.4); Lymphocytes % (auto) 37.7 % (10.0-50.0); Mean Corpuscular Hemoglobin 30.2 pg (28.0-32.0); Mean Corpuscular Hgb Conc. 33.5 g/dL (32.0-36.0); Mean Corpuscular Volume 90.2 fL (80.0-100.0); Monocytes # (auto) 0.5 10 ^3/uL (0-1.3); Monocytes % (auto) 7.5 % (0.0-12.0); Neutrophils # (auto) 3.6 10 ^3/uL (1.6-8.6); Neutrophils % (auto) 52.6 % (37.0-80.0); Nucleated Red Blood Cells % 0.1 %; Platelet Count (auto) 225 10^3/uL (140-450); Red Blood Cells 4.22 10^6/uL (4.0-5.20); Red Cell Distribution Width 13.1 % (11.8-14.3); White Blood Cell 6.9 10^3/uL (4.4-10.8)
[2024-08-26 06:29] LABS: Alkaline Phosphatase 61 U/L (46-116); Calcium 9.7 mg/dL (8.7-10.4); Carbon Dioxide 27 mmol/L (20-31); Chloride 106 mmol/L (98-107)
[2024-08-26 06:30] LABS: Anion Gap 9 (5-15); BUN/Creatinine Ratio 13.5 (10.0-20.0); Blood Urea Nitrogen 10 mg/dL (9-23); Sodium 142 mmol/L (136-145); Total Protein 6.8 g/dL (5.7-8.2)
[2024-08-26 06:31] LABS: Albumin 4.3 g/dL (3.2-4.8); Aspartate Aminotransferase 33 U/L (13-40); Bilirubin, Total 0.4 mg/dL (0.2-1.0)
[2024-08-26 06:32] LABS: Alanine Aminotransferase 55 U/L (7-40); Glucose 91 mg/dL (74-106)
[2024-08-26] MEDS: CLOPIDOGREL BISULFATE 75 MG TAB PO SCH (10:04)
[2024-08-26] MEDS ORDERED: hydrALAZINE HCL 20 MG/ML VL IV PRN (10:30)
--- NOTE | 2024-08-26 12:27 | DVHINCON2 ---
Date of service: August 26, 2024 History of Present Illness 54 yo F with hx of cad s/p pci, htn, HL admitted for chest pain. pt had negative trops . ecg is SR and normal Past Medical History reviewed Family History: Colon cancer G8 MOTHER Diabetes mellitus G8 FATHER FH: breast cancer G8 MOTHER FH: heart attack G8 FATHER FH: stroke G8 MOTHER G8 FATHER Hypertension G8 MOTHER G8 FATHER Allergies: Coded Allergies: No Known Drug Allergy (Verified Allergy, Unknown, 04/22/21) Home Meds Active Scripts Chlorhexidine Gluconate (Mouth (CHLORHEXIDINE ORAL RINSE) 473 Ml So, 15 ML MT Q12HR for 5 Days, #473 ML Prov:JUNIOR CURTIS MD 08/11/24 Hydrocodone-Acetaminophen (Hydrocodone Bitartrate/AC 5-325 mg) 1 Tab Tab, 1 TAB PO Q4HP PRN, #20 TAB Prov:BENI HARDY MD 07/29/24 Pantoprazole Sodium Sesquihydr (Protonix) 40 Mg Tab, 40 MG PO DAILY, #30 TAB Prov:BENI HARDY MD 07/27/24 Nitroglycerin (NTROSTAT SUBLINGUAL) 0.4 Mg Sl, 0.4 MG SL Q5MINP PRN, #100 TAB Prov:BENI HARDY MD 07/27/24 Valsartan (Valsartan) 80 Mg Tab, 80 MG PO DAILY for 90 Days, #90 TAB 1 Refill Prov:SCOUT MARRERO MD 07/21/24 Nifedipine (Nifedipine Er) 60 Mg Tab, 1 TAB PO DAILY, #90 TAB 1 Refill Prov:SCOUT MARRERO MD 07/21/24 Clopidogrel Bisulfate (CLOPIDOGREL) 75 Mg Tab, 75 MG PO DAILY for 90 Days, #90 TAB 1 Refill Prov:SCOUT MARRERO MD 07/21/24 Atorvastatin Calcium (ATORVASTATIN CALCIUM) 40 Mg Tab, 1 TAB PO DAILY, #90 TAB 1 Refill Prov:SCOUT MARRERO MD 07/21/24 Aspirin (Aspirin Low Dose) 81 Mg Tab, 81 MG PO DAILY for 90 Days, #90 TAB 1 Refill Prov:SCOUT MARRERO MD 07/21/24 Current Medications Current Medications Medications (Trade) Dose Ordered Sig/Remy Route PRN Reason Start Time Stop Time Status Last Admin Clopidogrel Bisulfate (Plavix) 75 mg DAILY PO 08/26/24 10:00 08/26/24 10:04 Hydralazine HCl (Apresoline Injection) 10 mg Q6HP PRN IV SBP>170 08/26/24 10:30 Review of Systems 10 pt ros otherwise negative Vital Signs Vital Signs Date Time Temp Pulse Resp B/P (MAP) Pulse Ox O2 Delivery O2 Flow Rate FiO2 08/26/24 10:05 132/78 08/26/24 09:00 97.6 52 19 100 97.6 08/26/24 08:00 Room Air* 0 21 Physical Exam nad s1 s2 rrr ctab soft nt/nd no edema Labs/Diagnostic Data Labs Test 08/26/24 05:38 08/24/24 12:47 08/24/24 11:45 Range/Units White Blood Count 6.9 4.4-10.8 10^3/uL Red Blood Count 4.22 4.0-5.20 10^6/uL Hemoglobin 12.8 12.2-16.2 g/dL Hematocrit 38.1 36.0-46.0 % Mean Corpuscular Volume 90.2 80.0-100.0 fL Mean Corpuscular Hemoglobin 30.2 28.0-32.0 pg Mean Corpuscular Hemoglobin Concent 33.5 32.0-36.0 g/dL Red Cell Distribution Width 13.1 11.8-14.3 % Platelet Count 225 140-450 10^3/uL Mean Platelet Volume 7.5 6.9-10.8 fL Neutrophils (%) (Auto) 52.6 37.0-80.0 % Lymphocytes (%) (Auto) 37.7 10.0-50.0 % Monocytes (%) (Auto) 7.5 0.0-12.0 % Eosinophils (%) (Auto) 1.7 0.0-7.0 % Basophils (%) (Auto) 0.5 0.0-2.0 % Neutrophils # (Auto) 3.6 1.6-8.6 10 ^3/uL Lymphocytes # (Auto) 2.6 0.4-5.4 10 ^3/uL Monocytes # (Auto) 0.5 0-1.3 10 ^3/uL Eosinophils # (Auto) 0.1 0-0.8 10 ^3/uL Basophils # (Auto) 0 0-0.2 10 ^3/uL Nucleated Red Blood Cells 0.1 % Sodium Level 142 136-145 mmol/L Potassium Level 4.0 3.5-5.1 mmol/L Chloride Level 106 98-107 mmol/L Carbon Dioxide Level 27 20-31 mmol/L Anion Gap 9 5-15 Blood Urea Nitrogen 10 9-23 mg/dL Creatinine 0.74 0.550-1.02 mg/dL Glomerular Filtration Rate Calc 96 >90 mL/min BUN/Creatinine Ratio 13.5 10.0-20.0 Serum Glucose 91 74-106 mg/dL Calcium Level 9.7 8.7-10.4 mg/dL Total Bilirubin 0.4 0.2-1.0 mg/dL Aspartate Amino Transferase (AST) 33 13-40 U/L Alanine Aminotransferase (ALT) 55 H 7-40 U/L Alkaline Phosphatase 61 46-116 U/L Total Protein 6.8 5.7-8.2 g/dL Albumin 4.3 3.2-4.8 g/dL Troponin I High Sensitivity 4 </=34 ng/L Urine Color Colorless Yellow Urine Clarity Clear Clear Urine pH 6.5 5.0-9.0 Urine Specific [place] 1.001 1.001-1.035 Urine Protein Negative Negative Urine Ketones Negative Negative Urine Blood Negative Negative /uL Urine Nitrite Negative Negative Urine Bilirubin Negative Negative Urine Urobilinogen Normal Negative mg/dL Urine Leukocyte Esterase Negative Negative /uL Urine RBC None seen 0 - 4 /hpf Urine Microscopic WBC < 1 0-5 /HPF Urine Squamous Epithelial Cells None seen <5 /hpf Urine Bacteria None seen None Seen /hpf Urine Glucose Normal Normal mg/dL Microbiology Date/Time Source Procedure Growth Status 08/24/24 21:33 Nose MRSA Screen - Final Complete Assessment HTN cad s/p pci HL tobacco Plan/Recommendation cont dapt acs ruled out bp is high add toprol xl for dc avoid tobacco reassured pt Plan discussed with: Patient BARBARA BHANDARI MD August 26, 2024 12:27
[2024-08-26] MEDS: BACLOFEN 10 MG TAB PO SCH (14:40)
--- NOTE | 2024-08-26 15:24 | DVHPN2 ---
Subjective History of Present Illness The patient is a 54-year-old female with past medical history of hyperlipidemia, Coronary artery disease, hypertension, and [place] who presented to [facility] with complaint of chest pain. Patient reports she has been experiencing intermittent substernal chest pain rating 7/10 numeric scale, tight in nature, associated with high blood pressure, headache that prompted this visit. Patient was seen and evaluated in the ED, laboratory data shows WBC 7.7, platelets 223, sodium 143, potassium 4.4, BUN 7, creatinine 0.78, glucose 106, troponin 4, blood pressure 170/101 trending down to 136/86, heart rate 76, temperature 98.8 F, O2 saturation 99% on room air. Chest x-ray show no acute cardiopulmonary pathology. On my assessment, patient rating chest pain at 2/10 numeric scale, no headache, no dizziness, no diaphoresis, no shortness of breath, no nausea, no vomiting, no fever, no chills. Patient was admitted for further evaluation and medical management. Past Medical History CAD, High Lipids, HTN, [place] Past Surgical History PTCA Patient evaluated at bedside today. Reviewed: H&P Changes from previous H/P or p: No Changes General: Per HPI Eyes: No Pain, No Vision change, No Conjunctivae inflammation, No Eyelid inflammation, No Other, No Redness ENT: No Ear pain, No Ear discharge, No Nose pain, No Nose discharge, No Nose congestion, No Mouth pain, No Mouth swelling, No Throat pain, No Throat swelling, No Other Cardiovascular: Chest Pain (Substernal); No Palpitations, No Orthopnea, No Paroxysmal Noc. Dyspnea, No Edema, No Lt Headedness, No Other Respiratory: No Cough, No Dry, No Shortness of breath, No SOB with excertion, No Wheezing, No Hemoptysis, No Pleuritic Pain, No Sputum, No Other Gastrointestinal: No Nausea, No Vomiting, No Abdominal Pain, No Diarrhea, No Constipation, No Melena, No Hematochezia, No Other Genitourinary: No Dysuria, No Frequency, No Incontinence, No Hematuria, No Retention, No Other Musculoskeletal: No other, No neck pain, No shoulder pain, No arm pain, No back pain, No hand pain, No leg pain, No foot pain Skin: No Rash, No Lesions, No Jaundice, No Bruising, No Other Objective Vitals Vital Signs Date Time Temp Pulse Resp B/P (MAP) Pulse Ox O2 Delivery O2 Flow Rate FiO2 08/26/24 13:07 98.1 52 20 137/72 (93) 100 98.1 08/26/24 08:00 Room Air* 0 21 Intake/Output Intake and Output 08/26/24 07:00 Intake Total 1485 ml Output Total 700 ml Balance 785 ml Intake Oral 1485 ml Output Urine Total 700 ml # Voids 4 Exam GEN: Healthy appearing, well-developed, NAD. HEENT: NC/AT; MMM. CV: RRR, no m/r/g. LUNGS: CTAB, no w/r/c. ABD: Soft, NT/ND, NBS, no masses or organomegaly. EXT: skin Warm, well perfused. no rashes. No clubbing, cyanosis, or edema. T rui to palpation on right lower ribs NEURO: Ambulating with no limitations. No focal deficits. Medications Current Medications Medications Dose Ordered Sig/Remy Route Start Time Stop Time Status Last Admin Dose Admin Aspirin 81 mg DAILY PO 08/25/24 10:00 08/26/24 10:04 81 MG Atorvastatin Calcium 20 mg HS PO 08/24/24 22:00 08/25/24 22:30 20 MG Amlodipine Besylate 5 mg DAILY PO 08/25/24 10:00 08/26/24 10:05 5 MG Famotidine 20 mg DAILY IV 08/25/24 10:00 08/26/24 10:03 20 MG Sodium Chloride 10 ml Q8HR IV 08/24/24 14:00 08/26/24 14:23 10 ML Acetaminophen/ Hydrocodone Bitart 1 tab Q4HP PRN PO 08/24/24 14:00 08/26/24 06:10 1 TAB Ondansetron HCl 4 mg Q4HP PRN IV 08/24/24 14:00 Docusate Sodium 100 mg BIDPRN PRN PO 08/24/24 14:00 Acetaminophen 650 mg Q6HP PRN PO 08/24/24 14:00 Nitroglycerin 0.4 mg Q5MINP PRN SL 08/24/24 14:30 Morphine Sulfate 2 mg Q30M PRN IV 08/24/24 14:30 08/25/24 00:03 2 MG Clopidogrel Bisulfate 75 mg DAILY PO 08/26/24 10:00 08/26/24 10:04 75 MG Hydralazine HCl 10 mg Q6HP PRN IV 08/26/24 10:30 Baclofen 10 mg BID PO 08/26/24 13:30 08/26/24 14:40 10 MG Laboratory Results Laboratory Tests 08/26/24 05:38 Chemistry Test 08/26/24 05:38 Albumin 4.3 g/dL (3.2-4.8) Calcium Level 9.7 mg/dL (8.7-10.4) Total Protein 6.8 g/dL (5.7-8.2) LFT Test 08/26/24 05:38 Alanine Aminotransferase (ALT) 55 U/L (7-40) H Alkaline Phosphatase 61 U/L (46-116) Aspartate Amino Transferase (AST) 33 U/L (13-40) Total Bilirubin 0.4 mg/dL (0.2-1.0) Urinalysis Test 08/24/24 11:45 Urine Color Colorless (Yellow) Urine Clarity Clear (Clear) Urine pH 6.5 (5.0-9.0) Urine Specific [place] 1.001 (1.001-1.035) Urine Protein Negative (Negative) Urine Ketones Negative (Negative) Urine Blood Negative /uL (Negative) Urine Nitrite Negative (Negative) Urine Bilirubin Negative (Negative) Urine Urobilinogen Normal mg/dL (Negative) Urine Leukocyte Esterase Negative /uL (Negative) Urine RBC None seen /hpf (0 - 4) Urine Microscopic WBC < 1 /HPF (0-5) Urine Squamous Epithelial Cells None seen /hpf (<5) Urine Bacteria None seen /hpf (None Seen) Urine Glucose Normal mg/dL (Normal) Microbiology Microbiology Date/Time Source Procedure Growth Status 08/24/24 21:33 Nose MRSA Screen - Final Complete Labs and/or images reviewed: Labs reviewed by me, Image(s) reviewed by me Assessment/Plan Assessment/Plan 08/25 patient presenting with chest pain, has multiple risk factors including history of recent [place] and requiring HILARIO/PTCA, hypertension hyperlipidemia. Patient's chest pain is substernal radiating to the right chest wall region,. Pain is not similar to prior [place] resulting pain. Cardiology consulted to rule out DC. we will continue patient's home medications. 08/26 cardiology rules out ACS,. Multiple medication changes required. We will monitor patient 1 more midnight to assess tolerance of medication changes. Likely DC tomorrow a.m.. Starting baclofen 10 b.i.d. for likely musculoskeletal cause of chest pain. Diagnosis: Hypertensive urgency Chest pain, rule out [place] Coronary artery disease status post HILARIO PTCA Hypertension Hyperlipidemia Plan: - pain control with p.r.n. analgesia (Divide 5, morphine 2 mg, Tylenol) - baclofen 10 b.i.d. - change amlodipine to valsartan ED,. Start metoprolol dose tophi 5 mg daily. Continue home medications amlodipine, aspirin, Plavix, Lipitor GI prophylaxis famotidine injection 20 IV daily - hypertensive urgency continue home meds amlodipine 5 mg, hydralazine 10 IV b.i.d. - recent DC HILARIO continued DAPT, Lipitor - DVT prophylaxis Lovenox -Tele - cardiac diet -Full code Plan discussed with: Patient My Orders Orders - GRANT MCBRIDE MD Procedure Category Date Status Time Hydralazine Injection PHA 08/26/24 In Process (Apresoline Inject 10:30 Baclofen Tablet PHA 08/26/24 In Process (Liorisal Tablet) 13:30 Metoprolol Xl PHA 08/26/24 Verified Succinate (Toprol Xl) 15:30 Metoprolol Xl PHA 08/27/24 Verified Succinate (Toprol Xl) 10:00 Valsartan (Diovan) PHA 08/27/24 Verified 10:00 Date of Service: August 26, 2024 Billing Provider: GRANT MCBRIDE MD Common Visit Codes: [id number] INP/OBS CARE(HIGH) GRANT MCBRIDE MD August 26, 2024 15:24
[2024-08-26] MEDS: METOPROLOL SUCCINATE XL 50 MG TAB PO ONE (17:21)
[2024-08-26] MEDS: ACETAMINOPHEN 325 MG TAB PO PRN (19:41)
[2024-08-26] MEDS: LACTATED RINGER'S 1,000 ML IV ONE (21:25)
[2024-08-27] VITALS (7 sets, daily range): BP systolic 125–147; BP diastolic 61–80; PULSE 51–60; RESP 18; TEMP 97.7–98; O2SAT 96–100
[2024-08-27 06:02] LABS: Carbon Dioxide 26 mmol/L (20-31); Chloride 106 mmol/L (98-107); Potassium 3.9 mmol/L (3.5-5.1); Sodium 141 mmol/L (136-145)
[2024-08-27 06:03] LABS: Calcium 9.6 mg/dL (8.7-10.4)
[2024-08-27 06:08] LABS: BUN/Creatinine Ratio 12.3 (10.0-20.0); Blood Urea Nitrogen 9 mg/dL (9-23)
[2024-08-27 06:30] LABS: Glucose 114 mg/dL (74-106)
[2024-08-27 06:35] LABS: Anion Gap 9 (5-15)
[2024-08-27] MEDS: METOPROLOL SUCCINATE XL 50 MG TAB PO SCH (10:00)
[2024-08-27] MEDS: VALSARTAN 80 MG TAB PO SCH (10:01)
--- NOTE | 2024-08-27 12:52 | DVHDS2 ---
Discharge Summary Date of Admission August 24, 2024 at 14:23 Date of Discharge: August 27, 2024 Labs/Diagnostic Data: Laboratory Results Test 08/27/24 05:14 08/26/24 05:38 08/24/24 12:47 08/24/24 11:45 Sodium Level 141 mmol/L (136-145) Potassium Level 3.9 mmol/L (3.5-5.1) Chloride Level 106 mmol/L (98-107) Carbon Dioxide Level 26 mmol/L (20-31) Anion Gap 9 (5-15) Blood Urea Nitrogen 9 mg/dL (9-23) Creatinine 0.73 mg/dL (0.550-1.02) Glomerular Filtration Rate Calc 98 mL/min (>90) BUN/Creatinine Ratio 12.3 (10.0-20.0) Serum Glucose 114 mg/dL (74-106) Calcium Level 9.6 mg/dL (8.7-10.4) White Blood Count 6.9 10^3/uL (4.4-10.8) Red Blood Count 4.22 10^6/uL (4.0-5.20) Hemoglobin 12.8 g/dL (12.2-16.2) Hematocrit 38.1 % (36.0-46.0) Mean Corpuscular Volume 90.2 fL (80.0-100.0) Mean Corpuscular Hemoglobin 30.2 pg (28.0-32.0) Mean Corpuscular Hemoglobin Concent 33.5 g/dL (32.0-36.0) Red Cell Distribution Width 13.1 % (11.8-14.3) Platelet Count 225 10^3/uL (140-450) Mean Platelet Volume 7.5 fL (6.9-10.8) Neutrophils (%) (Auto) 52.6 % (37.0-80.0) Lymphocytes (%) (Auto) 37.7 % (10.0-50.0) Monocytes (%) (Auto) 7.5 % (0.0-12.0) Eosinophils (%) (Auto) 1.7 % (0.0-7.0) Basophils (%) (Auto) 0.5 % (0.0-2.0) Neutrophils # (Auto) 3.6 10 ^3/uL (1.6-8.6) Lymphocytes # (Auto) 2.6 10 ^3/uL (0.4-5.4) Monocytes # (Auto) 0.5 10 ^3/uL (0-1.3) Eosinophils # (Auto) 0.1 10 ^3/uL (0-0.8) Basophils # (Auto) 0 10 ^3/uL (0-0.2) Nucleated Red Blood Cells 0.1 % Total Bilirubin 0.4 mg/dL (0.2-1.0) Aspartate Amino Transferase (AST) 33 U/L (13-40) Alanine Aminotransferase (ALT) 55 U/L (7-40) Alkaline Phosphatase 61 U/L (46-116) Total Protein 6.8 g/dL (5.7-8.2) Albumin 4.3 g/dL (3.2-4.8) Troponin I High Sensitivity 4 ng/L (</=34) Urine Color Colorless (Yellow) Urine Clarity Clear (Clear) Urine pH 6.5 (5.0-9.0) Urine Specific [place] 1.001 (1.001-1.035) Urine Protein Negative (Negative) Urine Ketones Negative (Negative) Urine Blood Negative /uL (Negative) Urine Nitrite Negative (Negative) Urine Bilirubin Negative (Negative) Urine Urobilinogen Normal mg/dL (Negative) Urine Leukocyte Esterase Negative /uL (Negative) Urine RBC None seen /hpf (0 - 4) Urine Microscopic WBC < 1 /HPF (0-5) Urine Squamous Epithelial Cells None seen /hpf (<5) Urine Bacteria None seen /hpf (None Seen) Urine Glucose Normal mg/dL (Normal) Other Laboratory Tests 08/27/24 05:14 08/26/24 05:38 Brief Hx & Hospital Course: History of Present Illness The patient is a 54-year-old female with past medical history of hyperlipidemia, Coronary artery disease, hypertension, and [place] who presented to [facility] with complaint of chest pain. Patient reports she has been experiencing intermittent substernal chest pain rating 7/10 numeric scale, tight in nature, associated with high blood pressure, headache that prompted this visit. Patient was seen and evaluated in the ED, laboratory data shows WBC 7.7, platelets 223, sodium 143, potassium 4.4, BUN 7, creatinine 0.78, glucose 106, troponin 4, blood pressure 170/101 trending down to 136/86, heart rate 76, temperature 98.8 F, O2 saturation 99% on room air. Chest x-ray show no acute cardiopulmonary pathology. On my assessment, patient rating chest pain at 2/10 numeric scale, no headache, no dizziness, no diaphoresis, no shortness of breath, no nausea, no vomiting, no fever, no chills. Patient was admitted for further evaluation and medical management. 08/25 patient presenting with chest pain, has multiple risk factors including history of recent [place] and requiring HILARIO/PTCA, hypertension hyperlipidemia. Patient's chest pain is substernal radiating to the right chest wall region,. Pain is not similar to prior [place] resulting pain. Cardiology consulted to rule out [place]. we will continue patient's home medications. 08/26 cardiology rules out ACS,. Multiple medication changes required. We will monitor patient 1 more midnight to assess tolerance of medication changes. Likely DC tomorrow a.m.. Starting baclofen 10 b.i.d. for likely musculoskeletal cause of chest pain Diagnosis: Hypertensive urgency Chest pain, ruled out ACS Chest pain, likely MSK related GERD possible Coronary artery disease status post HILARIO PTCA Hypertension Hyperlipidemia discharge plan: - baclofen 10mg 2x/day for 7 days - continue valsartan 80 mg daily - start metoprolol XL 12.5 mg daily - Stopped taking nifedipine/Procardia - Pepcid 20 mg twice daily for possible acid reflux - take or 14 days, and as needed thereafter. - continue taking other home medications not mentioned above - follow up with PCP - Continue routine follow up with Cardiology. Condition at Discharge: Fair Final Diagnosis/Problems List Hypertensive urgency Chest pain, ruled out ACS Chest pain, likely MSK related GERD possible Coronary artery disease status post HILARIO PTCA Hypertension Hyperlipidemia Discharge Disposition: Home Discharge Statement: "Patient was advised to return to the ER or call 911 if any headaches, dizziness, shortness of breath, chest pain, abdominal pain, bleeding, fevers, or worsening of medical condition. Patient was counseled about treatment plan, medications, possible side effects, patientverbalized understanding. All questions were answered to the best of my ability. This discharge took greater then 30 minutes in planning, reviewing documentation, counseling the patient, and discussing with other team members." ASSESSMENT ASSESSMENT Assessment Date of Service: August 27, 2024 Billing Provider: GRANT MCBRIDE MD Common Visit Codes: [id number] DISCH DAY >30min GRANT MCBRIDE MD August 27, 2024 12:52
[2024-08-27] MEDS: LACTULOSE 20Gm/30ML SOLN PO SCH (12:54)
[2024-08-27] MEDS ORDERED: POLYPOW59 PO (16:03)
[2024-08-27] MEDS ORDERED: BACL10TA PO (16:03)
[2024-08-27] MEDS ORDERED: METO25TA93 PO (16:03)
[2024-08-27] MEDS ORDERED: FAMO20TA10 PO (16:03)
== END 2024-08-27 17:33 | disposition home or self-care (01) | DRG 199 ==
LOC: ER 11:33 → OVERFLOW 14:23 → TELE-WESTW 08-25 15:09
PROVIDERS: ADMIT Student in an Organized Health Care Education/Training Program; ATTEND Student in an Organized Health Care Education/Training Program
DX: I16.0 Hypertensive urgency (principal); I25.110 Atherosclerotic heart disease of native coronary artery with unstable angina pectoris; R07.89 Other chest pain; E78.5 Hyperlipidemia, unspecified; K21.9 Gastro-esophageal reflux disease without esophagitis; I10 Essential (primary) hypertension; F17.210 Nicotine dependence, cigarettes, uncomplicated; Z95.5 Presence of coronary angioplasty implant and graft; Z83.3 Family history of diabetes mellitus; Z82.49 Family history of ischemic heart disease and other diseases of the circulatory system; Z82.3 Family history of stroke; Z80.3 Family history of malignant neoplasm of breast; Z80.0 Family history of malignant neoplasm of digestive organs; Z79.899 Other long term (current) drug therapy; Z79.02 Long term (current) use of antithrombotics/antiplatelets; Z79.82 Long term (current) use of aspirin
CPT/HCPCS: 36415; 71045; 80048; 80053; 81001; 84484; 85025; 87081; 93005; 96374; 99291; G0378; J3490

== ENCOUNTER 2024-09-06 13:50 | Inpatient (IN) | payer MEDICAID ==
[~2024-09-06] VITALS: Ht 162.6 cm; Wt 67.4 kg
[~2024-09-06 13:50] MED LIST changes: +BACL10TA PO; +FAMO20TA10 PO; +METO25TA93 PO; -NIFE1TAB30 PO; +POLYPOW59 PO
--- NOTE | 2024-09-06 14:10 | ED.PDOC ---
History of Present Illness HPI Comments 54-year-old female with PMHx CAD, HTN, OR presents with a chief complaint of hypertension and chest pain x onset Saturday. Patient states that her pain is localized to her left chest wall, nonradiating, describes as pressure, and rates her pain a 8/10. Patient mentions that she has been dealing with high blood pressure despite taking her medications. Patients BP in triage is 199/129 and 233/116 on repeat. Patient does endorse cigarette use. Time Seen by MD: 14:03 Primary Care Provider: JACI Reviewed Notes: Medications, Allergies Allergies: Coded Allergies: No Known Drug Allergy (Verified Allergy, Unknown, 04/22/21) Home Meds Active Scripts Polyethylene Glycol 3350 (Goodsense Clearlax) 17 Gm/Scoop Pow, 17 GM PO DAILY for 7 Days, #1 POW 0 Refills Prov:GRANT MCBRIDE MD 08/27/24 Famotidine (PEPCID TABLET) 20 Mg Tb, 1 TAB PO BID for 30 Days, #60 TAB 0 Refills Prov:GRANT MCBRIDE MD 08/27/24 Baclofen (Baclofen) 10 Mg Tab, 10 MG PO BID for 7 Days, #14 TAB 0 Refills Prov:GRANT MCBRIDE MD 08/27/24 Metoprolol Succinate (Metoprolol Succinate Er) 25 Mg Tab, 12.5 MG PO DAILY for 30 Days, #15 TAB 1 Refill Prov:GRANT MCBRIDE MD 08/27/24 Chlorhexidine Gluconate (Mouth (CHLORHEXIDINE ORAL RINSE) 473 Ml So, 15 ML MT Q12HR for 5 Days, #473 ML Prov:JUNIOR CURTIS MD 08/11/24 Hydrocodone-Acetaminophen (Hydrocodone Bitartrate/AC 5-325 mg) 1 Tab Tab, 1 TAB PO Q4HP PRN, #20 TAB Prov:BENI HARDY MD 07/29/24 Pantoprazole Sodium Sesquihydr (Protonix) 40 Mg Tab, 40 MG PO DAILY, #30 TAB Prov:BENI HARDY MD 07/27/24 Nitroglycerin (NTROSTAT SUBLINGUAL) 0.4 Mg Sl, 0.4 MG SL Q5MINP PRN, #100 TAB Prov:BENI HARDY MD 07/27/24 Valsartan (Valsartan) 80 Mg Tab, 80 MG PO DAILY for 90 Days, #90 TAB 1 Refill Prov:SCOUT MARRERO MD 07/21/24 Clopidogrel Bisulfate (CLOPIDOGREL) 75 Mg Tab, 75 MG PO DAILY for 90 Days, #90 TAB 1 Refill Prov:SCOUT MARRERO MD 07/21/24 Atorvastatin Calcium (ATORVASTATIN CALCIUM) 40 Mg Tab, 1 TAB PO DAILY, #90 TAB 1 Refill Prov:SCOUT MARRERO MD 07/21/24 Aspirin (Aspirin Low Dose) 81 Mg Tab, 81 MG PO DAILY for 90 Days, #90 TAB 1 Refill Prov:SCOUT MARERRO MD 07/21/24 Information Source: Patient Mode of Arrival: Ambulatory Severity: Moderate Timing: Days Duration: Since onset Prehospital treatment: None Past Medical History PAST MEDICAL HISTORY: CAD, High Lipids, HTN, OR Surgical History: PTCA 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 ROLL 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 History Family History Family History: Family hx of DM, Family hx of HTN Social History Smoker: Cigarettes Alcohol: Denies ETOH Use Drugs: Marijuana Lives In: Home Constitutional: denies: chills, diaphoresis, fatigue, fever, malaise, sweats, weakness, others EENTM: denies: blurred vision, double vision, ear bleeding, ear discharge, ear drainage, ear pain, ear ringing, eye pain, eye redness, hearing loss, mouth pain, mouth swelling, nasal discharge, nose bleeding, nose congestion, nose pain, photophobia, tearing, throat pain, throat swelling, voice changes, others Respiratory: denies: cough, hemoptysis, orthopnea, SOB at rest, shortness of breath, SOB with excertion, stridor, wheezing, others Cardiovascular: reports: chest pain; denies: dizzy spells, diaphoresis, Dyspnea on exertion, edema, irregular heart beat, left arm pain, lightheadedness, palpitations, PND, syncope, others Gastrointestinal: denies: abdomen distended, abdominal pain, blood streaked bowels, constipated, diarrhea, dysphagia, difficulty swallowing, hematemesis, melena, nausea, poor appetite, poor fluid intake, rectal bleeding, rectal pain, vomiting, others Genitourinary: denies: abnormal vagina bleeding, burning, dyspareunia, dysuria, flank pain, frequency, hematuria, incontinence, pain, , vagina discharge, urgency, others Neurological: denies: dizziness, fainting, headache, left sided numbness, left sided weakness, numbness, paresthesia, pre-existing deficit, right sided numbness, right sided weakness, seizure, speech problems, tingling, tremors, weakness, others Musculoskeletal: denies: back pain, gout, joint pain, joint swelling, muscle pain, muscle stiffness, neck pain, others Integumetry: denies: bruises, change in color, change in hair/nails, dryness, laceration, lesions, lumps, rash, wounds, others Allergic/Immunocompromised: denies: Difficulty Healing, Frequent Infections, Hives, Itching, others Hematologic/Lymphatic: denies: anemia, blood clots, easy bleeding, easy bruising, swollen glands, others Endocrine: denies: excessive hunger, excessive sweating, excessive thirst, excessive urination, flushing, intolerance to cold, intolerance to heat, unexplained weight gain, unexplained weight loss, others Psychiatric: denies: anxiety, bipolar disorder, depression, hopeless, panic disorder, schizophrenia, sleepless, suicidal, others All Other Systems: Reviewed and Negative Physical Exam General Appearance: Moderate Distress, Normal HEENT: Normal ENT Inspection, Pharynx Normal, TMs Normal Neck: Full Range of Motion, Non-Tender, Normal, Normal Inspection Respiratory: Chest Non-Tender, Lungs Clear, No Accessory Muscle Use, No Respiratory Distress, Normal Breath Sounds Cardiovascular: No Edema, No JVD, No Murmur, No Gallop, Normal Peripheral Pulses, Regular Rate/Rhythm Breast Exam: Deferred Gastrointestinal: No Organomegaly, Non Tender, No Pulsatile Mass, Normal Bowel Sounds, Soft Genitalia: Deferred Pelvic: Deferred Rectal: Deferred Extremities: No calf tenderness, Normal capillary refill, Normal inspection, Normal range of motion, Non-tender, No pedal edema Musculoskeletal : Apperance: Normal Neurologic: Alert, materials scheduler II-XII nml as Tested, No Motor Deficits, Normal Affect, Normal Mood, No Sensory Deficits Cerebellar Function: Normal Reflexes: Normal Skin: Dry, Normal Color, Warm Peripheral Pulses: 3+ Radial (R), 3+ Radial (L) Lymphatic: No Adenopathy Was a procedure done? Was a procedure done?: No Differential Dx Considerations may include: Hypotension emergency Chest pain uncontrolled X-Ray, Labs, Meds, VS Patient alert. Complaining of chest pain. Blood pressure elevated. Was given Norvasc. Continues to have chest pain. Was given aspirin. Was given nitro. Continues to smoke cigarettes. Counseled patient on effects of smoking cigarettes for 15 minutes. EKG reviewed does not show any acute changes. Explained to the patient that she will be admitted for her hypertension controlled as well as chest pain. Continue monitoring. Time of 1ST Reevaluation: 14:33 Reevaluation 1ST: Unchanged Patient Education/Counseling: Diagnosis, Treatment Family Education/Counseling: No Family Present Departure 1 Departure Time of Disposition: 14:12 Impression: Primary Impression: Hypertensive emergency Additional Impression: Chest pain of unknown etiology Disposition: ADMITTED INPATIENT Admit to: Med Surg Condition: Guarded Critical Care Note Critical Care Time?: Yes (90 min-critical care time only) Critical care comment: Blood pressure elevated Stability Stability form required: No Heart Score Heart Score: Heart Score Response (Comments) Value History Slightly Suspicious 0 EKG Normal 0 Age 45-64 1 Risk Factors >3 or Hx ASHD 2 Troponin Normal limit 0 Total 3 I personally scribed for ROBE MIRANDA MD ([email or web address]) on 09/06/24 at 14:09. Electronically submitted by Mahendra Car ([email or web address]). ROBE MIRANDA MD Sep 06, 2024 14:09
[2024-09-06] MEDS: amLODIPine BESYLATE 5 MG TAB PO ONE (14:25)
[2024-09-06] MEDS: ASPirin 325 MG TAB PO ONE (14:25)
[2024-09-06 14:29] LABS: Basophils # (auto) 0.1 10 ^3/uL (0-0.2); Basophils % (auto) 1.5 % (0.0-2.0); Eosinophils # (auto) 0.1 10 ^3/uL (0-0.8); Eosinophils % (auto) 1.1 % (0.0-7.0); Hemoglobin 14.4 g/dL (12.2-16.2); Lymphocytes # (auto) 1.8 10 ^3/uL (0.4-5.4); Lymphocytes % (auto) 28.4 % (10.0-50.0); Mean Corpuscular Hemoglobin 30.5 pg (28.0-32.0); Mean Corpuscular Hgb Conc. 33.5 g/dL (32.0-36.0); Mean Corpuscular Volume 90.9 fL (80.0-100.0); Monocytes # (auto) 0.5 10 ^3/uL (0-1.3); Monocytes % (auto) 7.6 % (0.0-12.0); Neutrophils # (auto) 3.8 10 ^3/uL (1.6-8.6); Neutrophils % (auto) 61.4 % (37.0-80.0); Nucleated Red Blood Cells % 0.2 %; Platelet Count (auto) 254 10^3/uL (140-450); Red Blood Cells 4.73 10^6/uL (4.0-5.20); Red Cell Distribution Width 13.4 % (11.8-14.3); White Blood Cell 6.2 10^3/uL (4.4-10.8)
[2024-09-06 14:37] LABS: Potassium 3.9 mmol/L (3.5-5.1); Sodium 144 mmol/L (136-145)
[2024-09-06 14:38] LABS: Anion Gap 5 (5-15); Calcium 10.7 mg/dL (8.7-10.4); Carbon Dioxide 29 mmol/L (20-31); Chloride 110 mmol/L (98-107)
[2024-09-06 14:43] LABS: BUN/Creatinine Ratio 7.6 (10.0-20.0); Glucose 96 mg/dL (74-106)
[2024-09-06 14:44] LABS: Blood Urea Nitrogen 7 mg/dL (9-23)
--- NOTE | 2024-09-06 15:05 | DVH ---
INDICATION: sob TECHNIQUE: Frontal view of the chest. COMPARISON: XY CHEST PORTABLE on DOS: 08/24/24, XY CHEST PORTABLE on DOS: 08/15/24, XY CHEST XRAY 1 VIE W on DOS: 08/11/24, XY CHEST PORTABLE on DOS: 07/28/24, XY CHEST PORTABLE on DOS: 07/24/24 FINDINGS: . The heart and mediastinal contours are grossly unremarkable. There is no evidence of pleural disea se. The lungs are clear. The bony structures of the chest are intact without fracture. IMPRESSION: 1. No evidence of acute disease.
[2024-09-06 15:52] LABS: Urine Bacteria None Seen /hpf (None Seen)
[2024-09-06 16:05] LABS: Urine Blood Negative /uL (Negative); Urine Clarity Clear (Clear); Urine Color Colorless (Yellow); Urine Protein, UAD Negative (Negative); Urine Specific Gravity 1.008 (1.001-1.035); Urine Squamous Epithelial Cell FEW /hpf (<5); Urine Urobilinogen Normal (Negative); Urine WBC < 1 /HPF (0-5)
[2024-09-06] MEDS: cloNIDine HCL 0.1 MG TAB PO ONE (16:45)
[2024-09-06] MEDS: LORazepam 2MG/ML-1ML VIAL IV ONE (17:14)
[2024-09-06 19:30] VITALS: PULSE 74; RESP 12; O2SAT 98
[2024-09-06] MEDS ORDERED: HYDROcodone-ACET 5/325MG TAB PO PRN (19:30)
[2024-09-06] MEDS ORDERED: DOCUSATE SOD 100 MG CAP PO PRN (19:30)
[2024-09-06] MEDS ORDERED: ONDANSETRON HCL 4 MG/2 ML VIAL IV PRN (19:30)
[2024-09-06] MEDS ORDERED: MAALOX PLUS or MAALOX 30 ML PO PRN (19:30)
[2024-09-06] MEDS ORDERED: LORazepam 0.5 MG TAB PO PRN (19:30)
--- NOTE | 2024-09-06 19:35 | DVHHP2 ---
History of Present Illness Reason for Visit: high blood pressure History of Present Illness 54-year-old female with a known history of CAD hypertension mi comes to the ED with complaints of chest pain since Saturday and high blood pressure patient on initial evaluation was complaining of left chest pain that was not radiating to any other location with pain described as 11/15 initial evaluation in the ED patient's blood pressure was as high as the 200 systolic over the 120s diastolic patient does state that she smokes has not extensive amount of home medications unable to confirm compliance patient was restarted on medications once in the ED blood pressure as of now appears to be significantly improved patient was for admission evaluation for management of malignant hypertension Cardiovascular: CAD, HTN, [place] Past Surgical History: None Family History: DM, Hypertension Review of Systems Review of Systems Constitutional: denies: chills, diaphoresis, fatigue, fever, malaise, sweats, weakness, others EENTM: denies: blurred vision, double vision, ear bleeding, ear discharge, ear drainage, ear pain, ear ringing, eye pain, eye redness, hearing loss, mouth pain, mouth swelling, nasal discharge, nose bleeding, nose congestion, nose pain, photophobia, tearing, throat pain, throat swelling, voice changes, others Respiratory: denies: cough, hemoptysis, orthopnea, SOB at rest, shortness of breath, SOB with excertion, stridor, wheezing, others Cardiovascular: reports: chest pain; denies: dizzy spells, diaphoresis, Dyspnea on exertion, edema, irregular heart beat, left arm pain, lightheadedness, palpitations, PND, syncope, others Gastrointestinal: denies: abdomen distended, abdominal pain, blood streaked bowels, constipated, diarrhea, dysphagia, difficulty swallowing, hematemesis, melena, nausea, poor appetite, poor fluid intake, rectal bleeding, rectal pain, vomiting, others Genitourinary: denies: abnormal vagina bleeding, burning, dyspareunia, dysuria, flank pain, frequency, hematuria, incontinence, pain, , vagina discharge, urgency, others Neurological: denies: dizziness, fainting, headache, left sided numbness, left sided weakness, numbness, paresthesia, pre-existing deficit, right sided numbness, right sided weakness, seizure, speech problems, tingling, tremors, weakness, others Musculoskeletal: denies: back pain, gout, joint pain, joint swelling, muscle pain, muscle stiffness, neck pain, others Integumetry: denies: bruises, change in color, change in hair/nails, dryness, laceration, lesions, lumps, rash, wounds, others Allergic/Immunocompromised: denies: Difficulty Healing, Frequent Infections, Hives, Itching, others Hematologic/Lymphatic: denies: anemia, blood clots, easy bleeding, easy bruising, swollen glands, others Endocrine: denies: excessive hunger, excessive sweating, excessive thirst, excessive urination, flushing, intolerance to cold, intolerance to heat, unexplained weight gain, unexplained weight loss, others Psychiatric: denies: anxiety, bipolar disorder, depression, hopeless, panic disorder, schizophrenia, sleepless, suicidal, others All Other Systems: Reviewed and Negative Allergies: Coded Allergies: No Known Drug Allergy (Verified Allergy, Unknown, 04/22/21) Exam Vital Signs Vital Signs Date Time Temp Pulse Resp B/P (MAP) Pulse Ox O2 Delivery O2 Flow Rate FiO2 09/06/24 18:00 60 12 145/73 (97) 99 09/06/24 17:00 Room Air* 0 21 09/06/24 13:57 98.0 98.0 Exam General Appearance: Moderate Distress, Normal HEENT: Normal ENT Inspection, Pharynx Normal, TMs Normal Neck: Full Range of Motion, Non-Tender, Normal, Normal Inspection Respiratory: Chest Non-Tender, Lungs Clear, No Accessory Muscle Use, No Respiratory Distress, Normal Breath Sounds Cardiovascular: No Edema, No JVD, No Murmur, No Gallop, Normal Peripheral Pulses, Regular Rate/Rhythm Breast Exam: Deferred Gastrointestinal: No Organomegaly, Non Tender, No Pulsatile Mass, Normal Bowel Sounds, Soft Genitalia: Deferred Pelvic: Deferred Rectal: Deferred Extremities: No calf tenderness, Normal capillary refill, Normal inspection, Normal range of motion, Non-tender, No pedal edema Musculoskeletal : Apperance: Normal Neurologic: Alert, camouflage specialist II-XII nml as Tested, No Motor Deficits, Normal Affect, Normal Mood, No Sensory Deficits Cerebellar Function: Normal Reflexes: Normal Skin: Dry, Normal Color, Warm Peripheral Pulses: 3+ Radial (R), 3+ Radial (L) Lymphatic: No Adenopathy Labs/Xrays Labs Test 09/06/24 15:33 09/06/24 14:19 Range/Units Urine Color Colorless Yellow Urine Clarity Clear Clear Urine pH 6.0 5.0-9.0 Urine Specific [place] 1.008 1.001-1.035 Urine Protein Negative Negative Urine Ketones Negative Negative Urine Blood Negative Negative /uL Urine Nitrite Negative Negative Urine Bilirubin Negative Negative Urine Urobilinogen Normal Negative mg/dL Urine Leukocyte Esterase Negative Negative /uL Urine RBC 1 0 - 4 /hpf Urine Microscopic WBC < 1 0-5 /HPF Urine Squamous Epithelial Cells Few <5 /hpf Urine Bacteria None seen None Seen /hpf Urine Glucose Normal Normal mg/dL White Blood Count 6.2 4.4-10.8 10^3/uL Red Blood Count 4.73 4.0-5.20 10^6/uL Hemoglobin 14.4 12.2-16.2 g/dL Hematocrit 43.0 36.0-46.0 % Mean Corpuscular Volume 90.9 80.0-100.0 fL Mean Corpuscular Hemoglobin 30.5 28.0-32.0 pg Mean Corpuscular Hemoglobin Concent 33.5 32.0-36.0 g/dL Red Cell Distribution Width 13.4 11.8-14.3 % Platelet Count 254 140-450 10^3/uL Mean Platelet Volume 7.8 6.9-10.8 fL Neutrophils (%) (Auto) 61.4 37.0-80.0 % Lymphocytes (%) (Auto) 28.4 10.0-50.0 % Monocytes (%) (Auto) 7.6 0.0-12.0 % Eosinophils (%) (Auto) 1.1 0.0-7.0 % Basophils (%) (Auto) 1.5 0.0-2.0 % Neutrophils # (Auto) 3.8 1.6-8.6 10 ^3/uL Lymphocytes # (Auto) 1.8 0.4-5.4 10 ^3/uL Monocytes # (Auto) 0.5 0-1.3 10 ^3/uL Eosinophils # (Auto) 0.1 0-0.8 10 ^3/uL Basophils # (Auto) 0.1 0-0.2 10 ^3/uL Nucleated Red Blood Cells 0.2 % Sodium Level 144 136-145 mmol/L Potassium Level 3.9 3.5-5.1 mmol/L Chloride Level 110 H 98-107 mmol/L Carbon Dioxide Level 29 20-31 mmol/L Anion Gap 5 5-15 Blood Urea Nitrogen 7 L 9-23 mg/dL Creatinine 0.92 0.550-1.02 mg/dL Glomerular Filtration Rate Calc 74 >90 mL/min BUN/Creatinine Ratio 7.6 L 10.0-20.0 Serum Glucose 96 74-106 mg/dL Calcium Level 10.7 H 8.7-10.4 mg/dL Troponin I High Sensitivity 4 </=34 ng/L Assessment/Plan Assessment/[facility] Hypertensive emergency/ malignant hypertension Blood pressure to be controlled with p.r.n. medications and continuation of patient's home medication Patient has normal regimen of aspirin atorvastatin clopidogrel and valsartan to be continued P.r.n. medications of clonidine q.6 for blood pressures greater than 180 systolic Initial troponins completed negative on evaluation Monitor for acute changes or re-evaluation of chest pain reoccurs Plan discussed with: Patient My Orders Orders - GABBY SCHULTZ MD Procedure Category Date Status Time Admit ADMIT 09/06/24 Transmitted 19:25 Code Status CODE 09/06/24 Transmitted 19:25 Vital Signs [facility] 09/06/24 Transmitted 19:25 Review Orders With ANILA 09/06/24 Transmitted Adm. 19:25 Regular Diet DIET 09/07/24 Transmitted Breakfast Lorazepam Tablet [facility] 09/06/24 Transmitted (Ativan Tablet) 19:30 Alum & Mag PHA 09/06/24 Transmitted Hydrox-Simethicone 19:30 Docusate Sodium PHA 09/06/24 Transmitted Capsule (Colace 19:30 Acetaminophen Tablet PHA 09/06/24 Transmitted (Tylenol Tablet) 19:30 Temazepam (Restoril) PHA 09/06/24 Transmitted 19:30 Notify Of Changes [facility] 09/06/24 Transmitted From Base 19:25 Advance Directive ANILA 09/06/24 Transmitted 19:25 Basic Metabolic Panel LAB 09/07/24 Verified 04:00 Complete Blood Count LAB 09/07/24 Verified 04:00 Patient Condition ORDERS 09/06/24 Transmitted 19:25 Allergies ANILA 09/06/24 Transmitted 19:25 Hydrocodone-Acet PHA 09/06/24 Transmitted 5/325mg Tab ([place] 19:30 Ondansetron Hcl PHA 09/06/24 Transmitted (Zofran) 19:30 Stat Ekg For Chest [facility]IL[facility] 09/06/24 Transmitted Pain 19:25 Notify Md Of Changes ANILA 09/06/24 Transmitted From Base 19:25 Rhythm Strips Once [facility] 09/06/24 Transmitted Every Shift 19:25 Aspirin Enteric PHA 09/07/24 Transmitted Coated Tablet 10:00 Clopidogrel Bisulfate PHA 09/07/24 Transmitted (Plavix) 10:00 Famotidine Tablet PHA 09/06/24 Transmitted (Pepcid Tablet) 22:00 Valsartan (Diovan) PHA 09/07/24 Transmitted 10:00 (Nf) Atorvastatin PHA 09/07/24 Transmitted Calcium 10:00 (Nf) Metoprolol PHA 09/07/24 Transmitted Succinate (Metoprolol 10:00 (Nf) Polyethylene PHA 09/07/24 Transmitted Glycol 3350 (Goodsense 10:00 Date of Service: Sep 06, 2024 Billing Provider: GABBY SCHULTZ MD Common Visit Codes: [id number] INP/OBS CARE (HIGH) GABBY SCHULTZ MD Sep 06, 2024 19:35
[2024-09-06 21:05] VITALS: BP 152/88; PULSE 62; RESP 17; TEMP 97.6; O2SAT 100
[2024-09-06] MEDS: FAMOTIDINE 20 MG TAB PO SCH (21:55)
[2024-09-06 21:56] VITALS: BP 152/88; PULSE 62; RESP 17; RESP 18; TEMP 97.6; O2SAT 100
[2024-09-06] MEDS: ACETAMINOPHEN 325 MG TAB PO PRN (23:18)
[2024-09-07] VITALS (8 sets, daily range): BP systolic 140–174; BP diastolic 74–100; PULSE 53–91; RESP 14–18; TEMP 97.3–99; O2SAT 98–100
[2024-09-07 07:43] LABS: Basophils # (auto) 0 10 ^3/uL (0-0.2); Basophils % (auto) 0.4 % (0.0-2.0); Eosinophils # (auto) 0.1 10 ^3/uL (0-0.8); Eosinophils % (auto) 2.1 % (0.0-7.0); Hematocrit 37.5 % (36.0-46.0); Hemoglobin 12.7 g/dL (12.2-16.2); Lymphocytes % (auto) 36.1 % (10.0-50.0); Mean Corpuscular Hemoglobin 30.5 pg (28.0-32.0); Mean Corpuscular Hgb Conc. 33.9 g/dL (32.0-36.0); Mean Corpuscular Volume 89.9 fL (80.0-100.0); Monocytes # (auto) 0.5 10 ^3/uL (0-1.3); Monocytes % (auto) 8.5 % (0.0-12.0); Neutrophils % (auto) 52.9 % (37.0-80.0); Nucleated Red Blood Cells % 0.1 %; Platelet Count (auto) 223 10^3/uL (140-450); Red Blood Cells 4.17 10^6/uL (4.0-5.20); Red Cell Distribution Width 13.4 % (11.8-14.3); White Blood Cell 5.7 10^3/uL (4.4-10.8)
[2024-09-07 08:03] LABS: Anion Gap 6 (5-15); Carbon Dioxide 28 mmol/L (20-31); Potassium 3.9 mmol/L (3.5-5.1); Sodium 144 mmol/L (136-145)
[2024-09-07 08:04] LABS: Calcium 9.8 mg/dL (8.7-10.4); Chloride 110 mmol/L (98-107)
[2024-09-07 08:09] LABS: BUN/Creatinine Ratio 12.2 (10.0-20.0); Blood Urea Nitrogen 11 mg/dL (9-23); Glucose 84 mg/dL (74-106)
[2024-09-07] MEDS: POLYETHYLENE GLYCOL 17 GM PWDR PO SCH (09:59)
[2024-09-07] MEDS: METOPROLOL SUCCINATE XL 50 MG TAB PO SCH (10:00)
[2024-09-07] MEDS: VALSARTAN 80 MG TAB PO SCH (10:00)
[2024-09-07] MEDS: ATORVASTATIN 20 MG TAB PO SCH (10:01)
[2024-09-07] MEDS: CLOPIDOGREL BISULFATE 75 MG TAB PO SCH (10:01)
[2024-09-07] MEDS: ASPirin-EC 81 mg tab PO SCH (10:01)
--- NOTE | 2024-09-07 11:59 | ECG ---
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
--- NOTE | 2024-09-07 13:16 | DVHPN2 ---
Progress Note Date Seen: Sep 07, 2024 Medical Necessity Reason Pt with a Central, PICC or Fol: No Subjective Patient reports: No new complaints Review of Systems: HEENT:Normal, CVS:Normal, RESPIRATORY:Normal, GI:Normal, :Normal, MSK:Normal, NEURO:Normal Objective vital signs Vital Sign Date Time Temp Pulse Resp B/P (MAP) Pulse Ox O2 Delivery O2 Flow Rate FiO2 09/07/24 10:00 144/86 09/07/24 08:30 98.3 53 14 98 98.3 09/07/24 08:00 Room Air* 0 21 Total Intake and Output 09/06/24 09/06/24 09/07/24 15:00 23:00 07:00 Intake Total 880 ml Balance 880 ml medications Current Medications Medications Dose Ordered Sig/Remy Route Start Time Stop Time Status Last Admin Dose Admin Lorazepam 0.5 mg Q6HP PRN PO 09/06/24 19:30 Al Hydrox/Mg Hydrox/Simethicone 30 ml Q6HP PRN PO 09/06/24 19:30 Docusate Sodium 100 mg BIDPRN PRN PO 09/06/24 19:30 Acetaminophen 650 mg Q6HP PRN PO 09/06/24 19:30 09/06/24 23:18 650 MG Temazepam 15 mg QHSP PRN PO 09/06/24 19:30 Acetaminophen/ Hydrocodone Bitart 1 tab Q4HP PRN PO 09/06/24 19:30 Ondansetron HCl 4 mg Q4HP PRN IV 09/06/24 19:30 Aspirin 81 mg DAILY PO 09/07/24 10:00 09/07/24 10:01 81 MG Clopidogrel Bisulfate 75 mg DAILY PO 09/07/24 10:00 09/07/24 10:01 75 MG Famotidine 20 mg BID PO 09/06/24 22:00 09/07/24 10:00 20 MG Valsartan 80 mg DAILY PO 09/07/24 10:00 09/07/24 10:00 80 MG Atorvastatin Calcium 40 mg DAILY PO 09/07/24 10:00 09/07/24 10:01 40 MG Metoprolol Succinate 12.5 mg DAILY PO 09/07/24 10:00 UNV Polyethylene Glycol 17 gm DAILY PO 09/07/24 10:00 09/07/24 09:59 17 GM Examination: GENERAL:Normal, HEENT:Normal, NECK:Normal, LUNGS:Normal, CVS:Normal, ABDOMEN:Normal, MSK:Normal, SKIN:Normal, NEURO:Normal, :Normal laboratory and microbiology Laboratory Tests 09/07/24 07:05 Test 09/07/24 07:05 Range/Units Serum Glucose 84 74-106 mg/dL Problem List/Assessment/Plan Problem List/Assessment/Plan #1 hypertensive urgency: adjust meds #2 cad s/p stent #3 hyperlipidemia #4 anxiety advance care planning- full code- time spent 18mins Plan discussed with: Patient Date of Service: Sep 07, 2024 Billing Provider: SHALOM ROSALES MD Common Visit Codes: [id number] INP/OBS CARE(HIGH) Secondary Visit Codes: [id number] CARE PLAN 30 MINUTES SHALOM ROSALES MD Sep 07, 2024 13:16
[2024-09-07] MEDS: NIFEdipine ER 30 MG TAB PO ONE (13:36)
--- NOTE | 2024-09-07 15:48 | DVHINCON2 ---
Date of service: Sep 07, 2024 History of Present Illness 54 yo F with hx of cad s/p pci, tobacco, HTN admitted for severe HTN adn bp >200. trop is - Past Medical History reviewed Family History: Colon cancer Diabetes mellitus G8 MOTHER G8 FATHER FH: breast cancer FH: heart attack G8 FATHER FH: irritable bowel syndrome G8 MOTHER FH: stroke Hypertension G8 MOTHER G8 FATHER Allergies: Coded Allergies: No Known Drug Allergy (Verified Allergy, Unknown, 04/22/21) Home Meds Active Scripts Polyethylene Glycol 3350 (Goodsense Clearlax) 17 Gm/Scoop Pow, 17 GM PO DAILY for 7 Days, #1 POW 0 Refills Prov:GRANT MCBRIDE MD 08/27/24 Famotidine (PEPCID TABLET) 20 Mg Tb, 1 TAB PO BID for 30 Days, #60 TAB 0 Refills Prov:GRANT MCBRIDE MD 08/27/24 Baclofen (Baclofen) 10 Mg Tab, 10 MG PO BID for 7 Days, #14 TAB 0 Refills Prov:GRANT MCBRIDE MD 08/27/24 Metoprolol Succinate (Metoprolol Succinate Er) 25 Mg Tab, 12.5 MG PO DAILY for 30 Days, #15 TAB 1 Refill Prov:GRANT MBCRIDE MD 08/27/24 Chlorhexidine Gluconate (Mouth (CHLORHEXIDINE ORAL RINSE) 473 Ml So, 15 ML MT Q12HR for 5 Days, #473 ML Prov:JUNIOR CURTIS MD 08/11/24 Hydrocodone-Acetaminophen (Hydrocodone Bitartrate/AC 5-325 mg) 1 Tab Tab, 1 TAB PO Q4HP PRN, #20 TAB Prov:BENI HARDY MD 07/29/24 Pantoprazole Sodium Sesquihydr (Protonix) 40 Mg Tab, 40 MG PO DAILY, #30 TAB Prov:BENI HARDY MD 07/27/24 Nitroglycerin (NTROSTAT SUBLINGUAL) 0.4 Mg Sl, 0.4 MG SL Q5MINP PRN, #100 TAB Prov:BENI HARDY MD 07/27/24 Valsartan (Valsartan) 80 Mg Tab, 80 MG PO DAILY for 90 Days, #90 TAB 1 Refill Prov:SCOUT MARRERO MD 07/21/24 Clopidogrel Bisulfate (CLOPIDOGREL) 75 Mg Tab, 75 MG PO DAILY for 90 Days, #90 TAB 1 Refill Prov:SCOUT MARRERO MD 07/21/24 Atorvastatin Calcium (ATORVASTATIN CALCIUM) 40 Mg Tab, 1 TAB PO DAILY, #90 TAB 1 Refill Prov:SCOUT MARRERO MD 07/21/24 Aspirin (Aspirin Low Dose) 81 Mg Tab, 81 MG PO DAILY for 90 Days, #90 TAB 1 Refill Prov:SCOUT MARRERO MD 07/21/24 Current Medications Current Medications Medications (Trade) Dose Ordered Sig/Remy Route PRN Reason Start Time Stop Time Status Last Admin Lorazepam (Ativan Tablet) 0.5 mg Q6HP PRN PO ANXIETY 09/06/24 19:30 Al Hydrox/Mg Hydrox/Simethicone (Maalox Plus) 30 ml Q6HP PRN PO FOR STOMACH DISTRESS 09/06/24 19:30 Docusate Sodium (Colace Capsule) 100 mg BIDPRN PRN PO FOR CONSTIPATION 09/06/24 19:30 Acetaminophen (Tylenol Tablet) 650 mg Q6HP PRN PO PAIN SCALE 1-3 OR TEMP>100.4 09/06/24 19:30 09/06/24 23:18 Temazepam (Restoril) 15 mg QHSP PRN PO FOR INSOMNIA 09/06/24 19:30 Acetaminophen/ Hydrocodone Bitart ([place] 5/325MG Tab) 1 tab Q4HP PRN PO MODERATE PAIN (4-6 PAIN SCALE) 09/06/24 19:30 Ondansetron HCl (Zofran) 4 mg Q4HP PRN IV NAUSEA / VOMITING 09/06/24 19:30 Aspirin (Ecotrin Enteric Coated Tablet) 81 mg DAILY PO 09/07/24 10:00 09/07/24 10:01 Clopidogrel Bisulfate (Plavix) 75 mg DAILY PO 09/07/24 10:00 09/07/24 10:01 Famotidine (Pepcid Tablet) 20 mg BID PO 09/06/24 22:00 09/07/24 10:00 Valsartan (Diovan) 80 mg DAILY PO 09/07/24 10:00 09/07/24 10:00 Atorvastatin Calcium (Lipitor) 40 mg DAILY PO 09/07/24 10:00 09/07/24 10:01 Metoprolol Succinate (Toprol Xl) 12.5 mg DAILY PO 09/07/24 10:00 09/07/24 13:36 DC Polyethylene Glycol (Miralax 17GM Powder) 17 gm DAILY PO 09/07/24 10:00 09/07/24 09:59 Nifedipine (Procardia Xl (Time-Release)) 60 mg DAILY PO 09/08/24 10:00 Review of Systems not obtained Vital Signs Vital Signs Date Time Temp Pulse Resp B/P (MAP) Pulse Ox O2 Delivery O2 Flow Rate FiO2 09/07/24 13:36 146/100 09/07/24 12:30 98.0 66 18 100 98.0 09/07/24 08:00 Room Air* 0 21 Labs/Diagnostic Data Labs Test 09/07/24 07:05 09/06/24 15:33 09/06/24 14:19 Range/Units White Blood Count 5.7 4.4-10.8 10^3/uL Red Blood Count 4.17 4.0-5.20 10^6/uL Hemoglobin 12.7 12.2-16.2 g/dL Hematocrit 37.5 # 36.0-46.0 % Mean Corpuscular Volume 89.9 80.0-100.0 fL Mean Corpuscular Hemoglobin 30.5 28.0-32.0 pg Mean Corpuscular Hemoglobin Concent 33.9 32.0-36.0 g/dL Red Cell Distribution Width 13.4 11.8-14.3 % Platelet Count 223 140-450 10^3/uL Mean Platelet Volume 7.4 6.9-10.8 fL Neutrophils (%) (Auto) 52.9 37.0-80.0 % Lymphocytes (%) (Auto) 36.1 10.0-50.0 % Monocytes (%) (Auto) 8.5 0.0-12.0 % Eosinophils (%) (Auto) 2.1 0.0-7.0 % Basophils (%) (Auto) 0.4 0.0-2.0 % Neutrophils # (Auto) 3.0 1.6-8.6 10 ^3/uL Lymphocytes # (Auto) 2.0 0.4-5.4 10 ^3/uL Monocytes # (Auto) 0.5 0-1.3 10 ^3/uL Eosinophils # (Auto) 0.1 0-0.8 10 ^3/uL Basophils # (Auto) 0 0-0.2 10 ^3/uL Nucleated Red Blood Cells 0.1 % Sodium Level 144 136-145 mmol/L Potassium Level 3.9 3.5-5.1 mmol/L Chloride Level 110 H 98-107 mmol/L Carbon Dioxide Level 28 20-31 mmol/L Anion Gap 6 5-15 Blood Urea Nitrogen 11 9-23 mg/dL Creatinine 0.90 0.550-1.02 mg/dL Glomerular Filtration Rate Calc 76 >90 mL/min BUN/Creatinine Ratio 12.2 10.0-20.0 Serum Glucose 84 74-106 mg/dL Calcium Level 9.8 8.7-10.4 mg/dL Urine Color Colorless Yellow Urine Clarity Clear Clear Urine pH 6.0 5.0-9.0 Urine Specific [place] 1.008 1.001-1.035 Urine Protein Negative Negative Urine Ketones Negative Negative Urine Blood Negative Negative /uL Urine Nitrite Negative Negative Urine Bilirubin Negative Negative Urine Urobilinogen Normal Negative mg/dL Urine Leukocyte Esterase Negative Negative /uL Urine RBC 1 0 - 4 /hpf Urine Microscopic WBC < 1 0-5 /HPF Urine Squamous Epithelial Cells Few <5 /hpf Urine Bacteria None seen None Seen /hpf Urine Glucose Normal Normal mg/dL Troponin I High Sensitivity 4 </=34 ng/L Assessment r/o acs malignant HTN HL tobacco Plan/Recommendation held BB cont nifedipine clonidine prn cont dapt trop is - x 1 s/p CX PCI Plan discussed with: Patient BHANDARIBARBARA MD Sep 07, 2024 15:48
[2024-09-07] MEDS: cloNIDine HCL 0.1 MG TAB PO ONE (21:13)
[2024-09-07] MEDS: TEMAZEPAM 15 MG CAP PO PRN (23:04)
[2024-09-08 01:00] VITALS: BP 118/74; PULSE 54; RESP 17; TEMP 97.4; O2SAT 100
[2024-09-08 05:00] VITALS: BP 103/64; PULSE 53; RESP 17; TEMP 97.6; O2SAT 100
[2024-09-08 08:15] VITALS: RESP 14; O2SAT 98
[2024-09-08 09:00] VITALS: BP 108/78; PULSE 55; RESP 17; TEMP 97.6; O2SAT 100
[2024-09-08] MEDS: NIFEdipine ER 30 MG TAB PO SCH (09:45)
--- NOTE | 2024-09-08 11:29 | DVHDS2 ---
Discharge Summary Date of Admission Sep 06, 2024 at 19:25 Date of Discharge: Sep 08, 2024 Labs/Diagnostic Data: Laboratory Results Test 09/07/24 07:05 09/06/24 15:33 09/06/24 14:19 White Blood Count 5.7 10^3/uL (4.4-10.8) Red Blood Count 4.17 10^6/uL (4.0-5.20) Hemoglobin 12.7 g/dL (12.2-16.2) Hematocrit 37.5 % (36.0-46.0) Mean Corpuscular Volume 89.9 fL (80.0-100.0) Mean Corpuscular Hemoglobin 30.5 pg (28.0-32.0) Mean Corpuscular Hemoglobin Concent 33.9 g/dL (32.0-36.0) Red Cell Distribution Width 13.4 % (11.8-14.3) Platelet Count 223 10^3/uL (140-450) Mean Platelet Volume 7.4 fL (6.9-10.8) Neutrophils (%) (Auto) 52.9 % (37.0-80.0) Lymphocytes (%) (Auto) 36.1 % (10.0-50.0) Monocytes (%) (Auto) 8.5 % (0.0-12.0) Eosinophils (%) (Auto) 2.1 % (0.0-7.0) Basophils (%) (Auto) 0.4 % (0.0-2.0) Neutrophils # (Auto) 3.0 10 ^3/uL (1.6-8.6) Lymphocytes # (Auto) 2.0 10 ^3/uL (0.4-5.4) Monocytes # (Auto) 0.5 10 ^3/uL (0-1.3) Eosinophils # (Auto) 0.1 10 ^3/uL (0-0.8) Basophils # (Auto) 0 10 ^3/uL (0-0.2) Nucleated Red Blood Cells 0.1 % Sodium Level 144 mmol/L (136-145) Potassium Level 3.9 mmol/L (3.5-5.1) Chloride Level 110 mmol/L (98-107) Carbon Dioxide Level 28 mmol/L (20-31) Anion Gap 6 (5-15) Blood Urea Nitrogen 11 mg/dL (9-23) Creatinine 0.90 mg/dL (0.550-1.02) Glomerular Filtration Rate Calc 76 mL/min (>90) BUN/Creatinine Ratio 12.2 (10.0-20.0) Serum Glucose 84 mg/dL (74-106) Calcium Level 9.8 mg/dL (8.7-10.4) Urine Color Colorless (Yellow) Urine Clarity Clear (Clear) Urine pH 6.0 (5.0-9.0) Urine Specific [place] 1.008 (1.001-1.035) Urine Protein Negative (Negative) Urine Ketones Negative (Negative) Urine Blood Negative /uL (Negative) Urine Nitrite Negative (Negative) Urine Bilirubin Negative (Negative) Urine Urobilinogen Normal mg/dL (Negative) Urine Leukocyte Esterase Negative /uL (Negative) Urine RBC 1 /hpf (0 - 4) Urine Microscopic WBC < 1 /HPF (0-5) Urine Squamous Epithelial Cells Few /hpf (<5) Urine Bacteria None seen /hpf (None Seen) Urine Glucose Normal mg/dL (Normal) Troponin I High Sensitivity 4 ng/L (</=34) Other Laboratory Tests 09/07/24 07:05 Brief Hx & Hospital Course: see dictated note Condition at Discharge: Fair Final Diagnosis/Problems List cad Discharge Disposition: Home Discharge Instruct/Medications Diet: Cardiac 2g Na,low cholest Activity: No Restrictions, As Tolerated Follow Up/Referral: fu with dr Branham, pcp Medications: resume home meds except metoprolol Discharge Statement: "Patient was advised to return to the ER or call 911 if any headaches, dizziness, shortness of breath, chest pain, abdominal pain, bleeding, fevers, or worsening of medical condition. Patient was counseled about treatment plan, medications, possible side effects, patientverbalized understanding. All questions were answered to the best of my ability. This discharge took greater then 30 minutes in planning, reviewing documentation, counseling the patient, and discussing with other team members." ASSESSMENT ASSESSMENT Assessment cad Date of Service: Sep 08, 2024 Billing Provider: SHALOM ROSALES MD Common Visit Codes: 88451-[facility]/OBS DISCH DAY >30min SHALOM ROSALES MD Sep 08, 2024 11:29
[2024-09-08 12:03] VITALS: BP 108/78
--- NOTE | 2024-09-08 12:05 | DVHDS ---
DATE OF DISCHARGE: 09/08/2024 HISTORY OF PRESENT ILLNESS: The patient is a 54-year-old lady who came in with complaints of chest pain and elevated blood pressure. She has a history of coronary artery disease status post stent, hypertension, and anxiety. HOSPITAL COURSE: The patient's troponin levels were negative for acute DC. Chest x-ray was unremarkable. The patient was seen in Cardiology consult by Dr. Branham. The patient developed bradycardia to metoprolol and has since been put back on nifedipine after discussion with Dr. Branham. The patient will now be discharged home to resume her home medications except for metoprolol and will resume back her nifedipine sustained release 60 mg daily. 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 I have also given her a copy of her MRI report. FINAL DIAGNOSES: * Hypertensive urgency. * Coronary artery disease status post stent. * Hyperlipidemia. * Anxiety. * Likely migraine. Time spent in discharge planning and review of plan with the patient and nursing was 37 minutes. MD GENO De La Rosa/VAZQUEZ/BRANDYN TID: [id number] RECEIPT: [id number]
[2024-09-08 13:00] VITALS: BP 139/79; PULSE 70; RESP 17; TEMP 97.7; O2SAT 100
== END 2024-09-08 14:02 | disposition home or self-care (01) | DRG 199 ==
LOC: ER 13:50 → OVERFLOW 19:25 → EAST 21:05
PROVIDERS: ADMIT Internal Medicine; ATTEND Internal Medicine
DX: I16.1 Hypertensive emergency (principal); E78.5 Hyperlipidemia, unspecified; F17.210 Nicotine dependence, cigarettes, uncomplicated; I25.10 Atherosclerotic heart disease of native coronary artery without angina pectoris; I10 Essential (primary) hypertension; F41.9 Anxiety disorder, unspecified; G43.909 Migraine, unspecified, not intractable, without status migrainosus; R00.1 Bradycardia, unspecified; Z82.49 Family history of ischemic heart disease and other diseases of the circulatory system; Z79.82 Long term (current) use of aspirin; Z79.899 Other long term (current) drug therapy; Z83.3 Family history of diabetes mellitus; Z80.0 Family history of malignant neoplasm of digestive organs; Z80.3 Family history of malignant neoplasm of breast; Z82.3 Family history of stroke; Z79.891 Long term (current) use of opiate analgesic; Z79.1 Long term (current) use of non-steroidal anti-inflammatories (NSAID); Z95.5 Presence of coronary angioplasty implant and graft
CPT/HCPCS: 36415; 71045; 80048; 81001; 84484; 85025; 87081; 93005; 99291; 99292; G0378

== ENCOUNTER 2024-10-13 16:12 | Inpatient (IN) | payer MEDICAID ==
[~2024-10-13] VITALS: Ht 162.6 cm; Wt 68.0 kg
--- NOTE | 2024-10-13 16:56 | ED.PDOC ---
HPI Comments Patient is a 54-year-old female with a past medical history of WA s/p PCI with a 1 stent in July 2024, GERD, hypertension, dyslipidemia, degenerative disc disease presented to the ED with a chief complaint of chest pain. Patient reported chest pain started about hour and a half goal located on the left side of the chest, nonradiating, pressure-like in character, improves with taking deep breaths, had associated sweating but denied any shortness of breath or palpitations. Patient smoked marijuana for the start of chest pain but denied taking any nitroglycerin or aspirin and came to the ED for further evaluation. Initial 12 lead ECG showed sinus rhythm without any evidence of ST segment or T- wave changes. Chief Complaint: Chest Pain Time Seen by MD: 16:18 Primary Care Provider: JACI Allergies: Coded Allergies: No Known Drug Allergy (Verified Allergy, Unknown, 04/22/21) Home Meds Active Scripts Polyethylene Glycol 3350 (Goodsense Clearlax) 17 Gm/Scoop Pow, 17 GM PO DAILY for 7 Days, #1 POW 0 Refills Prov:GRANT MCBRIDE MD 08/27/24 Famotidine (PEPCID TABLET) 20 Mg Tb, 1 TAB PO BID for 30 Days, #60 TAB 0 Refills Prov:GRANT MCBRIDE MD 08/27/24 Baclofen (Baclofen) 10 Mg Tab, 10 MG PO BID for 7 Days, #14 TAB 0 Refills Prov:GRANT MCBRIDE MD 08/27/24 Metoprolol Succinate (Metoprolol Succinate Er) 25 Mg Tab, 12.5 MG PO DAILY for 30 Days, #15 TAB 1 Refill Prov:GRANT MCBRIDE MD 08/27/24 Chlorhexidine Gluconate (Mouth (CHLORHEXIDINE ORAL RINSE) 473 Ml So, 15 ML MT Q12HR for 5 Days, #473 ML Prov:JUNIOR CURTIS MD 08/11/24 Hydrocodone-Acetaminophen (Hydrocodone Bitartrate/AC 5-325 mg) 1 Tab Tab, 1 TAB PO Q4HP PRN, #20 TAB Prov:BENI HARDY MD 07/29/24 Pantoprazole Sodium Sesquihydr (Protonix) 40 Mg Tab, 40 MG PO DAILY, #30 TAB Prov:BENI HARDY MD 07/27/24 Nitroglycerin (NTROSTAT SUBLINGUAL) 0.4 Mg Sl, 0.4 MG SL Q5MINP PRN, #100 TAB Prov:BENI HARDY MD 07/27/24 Valsartan (Valsartan) 80 Mg Tab, 80 MG PO DAILY for 90 Days, #90 TAB 1 Refill Prov:SCOUT MARRERO MD 07/21/24 Clopidogrel Bisulfate (CLOPIDOGREL) 75 Mg Tab, 75 MG PO DAILY for 90 Days, #90 TAB 1 Refill Prov:SCOUT MARRERO MD 07/21/24 Atorvastatin Calcium (ATORVASTATIN CALCIUM) 40 Mg Tab, 1 TAB PO DAILY, #90 TAB 1 Refill Prov:SCOUT MARRERO MD 07/21/24 Aspirin (Aspirin Low Dose) 81 Mg Tab, 81 MG PO DAILY for 90 Days, #90 TAB 1 Refill Prov:SCOUT MARRERO MD 07/21/24 Quality: Squeezing, Pressure Onset: At Rest Cardiac Risk Factors: Smoker, Hyperlipidemia, HTN PE Risk Factors: None History of: WA, Angioplasty Past Medical History PAST MEDICAL HISTORY: CAD, High Lipids, HTN, WA Surgical History: [employer] 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 BUSINESS 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 DEVELOPER History Family History Family History: Family hx of DM, Family hx of HTN Social History Smoker: Cigarettes (Currently smokes about 5 cigarettes a day previously was smoking about 10 cigarettes per day for a long period of time) Alcohol: Denies ETOH Use Drugs: Marijuana Lives In: Home Constitutional: reports: diaphoresis EENTM: denies: blurred vision, double vision, ear bleeding, ear discharge, ear drainage, ear pain, ear ringing, eye pain, eye redness, hearing loss, mouth pain, mouth swelling, nasal discharge, nose bleeding, nose congestion, nose pain, photophobia, tearing, throat pain, throat swelling, voice changes, others Respiratory: denies: cough, hemoptysis, orthopnea, SOB at rest, shortness of breath, SOB with excertion, stridor, wheezing, others Cardiovascular: reports: chest pain, diaphoresis Gastrointestinal: denies: abdomen distended, abdominal pain, blood streaked bowels, constipated, diarrhea, dysphagia, difficulty swallowing, hematemesis, melena, nausea, poor appetite, poor fluid intake, rectal bleeding, rectal pain, vomiting, others Genitourinary: denies: abnormal vagina bleeding, burning, dyspareunia, dysuria, flank pain, frequency, hematuria, incontinence, pain, , vagina discharge, urgency, others Neurological: denies: dizziness, fainting, headache, left sided numbness, left sided weakness, numbness, paresthesia, pre-existing deficit, right sided numbness, right sided weakness, seizure, speech problems, tingling, tremors, weakness, others Musculoskeletal: denies: back pain, gout, joint pain, joint swelling, muscle pain, muscle stiffness, neck pain, others Integumetry: denies: bruises, change in color, change in hair/nails, dryness, laceration, lesions, lumps, rash, wounds, others Allergic/Immunocompromised: denies: Difficulty Healing, Frequent Infections, Hives, Itching, others Hematologic/Lymphatic: denies: anemia, blood clots, easy bleeding, easy bruising, swollen glands, others Endocrine: denies: excessive hunger, excessive sweating, excessive thirst, excessive urination, flushing, intolerance to cold, intolerance to heat, unexplained weight gain, unexplained weight loss, others Psychiatric: denies: anxiety, bipolar disorder, depression, hopeless, panic disorder, schizophrenia, sleepless, suicidal, others Physical Exam General Appearance: Mild Distress HEENT: Normal ENT Inspection, Pharynx Normal, TMs Normal Neck: Full Range of Motion, Non-Tender, Normal, Normal Inspection Respiratory: Chest Non-Tender, Lungs Clear, No Accessory Muscle Use, No Respiratory Distress, Normal Breath Sounds Cardiovascular: No Edema, No JVD, No Murmur, No Gallop, Normal Peripheral Pulses, Regular Rate/Rhythm Breast Exam: Deferred Gastrointestinal: No Organomegaly, Non Tender, No Pulsatile Mass, Normal Bowel Sounds, Soft Genitalia: Deferred Pelvic: Deferred Rectal: Deferred Extremities: No calf tenderness, Normal capillary refill, Normal inspection, Normal range of motion, Non-tender, No pedal edema Neurologic: Alert, laundry 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 Was a procedure done?: No CP Differential Dx Differential Diagnosis: Other Differential Diagnosis: Angina, Chest Wall Pain, Costochondritis, Esophageal reflux/spasm, Gastritis X-Ray, Labs, Meds, VS Vital Signs Date Time Temp Pulse Resp B/P (MAP) Pulse Ox O2 Delivery O2 Flow Rate FiO2 10/13/24 17:33 56 10/13/24 16:56 80 10/13/24 16:18 80 10/13/24 16:16 98.1 80 16 125/77 (93) 98 98.1 Lab Test 10/13/24 17:24 10/13/24 16:26 Range/Units Troponin I High Sensitivity 3 L < 3 L </=34 ng/L White Blood Count 8.0 4.4-10.8 10^3/uL Red Blood Count 4.60 4.0-5.20 10^6/uL Hemoglobin 14.0 12.2-16.2 g/dL Hematocrit 41.3 36.0-46.0 % Mean Corpuscular Volume 89.8 80.0-100.0 fL Mean Corpuscular Hemoglobin 30.6 28.0-32.0 pg Mean Corpuscular Hemoglobin Concent 34.0 32.0-36.0 g/dL Red Cell Distribution Width 12.8 11.8-14.3 % Platelet Count 213 140-450 10^3/uL Mean Platelet Volume 7.7 6.9-10.8 fL Neutrophils (%) (Auto) 59.2 37.0-80.0 % Lymphocytes (%) (Auto) 31.0 10.0-50.0 % Monocytes (%) (Auto) 8.6 0.0-12.0 % Eosinophils (%) (Auto) 0.8 0.0-7.0 % Basophils (%) (Auto) 0.4 0.0-2.0 % Neutrophils # (Auto) 4.7 1.6-8.6 10 ^3/uL Lymphocytes # (Auto) 2.5 0.4-5.4 10 ^3/uL Monocytes # (Auto) 0.7 0-1.3 10 ^3/uL Eosinophils # (Auto) 0.1 0-0.8 10 ^3/uL Basophils # (Auto) 0 0-0.2 10 ^3/uL Nucleated Red Blood Cells 0.1 % Sodium Level 141 136-145 mmol/L Potassium Level 4.1 3.5-5.1 mmol/L Chloride Level 106 98-107 mmol/L Carbon Dioxide Level 28 20-31 mmol/L Anion Gap 7 5-15 Blood Urea Nitrogen 9 9-23 mg/dL Creatinine 0.94 0.550-1.02 mg/dL Glomerular Filtration Rate Calc 72 >90 mL/min BUN/Creatinine Ratio 9.6 L 10.0-20.0 Serum Glucose 114 H 74-106 mg/dL Calcium Level 10.5 H 8.7-10.4 mg/dL Patient 54-year-old female came to the ED with a chief complaint of chest pain, previous history of WA with 1 stent in July 2024. Initial 12 lead ECG showed sinus rhythm without any evidence of acute ST segment or T-wave changes. Patient has a history of hypertension, hyperlipidemia, previous WA and with the significant risk factors and typical chest pain patient will be admitted for further inpatient management and risk stratification. Patient agrees with the plan Time of 1ST Reevaluation: 17:55 Reevaluation 1ST: Improved Time of 2ND Reevaluation: 18:41 Reevaluation 2ND: Unchanged Patient Education/Counseling: Diagnosis, Treatment Family Education/Counseling: No Family Present SEPSIS Sepsis Screen Physician Orders Troponin-I Hs (10/13/24 19:15) Electrocardigram (10/13/24 16:15) Electrocardigram (10/13/24 17:15) Electrocardigram (10/13/24 19:15) Chest Portable (10/13/24 16:38) Heplock Iv (10/13/24 16:38) Vital Signs Date Time Temp Pulse Resp B/P (MAP) Pulse Ox O2 Delivery O2 Flow Rate FiO2 10/13/24 17:33 56 10/13/24 16:56 80 10/13/24 16:18 80 10/13/24 16:16 98.1 80 16 125/77 (93) 98 98.1 Laboratory Tests Test 10/13/24 16:26 White Blood Count 8.0 10^3/uL (4.4-10.8) Departure 1 Departure Time of Disposition: 19:31 Impression: Primary Impression: Chest pain Additional Impressions: Musculoskeletal chest pain Angina pectoris Pneumonitis Disposition: 09 ADMITTED INPATIENT Condition: Fair Critical Care Note Critical Care Time?: No Stability Stability form required: No Heart Score Heart Score: Heart Score Response (Comments) Value History Moderate Suspicious 1 EKG Normal 0 Age 45-64 1 Risk Factors >3 or Hx ASHD 2 Troponin Normal limit 0 Total 4 PARMJIT HOLLEY RESIDENT Oct 13, 2024 16:56
[2024-10-13 16:59] LABS: Chloride 106 mmol/L (98-107); Potassium 4.1 mmol/L (3.5-5.1); Sodium 141 mmol/L (136-145)
[2024-10-13 17:00] LABS: Anion Gap 7 (5-15); Carbon Dioxide 28 mmol/L (20-31)
[2024-10-13 17:01] LABS: Hematocrit 41.3 % (36.0-46.0); Hemoglobin 14.0 g/dL (12.2-16.2); Mean Corpuscular Hemoglobin 30.6 pg (28.0-32.0); Mean Corpuscular Volume 89.8 fL (80.0-100.0); Nucleated Red Blood Cells % 0.1 %
[2024-10-13 17:02] LABS: Calcium 10.5 mg/dL (8.7-10.4)
[2024-10-13 17:05] LABS: BUN/Creatinine Ratio 9.6 (10.0-20.0); Blood Urea Nitrogen 9 mg/dL (9-23); Glucose 114 mg/dL (74-106)
--- NOTE | 2024-10-13 17:20 | DVH ---
CHEST RADIOGRAPH Indication: SOB Technique: Single frontal view of the chest was obtained COMPARISON: XY CHEST PORTABLE on DOS: 09/06/24, XY CHEST PORTABLE on DOS: 08/24/24, XY CHEST PORTABLE on DOS: 08/15/24, XY CHEST XRAY 1 VIEW on DOS: 08/11/24, XY CHEST PORTABLE on DOS: 07/28/24 FINDINGS: Lines and Tubes: None Lungs: Increased prominence interstitial Pleura: No effusion. No pneumothorax. Cardiomediastinal contours: Unremarkable Bones: Unremarkable IMPRESSION: Pulmonary vascular congestion or viral pneumonia.
[2024-10-13 19:31] VITALS: BP 127/79; PULSE 56; RESP 21; TEMP 97.8; O2SAT 98
[2024-10-13] MEDS ORDERED: NITROGLYCERIN 0.4 MG SL TAB SL PRN (19:45)
[2024-10-13] MEDS ORDERED: MORPHINE SULFATE INJ 2 MG/ml SYRG IV PRN (19:45)
[2024-10-13] MEDS ORDERED: ONDANSETRON HCL 4 MG/2 ML VIAL IV PRN (20:00)
[2024-10-13] MEDS ORDERED: ACETAMINOPHEN 325 MG TAB PO PRN (20:00)
[2024-10-13] MEDS ORDERED: ATORVASTATIN 20 MG TAB PO SCH (22:00)
[2024-10-14] MEDS ORDERED: PANTOPRAZOLE 40 MG TAB PO SCH (06:00)
[2024-10-14] MEDS ORDERED: CLOPIDOGREL BISULFATE 75 MG TAB PO SCH (10:00)
[2024-10-14] MEDS ORDERED: METOPROLOL SUCCINATE XL 50 MG TAB PO SCH (10:00)
[2024-10-14] MEDS ORDERED: VALSARTAN 80 MG TAB PO SCH (10:00)
--- NOTE | 2024-10-15 12:05 | ECG ---
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
--- NOTE | 2024-10-15 12:05 | ECG ---
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
== END 2024-10-13 19:49 | disposition left against medical advice (07) | DRG 144 ==
LOC: ER 16:15 → OVERFLOW 19:43
PROVIDERS: ADMIT Nurse Practitioner; ATTEND Nurse Practitioner
DX: J98.4 Other disorders of lung (principal); F17.210 Nicotine dependence, cigarettes, uncomplicated; I10 Essential (primary) hypertension; I25.118 Atherosclerotic heart disease of native coronary artery with other forms of angina pectoris; K21.9 Gastro-esophageal reflux disease without esophagitis; Z53.29 Procedure and treatment not carried out because of patient's decision for other reasons; Z83.3 Family history of diabetes mellitus; Z82.49 Family history of ischemic heart disease and other diseases of the circulatory system; I25.2 Old myocardial infarction; Z98.61 Coronary angioplasty status; Z79.82 Long term (current) use of aspirin; Z79.899 Other long term (current) drug therapy
CPT/HCPCS: 36415; 71045; 80048; 84484; 85025; G0378

== ENCOUNTER 2024-10-15 17:39 | Emergency (ER) | payer MEDICAID ==
[~2024-10-15] VITALS: Ht 162.6 cm; Wt 64.5 kg
[2024-10-15 17:50] VITALS: BP 142/85; RESP 16; TEMP 97.6; O2SAT 96
--- NOTE | 2024-10-15 18:54 | ECG ---
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
[2024-10-15 19:14] LABS: Hematocrit 43.4 % (36.0-46.0); Hemoglobin 14.5 g/dL (12.2-16.2); Mean Corpuscular Hemoglobin 30.1 pg (28.0-32.0); Mean Corpuscular Volume 90.4 fL (80.0-100.0); Nucleated Red Blood Cells % 0.1 %
--- NOTE | 2024-10-15 19:14 | ED.PDOC ---
HPI Comments 54-year-old female who presents to the emergency department with chest pain ongoing since yesterday. Patient reports she felt she had heat exhaustion yesterday after walking outside. She has headache, chest pain, dizziness, feels confused. She was sweating a lot yesterday. The chest pain is tight on the left side of her chest nonradiating. Currently 9/10. She had similar pain yesterday. Patient has a past medical history of hypertension, hyperlipidemia. She was seen in the ED 2 days ago, she eloped. Her chest work at that time showed possible pulmonary vascular congestion versus viral pneumonia. REVIEW OF SYSTEMS: General: No fever, no chills, positive fatigue HEENT: No sore throat, no earache, no congestion, no neck pain. Cardiac: Positive chest pain. No palpitations. Lungs: No shortness of breath, no cough. GI: No nausea, no vomiting, no diarrhea, no constipation, no abdominal pain : No dysuria, frequency, or urgency. No hematuria. Musculoskeletal: No joint pain , no joint swelling, no extremity edema. Skin: No rash, no itching. Neuro: Positive headache, positive dizziness, no weakness PHYSICAL EXAM: General: Awake, alert and oriented. No acute distress. Skin: Skin in warm, dry and intact. Appropriate color for ethnicity. HEENT: The head is normocephalic and atraumatic. Conjunctivae are clear without exudates or hemorrhage. Sclera is non-icteric. EOM are intact. No signs of nyst agmus. Eyelids are normal in appearance without swelling or lesions. Oral mucosa is pink and moist Neck: The neck is supple with normal range of motion. No JVD. Cardiac: Heart rate and rhythm are normal. No murmurs, gallops, or rubs are auscultated. Respiratory: No signs of respiratory distress. Lung sounds are clear in all lobes bilaterally without rales, rhonchi, or wheezes. Abdominal: Abdomen is soft, non-tender without distention, guarding or rigidity. Bowel sounds are present and normoactive in all four quadrants. Extremities: Upper and lower extremities are atraumatic in appearance without deformity or edema. Neurological: The patient is awake, alert and oriented to person, place, and time with normal speech. Speech is clear. There is no facial asymmetry. Normal gait Psychiatric: Appropriate mood and affect. Good judgement and insight. Chief Complaint: Chest Pain Time Seen by MD: 17:43 Primary Care Provider: Dr. Benjamin Allergies: Coded Allergies: No Known Drug Allergy (Verified Allergy, Unknown, 04/22/21) Home Meds Active Scripts Polyethylene Glycol 3350 (Goodsense Clearlax) 17 Gm/Scoop Pow, 17 GM PO DAILY for 7 Days, #1 POW 0 Refills Prov:GRANT MCBRIDE MD 08/27/24 Famotidine (PEPCID TABLET) 20 Mg Tb, 1 TAB PO BID for 30 Days, #60 TAB 0 Refills Prov:GRANT MCBRIDE MD 08/27/24 Baclofen (Baclofen) 10 Mg Tab, 10 MG PO BID for 7 Days, #14 TAB 0 Refills Prov:GRANT MCBRIDE MD 08/27/24 Metoprolol Succinate (Metoprolol Succinate Er) 25 Mg Tab, 12.5 MG PO DAILY for 30 Days, #15 TAB 1 Refill Prov:GRANT MCBRIDE MD 08/27/24 Chlorhexidine Gluconate (Mouth (CHLORHEXIDINE ORAL RINSE) 473 Ml So, 15 ML MT Q12HR for 5 Days, #473 ML Prov:JUNIOR CURTIS MD 08/11/24 Hydrocodone-Acetaminophen (Hydrocodone Bitartrate/AC 5-325 mg) 1 Tab Tab, 1 TAB PO Q4HP PRN, #20 TAB Prov:BENI HARDY MD 07/29/24 Pantoprazole Sodium Sesquihydr (Protonix) 40 Mg Tab, 40 MG PO DAILY, #30 TAB Prov:BENI HARDY MD 07/27/24 Nitroglycerin (NTROSTAT SUBLINGUAL) 0.4 Mg Sl, 0.4 MG SL Q5MINP PRN, #100 TAB Prov:BENI HARDY MD 07/27/24 Valsartan (Valsartan) 80 Mg Tab, 80 MG PO DAILY for 90 Days, #90 TAB 1 Refill Prov:SCOUT MARRERO MD 07/21/24 Clopidogrel Bisulfate (CLOPIDOGREL) 75 Mg Tab, 75 MG PO DAILY for 90 Days, #90 TAB 1 Refill Prov:SCOUT MARRERO MD 07/21/24 Atorvastatin Calcium (ATORVASTATIN CALCIUM) 40 Mg Tab, 1 TAB PO DAILY, #90 TAB 1 Refill Prov:SCOUT MARRERO MD 07/21/24 Aspirin (Aspirin Low Dose) 81 Mg Tab, 81 MG PO DAILY for 90 Days, #90 TAB 1 Refill Prov:SCOUT MARRERO MD 07/21/24 Mode of Arrival: Ambulatory Past Medical History PAST MEDICAL HISTORY: CAD, High Lipids, HTN, [place] 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 Was a procedure done?: No CP Differential Dx Differential Diagnosis: Other (Differential diagnoses considered include acute ischemic coronary syndrome, aortic dissection, cardiac tamponade, mediastinitis, pulmonary embolus, pneumothorax, tension pneumothorax, esophageal rupture, coronary artery vasospasm, myocarditis, pericarditis, pneumonia, pulmonary ed elvia, esophageal tear, pancreatitis, aortic stenosis, dilated cardiomyopathy, hypertrophic cardiomyopathy, mitral valve prolapse, malignancy, pleuritis, pneumomediastinum, primary pulmonary hypertension, cholecystitis, esophageal spasm, esophagus, gastritis, GERD, peptic ulcer disease, costochondritis, fibromyalgia, rib fracture, herpes zoster, radicular syndromes, thoracic outlet syndrome, somatization.) X-Ray, Labs, Meds, VS Vital Signs Date Time Temp Pulse Resp B/P (MAP) Pulse Ox O2 Delivery O2 Flow Rate FiO2 10/15/24 20:43 58 10/15/24 19:06 61 10/15/24 17:50 97.6 65 16 142/85 (104) 96 97.6 10/15/24 17:44 62 Lab Test 10/15/24 19:22 10/15/24 18:21 10/15/24 17:57 Range/Units Troponin I High Sensitivity 3 L < 3 L </=34 ng/L White Blood Count 8.2 4.4-10.8 10^3/uL Red Blood Count 4.80 4.0-5.20 10^6/uL Hemoglobin 14.5 12.2-16.2 g/dL Hematocrit 43.4 36.0-46.0 % Mean Corpuscular Volume 90.4 80.0-100.0 fL Mean Corpuscular Hemoglobin 30.1 28.0-32.0 pg Mean Corpuscular Hemoglobin Concent 33.3 32.0-36.0 g/dL Red Cell Distribution Width 12.5 11.8-14.3 % Platelet Count 214 140-450 10^3/uL Mean Platelet Volume 7.8 6.9-10.8 fL Neutrophils (%) (Auto) 55.5 37.0-80.0 % Lymphocytes (%) (Auto) 34.6 10.0-50.0 % Monocytes (%) (Auto) 8.4 0.0-12.0 % Eosinophils (%) (Auto) 1.1 0.0-7.0 % Basophils (%) (Auto) 0.4 0.0-2.0 % Neutrophils # (Auto) 4.5 1.6-8.6 10 ^3/uL Lymphocytes # (Auto) 2.8 0.4-5.4 10 ^3/uL Monocytes # (Auto) 0.7 0-1.3 10 ^3/uL Eosinophils # (Auto) 0.1 0-0.8 10 ^3/uL Basophils # (Auto) 0 0-0.2 10 ^3/uL Nucleated Red Blood Cells 0.1 % Sodium Level 143 136-145 mmol/L Potassium Level 3.7 3.5-5.1 mmol/L Chloride Level 107 98-107 mmol/L Carbon Dioxide Level 29 20-31 mmol/L Anion Gap 7 5-15 Blood Urea Nitrogen 7 L 9-23 mg/dL Creatinine 0.84 0.550-1.02 mg/dL Glomerular Filtration Rate Calc 83 >90 mL/min BUN/Creatinine Ratio 8.3 L 10.0-20.0 Serum Glucose 77 74-106 mg/dL Calcium Level 10.6 H 8.7-10.4 mg/dL B-Type Natriuretic Peptide 7.99 0-100 pg/mL Urine Color Light-yellow Yellow Urine Clarity Turbid H Clear Urine pH 5.0 5.0-9.0 Urine Specific [place] 1.015 1.001-1.035 Urine Protein Negative Negative Urine Ketones Negative Negative Urine Blood Trace H Negative /uL Urine Nitrite Negative Negative Urine Bilirubin Negative Negative Urine Urobilinogen Normal Negative mg/dL Urine Leukocyte Esterase Negative Negative /uL Urine RBC 1 0 - 4 /hpf Urine Microscopic WBC 3 0-5 /HPF Urine Squamous Epithelial Cells Few <5 /hpf Urine Bacteria Few H None Seen /hpf Urine Mucus Few None Seen Urine Glucose Normal Normal mg/dL Time of 1ST Reevaluation: 19:00 Reevaluation 1ST: Improved Patient Education/Counseling: Need For Follow Up Family Education/Counseling: Other SEPSIS Sepsis Screen Date sepsis recognized/suspect: Oct 15, 2024 Time Sepsis recognized/suspect: 1749 Recent Procedure: No On Antibiotic Therapy: No Respiratory Rate >20: No Heart Rate >90: No Temp<36 C (96.8 F) or >38.3 C: No SBP <90 or MAP <65 mmHG: No New Acute Mental Status Change: No Is the patient on CPAP, BIPAP,: No Physician Orders Electrocardigram (10/15/24 17:43) Electrocardigram (10/15/24 18:43) Electrocardigram (10/15/24 20:43) Vital Signs Date Time Temp Pulse Resp B/P (MAP) Pulse Ox O2 Delivery O2 Flow Rate FiO2 10/15/24 20:43 58 10/15/24 19:06 61 10/15/24 17:50 97.6 65 16 142/85 (104) 96 97.6 10/15/24 17:44 62 Laboratory Tests Test 10/15/24 18:21 White Blood Count 8.2 10^3/uL (4.4-10.8) Departure 1 Departure Time of Disposition: 19:12 Impression: Primary Impression: Chest pain Additional Impression: Headache Disposition: 01 HOME / SELF CARE / HOMELESS Condition: Stable Additional Instructions: ED DISCHARGE INSTRUCTIONS Instructions: Please read all instructions provided in this packet carefully. Although you have been discharged from the Emergency Department, this does not mean that you have a "clean bill of health". No definitive diagnosis for your symptoms has been made today. It is possible that you are in the process of developing a serious illness. This is why you must return to the ED without fail if any new or worsening symptoms (especially if your symptoms include chest pain, trouble breathing, abdominal pain, fever, headache, confusion, trouble seeing, or trouble walking) Be sure to stay hydrated at home. It is also very important that you see a primary care doctor within the next 3-5 days to follow up. Follow up with the net developer for further evaluation of abnormal chest x-ray findings. If you are unable to get an appointment, return to the ED for re-evaluation. CHEST PAIN EDUCATION There are many things that can cause chest pain. Some are not serious and will get better on their own in a few days. But some kinds of chest pain need more testing and treatment. Your doctor may have recommended a follow-up visit in the next few days. If you are not getting better, you may need more tests or treatment. Even though your doctor has released you, you still need to watch for any problems. The doctor carefully checked you, but sometimes problems can develop later. If you have new symptoms or if your symptoms do not get better, get medical care right away. If you have worse or different chest pain or pressure that lasts more than 5 minutes or you passed out (lost consciousness), call 911 or seek other emergency help right away. A medical visit is only one step in your treatment. Even if you feel better, you still need to do what your doctor recommends, such as going to all suggested follow-up appointments and taking medicines exactly as directed. This will help you recover and help prevent future problems. How can you care for yourself at home? Rest until you feel better. Take your medicine exactly as prescribed. Call your doctor if you think you are having a problem with your medicine. Do not drive after taking a prescription pain medicine. When should you call for help? Call 911 if: You passed out (lost consciousness). You have severe difficulty breathing. You have symptoms of a heart attack. These may include: Chest pain or pressure, or a strange feeling in your chest. Sweating. Shortness of breath. Nausea or vomiting. Pain, pressure, or a strange feeling in your back, neck, jaw, or upper belly or in one or both shoulders or arms. Lightheadedness or sudden weakness. A fast or irregular heartbeat. After you call 911, the prototype machine operator may tell you to chew 1 adult-strength or 2 to 4 low-dose aspirin. Wait for an ambulance. Do not try to drive yourself. Call your doctor now or seek immediate medical care if: You have any trouble breathing. You have new or different chest pain. You are dizzy or lightheaded, or you feel like you may faint. Watch closely for changes in your health, and be sure to contact your doctor if you do not get better as expected. Current as of: November 06, 2023 Author: [employer] Staff? Comments 54-year-old female with several days of chest pain and headache. Serial EKG negative for signs of ischemia. Serial High sensitivity troponin negative. CXR shows possible vascular congestion 2 days ago. Presentation not suggestive of acute coronary syndrome, pulmonary embolism or aortic dissection. No focal neurological symptoms. Neuro exam is benign. Based on history and normal neurological exam I have low suspicion for intracranial tumor, intracranial bleed, meningitis, temporal arteritis, glaucoma, CO poisoning. Most likely patient has benign headache, recommend rest, hydration, and OTC pain control. Patient improved at time of discharge, she would like to go home. She declined IV fluids. No hypoxia, respiratory distress or dyspnea at discharge. Patient able to ambulate without difficulty. I reviewed the following notes from the pt's past medical encounters: Encounter from this month for chest pain The following tests were ordered, and results were reviewed by me: (See diagnostic results section) The following test were independently interpreted by me: EKG Additional information was gathered from interviewing the following independent historians: N/A I reviewed and agreed with the following test results read by other providers: N/A I discussed treatments and results with patient Decision regarding hospitalization or escalation of hospital level of care: Risks and benefits of admission for further treatment of patient's condition was considered however due to patient's stable condition patient will be discharged to follow up closely or return to care for worsening of condition or inability to follow up. Critical Care Note Critical Care Time?: No Stability Stability form required: No Heart Score Heart Score: Heart Score Response (Comments) Value History Slightly Suspicious 0 EKG Normal 0 Age 45-64 1 Risk Factors 1 or 2 risk factors 1 Troponin Normal limit 0 Total 2 JUNIOR CURTIS MD Oct 15, 2024 19:14
[2024-10-15] MEDS ORDERED: SODIUM CHLORIDE 0.9% 1,000 ML IV ONE (19:15)
[2024-10-15] MEDS ORDERED: ACETAMINOPHEN 500 MG TAB or CAP PO ONE (19:15)
[2024-10-15] MEDS ORDERED: IBUPROFEN 600 MG TAB PO ONE (19:15)
[2024-10-15 19:17] LABS: Carbon Dioxide 29 mmol/L (20-31); Potassium 3.7 mmol/L (3.5-5.1)
[2024-10-15 19:22] LABS: BUN/Creatinine Ratio 8.3 (10.0-20.0); Glucose 77 mg/dL (74-106)
[2024-10-15 19:33] LABS: Blood Urea Nitrogen 7 mg/dL (9-23); Calcium 10.6 mg/dL (8.7-10.4); Chloride 107 mmol/L (98-107)
[2024-10-15 19:34] LABS: Anion Gap 7 (5-15); Sodium 143 mmol/L (136-145)
[2024-10-15 20:43] VITALS: PULSE 58
[2024-10-15 21:45] LABS: Urine Protein, UAD Negative (Negative)
--- NOTE | 2024-10-16 05:43 | ECG ---
[facility] Test Date: 2024-10-15 Test Time: 20:43:55 Pat Name: ADALI FERRIS Department: ER Room: Gender: F Weed Cutter: NIKOLAS : 1970 Requested By: JILL JARAMILLO Order Number: [id number] Reading MD: Chris Durant Measurements Intervals [place] Rate: 58 P: 68 CT: 177 QRS: 18 QRSD: 101 T: 34 QT: 408 QTc: 401 Interpretive Statements Sinus rhythm Probable left ventricular hypertrophy Baseline wander in lead(s) II,aVR Electronically Signed On 10-19-2024 18:34:29 PDT by Chris Durant Please click the below link to view image of tracing.
--- NOTE | 2024-10-16 07:26 | ECG ---
[facility] Test Date: 2024-10-15 Test Time: 19:06:17 Pat Name: ADALI FERRIS Department: ER Room: Gender: F [employer]: WEN : 1970 Requested By: JILL JARAMILLO Order Number: [id number] Reading MD: Chris Durant Measurements Intervals [place] Rate: 61 P: 69 [place]: 174 QRS: 17 QRSD: 97 T: 59 QT: 411 QTc: 414 Interpretive Statements Sinus rhythm RSR' in V1 or V2, probably normal variant Electronically Signed On 10-19-2024 18:32:58 PDT by Chris Durant Please click the below link to view image of tracing.
== END 2024-10-15 22:48 | disposition home or self-care (01) ==
LOC: ER 17:39
DX: R07.89 Other chest pain (principal); R51.9 Headache, unspecified; R14.0 Abdominal distension (gaseous); I10 Essential (primary) hypertension; E78.5 Hyperlipidemia, unspecified; F17.210 Nicotine dependence, cigarettes, uncomplicated; I25.10 Atherosclerotic heart disease of native coronary artery without angina pectoris; R06.02 Shortness of breath; Z79.899 Other long term (current) drug therapy; Z79.82 Long term (current) use of aspirin; Z98.890 Other specified postprocedural states
CPT/HCPCS: 36415; 80048; 81001; 83880; 84484; 85025; 93005

== ENCOUNTER 2024-10-20 13:43 | Inpatient (IN) | payer MEDICAID ==
[~2024-10-20] VITALS: Ht 162.6 cm; Wt 65.0 kg
--- NOTE | 2024-10-20 14:15 | ED.PDOC ---
SOB-HPI HPI Comments 54-year-old female with a history of hypertension, dyslipidemia, CAD and UT presents with a chief complaint of SOB and chest pain. Patient states that she was here a week ago and was diagnosed with Pneumonia. Patient reports that inpatient hospitalization was recommended, but she left AMA. Patient mentions that she has not been getting any better since and came back to finally seek treatment. Patient describes her chest pain as burning, and is localized to her retro sternal region, and is associated with productive cough, shortness of breath and general weakness. She denies any nausea, vomiting, diaphoresis or edema. Chief Complaint: Shortness of Breath Time Seen by MD: 14:04 Primary Care Provider: Dr. Benjamin Reviewed notes: Medications, Allergies Information Source: Patient Mode of Arrival: Ambulatory Severity: Moderate Timing: Weeks Duration: Since onset Context: Spontaneous Onset PE Risk Factors: None History of: None Prehospital treatment: None Associated Signs and Symptoms: Chest Pain Quality: Burning Radiation: No Radiation Location: Substernal Past Medical History PAST MEDICAL HISTORY: CAD, High Lipids, HTN, UT Surgical History: PTCA CLINICAL LABORATORY MEDICAL DIRECTOR History: No Pertinent CLINICAL LABORATORY MEDICAL DIRECTOR History Family History Family History: Family hx of DM, Family hx of HTN Social History Smoker: Cigarettes Alcohol: Denies ETOH Use Drugs: Marijuana Lives In: Home Constitutional: denies: chills, diaphoresis, fatigue, fever, malaise, sweats, weakness, others EENTM: denies: blurred vision, double vision, ear bleeding, ear discharge, ear drainage, ear pain, ear ringing, eye pain, eye redness, hearing loss, mouth pain, mouth swelling, nasal discharge, nose bleeding, nose congestion, nose pain, photophobia, tearing, throat pain, throat swelling, voice changes, others Respiratory: reports: shortness of breath; denies: cough, hemoptysis, orthopnea, SOB at rest, SOB with excertion, stridor, wheezing, others Cardiovascular: reports: chest pain; denies: dizzy spells, diaphoresis, Dyspnea on exertion, edema, irregular heart beat, left arm pain, lightheadedness, palpitations, PND, syncope, others Gastrointestinal: denies: abdomen distended, abdominal pain, blood streaked bowels, constipated, diarrhea, dysphagia, difficulty swallowing, hematemesis, melena, nausea, poor appetite, poor fluid intake, rectal bleeding, rectal pain, vomiting, others Genitourinary: denies: abnormal vagina bleeding, burning, dyspareunia, dysuria, flank pain, frequency, hematuria, incontinence, pain, , vagina discharge, urgency, others Neurological: denies: dizziness, fainting, headache, left sided numbness, left sided weakness, numbness, paresthesia, pre-existing deficit, right sided numbness, right sided weakness, seizure, speech problems, tingling, tremors, weakness, others Musculoskeletal: denies: back pain, gout, joint pain, joint swelling, muscle pain, muscle stiffness, neck pain, others Integumetry: denies: bruises, change in color, change in hair/nails, dryness, laceration, lesions, lumps, rash, wounds, others Allergic/Immunocompromised: denies: Difficulty Healing, Frequent Infections, Hives, Itching, others Hematologic/Lymphatic: denies: anemia, blood clots, easy bleeding, easy bruising, swollen glands, others Endocrine: denies: excessive hunger, excessive sweating, excessive thirst, excessive urination, flushing, intolerance to cold, intolerance to heat, unexplained weight gain, unexplained weight loss, others Psychiatric: denies: anxiety, bipolar disorder, depression, hopeless, panic disorder, schizophrenia, sleepless, suicidal, others All Other Systems: Reviewed and Negative Physical Exam General Appearance: Mild Distress HEENT: Other (Pupils and face symmetric. Moist mucous membranes.) Neck: Full Range of Motion, Normal Inspection Respiratory: Decreased Breath Sounds, No Respiratory Distress, Rhonchi (Minimal scattered) Cardiovascular: No Edema, No JVD, Regular Rate/Rhythm Breast Exam: Deferred Gastrointestinal: Non Tender, Soft Genitalia: Deferred Pelvic: Deferred Rectal: Deferred Extremities: Normal inspection, Normal range of motion, Non-tender, No pedal edema Musculoskeletal : Apperance: Normal Neurologic: Alert (Oriented x4), Normal Affect, Normal Mood, Other (Ambulatory) Cerebellar Function: NOT DONE Reflexes: NOT DONE Skin: Dry, Normal Color, Warm Lymphatic: NOT DONE EKG EKG : Comments Sinus rhythm, rate 64, normal intervals, normal axis, possible old anteroseptal infarct, no ST/T change. Was a procedure done? Was a procedure done?: No Differential Dx Differential Diagnosis: Asthma, Bronchitis, CHF, COPD, Myocardial infarction, Panic Attack, Pneumonia, Pulmonary Embolism, URI, Other (ACS, unstable angina, among others) X-Ray, Labs, Meds, VS Vital Signs Date Time Temp Pulse Resp B/P (MAP) Pulse Ox O2 Delivery O2 Flow Rate FiO2 10/20/24 17:06 98.3 75 20 158/89 (112) 100 98.3 10/20/24 17:06 75 20 100 Room Air 10/20/24 14:22 18 98 Room Air* 0 21 10/20/24 14:13 98.2 68 18 164/100 (121) 98 98.2 10/20/24 13:59 64 Lab Test 10/20/24 16:09 10/20/24 15:10 10/20/24 14:31 Range/Units Urine Color Colorless Yellow Urine Clarity Clear Clear Urine pH 6.0 5.0-9.0 Urine Specific [place] 1.006 1.001-1.035 Urine Protein Negative Negative Urine Ketones Negative Negative Urine Blood Negative Negative /uL Urine Nitrite Negative Negative Urine Bilirubin Negative Negative Urine Urobilinogen Normal Negative mg/dL Urine Leukocyte Esterase Negative Negative /uL Urine RBC <1 0 - 4 /hpf Urine Microscopic WBC < 1 0-5 /HPF Urine Squamous Epithelial Cells Few <5 /hpf Urine Bacteria Few H None Seen /hpf Urine Glucose Normal Normal mg/dL Troponin I High Sensitivity 4 3 L </=34 ng/L White Blood Count 7.3 4.4-10.8 10^3/uL Red Blood Count 5.03 4.0-5.20 10^6/uL Hemoglobin 15.0 12.2-16.2 g/dL Hematocrit 45.1 36.0-46.0 % Mean Corpuscular Volume 89.7 80.0-100.0 fL Mean Corpuscular Hemoglobin 29.8 28.0-32.0 pg Mean Corpuscular Hemoglobin Concent 33.2 32.0-36.0 g/dL Red Cell Distribution Width 12.7 11.8-14.3 % Platelet Count 236 140-450 10^3/uL Mean Platelet Volume 7.5 6.9-10.8 fL Neutrophils (%) (Auto) 61.0 37.0-80.0 % Lymphocytes (%) (Auto) 30.7 10.0-50.0 % Monocytes (%) (Auto) 6.4 0.0-12.0 % Eosinophils (%) (Auto) 1.3 0.0-7.0 % Basophils (%) (Auto) 0.6 0.0-2.0 % Neutrophils # (Auto) 4.5 1.6-8.6 10 ^3/uL Lymphocytes # (Auto) 2.2 0.4-5.4 10 ^3/uL Monocytes # (Auto) 0.5 0-1.3 10 ^3/uL Eosinophils # (Auto) 0.1 0-0.8 10 ^3/uL Basophils # (Auto) 0 0-0.2 10 ^3/uL Nucleated Red Blood Cells 0.1 % Sodium Level 143 136-145 mmol/L Potassium Level 3.9 3.5-5.1 mmol/L Chloride Level 106 98-107 mmol/L Carbon Dioxide Level 30 20-31 mmol/L Anion Gap 7 5-15 Blood Urea Nitrogen 10 9-23 mg/dL Creatinine 0.82 0.550-1.02 mg/dL Glomerular Filtration Rate Calc 85 >90 mL/min BUN/Creatinine Ratio 12.2 10.0-20.0 Serum Glucose 84 74-106 mg/dL Lactic Acid Level 2.0 0.4-2.0 mmol/L Calcium Level 10.1 8.7-10.4 mg/dL B-Type Natriuretic Peptide 20.64 0-100 pg/mL Current Medications Medications (Trade) Dose Ordered Sig/Remy Route Start Time Stop Time Status Last Admin Albuterol (Ventolin Medneb) 5 mg ONCE ONCE NEB 10/20/24 14:15 10/20/24 14:16 DC 10/20/24 14:22 Ipratropium [place] (Atrovent Medneb) 0.5 mg ONCE ONCE NEB 10/20/24 14:15 10/20/24 14:16 DC 10/20/24 14:21 PROCEDURE(s): CXRP - CHEST PORTABLE REASON: pna ORDER NUMBER(s): [id number], ACCESSION NUMBER(s): [id number] EXAM: XY CHEST PORTABLE Indication: pain; pna Technique: Single frontal view of the chest was obtained Comparison: XY CHEST PORTABLE on DOS: 10/13/24, XY CHEST PORTABLE on DOS: 09/06/24, XY CHEST PORTABLE on DOS: 08/24/24, XY CHEST PORTABLE on DOS: 08/15/24, XY CHEST XRAY 1 VIEW on DOS: 08/11/24 FINDINGS: Lines and Tubes: None Lungs: No focal consolidation. Pleura: No effusion. No pneumothorax. Cardiomediastinal contours: Unremarkable Bones: No acute osseous abnormality. IMPRESSION: No acute cardiopulmonary disease. X-Ray, Labs, Meds, VS Comment 54-year-old female with a history of hypertension, dyslipidemia, CAD and UT complaining of shortness of breath and chest pain Vitals remarkable for BP 164/100 Exam remarkable for minimal scattered rhonchi and diminished breath sounds Rhythm strip independently interpreted by me: Sinus rhythm, rate 64, no ectopy. Chest x-ray no acute cardiopulmonary disease CBC, basic metabolic panel, BNP, 2 serial troponins, lactate and UA unremarkable for any abnormality of acute significance Patient treated with the following in the ED: Albuterol 5 mg/Atrovent 0.5 mg nebulized, Rocephin 1 g IV, Zithromax 500 mg IV, aspirin 325 mg p.o., nitro bid 1/2 inch to chest wall On re-evaluation, patient states shortness of breath has improved, blood pressure has improved, and other vitals are stable. Plan is to admit the patient for blood pressure control and Cardiology e valuation. Time of 1ST Reevaluation: 14:34 Reevaluation 1ST: Unchanged Patient Education/Counseling: Diagnosis, Treatment Family Education/Counseling: No Family Present SEPSIS Sepsis Screen Physician Orders Electrocardigram (10/20/24 14:08) Chest Portable (10/20/24 14:09) Blood Culture (10/20/24 14:09) Vital Signs Date Time Temp Pulse Resp B/P (MAP) Pulse Ox O2 Delivery O2 Flow Rate FiO2 10/20/24 17:06 98.3 75 20 158/89 (112) 100 98.3 10/20/24 17:06 75 20 100 Room Air 10/20/24 14:22 18 98 Room Air* 0 21 10/20/24 14:13 98.2 68 18 164/100 (121) 98 98.2 10/20/24 13:59 64 Laboratory Tests Test 10/20/24 14:31 Lactic Acid Level 2.0 mmol/L (0.4-2.0) White Blood Count 7.3 10^3/uL (4.4-10.8) Medications Medications Dose Ordered Sig/Remy Route Start Time Stop Time Status Last Admin Dose Admin Albuterol 5 mg ONCE ONCE NEB 10/20/24 14:15 10/20/24 14:16 DC 10/20/24 14:22 Ipratropium [place] 0.5 mg ONCE ONCE NEB 10/20/24 14:15 10/20/24 14:16 DC 10/20/24 14:21 Departure 1 Departure Time of Disposition: 17:30 Impression: Primary Impression: Hypertensive emergency Additional Impressions: Shortness of breath Chest pain with high risk for cardiac etiology Disposition: ADMITTED INPATIENT Admit to: Tele Condition: Guarded Critical Care Note Critical Care Time?: No Stability Stability form required: No Heart Score Heart Score: Heart Score Response (Comments) Value History Highly Suspicious 2 EKG Normal 0 Age 45-64 1 Risk Factors >3 or Hx ASHD 2 Troponin Normal limit 0 Total 5 I personally scribed for JILL GUPTA MD ([facility]) on 10/20/24 at 14:15. Electronically submitted by Mahendra Car ([email or web address]). JILL GUPTA MD Oct 20, 2024 14:15
[2024-10-20] MEDS: IPRATROPIUM BROM 0.5 MG/2.5ML INH SOL NEB ONE (14:21)
[2024-10-20] MEDS: ALBUTEROL SULF 2.5 MG/0.5ML(0.5%) NEB SOLN NEB ONE (14:22)
--- NOTE | 2024-10-20 14:37 | DVH ---
EXAM: XY CHEST PORTABLE Indication: pain; pna Technique: Single frontal view of the chest was obtained Comparison: XY CHEST PORTABLE on DOS: 10/13/24, XY CHEST PORTABLE on DOS: 09/06/24, XY CHEST PORTABLE on DOS: 08/24/24, XY CHEST PORTABLE on DOS: 08/15/24, XY CHEST XRAY 1 VIEW on DOS: 08/11/24 FINDINGS: Lines and Tubes: None Lungs: No focal consolidation. Pleura: No effusion. No pneumothorax. Cardiomediastinal contours: Unremarkable Bones: No acute osseous abnormality. IMPRESSION: No acute cardiopulmonary disease.
[2024-10-20 14:53] LABS: Hematocrit 45.1 % (36.0-46.0); Hemoglobin 15.0 g/dL (12.2-16.2); Mean Corpuscular Hemoglobin 29.8 pg (28.0-32.0); Mean Corpuscular Volume 89.7 fL (80.0-100.0); Nucleated Red Blood Cells % 0.1 %
[2024-10-20 15:02] LABS: Chloride 106 mmol/L (98-107); Potassium 3.9 mmol/L (3.5-5.1); Sodium 143 mmol/L (136-145)
[2024-10-20 15:03] LABS: Anion Gap 7 (5-15); Calcium 10.1 mg/dL (8.7-10.4); Carbon Dioxide 30 mmol/L (20-31)
[2024-10-20 15:08] LABS: BUN/Creatinine Ratio 12.2 (10.0-20.0); Blood Urea Nitrogen 10 mg/dL (9-23); Glucose 84 mg/dL (74-106)
[2024-10-20 16:15] LABS: Urine Protein, UAD Negative (Negative)
--- NOTE | 2024-10-20 19:04 | ECG ---
[facility] Test Date: 2024-10-20 Test Time: 13:59:54 Pat Name: ADALI FERRIS Department: er Room: Gender: F Contract Agent: : [id number] Requested By: JILL JARAMILLO Order Number: [id number] Reading MD: Measurements Intervals [place] Rate: 64 P: 50 WV: 167 QRS: -9 QRSD: 99 T: 18 QT: 406 QTc: 419 Interpretive Statements Sinus rhythm Probable left atrial enlargement Left ventricular hypertrophy Anterior Q waves, possibly due to LVH Please click the below link to view image of tracing.
[2024-10-20] MEDS: ACETAMINOPHEN 500 MG TAB or CAP PO ONE (19:28)
[2024-10-20] MEDS: NITROGLYCERIN 2% OINT 1GM PKG TD ONE (19:30)
[2024-10-20] MEDS: cefTRIAXone 1GM/50ML D5W 50 ML IV ONE ×2 (19:48→22:45)
[2024-10-20] MEDS: AZITHROMYCIN 500MG/ 250ML 250 ML IV ONE (20:10)
--- NOTE | 2024-10-20 22:22 | DVHHP2 ---
History of Present Illness History of Present Illness Patient is 54 years old female with past medical history of hypertension, hyperlipidemia, CAD-MT, status post PTCA x1-HILARIO in July 2024, degenerative disc disease, GERD came with a complaint of productive cough and chest pain. As per patient she has been having productive cough for last 7 days, yellowish in color. Patient also reported chest pain retrosternal, burning, radiating to the left arm, constant, decreased with pain medication. On further inquiry patient also reported exertional shortness of breaths, generalized weakness and palpitation. Patient reported low-grade fever at home around 99 F. patient denied any diarrhea, dysuria, acute joint redness or swelling, abdominal pain, dysarthria or change in vision. Patient visited [facility] ER on 10/13/2024 with the same complaint, was advised to be admitted but patient left AMA. Initial lab workup revealed troponin I within normal limit, BNP 20.68, COVID and flu negative, urinalysis negative for UTI, Past Medical History hypertension, hyperlipidemia, CAD-MT, status post PTCA x1-HILARIO in July 2024, degenerative disc disease, GERD Past Surgical History PTCA Family History Family history of diabetes mellitus and hypertension Past Social History Smoker, use marijuana, Review of Systems Review of Systems Allergy- NKDA Patient was seen today at the bedside. Gastrointestinal- denies any rectal bleeding, nausea or vomiting Musculoskeletal-denies acute joint swelling or tenderness or redness Neurological- denies acute dysarthria, dysphagia, change in vision Psychiatry- denies depression or SI or HI Skin- denies acute rash or purpura Allergies: Coded Allergies: No Known Drug Allergy (Verified Allergy, Unknown, 04/22/21) Medications Current Medications Medications Dose Ordered Sig/Remy Route Start Time Stop Time Status Last Admin Dose Admin Acetaminophen/ Hydrocodone Bitart 1 tab Q4HP PRN PO 10/20/24 22:30 Nitroglycerin 0.4 mg Q5MINP PRN SL 10/20/24 22:30 Morphine Sulfate 2 mg Q30M PRN IV 10/20/24 22:30 Ceftriaxone Sodium 50 ml @ 100 mls/hr DAILY@09 IV 10/21/24 09:00 UNV Azithromycin 250 mg DAILY PO 10/21/24 10:00 UNV Exam Vital Signs Vital Signs Date Time Temp Pulse Resp B/P (MAP) Pulse Ox O2 Delivery O2 Flow Rate FiO2 10/20/24 20:46 137/77 10/20/24 19:21 98.1 74 16 99 98.1 10/20/24 17:06 Room Air 10/20/24 14:22 0 21 Exam General examination- awake, alert, oriented HEENT- [place]ER[place], no acute nasal discharge Cardiovascular- S1-S2 audible, rate and rhythm regular, no murmur Respiratory- CTAB, no wheeze or rhonchi Gastrointestinal-nontender, bowel sound+. Nondistended Musculoskeletal-no acute joint swelling or tenderness or redness Lower extremity- no leg edema Neurological- cranial nerves intact, no acute dysarthria or dysphagia Psychiatry- denies depression or SI or HI Skin- no acute rash or purpura Labs/Xrays Labs Test 10/20/24 16:09 10/20/24 15:10 10/20/24 14:31 Range/Units Urine Color Colorless Yellow Urine Clarity Clear Clear Urine pH 6.0 5.0-9.0 Urine Specific [place] 1.006 1.001-1.035 Urine Protein Negative Negative Urine Ketones Negative Negative Urine Blood Negative Negative /uL Urine Nitrite Negative Negative Urine Bilirubin Negative Negative Urine Urobilinogen Normal Negative mg/dL Urine Leukocyte Esterase Negative Negative /uL Urine RBC <1 0 - 4 /hpf Urine Microscopic WBC < 1 0-5 /HPF Urine Squamous Epithelial Cells Few <5 /hpf Urine Bacteria Few H None Seen /hpf Urine Glucose Normal Normal mg/dL Troponin I High Sensitivity 4 </=34 ng/L White Blood Count 7.3 4.4-10.8 10^3/uL Red Blood Count 5.03 4.0-5.20 10^6/uL Hemoglobin 15.0 12.2-16.2 g/dL Hematocrit 45.1 36.0-46.0 % Mean Corpuscular Volume 89.7 80.0-100.0 fL Mean Corpuscular Hemoglobin 29.8 28.0-32.0 pg Mean Corpuscular Hemoglobin Concent 33.2 32.0-36.0 g/dL Red Cell Distribution Width 12.7 11.8-14.3 % Platelet Count 236 140-450 10^3/uL Mean Platelet Volume 7.5 6.9-10.8 fL Neutrophils (%) (Auto) 61.0 37.0-80.0 % Lymphocytes (%) (Auto) 30.7 10.0-50.0 % Monocytes (%) (Auto) 6.4 0.0-12.0 % Eosinophils (%) (Auto) 1.3 0.0-7.0 % Basophils (%) (Auto) 0.6 0.0-2.0 % Neutrophils # (Auto) 4.5 1.6-8.6 10 ^3/uL Lymphocytes # (Auto) 2.2 0.4-5.4 10 ^3/uL Monocytes # (Auto) 0.5 0-1.3 10 ^3/uL Eosinophils # (Auto) 0.1 0-0.8 10 ^3/uL Basophils # (Auto) 0 0-0.2 10 ^3/uL Nucleated Red Blood Cells 0.1 % Sodium Level 143 136-145 mmol/L Potassium Level 3.9 3.5-5.1 mmol/L Chloride Level 106 98-107 mmol/L Carbon Dioxide Level 30 20-31 mmol/L Anion Gap 7 5-15 Blood Urea Nitrogen 10 9-23 mg/dL Creatinine 0.82 0.550-1.02 mg/dL Glomerular Filtration Rate Calc 85 >90 mL/min BUN/Creatinine Ratio 12.2 10.0-20.0 Serum Glucose 84 74-106 mg/dL Lactic Acid Level 2.0 0.4-2.0 mmol/L Calcium Level 10.1 8.7-10.4 mg/dL B-Type Natriuretic Peptide 20.64 0-100 pg/mL SEPSIS Sepsis Screen Date sepsis recognized/suspect: Oct 20, 2024 Time Sepsis recognized/suspect: 1711 Recent Procedure: No On Antibiotic Therapy: No Respiratory Rate >20: No Heart Rate >90: No Temp<36 C (96.8 F) or >38.3 C: No SBP <90 or MAP <65 mmHG: No New Acute Mental Status Change: No Is the patient on CPAP, BIPAP,: No Physician Orders Admit (10/20/24 22:17) Code Status (10/20/24 22:17) Oxygen Per Hour (10/20/24 22:17) Hydrocodone-Acet 5/325mg Tab ([place] 5/32 (10/20/24 22:30) Complete Blood Count (10/21/24 04:00) Cardiac Diet-2gna,Lofat,Lochol (10/21/24 Breakfast) Nitroglycerin Sublingual (Ntrostat Subli (10/20/24 22:30) Morphine Sulfate Injection (10/20/24 22:30) Notify Of Changes From Base (10/20/24 22:17) Core Extruder For 24 Hours (10/20/24 22:17) Ceftriaxone 1gm/50ml D5w (Rocephin) (10/21/24 09:00) Ceftriaxone 1gm/50ml D5w (Rocephin) (10/20/24 22:30) Azithromycin Tablet (Zithromax Tablet) (10/20/24 22:30) Azithromycin Tablet (Zithromax Tablet) (10/21/24 10:00) Aspirin Enteric Coated Tablet (Ecotrin E (10/21/24 10:00) Clopidogrel Bisulfate (Plavix) (10/21/24 10:00) Pantoprazole Tablet (Protonix Tablet) (10/21/24 10:00) Valsartan (Diovan) (10/21/24 10:00) (Nf) Atorvastatin Calcium (10/21/24 10:00) (Nf) Metoprolol Succinate (Metoprolol Garcia (10/21/24 10:00) Vital Signs Date Time Temp Pulse Resp B/P (MAP) Pulse Ox O2 Delivery O2 Flow Rate FiO2 10/20/24 20:46 137/77 10/20/24 19:30 153/79 10/20/24 19:21 98.1 74 16 153/79 (103) 99 98.1 10/20/24 17:06 98.3 75 20 158/89 (112) 100 98.3 10/20/24 17:06 75 20 100 Room Air Laboratory Tests Test 10/20/24 14:31 Lactic Acid Level 2.0 mmol/L (0.4-2.0) White Blood Count 7.3 10^3/uL (4.4-10.8) Medications Medications Dose Ordered Sig/Remy Route Start Time Stop Time Status Last Admin Dose Admin Acetaminophen 1,000 mg ONCE ONCE PO 10/20/24 14:15 10/20/24 14:16 DC 10/20/24 19:28 1,000 MG Albuterol 5 mg ONCE ONCE NEB 10/20/24 14:15 10/20/24 14:16 DC 10/20/24 14:22 5 MG Aspirin 325 mg ONCE ONCE PO 10/20/24 17:15 10/20/24 17:56 DC 10/20/24 19:29 325 MG Azithromycin 250 ml @ 125 mls/hr ONCE ONCE IV 10/20/24 14:15 10/20/24 16:14 DC 10/20/24 20:10 125 MLS/HR Ceftriaxone Sodium 50 ml @ 100 mls/hr ONCE ONCE IV 10/20/24 14:15 10/20/24 14:44 DC 10/20/24 19:48 100 MLS/HR Ipratropium [place] 0.5 mg ONCE ONCE NEB 10/20/24 14:15 10/20/24 14:16 DC 10/20/24 14:21 0.5 MG Nitroglycerin 1 pkg ONCE ONCE TD 10/20/24 17:15 10/20/24 17:56 DC 10/20/24 19:30 1 PKG Assessment/Plan Assessment/Plan Assessment and plan # Acute chest pain likely due to costochondritis/musculoskeletal, rule out acute coronary syndrome -chest wall tenderness positive++ -troponin I and BNP within normal limit -continue Tylenol PRN # Acute bronchitis -patient complained of productive yellowish sputum for last 1 week -low-grade fever at home 99.9 F -pending sputum culture -continue Levaquin 750 mg p.o. daily # Hypertensive urgency -continue valsartan 80 mg p.o. daily -monitor BP # CAD, S/P PTCA -recent echo on 07/18/2024 revealed LVEF 60%, mild LVH -continue aspirin 80 mg p.o. daily -continue atorvastatin 40 mg p.o. daily -Metoprolol 12.5 mg p.o. qd -continue clopidogrel 75 mg p.o. daily -continue valsartan 80 mg p.o. daily # Hyperlipidemia -continue atorvastatin 40 mg p.o. daily PCP-Layla Collins [employer] Tender-Dr. Branham Goals of care, Code status full code ; discussed with >15 minutes PUD prophylaxis: Pantoprazole DVT prophylaxis: Lovenox Plan discussed with Dr. Lamar , nursing staff, Total time spent on patient evaluation, chart review, assessment and plan, discussion discussion >35 minutes Plan discussed with: Patient, Other My Orders Orders - BABU,MOHAMMED RESIDENT Procedure Category Date Status Time Admit ADMIT 10/20/24 Transmitted 22:17 Code Status CODE 10/20/24 Transmitted 22:17 Oxygen Per Hour RT 10/20/24 Transmitted 22:17 Hydrocodone-Acet PHA 10/20/24 In Process 5/325mg Tab ([place] 22:30 Complete Blood Count LAB 10/21/24 Verified 04:00 Cardiac DIET 10/21/24 Transmitted Diet-2gna,Lofat,Lochol Breakfast Nitroglycerin PHA 10/20/24 In Process Sublingual (Ntrostat 22:30 Morphine Sulfate PHA 10/20/24 In Process Injection 22:30 Notify Of Changes ANILA 10/20/24 In Process From Base 22:17 Core Extruder For ANILA 10/20/24 In Process 24 Hours 22:17 Ceftriaxone 1gm/50ml PHA 10/21/24 Logged D5w (Rocephin) 09:00 Ceftriaxone 1gm/50ml PHA 10/20/24 Logged D5w (Rocephin) 22:30 Azithromycin Tablet PHA 10/20/24 Logged (Zithromax Tablet) 22:30 Azithromycin Tablet PHA 10/21/24 Logged (Zithromax Tablet) 10:00 Aspirin Enteric PHA 10/21/24 Verified Coated Tablet 10:00 Clopidogrel Bisulfate PHA 10/21/24 Verified (Plavix) 10:00 Pantoprazole Tablet PHA 10/21/24 Verified (Protonix Tablet) 10:00 Valsartan (Diovan) PHA 10/21/24 Verified 10:00 (Nf) Atorvastatin PHA 10/21/24 Verified Calcium 10:00 (Nf) Metoprolol PHA 10/21/24 Verified Succinate (Metoprolol 10:00 Date of Service: Oct 20, 2024 Billing Provider: FEMI LAMAR MD Common Visit Codes: 48816-CRLHCEL INP/OBS CARE (HIGH) Secondary Visit Codes: 72599-[id number] CARE PLAN 30 MINUTES JANE MASON RESIDENT Oct 20, 2024 22:22
[2024-10-20] MEDS ORDERED: MORPHINE SULFATE INJ 2 MG/ml SYRG IV PRN (22:30)
[2024-10-20] MEDS ORDERED: NITROGLYCERIN 0.4 MG SL TAB SL PRN (22:30)
[2024-10-20] MEDS: AZITHROMYCIN 250 MG TAB PO ONE (22:45)
[2024-10-20 22:51] LABS: Alanine Aminotransferase 18.0 U/L (7-40); Alkaline Phosphatase 74.0 U/L (46-116); Bilirubin, Direct 0.1 mg/dL (<0.3); Bilirubin, Total 0.4 mg/dL (0.2-1.0); Magnesium 2.1 mg/dL (1.6-2.6); Total Protein 7.2 g/dL (5.7-8.2)
[2024-10-20 22:55] LABS: Albumin 4.9 g/dL (3.2-4.8)
[2024-10-20 23:30] VITALS: PULSE 60; RESP 14; O2SAT 96
[2024-10-21] VITALS (8 sets, daily range): BP systolic 111–142; BP diastolic 60–79; PULSE 51–76; RESP 15–18; TEMP 97.6–98.2; O2SAT 96–100
[2024-10-21 00:25] LABS: COVID19 ANTIGEN SOFIA FIA NEGATIVE (NEGATIVE)
[2024-10-21] MEDS: HYDROcodone-ACET 5/325MG TAB PO PRN (01:24)
[2024-10-21] MEDS: levoFLOXacin 250 MG TAB PO ONE (05:55)
[2024-10-21 06:54] LABS: Hematocrit 39.2 % (36.0-46.0); Hemoglobin 13.5 g/dL (12.2-16.2); Mean Corpuscular Hemoglobin 30.7 pg (28.0-32.0); Mean Corpuscular Volume 89.1 fL (80.0-100.0); Nucleated Red Blood Cells % 0.1 %
[2024-10-21] MEDS: ATORVASTATIN 20 MG TAB PO SCH (08:30)
[2024-10-21] MEDS: ASPirin-EC 81 mg tab PO SCH (08:30)
[2024-10-21] MEDS: CLOPIDOGREL BISULFATE 75 MG TAB PO SCH (08:31)
[2024-10-21] MEDS: PANTOPRAZOLE 40 MG TAB PO SCH (08:31)
[2024-10-21] MEDS: VALSARTAN 80 MG TAB PO SCH (08:34)
[2024-10-21] MEDS: PATIENTS OWN MEDICATION (Metoprolol Succinate (Metoprolol Succinate Er) 12.5 MG) PO SCH (08:44)
[2024-10-21] MEDS ORDERED: NIFE1TAB30 PO (10:54)
[2024-10-21] MEDS ORDERED: BACL10TA PO (11:00)
--- NOTE | 2024-10-21 11:53 | DVHPNRES ---
Progress Note Date Seen: Oct 21, 2024 Resident Creating Document: NELLIE CAMPOS Has the PT tested + for MRSA If YES, has PT been informed?: No Medical Necessity Reason Pt with a Central, PICC or Fol: No Subjective Review of Systems Patient is 54 years old female with past medical history of hypertension, hyperlipidemia, CAD-[place], status post PTCA x1-HILARIO in July 2024, degenerative disc disease, GERD came with a complaint of productive cough and chest pain. As per patient she has been having productive cough for last 7 days, yellowish in color. Patient also reported chest pain retrosternal, burning, radiating to the left arm, constant, decreased with pain medication. On further inquiry patient also reported exertional shortness of breaths, generalized weakness and palpitation. Patient reported low-grade fever at home around 99 F. patient denied any diarrhea, dysuria, acute joint redness or swelling, abdominal pain, dysarthria or change in vision. Patient visited [facility] on 10/13/2024 with the same complaint, was advised to be admitted but patient left AMA. Initial lab workup revealed troponin I within normal limit, BNP 20.68, COVID and flu negative, urinalysis negative for UTI. Patient reported headache with blur vision since 2 years ago and it's comes and goes. Patient reports: No new complaints Objective vital signs Vital Sign Date Time Temp Pulse Resp B/P (MAP) Pulse Ox O2 Delivery O2 Flow Rate FiO2 10/21/24 08:57 98.2 58 15 140/79 (99) 99 98.2 10/21/24 08:00 Room Air* 0 21 Total Intake and Output 10/20/24 10/20/24 10/21/24 15:00 23:00 07:00 Intake Total 50 ml 250 ml Balance 50 ml 250 ml medications Current Medications Medications Dose Ordered Sig/Remy Route Start Time Stop Time Status Last Admin Dose Admin Acetaminophen/ Hydrocodone Bitart 1 tab Q4HP PRN PO 10/20/24 22:30 10/21/24 01:24 1 TAB Nitroglycerin 0.4 mg Q5MINP PRN SL 10/20/24 22:30 Morphine Sulfate 2 mg Q30M PRN IV 10/20/24 22:30 Aspirin 81 mg DAILY PO 10/21/24 10:00 10/21/24 08:30 81 MG Clopidogrel Bisulfate 75 mg DAILY PO 10/21/24 10:00 10/21/24 08:31 75 MG Pantoprazole Sodium 40 mg DAILY PO 10/21/24 10:00 10/21/24 08:31 40 MG Valsartan 80 mg DAILY PO 10/21/24 10:00 10/21/24 08:34 80 MG Atorvastatin Calcium 40 mg DAILY PO 10/21/24 10:00 10/21/24 08:30 40 MG Patient Own Medication 12.5 mg DAILY PO 10/21/24 10:00 Levofloxacin 750 mg DAILY@0530 PO 10/22/24 05:30 Examination Exam General examination- awake, alert, oriented HEENT- PEERLA, no acute nasal discharge Cardiovascular- S1-S2 audible, rate and rhythm regular, no murmur Respiratory- CTAB, no wheeze or rhonchi Gastrointestinal-nontender, bowel sound+. Nondistended Musculoskeletal-no acute joint swelling or tenderness or redness Lower extremity- no leg edema Neurological- cranial nerves intact, no acute dysarthria or dysphagia Psychiatry- denies depression or SI or HI Skin- no acute rash or purpura laboratory and microbiology Laboratory Tests 10/21/24 06:10 10/20/24 14:31 Test 10/20/24 14:31 Range/Units Serum Glucose 84 74-106 mg/dL Problem List/Assessment/Plan Problem List/Assessment/Plan # Acute chest pain likely due to costochondritis/musculoskeletal, rule out acute coronary syndrome -chest wall tenderness positive++ -troponin I and BNP within normal limit -continue Tylenol PRN # Acute bronchitis # Possible Gram positive/negative bacterial pneumonia -patient complained of productive yellowish sputum for last 1 week -low-grade fever at home 99.9 F -pending sputum culture -continue Levaquin 750 mg p.o. daily # Primary hypertension -continue valsartan 80 mg p.o. daily -monitor BP # CAD, S/P PTCA -recent echo on 07/18/2024 revealed LVEF 60%, mild LVH -continue aspirin 80 mg p.o. daily -continue atorvastatin 40 mg p.o. daily -Metoprolol 12.5 mg p.o. qd -continue clopidogrel 75 mg p.o. daily -continue valsartan 80 mg p.o. daily # Hyperlipidemia -continue atorvastatin 40 mg p.o. daily PCP-Layla Collins Territory Service Representative-Dr. Branham Goals of care, Code status full code ; discussed with >15 minutes PUD prophylaxis: Pantoprazole DVT prophylaxis: Lovenox Plan discussed with Dr. Barr, nursing staff, Total time spent on patient evaluation, chart review, assessment and plan, discussion discussion >35 minutes Plan discussed with: Patient, Other Plan discussed with: Patient, Other Sepsis reassessment post fluid Respiratory Effort: Non-Labored Respiratory Pattern: Regular Date of Service: Oct 21, 2024 Billing Provider: SCOUT BARR MD Common Visit Codes: [id number] INP/OBS CARE(HIGH) NELLIE CAMPOS RESIDENT Oct 21, 2024 11:53 SCOUT BARR MD Oct 21, 2024 22:05
[2024-10-21] MEDS: METOPROLOL SUCCINATE 25 MG PO SCH (13:42)
[2024-10-21 18:35] LABS: Amphetamine Screen, Urine Neg (NEGATIVE); Barbiturate Scree,Urine Neg (NEGATIVE); Benzodiazephine Screen, Urine Neg (NEGATIVE); Cannabinoid Screen, Urine Pos (NEGATIVE); Cocaine Screen, Urine Neg (NEGATIVE); Opiate Scree,Urine Neg (NEGATIVE); Phencyclidine Screen, Urine Neg (NEGATIVE)
[2024-10-21] MEDS ORDERED: AZITHROMYCIN 250 MG TAB PO SCH (21:00)
[2024-10-21] MEDS ORDERED: cefTRIAXone 1GM/50ML D5W 50 ML IV SCH (21:00)
[2024-10-22 01:00] VITALS: BP 138/73; PULSE 54; RESP 19; TEMP 97.6; O2SAT 100
[2024-10-22 05:00] VITALS: BP 151/85; PULSE 50; RESP 22; TEMP 98; O2SAT 100
[2024-10-22] MEDS: levoFLOXacin 250 MG TAB PO SCH (05:50)
[2024-10-22 05:59] LABS: Hematocrit 42.9 % (36.0-46.0); Hemoglobin 14.2 g/dL (12.2-16.2); Mean Corpuscular Hemoglobin 29.9 pg (28.0-32.0); Mean Corpuscular Volume 90.4 fL (80.0-100.0); Nucleated Red Blood Cells % 0.1 %
[2024-10-22] MEDS: BISMUTH SUBSALICYLATE 262MG/15ml ORAL Susp PO ONE (06:13)
[2024-10-22 06:18] LABS: Anion Gap 4 (5-15); Carbon Dioxide 27 mmol/L (20-31); Potassium 4.3 mmol/L (3.5-5.1); Sodium 141 mmol/L (136-145)
[2024-10-22 06:24] LABS: BUN/Creatinine Ratio 11.7 (10.0-20.0); Blood Urea Nitrogen 11 mg/dL (9-23)
[2024-10-22 06:29] LABS: Calcium 10.7 mg/dL (8.7-10.4); Chloride 110 mmol/L (98-107)
[2024-10-22 07:03] LABS: Glucose 102 mg/dL (74-106)
[2024-10-22 08:00] VITALS: PULSE 48; PULSE 52; RESP 17; O2SAT 98
[2024-10-22 09:00] VITALS: BP 178/84; PULSE 52; RESP 17; TEMP 97.7; O2SAT 98
--- NOTE | 2024-10-22 10:43 | DVHPNRES ---
Progress Note Date Seen: Oct 22, 2024 Resident Creating Document: NELLIE CAMPOS Has the PT tested + for MRSA If YES, has PT been informed?: No Medical Necessity Reason Pt with a Central, PICC or Fol: No Subjective Review of Systems Patient is 54 years old female with past medical history of hypertension, hyperlipidemia, CAD-[place], status post PTCA x1-HILARIO in July 2024, degenerative disc disease, GERD came with a complaint of productive cough and chest pain. As per patient she has been having productive cough for last 7 days, yellowish in color. Patient also reported chest pain retrosternal, burning, radiating to the left arm, constant, decreased with pain medication. On further inquiry patient also reported exertional shortness of breaths, generalized weakness and palpitation. Patient reported low-grade fever at home around 99 F. patient denied any diarrhea, dysuria, acute joint redness or swelling, abdominal pain, dysarthria or change in vision. Patient visited [facility] ER on 10/13/2024 with the same complaint, was advised to be admitted but patient left AMA. Initial lab workup revealed troponin I within normal limit, BNP 20.68, COVID and flu negative, urinalysis negative for UTI. Patient reported thunder lighting headache with blur vision since 2 years ago and it's comes and goes. Patient reports left shoulder pain for 2 weeks. Objective vital signs Vital Sign Date Time Temp Pulse Resp B/P (MAP) Pulse Ox O2 Delivery O2 Flow Rate FiO2 10/22/24 09:21 177/89 10/22/24 09:00 97.7 52 17 98 97.7 10/22/24 08:00 Room Air* 0 21 Total Intake and Output 10/21/24 10/21/24 10/22/24 15:00 23:00 07:00 Intake Total 800 ml 250 ml Balance 800 ml 250 ml medications Current Medications Medications Dose Ordered Sig/Remy Route Start Time Stop Time Status Last Admin Dose Admin Acetaminophen/ Hydrocodone Bitart 1 tab Q4HP PRN PO 10/20/24 22:30 10/22/24 08:18 1 TAB Nitroglycerin 0.4 mg Q5MINP PRN SL 10/20/24 22:30 Morphine Sulfate 2 mg Q30M PRN IV 10/20/24 22:30 Aspirin 81 mg DAILY PO 10/21/24 10:00 10/22/24 08:17 81 MG Clopidogrel Bisulfate 75 mg DAILY PO 10/21/24 10:00 10/22/24 08:17 75 MG Pantoprazole Sodium 40 mg DAILY PO 10/21/24 10:00 10/22/24 08:18 40 MG Valsartan 80 mg DAILY PO 10/21/24 10:00 10/22/24 08:16 80 MG Atorvastatin Calcium 40 mg DAILY PO 10/21/24 10:00 10/22/24 08:15 40 MG Levofloxacin 750 mg DAILY@0530 PO 10/22/24 05:30 10/22/24 05:50 750 MG Patient Own Medication 12.5 mg DAILY PO 10/21/24 13:42 Nifedipine 60 mg DAILY PO 10/22/24 10:00 10/22/24 09:21 60 MG laboratory and microbiology Laboratory Tests 10/22/24 05:10 Test 10/22/24 05:10 Range/Units Serum Glucose 102 74-106 mg/dL Microbiology Date/Time Source Procedure Growth Status 10/20/24 14:31 Blood Blood Culture - Preliminary NO GROWTH AFTER 24 HOURS OF INCUBATION. Resulted Problem List/Assessment/Plan Problem List/Assessment/Plan # Acute chest pain likely due to costochondritis/musculoskeletal, rule out acute coronary syndrome -chest wall tenderness positive++ -troponin I and BNP within normal limit -continue Tylenol PRN # Acute bronchitis # Possible Gram positive/negative bacterial pneumonia -patient complained of productive yellowish sputum for last 1 week -low-grade fever at home 99.9 F -pending sputum culture -continue Levaquin 750 mg p.o. daily # Primary hypertension -continue valsartan 80 mg p.o. daily -monitor BP # CAD, S/P PTCA -recent echo on 07/18/2024 revealed LVEF 60%, mild LVH -continue aspirin 80 mg p.o. daily -continue atorvastatin 40 mg p.o. daily -Metoprolol 12.5 mg p.o. qd -continue clopidogrel 75 mg p.o. daily -continue valsartan 80 mg p.o. daily # Hyperlipidemia -continue atorvastatin 40 mg p.o. daily PCP-Layla Collins Grease Machine Worker-Dr. Branham Goals of care, Code status full code ; discussed with >15 minutes PUD prophylaxis: Pantoprazole DVT prophylaxis: Lovenox Plan discussed with Dr. Barr, nursing staff, Total time spent on patient evaluation, chart review, assessment and plan, discussion discussion >35 minutes Plan discussed with: Patient, Other Plan discussed with: Patient Sepsis reassessment post fluid Respiratory Effort: Non-Labored Respiratory Pattern: Regular NELLIE CAMPOS RESIDENT Oct 22, 2024 10:43
[2024-10-22] MEDS ORDERED: KETOROLAC TROMETH 30 MG/ML 1ML VIAL IV PRN (11:00)
[2024-10-22] MEDS ORDERED: LEVO750T40 PO (12:23)
[2024-10-22] MEDS ORDERED: IBUP1TAB4 PO (12:23)
[2024-10-22 12:41] VITALS: BP 137/60; PULSE 49; RESP 16; TEMP 98.1; O2SAT 99
[2024-10-22 13:55] VITALS: BP 137/60; PULSE 49; RESP 16; TEMP 98.1; O2SAT 99
--- NOTE | 2024-10-22 17:31 | DVHDSRES ---
Discharge Summary Date of Admission Resident Creating Document: NELLIE CAMPOS RESIDENT Oct 20, 2024 at 22:17 Date of Discharge: Oct 22, 2024 Admitting Diagnosis Acute chest pain Labs/Diagnostic Data: Laboratory Results Test 10/22/24 05:10 10/21/24 17:45 10/20/24 22:40 10/20/24 16:09 White Blood Count 8.0 10^3/uL (4.4-10.8) Red Blood Count 4.74 10^6/uL (4.0-5.20) Hemoglobin 14.2 g/dL (12.2-16.2) Hematocrit 42.9 % (36.0-46.0) Mean Corpuscular Volume 90.4 fL (80.0-100.0) Mean Corpuscular Hemoglobin 29.9 pg (28.0-32.0) Mean Corpuscular Hemoglobin Concent 33.1 g/dL (32.0-36.0) Red Cell Distribution Width 12.7 % (11.8-14.3) Platelet Count 212 10^3/uL (140-450) Mean Platelet Volume 7.7 fL (6.9-10.8) Neutrophils (%) (Auto) 53.5 % (37.0-80.0) Lymphocytes (%) (Auto) 36.9 % (10.0-50.0) Monocytes (%) (Auto) 8.1 % (0.0-12.0) Eosinophils (%) (Auto) 1.2 % (0.0-7.0) Basophils (%) (Auto) 0.3 % (0.0-2.0) Neutrophils # (Auto) 4.3 10 ^3/uL (1.6-8.6) Lymphocytes # (Auto) 3.0 10 ^3/uL (0.4-5.4) Monocytes # (Auto) 0.6 10 ^3/uL (0-1.3) Eosinophils # (Auto) 0.1 10 ^3/uL (0-0.8) Basophils # (Auto) 0 10 ^3/uL (0-0.2) Nucleated Red Blood Cells 0.1 % Erythrocyte Sedimentation Rate 6 mm/hr (0-20) Sodium Level 141 mmol/L (136-145) Potassium Level 4.3 mmol/L (3.5-5.1) Chloride Level 110 mmol/L (98-107) Carbon Dioxide Level 27 mmol/L (20-31) Anion Gap 4 (5-15) Blood Urea Nitrogen 11 mg/dL (9-23) Creatinine 0.94 mg/dL (0.550-1.02) Glomerular Filtration Rate Calc 72 mL/min (>90) BUN/Creatinine Ratio 11.7 (10.0-20.0) Serum Glucose 102 mg/dL (74-106) Calcium Level 10.7 mg/dL (8.7-10.4) C-Reactive Protein High Sensitivity 0.07 mg/dL (<1.0) Urine Opiates Screen Neg (NEGATIVE) Urine Fentanyl Screen Neg (NEGATIVE) Urine Barbiturates Screen Neg (NEGATIVE) Urine Phencyclidine Screen Neg (NEGATIVE) Urine Amphetamines Screen Neg (NEGATIVE) Urine Benzodiazepines Screen Neg (NEGATIVE) Urine Cocaine Screen Neg (NEGATIVE) Urine Cannabinoids Screen Pos (NEGATIVE) Influenza Type A Antigen Negative (Negative) Influenza Type B Antigen Negative (Negative) SARS-CoV-2 Antigen (Rapid) Negative (NEGATIVE) Urine Color Colorless (Yellow) Urine Clarity Clear (Clear) Urine pH 6.0 (5.0-9.0) Urine Specific Cedar 1.006 (1.001-1.035) Urine Protein Negative (Negative) Urine Ketones Negative (Negative) Urine Blood Negative /uL (Negative) Urine Nitrite Negative (Negative) Urine Bilirubin Negative (Negative) Urine Urobilinogen Normal mg/dL (Negative) Urine Leukocyte Esterase Negative /uL (Negative) Urine RBC <1 /hpf (0 - 4) Urine Microscopic WBC < 1 /HPF (0-5) Urine Squamous Epithelial Cells Few /hpf (<5) Urine Bacteria Few /hpf (None Seen) Urine Glucose Normal mg/dL (Normal) Test 10/20/24 15:10 10/20/24 14:31 Magnesium Level 2.1 mg/dL (1.6-2.6) Total Bilirubin 0.4 mg/dL (0.2-1.0) Direct Bilirubin 0.1 mg/dL (<0.3) Aspartate Amino Transferase (AST) 21 U/L (13-40) Alanine Aminotransferase (ALT) 18 U/L (7-40) Alkaline Phosphatase 74 U/L (46-116) Troponin I High Sensitivity 4 ng/L (</=34) Total Protein 7.2 g/dL (5.7-8.2) Albumin 4.9 g/dL (3.2-4.8) Lactic Acid Level 2.0 mmol/L (0.4-2.0) B-Type Natriuretic Peptide 20.64 pg/mL (0-100) Other Laboratory Tests 10/22/24 05:10 Brief Hx & Hospital Course: Patient is 54 years old female with past medical history of hypertension, hyperlipidemia, CAD-[place], status post PTCA x1-HILARIO in July 2024, degenerative disc disease, GERD came with a complaint of productive cough and chest pain. As per patient she has been having productive cough for last 7 days, yellowish in color. Patient also reported chest pain retrosternal, burning, radiating to the left arm, constant, decreased with pain medication. On further inquiry patient also reported exertional shortness of breaths, generalized weakness and palpitation. Patient reported low-grade fever at home around 99 F. patient denied any diarrhea, dysuria, acute joint redness or swelling, abdominal pain, dysarthria or change in vision. Patient visited [facility] ER on 10/13/2024 with the same complaint, was advised to be admitted but patient left AMA. Initial lab workup revealed troponin I within normal limit, BNP 20.68, COVID and flu negative, urinalysis negative for UTI. Patient reported thunder lighting headache with blur vision since 2 years ago and it's comes and goes. Patient reports left shoulder pain for 2 weeks. Condition at Discharge: Stable Final Diagnosis/Problems List # Acute chest pain likely due to costochondritis/musculoskeletal, rule out acute coronary syndrome # Acute bronchitis # Possible Gram positive/negative bacterial pneumonia # Primary hypertension # CAD, S/P PTCA # Hyperlipidemia Discharge Disposition: Home SNF Discharge Will this Physician continue t: No Discharge Instruct/Medications Diet: Cardiac 2g Na,low cholest Activity: No Restrictions, As Tolerated Follow Up/Referral: Follow up with DC clinic in 1 week Follow up with Cardiology in 2 weeks. Medications: As per EMR Scheduled Aspirin (Aspirin Low Dose), 81 MG PO DAILY Atorvastatin Calcium (Atorvastatin Calcium), 1 TAB PO DAILY Clopidogrel Bisulfate (Clopidogrel), 75 MG PO DAILY Famotidine (Pepcid Tablet), 1 TAB PO BID Ibuprofen Micronized (Ibuprofen), 400 MG PO TID Levofloxacin Hemihydrate (Levofloxacin), 1 TAB PO DAILY Nifedipine (Nifedipine Er), 1 TAB PO DAILY, (Reported) Polyethylene Glycol 3350 (Goodsense Clearlax), 17 GM PO DAILY Valsartan (Valsartan), 80 MG PO DAILY Scheduled PRN Hydrocodone-Acetaminophen (Hydrocodone Bitartrate/AC 5-325 mg), 1 TAB PO Q4HP PRN Discontinued Medications Baclofen (Baclofen), 20 MG PO Q12HP PRN for PAIN SCALE 1 THRU 6, (Reported) Chlorhexidine Gluconate (Mouth (Chlorhexidine Oral Rinse), 15 ML MT Q12HR Metoprolol Succinate (Metoprolol Succinate Er), 12.5 MG PO DAILY Nitroglycerin (Ntrostat Sublingual), 0.4 MG SL Q5MINP PRN Pantoprazole Sodium Sesquihydr (Protonix), 40 MG PO DAILY Discharge Statement: "Patient was advised to return to the ER or call 911 if any headaches, dizziness, shortness of breath, chest pain, abdominal pain, bleeding, fevers, or worsening of medical condition. Patient was counseled about treatment plan, medications, possible side effects, patientverbalized understanding. All questions were answered to the best of my ability. This discharge took greater then 30 minutes in planning, reviewing documentation, counseling the patient, and discussing with other team members." ASSESSMENT ASSESSMENT Assessment Chest pain ruled out [facility] NELLIE CAMPOS RESIDENT Oct 22, 2024 17:31
== END 2024-10-22 16:10 | disposition home or self-care (01) | DRG 137 ==
LOC: ER 13:43 → OVERFLOW 22:17 → WEST WING 10-21 01:01 → TELE-WESTW 10-21 20:48
PROVIDERS: ADMIT Student in an Organized Health Care Education/Training Program; ATTEND Student in an Organized Health Care Education/Training Program
DX: J15.69 Pneumonia due to other Gram-negative bacteria (principal); I24.9 Acute ischemic heart disease, unspecified; M94.0 Chondrocostal junction syndrome [Tietze]; J20.9 Acute bronchitis, unspecified; J15.9 Unspecified bacterial pneumonia; I25.10 Atherosclerotic heart disease of native coronary artery without angina pectoris; I16.1 Hypertensive emergency; Z20.822 Contact with and (suspected) exposure to COVID-19; E78.5 Hyperlipidemia, unspecified; K21.9 Gastro-esophageal reflux disease without esophagitis; F17.210 Nicotine dependence, cigarettes, uncomplicated; I10 Essential (primary) hypertension; Z79.02 Long term (current) use of antithrombotics/antiplatelets; Z79.899 Other long term (current) drug therapy; Z82.49 Family history of ischemic heart disease and other diseases of the circulatory system; Z83.3 Family history of diabetes mellitus; Z98.61 Coronary angioplasty status
CPT/HCPCS: 36415; 71045; 80048; 80076; 80307; 81001; 83605; 83735; 83880; 84484; 85025; 85652; 86141; 87040; 87426; 87804; 93005; 94640; 96365; G0378